=== PATIENT | male | born 1975 | race American Indian/Alaskan Native ===

== ENCOUNTER 2017-05-25 12:11 | Inpatient (IN) | payer OTHER ==
[2017-05-25] MEDS ORDERED: NACL 0.9% 1000 ML 1,000 ML IV ONE ×4 (12:52→18:39)
--- NOTE | 2017-05-25 12:57 | Emergency Department Report ---
ED Altered Mental Status HPI - General Stated Complaint: AMS Time Seen by Provider: 05/25/17 12:51 Source: EMS Limitations: Altered Mental Status - History of Present Illness Initial Comments: Patient is 42 years old male, transported from [facility] for evaluation of altered mental status and bradycardia. Only history available is schizophrenia. No other information can be obtained at this moment since patient is not communicating. MD Complaint: altered mental status, decreased responsiveness -: This morning Severity: moderate - Related Data Allergies Allergy/AdvReac Type Severity Reaction Status Date / Time risperidone [From Risperdal] Allergy Unknown Verified 05/25/17 13:34 ED Review of Systems ROS: Stated complaint: AMS Other details as noted in HPI Comment: Unobtainable due to pts medical conditions ED Physical Exam - General Limitations: Altered Mental Status General appearance: obtunded, other (patient open eyes but does not follow command) - Head Head exam: Present: atraumatic, normocephalic, normal inspection - Eye Eye exam: Present: normal appearance, PERRL - ENT ENT exam: Present: mucous membranes dry - Neck Neck exam: Present: normal inspection, full ROM. Absent: tenderness, meningismus, lymphadenopathy, thyromegaly - Respiratory Respiratory exam: Present: normal lung sounds bilaterally. Absent: respiratory distress, wheezes, rales, rhonchi, chest wall tenderness, accessory muscle use, decreased breath sounds, prolonged expiratory - Cardiovascular Cardiovascular Exam: Present: regular rate, normal rhythm, normal heart sounds - GI/Abdominal GI/Abdominal exam: Present: soft, normal bowel sounds. Absent: distended, tenderness, guarding, rebound, rigid, organomegaly, mass, bruit, pulsatile mass , hernia - Back Exam Back exam: Present: normal inspection, full ROM. Absent: tenderness, CVA tenderness (R), CVA tenderness (L) - Neurological Exam Neurological exam: Present: altered - Skin Skin exam: Present: dry, intact ED Course Vital Signs 05/25/17 05/25/17 13:21 15:12 Temperature 81.8 F L Pulse Rate 43 L Respiratory 18 Rate Blood Pressure 100/70 O2 Sat by Pulse 100 Oximetry - Lab Data Result diagrams: 05/25/17 13:32 05/25/17 13:32 Lab Results 05/25/17 05/25/17 05/25/17 Range/Units 12:57 13:32 13:32 WBC 6.4 (4.5-11.0) K/mm3 RBC 5.76 H (3.65-5.03) M/mm3 Hgb 14.4 (11.8-15.2) gm/dl Hct 44.4 (35.5-45.6) % MCV 77 L (84-94) fl MCH 25 L (28-32) pg MCHC 32 (32-34) % RDW 15.9 H (13.2-15.2) % Plt Count 48 L (140-440) K/mm3 [place] % (Auto) Manager English Eos % (Auto) Manager English [place] # Manager English Eos # Manager English Baso # Manager English Add Manual Diff Complete Total Counted 100 Seg Neutrophils % Manager English Seg Neuts % (Manual) 76.0 H (40.0-70.0) % Band Neutrophils % 22.0 % Lymphocytes % (Manual) 2.0 L (13.4-35.0) % Reactive Lymphs % (Man) 0 % Monocytes % (Manual) 0 (0.0-7.3) % Eosinophils % (Manual) 0 (0.0-4.3) % Basophils % (Manual) 0 (0.0-1.8) % Metamyelocytes % 0 % Myelocytes % 0 % Promyelocytes % 0 % Blast Cells % 0 % Nucleated RBC % Not Reportable Seg Neutrophils # Manager English Seg Neutrophils # Man 4.9 (1.8-7.7) K/mm3 Band Neutrophils # 1.4 K/mm3 Lymphocytes # (Manual) 0.1 L (1.2-5.4) K/mm3 Abs React Lymphs (Man) 0.0 K/mm3 Monocytes # (Manual) 0.0 (0.0-0.8) K/mm3 Eosinophils # (Manual) 0.0 (0.0-0.4) K/mm3 Basophils # (Manual) 0.0 (0.0-0.1) K/mm3 Metamyelocytes # 0.0 K/mm3 Myelocytes # 0.0 K/mm3 Promyelocytes # 0.0 K/mm3 Blast Cells # 0.0 K/mm3 WBC Morphology Not Reportable Hypersegmented Neuts Not Reportable Hyposegmented Neuts Not Reportable Hypogranular Neuts Not Reportable Smudge Cells Not Reportable Toxic Granulation Not Reportable Toxic Vacuolation Not Reportable Dohle Bodies Not Reportable Pelger-Huet Anomaly Not Reportable Evon Rods Not Reportable Platelet Estimate Not Reportable Clumped Platelets Not Reportable Plt Clumps, EDTA Not Reportable Large Platelets Not Reportable Giant Platelets Not Reportable Platelet Satelliting Not Reportable Plt Morphology Comment Not Reportable RBC Morphology Not Reportable Dimorphic RBCs Not Reportable Polychromasia Not Reportable Hypochromasia 1+ Poikilocytosis Not Reportable Anisocytosis 1+ Microcytosis Not Reportable Macrocytosis Not Reportable Spherocytes Not Reportable Pappenheimer Bodies Not Reportable Sickle Cells Not Reportable Target Cells Few Tear Drop Cells Not Reportable Ovalocytes Not Reportable Helmet Cells Not Reportable Castaneda-Emison Bodies Not Reportable [place] Rings Not Reportable [place] Cells Not Reportable Bite Cells Not Reportable Crenated Cell Not Reportable Elliptocytes Not Reportable Acanthocytes (Spur) Not Reportable Rouleaux Not Reportable Hemoglobin C Crystals Not Reportable Schistocytes Not Reportable Malaria parasites Not Reportable Michael Bodies Not Reportable Hem Pathologist Commnt No PT 14.5 (12.2-14.9) Sec. INR 1.07 (0.87-1.13) APTT 35.4 (24.2-36.6) Sec. Sodium (137-145) mmol/L Potassium (3.6-5.0) mmol/L Chloride (98-107) mmol/L Carbon Dioxide (22-30) mmol/L Anion Gap mmol/L BUN (9-20) mg/dL Creatinine (0.8-1.5) mg/dL Estimated GFR ml/min BUN/Creatinine Ratio % Glucose (75-100) mg/dL POC Glucose 101 (70-105) Lactic Acid (0.7-2.0) mmol/L Calcium (8.4-10.2) mg/dL Total Bilirubin (0.1-1.2) mg/dL AST (5-40) units/L ALT (7-56) units/L Alkaline Phosphatase (35-129) units/L Ammonia (25-60) umol/L Total Creatine Kinase (55-170) units/L Troponin T (0.00-0.029) ng/mL Total Protein (6.3-8.2) g/dL Albumin (3.9-5) g/dL Albumin/Globulin Ratio % Urine Color (Yellow) Urine Turbidity (Clear) Urine pH (5.0-7.0) Ur Specific [place] (1.003-1.030) Urine Protein (Negative) mg/dL Urine Glucose (UA) (Negative) mg/dL Urine Ketones (Negative) mg/dL Urine Blood (Negative) Urine Nitrite (Negative) Urine Bilirubin (Negative) Urine Urobilinogen (<2.0) mg/dL Ur Leukocyte Esterase (Negative) Urine WBC (Auto) (0.0-6.0) /HPF Urine RBC (Auto) (0.0-6.0) /HPF Hyaline Casts /LPF Urine Mucus /HPF Salicylates (2.8-20.0) mg/dL Urine Opiates Screen Urine Methadone Screen Acetaminophen (10.0-30.0) ug/mL Ur Barbiturates Screen Ur Phencyclidine Scrn Ur Amphetamines Screen U Benzodiazepines Scrn Urine Cocaine Screen U Marijuana (THC) Screen Drugs of Abuse Note Plasma/Serum Alcohol (0-0.07) % 05/25/17 05/25/17 05/25/17 Range/Units 13:32 13:32 13:32 WBC (4.5-11.0) K/mm3 RBC (3.65-5.03) M/mm3 Hgb (11.8-15.2) gm/dl Hct (35.5-45.6) % MCV (84-94) fl MCH (28-32) pg MCHC (32-34) % RDW (13.2-15.2) % Plt Count (140-440) K/mm3 [place] % (Auto) Eos % (Auto) [place] # Eos # Baso # Add Manual Diff Total Counted Seg Neutrophils % Seg Neuts % (Manual) (40.0-70.0) % Band Neutrophils % % Lymphocytes % (Manual) (13.4-35.0) % Reactive Lymphs % (Man) % Monocytes % (Manual) (0.0-7.3) % Eosinophils % (Manual) (0.0-4.3) % Basophils % (Manual) (0.0-1.8) % Metamyelocytes % % Myelocytes % % Promyelocytes % % Blast Cells % % Nucleated RBC % Seg Neutrophils # Seg Neutrophils # Man (1.8-7.7) K/mm3 Band Neutrophils # K/mm3 Lymphocytes # (Manual) (1.2-5.4) K/mm3 Abs React Lymphs (Man) K/mm3 Monocytes # (Manual) (0.0-0.8) K/mm3 Eosinophils # (Manual) (0.0-0.4) K/mm3 Basophils # (Manual) (0.0-0.1) K/mm3 Metamyelocytes # K/mm3 Myelocytes # K/mm3 Promyelocytes # K/mm3 Blast Cells # K/mm3 WBC Morphology Hypersegmented Neuts Hyposegmented Neuts Hypogranular Neuts Smudge Cells Toxic Granulation Toxic Vacuolation Dohle Bodies Pelger-Huet Anomaly Evon Rods Platelet Estimate Clumped Platelets Plt Clumps, EDTA Large Platelets Giant Platelets Platelet Satelliting Plt Morphology Comment RBC Morphology Dimorphic RBCs Polychromasia Hypochromasia Poikilocytosis Anisocytosis Microcytosis Macrocytosis Spherocytes Pappenheimer Bodies Sickle Cells Target Cells Tear Drop Cells Ovalocytes Helmet Cells Castaneda-Emison Bodies [place] Rings Gerda Cells Bite Cells Crenated Cell Elliptocytes Acanthocytes (Spur) Rouleaux Hemoglobin C Crystals Schistocytes Malaria parasites Michael Bodies Hem Pathologist Commnt PT (12.2-14.9) Sec. INR (0.87-1.13) APTT (24.2-36.6) Sec. Sodium 147 H (137-145) mmol/L Potassium 4.8 (3.6-5.0) mmol/L Chloride 109.4 H (98-107) mmol/L Carbon Dioxide 28 (22-30) mmol/L Anion Gap 14 mmol/L BUN 14 (9-20) mg/dL Creatinine 0.3 L (0.8-1.5) mg/dL Estimated GFR > 60 ml/min BUN/Creatinine Ratio 47 % Glucose 102 H (75-100) mg/dL POC Glucose (70-105) Lactic Acid 2.00 (0.7-2.0) mmol/L Calcium 9.8 (8.4-10.2) mg/dL Total Bilirubin 0.30 (0.1-1.2) mg/dL AST 111 H (5-40) units/L ALT 168 H (7-56) units/L Alkaline Phosphatase 83 (35-129) units/L Ammonia 33.0 (25-60) umol/L Total Creatine Kinase (55-170) units/L Troponin T < 0.010 (0.00-0.029) ng/mL Total Protein 5.8 L (6.3-8.2) g/dL Albumin 2.9 L (3.9-5) g/dL Albumin/Globulin Ratio 1.0 % Urine Color (Yellow) Urine Turbidity (Clear) Urine pH (5.0-7.0) Ur Specific [place] (1.003-1.030) Urine Protein (Negative) mg/dL Urine Glucose (UA) (Negative) mg/dL Urine Ketones (Negative) mg/dL Urine Blood (Negative) Urine Nitrite (Negative) Urine Bilirubin (Negative) Urine Urobilinogen (<2.0) mg/dL Ur Leukocyte Esterase (Negative) Urine WBC (Auto) (0.0-6.0) /HPF Urine RBC (Auto) (0.0-6.0) /HPF Hyaline Casts /LPF Urine Mucus /HPF Salicylates (2.8-20.0) mg/dL Urine Opiates Screen Urine Methadone Screen Acetaminophen (10.0-30.0) ug/mL Ur Barbiturates Screen Ur Phencyclidine Scrn Ur Amphetamines Screen U Benzodiazepines Scrn Urine Cocaine Screen U Marijuana (THC) Screen Drugs of Abuse Note Plasma/Serum Alcohol (0-0.07) % 05/25/17 05/25/17 05/25/17 Range/Units 13:32 13:32 13:32 WBC (4.5-11.0) K/mm3 RBC (3.65-5.03) M/mm3 Hgb (11.8-15.2) gm/dl Hct (35.5-45.6) % MCV (84-94) fl MCH (28-32) pg MCHC (32-34) % RDW (13.2-15.2) % Plt Count (140-440) K/mm3 [place] % (Auto) Eos % (Auto) [place] # Eos # Baso # Add Manual Diff Total Counted Seg Neutrophils % Seg Neuts % (Manual) (40.0-70.0) % Band Neutrophils % % Lymphocytes % (Manual) (13.4-35.0) % Reactive Lymphs % (Man) % Monocytes % (Manual) (0.0-7.3) % Eosinophils % (Manual) (0.0-4.3) % Basophils % (Manual) (0.0-1.8) % Metamyelocytes % % Myelocytes % % Promyelocytes % % Blast Cells % % Nucleated RBC % Seg Neutrophils # Seg Neutrophils # Man (1.8-7.7) K/mm3 Band Neutrophils # K/mm3 Lymphocytes # (Manual) (1.2-5.4) K/mm3 Abs React Lymphs (Man) K/mm3 Monocytes # (Manual) (0.0-0.8) K/mm3 Eosinophils # (Manual) (0.0-0.4) K/mm3 Basophils # (Manual) (0.0-0.1) K/mm3 Metamyelocytes # K/mm3 Myelocytes # K/mm3 Promyelocytes # K/mm3 Blast Cells # K/mm3 WBC Morphology Hypersegmented Neuts Hyposegmented Neuts Hypogranular Neuts Smudge Cells Toxic Granulation Toxic Vacuolation Dohle Bodies Pelger-Huet Anomaly Evon Rods Platelet Estimate Clumped Platelets Plt Clumps, EDTA Large Platelets Giant Platelets Platelet Satelliting Plt Morphology Comment RBC Morphology Dimorphic RBCs Polychromasia Hypochromasia Poikilocytosis Anisocytosis Microcytosis Macrocytosis Spherocytes Pappenheimer Bodies Sickle Cells Target Cells Tear Drop Cells Ovalocytes Helmet Cells Castaneda-Emison Bodies [place] Rings [place] Cells Bite Cells Crenated Cell Elliptocytes Acanthocytes (Spur) Rouleaux Hemoglobin C Crystals Schistocytes Malaria parasites Michael Bodies Hem Pathologist Commnt PT (12.2-14.9) Sec. INR (0.87-1.13) APTT (24.2-36.6) Sec. Sodium (137-145) mmol/L Potassium (3.6-5.0) mmol/L Chloride (98-107) mmol/L Carbon Dioxide (22-30) mmol/L Anion Gap mmol/L BUN (9-20) mg/dL Creatinine (0.8-1.5) mg/dL Estimated GFR ml/min BUN/Creatinine Ratio % Glucose (75-100) mg/dL POC Glucose (70-105) Lactic Acid (0.7-2.0) mmol/L Calcium (8.4-10.2) mg/dL Total Bilirubin (0.1-1.2) mg/dL AST (5-40) units/L ALT (7-56) units/L Alkaline Phosphatase (35-129) units/L Ammonia (25-60) umol/L Total Creatine Kinase (55-170) units/L Troponin T (0.00-0.029) ng/mL Total Protein (6.3-8.2) g/dL Albumin (3.9-5) g/dL Albumin/Globulin Ratio % Urine Color (Yellow) Urine Turbidity (Clear) Urine pH (5.0-7.0) Ur Specific [place] (1.003-1.030) Urine Protein (Negative) mg/dL Urine Glucose (UA) (Negative) mg/dL Urine Ketones (Negative) mg/dL Urine Blood (Negative) Urine Nitrite (Negative) Urine Bilirubin (Negative) Urine Urobilinogen (<2.0) mg/dL Ur Leukocyte Esterase (Negative) Urine WBC (Auto) (0.0-6.0) /HPF Urine RBC (Auto) (0.0-6.0) /HPF Hyaline Casts /LPF Urine Mucus /HPF Salicylates < 0.3 L (2.8-20.0) mg/dL Urine Opiates Screen Urine Methadone Screen Acetaminophen 15.0 (10.0-30.0) ug/mL Ur Barbiturates Screen Ur Phencyclidine Scrn Ur Amphetamines Screen U Benzodiazepines Scrn Urine Cocaine Screen U Marijuana (THC) Screen Drugs of Abuse Note Plasma/Serum Alcohol < 0.01 (0-0.07) % 05/25/17 05/25/17 05/25/17 Range/Units 13:32 14:11 14:11 WBC (4.5-11.0) K/mm3 RBC (3.65-5.03) M/mm3 Hgb (11.8-15.2) gm/dl Hct (35.5-45.6) % MCV (84-94) fl MCH (28-32) pg MCHC (32-34) % RDW (13.2-15.2) % Plt Count (140-440) K/mm3 [place] % (Auto) Eos % (Auto) [place] # Eos # Baso # Add Manual Diff Total Counted Seg Neutrophils % Seg Neuts % (Manual) (40.0-70.0) % Band Neutrophils % % Lymphocytes % (Manual) (13.4-35.0) % Reactive Lymphs % (Man) % Monocytes % (Manual) (0.0-7.3) % Eosinophils % (Manual) (0.0-4.3) % Basophils % (Manual) (0.0-1.8) % Metamyelocytes % % Myelocytes % % Promyelocytes % % Blast Cells % % Nucleated RBC % Seg Neutrophils # Seg Neutrophils # Man (1.8-7.7) K/mm3 Band Neutrophils # K/mm3 Lymphocytes # (Manual) (1.2-5.4) K/mm3 Abs React Lymphs (Man) K/mm3 Monocytes # (Manual) (0.0-0.8) K/mm3 Eosinophils # (Manual) (0.0-0.4) K/mm3 Basophils # (Manual) (0.0-0.1) K/mm3 Metamyelocytes # K/mm3 Myelocytes # K/mm3 Promyelocytes # K/mm3 Blast Cells # K/mm3 WBC Morphology Hypersegmented Neuts Hyposegmented Neuts Hypogranular Neuts Smudge Cells Toxic Granulation Toxic Vacuolation Dohle Bodies Pelger-Huet Anomaly Evon Rods Platelet Estimate Clumped Platelets Plt Clumps, EDTA Large Platelets Giant Platelets Platelet Satelliting Plt Morphology Comment RBC Morphology Dimorphic RBCs Polychromasia Hypochromasia Poikilocytosis Anisocytosis Microcytosis Macrocytosis Spherocytes Pappenheimer Bodies Sickle Cells Target Cells Tear Drop Cells Ovalocytes Helmet Cells Castaneda-Emison Bodies [place] Rings Gerda Cells Bite Cells Crenated Cell Elliptocytes Acanthocytes (Spur) Rouleaux Hemoglobin C Crystals Schistocytes Malaria parasites Michael Bodies Hem Pathologist Commnt PT (12.2-14.9) Sec. INR (0.87-1.13) APTT (24.2-36.6) Sec. Sodium (137-145) mmol/L Potassium (3.6-5.0) mmol/L Chloride (98-107) mmol/L Carbon Dioxide (22-30) mmol/L Anion Gap mmol/L BUN (9-20) mg/dL Creatinine (0.8-1.5) mg/dL Estimated GFR ml/min BUN/Creatinine Ratio % Glucose (75-100) mg/dL POC Glucose (70-105) Lactic Acid (0.7-2.0) mmol/L Calcium (8.4-10.2) mg/dL Total Bilirubin (0.1-1.2) mg/dL AST (5-40) units/L ALT (7-56) units/L Alkaline Phosphatase (35-129) units/L Ammonia (25-60) umol/L Total Creatine Kinase 360 H (55-170) units/L Troponin T (0.00-0.029) ng/mL Total Protein (6.3-8.2) g/dL Albumin (3.9-5) g/dL Albumin/Globulin Ratio % Urine Color Yellow (Yellow) Urine Turbidity Clear (Clear) Urine pH 5.0 (5.0-7.0) Ur Specific [place] 1.025 (1.003-1.030) Urine Protein <15 mg/dl (Negative) mg/dL Urine Glucose (UA) 50 (Negative) mg/dL Urine Ketones Neg (Negative) mg/dL Urine Blood Neg (Negative) Urine Nitrite Neg (Negative) Urine Bilirubin Neg (Negative) Urine Urobilinogen < 2.0 (<2.0) mg/dL Ur Leukocyte Esterase Neg (Negative) Urine WBC (Auto) 3.0 (0.0-6.0) /HPF Urine RBC (Auto) 2.0 (0.0-6.0) /HPF Hyaline Casts 1 /LPF Urine Mucus Few /HPF Salicylates (2.8-20.0) mg/dL Urine Opiates Screen Presumptive negative Urine Methadone Screen Presumptive negative Acetaminophen (10.0-30.0) ug/mL Ur Barbiturates Screen Presumptive negative Ur Phencyclidine Scrn Presumptive negative Ur Amphetamines Screen Presumptive negative U Benzodiazepines Scrn Presumptive negative Urine Cocaine Screen Presumptive negative U Marijuana (THC) Screen Presumptive negative Drugs of Abuse Note Disclamer Plasma/Serum Alcohol (0-0.07) % - EKG Data -: EKG Interpreted by Me Rate: bradycardia Interpretation: no acute changes - Radiology Data Radiology results: report reviewed Referring Physician: FAISAL JAY Patient Name: ANJEL LEON Date of : 1975 Sex: Male Report Date: 2017-05-25 Report Status: Finalized Findings [facility] [address] [place] [address] XRay Report Signed Patient: ANJEL LEON MR#: [id number] : 1975 Acct:[id number] Age/Sex: 42 / M ADM Date: 05/25/17 Loc: ED Attending Dr: Ordering Physician: FAISAL JAY Date of Service: 05/25/17 Procedure(s): XR chest 1V ap Accession Number(s): [id number] cc: FAISAL JAY Fluoro Time In Minutes: AP CHEST: HISTORY: Altered mental status No comparison. Patchy infiltrates are identified in both lower lung zones, right greater than left. Bilateral pneumonia or aspiration should be considered. No evidence for pleural effusion or pneumothorax. Heart size is within normal limits. Normal bony structures. IMPRESSION: Bilateral lower lobe infiltrates, right greater than left. Transcribed By: TTR Dictated By: ITZ LUJAN JR, MD Electronically Authenticated By: ITZ LUJAN JR, MD Signed Date/Time: 05/25/171355 DD/ 55 TD/TT: 05/25/171355 - Medical Decision Making Discussed with Dr. Loepz, I presented the patient in, he agreed to admit to his service.. Critical Care Time: Yes Critical care time in (mins) excluding proc time.: 30 Critical care attestation.: If time is entered above; I have spent that time in minutes in the direct care of this critically ill patient, excluding procedure time. ED Disposition Clinical Impression: Altered mental status, Pneumonia of both lower lobes Disposition: -09 OP ADMIT IP TO THIS HOSP Is pt being admited?: Yes Condition: Stable Instructions: Bacterial Pneumonia (ED) Referrals: PRIMARY CARE, [Primary Care Provider] - 3-5 Days
[2017-05-25 13:59] LABS: Alanine Aminotransferase 168 units/L (7-56); Albumin 2.9 g/dL (3.9-5); BUN/Creatinine Ratio 47; Blood Urea Nitrogen 14 mg/dL (9-20); Calcium 9.8 mg/dL (8.4-10.2); Hemolysis Index 87
--- NOTE | 2017-05-25 14:03 | XRay Report ---
AP CHEST: HISTORY: Altered mental status No comparison. Patchy infiltrates are identified in both lower lung zones, right greater than left. Bilateral pneumonia or aspiration should be considered. No evidence for pleural effusion or pneumothorax. Heart size is within normal limits. Normal bony structures. IMPRESSION: Bilateral lower lobe infiltrates, right greater than left.
[2017-05-25 14:05] LABS: Hematocrit 44.4 % (35.5-45.6); Hemoglobin 14.4 gm/dl (11.8-15.2); Mean Corpuscular HGB Conc 32 % (32-34); Mean Corpuscular Hemoglobin 25 pg (28-32); Mean Corpuscular Volume 77 fl (84-94); Red Blood Count 5.76 M/mm3 (3.65-5.03); Red Cell Distribution Width 15.9 % (13.2-15.2)
[2017-05-25 14:14] LABS: INR 1.07 (0.87-1.13)
[2017-05-25 14:15] LABS: Partial Thromboplastin Time 35.4 Sec. (24.2-36.6)
[2017-05-25 14:44] LABS: Anisocytosis 1+; Band Neutrophils # (Manual) 1.4 K/mm3; Basophils % (Manual) 0 % (0.0-1.8); Eosinophils % (Manual) 0 % (0.0-4.3); Hypochromasia 1+; Monocytes % (Manual) 0 % (0.0-7.3); Target Cells Few; Total Cells Counted 100
[2017-05-25 14:45] LABS: Platelet Count 48 K/mm3 (140-440)
[2017-05-25 14:46] LABS: Amphetamine Screen,Urine PRESUMPTIVE NEGATIVE; Benzodiazepines Screen,Urine PRESUMPTIVE NEGATIVE; Cannabinoid Screen,Urine PRESUMPTIVE NEGATIVE; Cocaine Screen,Urine PRESUMPTIVE NEGATIVE; Methadone Screen,Urine PRESUMPTIVE NEGATIVE; Opiate Screen,Urine PRESUMPTIVE NEGATIVE
[2017-05-25 14:48] LABS: Bilirubin,Urine NEG (Negative); Blood,Urine NEG (Negative); Color,Urine Yellow (Yellow); Hyaline Casts,Urine 1 /LPF; Mucus,Urine FEW /HPF; Protein,Urine <15 mg/dL mg/dL (Negative); Urobilinogen,Urine < 2.0 mg/dL (<2.0)
[2017-05-25] MEDS ORDERED: LEVAQUIN 750MG/150ML 750 MG/150 ML BAG IV ONE (15:07)
[2017-05-25] MEDS ORDERED: NACL 0.9% 1000 ML 1,000 ML ONE (15:53)
[2017-05-25] MEDS ORDERED: NACL 0.9% 1000 ML 2,000 ML ONE (16:47)
--- NOTE | 2017-05-25 17:51 | Cat Scan Report ---
FINAL REPORT PROCEDURE: CT HEAD/BRAIN WO CON TECHNIQUE: Computerized tomography of the head was performed without contrast material. DLP 1919.30 mGy-cm. HISTORY: Altered Mental Status COMPARISON: No prior studies are available for comparison. FINDINGS: Skull and scalp: Normal. Paranasal sinuses: Mild scattered ethmoid sinusitis. Ventricles and subarachnoid spaces: Normal. Cerebrum: No evidence of hemorrhage, acute infarction or mass . Cerebellum and brainstem: No evidence of hemorrhage, acute infarction or mass. Vasculature: Normal. Comments: None. IMPRESSION: No CT evidence of acute intracranial pathology. Consider MRI of the brain for further characterization if there is continued clinical concern and if patient has no contraindication MRI. Mild sinusitis.
[2017-05-25] MEDS ORDERED: NACL 0.9% 1000 ML 1,000 ML IV SCH (22:00)
--- NOTE | 2017-05-25 23:52 | History and Physical Report ---
History of Present Illness Date of examination: 05/25/17 Date of admission: 05/25/17 Chief complaint: CC AMS for 1 day History of present illness: History of Present Illness Patient is 42 years old AA male, from jail for evaluation of altered mental status and bradycardia. Also Hypothermic Only history available is schizophrenia. No other information can be obtained at this moment since patient is not communicating.No fever or chills per [facility] staff MD Complaint: altered mental status, decreased responsiveness -: This morning Severity: moderate Past History Past Medical History: No medical history, other (Schizophrenia) Past Surgical History: No surgical history Social history: no significant social history, smoking, full code, other (In Jail system at this point) Family history: no significant family history Medications and Allergies Allergies Allergy/AdvReac Type Severity Reaction Status Date / Time risperidone [From Risperdal] Allergy Unknown Verified 05/25/17 13:34 Home Medications Medication Instructions Recorded Confirmed Last Taken Type Benztropine [Cogentin] 1 mg PO DAILY 05/25/17 05/25/17 05/24/17 History Olanzapine [Zyprexa] 15 mg PO DAILY 05/25/17 05/25/17 05/24/17 History Active Meds: Active Medications Sodium Chloride (Nacl 0.9% 1000 Ml) 1,000 mls @ 100 mls/hr IV DIRECT RICCARDO Review of Systems All systems: negative Constitutional: fatigue, weakness, malaise, lethargy, poor appetite, no weight loss, no weight gain, no fever, no chills, no sweats, no night sweats Ears, nose, mouth and throat: no dysphagia, no hoarseness, no sore throat Cardiovascular: no chest pain, no orthopnea, no palpitations, no rapid/ irregular heart beat, no edema, no syncope, no lightheadedness, no shortness of breath Respiratory: cough with sputum Gastrointestinal: no abdominal pain, no nausea, no vomiting, no diarrhea Genitourinary Male: no dysuria, no hematuria, no flank pain, no discharge Musculoskeletal: no neck stiffness, no neck pain, no shooting arm pain, no arm numbness/tingling Integumentary: no rash, no pruritis, no redness, no sores, no wounds, no jaundice, no boils, no blisters Neurological: no seizures, no syncope Psychiatric: anxiety, disorientation, no suicidal ideation, no hallucinations Endocrine: no cold intolerance, no heat intolerance, no polyphagia, no excessive thirst, no polydipsia Hematologic/Lymphatic: no easy bruising, no easy bleeding Allergic/Immunologic: no urticaria, no allergic rhinitis, no wheezing Exam - Physical Exam Narrative exam: Lethargic decreased responsiveness - Constitutional Vitals: Temp Pulse Resp BP Pulse Ox 80 F L 100 H 38 H 76/42 91 05/25/17 17:04 05/25/17 21:00 05/25/17 21:00 05/25/17 21:00 05/25/17 21:00 General appearance: Present: no acute distress, well-nourished, disheveled - EENT Eyes: Present: PERRL ENT: hearing intact, clear oral mucosa - Neck Neck: Present: supple, normal ROM - Respiratory Respiratory effort: normal Respiratory: bilateral: CTA, rales - Cardiovascular Heart rate: 86 Rhythm: regular Heart Sounds: Present: S1 & S2. Absent: rub, click - Extremities Extremities: no ischemia, pulses intact, pulses symmetrical, No edema Peripheral Pulses: within normal limits - Abdominal General gastrointestinal: Present: soft, non-tender, non-distended, normal bowel sounds Male genitourinary: Present: normal - Rectal Rectal Exam: stool brown - Integumentary Integumentary: Present: clear, warm, dry - Musculoskeletal Musculoskeletal: generalized weakness - Psychiatric Psychiatric: appropriate mood/affect, intact judgment & insight - Neurologic Neurologic: CNII-XII intact, moves all extremities - Allied Health Allied health notes reviewed: nursing, case management Results - Labs CBC & Chem 7: 05/26/17 00:47 05/26/17 00:47 Labs: Laboratory Last Values WBC 6.4 K/mm3 (4.5-11.0) 05/25/17 13:32 RBC 5.76 M/mm3 (3.65-5.03) H 05/25/17 13:32 Hgb 14.4 gm/dl (11.8-15.2) 05/25/17 13:32 Hct 44.4 % (35.5-45.6) 05/25/17 13:32 MCV 77 fl (84-94) L 05/25/17 13:32 MCH 25 pg (28-32) L 05/25/17 13:32 MCHC 32 % (32-34) 05/25/17 13:32 RDW 15.9 % (13.2-15.2) H 05/25/17 13:32 Plt Count 48 K/mm3 (140-440) L 05/25/17 13:32 [place] % (Auto) Manager Budget 05/25/17 13:32 Eos % (Auto) Manager Budget 05/25/17 13:32 [place] # Manager Budget 05/25/17 13:32 Eos # Manager Budget 05/25/17 13:32 Baso # Manager Budget 05/25/17 13:32 Add Manual Diff Complete 05/25/17 13:32 Total Counted 100 05/25/17 13:32 Seg Neutrophils % Manager Budget 05/25/17 13:32 Seg Neuts % (Manual) 76.0 % (40.0-70.0) H 05/25/17 13:32 Band Neutrophils % 22.0 % 05/25/17 13:32 Lymphocytes % (Manual) 2.0 % (13.4-35.0) L 05/25/17 13:32 Reactive Lymphs % (Man) 0 % 05/25/17 13:32 Monocytes % (Manual) 0 % (0.0-7.3) 05/25/17 13:32 Eosinophils % (Manual) 0 % (0.0-4.3) 05/25/17 13:32 Basophils % (Manual) 0 % (0.0-1.8) 05/25/17 13:32 Metamyelocytes % 0 % 05/25/17 13:32 Myelocytes % 0 % 05/25/17 13:32 Promyelocytes % 0 % 05/25/17 13:32 Blast Cells % 0 % 05/25/17 13:32 Nucleated RBC % Not Reportable 05/25/17 13:32 Seg Neutrophils # Manager Budget 05/25/17 13:32 Seg Neutrophils # Man 4.9 K/mm3 (1.8-7.7) 05/25/17 13:32 Band Neutrophils # 1.4 K/mm3 05/25/17 13:32 Lymphocytes # (Manual) 0.1 K/mm3 (1.2-5.4) L 05/25/17 13:32 Abs React Lymphs (Man) 0.0 K/mm3 05/25/17 13:32 Monocytes # (Manual) 0.0 K/mm3 (0.0-0.8) 05/25/17 13:32 Eosinophils # (Manual) 0.0 K/mm3 (0.0-0.4) 05/25/17 13:32 Basophils # (Manual) 0.0 K/mm3 (0.0-0.1) 05/25/17 13:32 Metamyelocytes # 0.0 K/mm3 05/25/17 13:32 Myelocytes # 0.0 K/mm3 05/25/17 13:32 Promyelocytes # 0.0 K/mm3 05/25/17 13:32 Blast Cells # 0.0 K/mm3 05/25/17 13:32 WBC Morphology Not Reportable 05/25/17 13:32 Hypersegmented Neuts Not Reportable 05/25/17 13:32 Hyposegmented Neuts Not Reportable 05/25/17 13:32 Hypogranular Neuts Not Reportable 05/25/17 13:32 Smudge Cells Not Reportable 05/25/17 13:32 Toxic Granulation Not Reportable 05/25/17 13:32 Toxic Vacuolation Not Reportable 05/25/17 13:32 Dohle Bodies Not Reportable 05/25/17 13:32 Pelger-Huet Anomaly Not Reportable 05/25/17 13:32 Evon Rods Not Reportable 05/25/17 13:32 Platelet Estimate Not Reportable 05/25/17 13:32 Clumped Platelets Not Reportable 05/25/17 13:32 Plt Clumps, EDTA Not Reportable 05/25/17 13:32 Large Platelets Not Reportable 05/25/17 13:32 Giant Platelets Not Reportable 05/25/17 13:32 Platelet Satelliting Not Reportable 05/25/17 13:32 Plt Morphology Comment Not Reportable 05/25/17 13:32 RBC Morphology Not Reportable 05/25/17 13:32 Dimorphic RBCs Not Reportable 05/25/17 13:32 Polychromasia Not Reportable 05/25/17 13:32 Hypochromasia 1+ 05/25/17 13:32 Poikilocytosis Not Reportable 05/25/17 13:32 Anisocytosis 1+ 05/25/17 13:32 Microcytosis Not Reportable 05/25/17 13:32 Macrocytosis Not Reportable 05/25/17 13:32 Spherocytes Not Reportable 05/25/17 13:32 Pappenheimer Bodies Not Reportable 05/25/17 13:32 Sickle Cells Not Reportable 05/25/17 13:32 Target Cells Few 05/25/17 13:32 Tear Drop Cells Not Reportable 05/25/17 13:32 Ovalocytes Not Reportable 05/25/17 13:32 Helmet Cells Not Reportable 05/25/17 13:32 Castaneda-Gaastra Bodies Not Reportable 05/25/17 13:32 [place] Rings Not Reportable 05/25/17 13:32 Gerda Cells Not Reportable 05/25/17 13:32 Bite Cells Not Reportable 05/25/17 13:32 Crenated Cell Not Reportable 05/25/17 13:32 Elliptocytes Not Reportable 05/25/17 13:32 Acanthocytes (Spur) Not Reportable 05/25/17 13:32 Rouleaux Not Reportable 05/25/17 13:32 Hemoglobin C Crystals Not Reportable 05/25/17 13:32 Schistocytes Not Reportable 05/25/17 13:32 Malaria parasites Not Reportable 05/25/17 13:32 Michael Bodies Not Reportable 05/25/17 13:32 Hem Pathologist Commnt No 05/25/17 13:32 PT 14.5 Sec. (12.2-14.9) 05/25/17 13:32 INR 1.07 (0.87-1.13) 05/25/17 13:32 APTT 35.4 Sec. (24.2-36.6) 05/25/17 13:32 Sodium 147 mmol/L (137-145) H 05/25/17 13:32 Potassium 4.8 mmol/L (3.6-5.0) 05/25/17 13:32 Chloride 109.4 mmol/L (98-107) H 05/25/17 13:32 Carbon Dioxide 28 mmol/L (22-30) 05/25/17 13:32 Anion Gap 14 mmol/L 05/25/17 13:32 BUN 14 mg/dL (9-20) 05/25/17 13:32 Creatinine 0.3 mg/dL (0.8-1.5) L 05/25/17 13:32 Estimated GFR > 60 ml/min 05/25/17 13:32 BUN/Creatinine Ratio 47 % 05/25/17 13:32 Glucose 102 mg/dL (75-100) H 05/25/17 13:32 POC Glucose 101 (70-105) 05/25/17 12:57 Lactic Acid 1.90 mmol/L (0.7-2.0) 05/25/17 17:56 Calcium 9.8 mg/dL (8.4-10.2) 05/25/17 13:32 Total Bilirubin 0.30 mg/dL (0.1-1.2) 05/25/17 13:32 AST 111 units/L (5-40) H 05/25/17 13:32 ALT 168 units/L (7-56) H 05/25/17 13:32 Alkaline Phosphatase 83 units/L (35-129) 05/25/17 13:32 Ammonia 33.0 umol/L (25-60) 05/25/17 13:32 Total Creatine Kinase 360 units/L (55-170) H 05/25/17 13:32 Troponin T < 0.010 ng/mL (0.00-0.029) 05/25/17 13:32 Total Protein 5.8 g/dL (6.3-8.2) L 05/25/17 13:32 Albumin 2.9 g/dL (3.9-5) L 05/25/17 13:32 Albumin/Globulin Ratio 1.0 % 05/25/17 13:32 Urine Color Yellow (Yellow) 05/25/17 14:11 Urine Turbidity Clear (Clear) 05/25/17 14:11 Urine pH 5.0 (5.0-7.0) 05/25/17 14:11 Ur Specific [place] 1.025 (1.003-1.030) 05/25/17 14:11 Urine Protein <15 mg/dl mg/dL (Negative) 05/25/17 14:11 Urine Glucose (UA) 50 mg/dL (Negative) 05/25/17 14:11 Urine Ketones Neg mg/dL (Negative) 05/25/17 14:11 Urine Blood Neg (Negative) 05/25/17 14:11 Urine Nitrite Neg (Negative) 05/25/17 14:11 Urine Bilirubin Neg (Negative) 05/25/17 14:11 Urine Urobilinogen < 2.0 mg/dL (<2.0) 05/25/17 14:11 Ur Leukocyte Esterase Neg (Negative) 05/25/17 14:11 Urine WBC (Auto) 3.0 /HPF (0.0-6.0) 05/25/17 14:11 Urine RBC (Auto) 2.0 /HPF (0.0-6.0) 05/25/17 14:11 Hyaline Casts 1 /LPF 05/25/17 14:11 Urine Mucus Few /HPF 05/25/17 14:11 Salicylates < 0.3 mg/dL (2.8-20.0) L 05/25/17 13:32 Urine Opiates Screen Presumptive negative 05/25/17 14:11 Urine Methadone Screen Presumptive negative 05/25/17 14:11 Acetaminophen < 15.0 ug/mL (10.0-30.0) 05/25/17 13:32 Ur Barbiturates Screen Presumptive negative 05/25/17 14:11 Ur Phencyclidine Scrn Presumptive negative 05/25/17 14:11 Ur Amphetamines Screen Presumptive negative 05/25/17 14:11 U Benzodiazepines Scrn Presumptive negative 05/25/17 14:11 Urine Cocaine Screen Presumptive negative 05/25/17 14:11 U Marijuana (THC) Screen Presumptive negative 05/25/17 14:11 Drugs of Abuse Note Disclamer 05/25/17 14:11 Plasma/Serum Alcohol < 0.01 % (0-0.07) 05/25/17 13:32 Short CBC 05/25/17 05/26/17 Range/Units 13:32 00:47 WBC 6.4 2.1 L (4.5-11.0) K/mm3 Hgb 14.4 13.1 (11.8-15.2) gm/dl Hct 44.4 39.2 (35.5-45.6) % Plt Count 48 L 51 L (140-440) K/mm3 BMP 05/25/17 05/26/17 13:32 00:47 Sodium 147 H 148 H Potassium 4.8 4.5 Chloride 109.4 H 112.6 H Carbon Dioxide 28 25 BUN 14 19 Creatinine 0.3 L 0.8 D Glucose 102 H 33 L* Calcium 9.8 8.7 Cardiac Enzymes 05/25/17 05/25/17 Range/Units 13:32 13:32 Total Creatine Kinase 360 H (55-170) units/L Troponin T < 0.010 (0.00-0.029) ng/mL Liver Function 05/25/17 05/26/17 Range/Units 13:32 00:47 Total Bilirubin 0.30 0.30 (0.1-1.2) mg/dL AST 111 H 85 H (5-40) units/L ALT 168 H 127 H (7-56) units/L Alkaline Phosphatase 83 55 (35-129) units/L Albumin 2.9 L 2.4 L (3.9-5) g/dL Urine 05/25/17 Range/Units 14:11 Urine Color Yellow (Yellow) Urine pH 5.0 (5.0-7.0) Ur Specific [place] 1.025 (1.003-1.030) Urine Protein <15 mg/dl (Negative) mg/dL Urine Glucose (UA) 50 (Negative) mg/dL - Imaging and Cardiology EKG: report reviewed Chest x-ray: report reviewed (Bilateral lower lobe infiltrates) CT Scan - head: report reviewed (NAF) Assessment and Plan Assessment and plan: The high probability of a clinically significant, sudden or life threatening deterioration of the [Pulmonary, cadiac, renal] system(s) required my full and direct attention, intervention and personal management. The aggregate critical care time was [35] minutes. This time is in addition to time spent performing reported procedures but includes the following: [x] Data Review and interpretation [x] Patient assessment and monitoring of vital signs [x] Documentation [x] Medication orders and management Advance Directives: Yes (Full code) VTE prophylaxis?: Chemical Plan of care discussed with patient/family: Yes - Patient Problems (1) Acute encephalopathy Current Visit: Yes Status: Acute Plan to address problem: Sec to Sepsis sec to PNA treat infection agressively IV fluids for now (2) Pneumonia of both lower lobes Current Visit: Yes Status: Acute Qualifiers: Pneumonia type: aspiration pneumonia Aspiration pneumonia type: due to gastric secretions Qualified Code(s): J69.0 - Pneumonitis due to inhalation of food and vomit Plan to address problem: Aspiration possible IV Zosyn and Vancomysin ID consult requested (3) Hypotension Current Visit: Yes Status: Acute Qualifiers: Hypotension type: unspecified hypotension type Qualified Code(s): I95.9 - Hypotension, unspecified Plan to address problem: Sec to sepsis Initiated on Levophed after 4 fluid boluses of NS-BP still in 70 systolic (4) Hypothermia Current Visit: Yes Status: Acute Qualifiers: Encounter type: initial encounter Qualified Code(s): T68.XXXA - Hypothermia , initial encounter Plan to address problem: Sec to sepsis Warm blanket to increase temp and IV Abx (5) Schizophrenia Current Visit: Yes Status: Chronic Plan to address problem: MH consult (6) DVT prophylaxis Current Visit: Yes Status: Acute Plan to address problem: On Lovenox (7) Hypernatremia Current Visit: Yes Status: Acute Plan to address problem: Mild Change to Half normal saline
[2017-05-26] MEDS ORDERED: ZOFRAN IV PRN (00:15)
[2017-05-26] MEDS ORDERED: DULCOLAX PR PRN (00:15)
[2017-05-26] MEDS ORDERED: MILK OF MAGNESIA PO PRN (00:15)
[2017-05-26] MEDS ORDERED: TYLENOL PO PRN (00:15)
[2017-05-26] MEDS ORDERED: VANCOMYCIN/NS 1 GM/250 ML 1 GM/250 ML BAG IV ONE (00:20)
[2017-05-26] MEDS ORDERED: MORPHINE IV PRN (00:34)
[2017-05-26] MEDS: LEVOPHED DRIP 4 MG/NS 250 ML 4 MG/250 ML BAG IV SCH ×4 (00:45→21:35)
[2017-05-26] MEDS ORDERED: VANCOMYCIN PHARMACY TO DOSE IV SCH ×2 (01:00→16:00)
[2017-05-26] MEDS ORDERED: D5NS 1,000 ML IV SCH (01:00)
[2017-05-26] MEDS ORDERED: VANCOMYCIN 1,250 MG in NACL 0.9% 250ML 250 ML IV ONE (01:00)
[2017-05-26] MEDS: ZOSYN/NS 4.5GM/100ML 4.5 GM/100 ML VIAL IV SCH ×3 (01:25→18:51)
[2017-05-26 01:29] LABS: Alanine Aminotransferase 127 units/L (7-56); Albumin 2.4 g/dL (3.9-5); BUN/Creatinine Ratio 24; Blood Urea Nitrogen 19 mg/dL (9-20); Calcium 8.7 mg/dL (8.4-10.2); Hemolysis Index 10
[2017-05-26 01:41] LABS: Hematocrit 39.2 % (35.5-45.6); Hemoglobin 13.1 gm/dl (11.8-15.2); Mean Corpuscular HGB Conc 34 % (32-34); Mean Corpuscular Volume 75 fl (84-94); Red Blood Count 5.23 M/mm3 (3.65-5.03); Red Cell Distribution Width 15.6 % (13.2-15.2)
[2017-05-26 01:48] LABS: Mean Corpuscular Hemoglobin 25 pg (28-32)
[2017-05-26 01:49] LABS: Platelet Count 51 K/mm3 (140-440)
[2017-05-26 05:52] LABS: Anisocytosis 1+; Band Neutrophils # (Manual) 1.4 K/mm3; Basophils % (Manual) 0 % (0.0-1.8); Eosinophils % (Manual) 0 % (0.0-4.3); Hypochromasia 1+; Monocytes % (Manual) 0 % (0.0-7.3); Total Cells Counted 100
[2017-05-26 05:53] LABS: Large Platelets Rare; Platelet Estimate Consistent w Auto
[2017-05-26] MEDS ORDERED: D50W (25GM) Syringe IV ONE ×6 (06:05→20:23)
[2017-05-26] MEDS: D5/0.45NS 1,000 ML IV SCH ×2 (06:12→15:18)
--- NOTE | 2017-05-26 11:00 | Consultation ---
History of Present Illness - Reason for Consult Consult date: 05/26/17 Sepsis with shock Requesting physician: CHANEL PIEDRA - History of Present Illness 42 y/o male prisoner, found altered in his cell. Brought in to ED, hypotensive , hypothermic, hypoglycemic, thrombocytopenic and altered. Answers to name call but cannot speak coherently. Currently on levophed through a peripheral line. Started on Vanc and Zosyn. No other history is obtainable. Past History Past Medical History: No medical history, other (Schizophrenia) Past Surgical History: No surgical history Social history: no significant social history, smoking, full code, other (In [facility] system at this point) Family history: no significant family history Medications and Allergies Allergies Allergy/AdvReac Type Severity Reaction Status Date / Time risperidone [From Risperdal] Allergy Unknown Verified 05/25/17 13:34 Home Medications Medication Instructions Recorded Confirmed Last Taken Type Benztropine [Cogentin] 1 mg PO DAILY 05/25/17 05/25/17 05/24/17 History Olanzapine [Zyprexa] 15 mg PO DAILY 05/25/17 05/25/17 05/24/17 History Active Meds: Active Medications Acetaminophen (Tylenol) 650 mg PO Q4H PRN PRN Reason: Pain MILD(1-3)/Fever >100.5/FOFANA Bisacodyl (Dulcolax) 10 mg NE QDAY PRN PRN Reason: Constipation unrelieved by MOM Enoxaparin Sodium (Lovenox) 40 mg SUB-Q QDAY@2200 RICCARDO Sodium Chloride (Nacl 0.9% 1000 Ml) 1,000 mls @ 100 mls/hr IV DIRECT RICCARDO Last Admin: 05/25/17 21:30 Dose: 100 mls/hr Piperacillin Sod/Tazobactam Sod (Zosyn/Ns 4.5gm/100ml) 4.5 gm in 100 mls @ 200 mls/hr IV Q8H RICCARDO PRN Reason: Protocol Last Admin: 05/26/17 01:25 Dose: 200 mls/hr Norepinephrine (Levophed Drip 4 Mg/Ns 250 Ml) 4 mg in 250 mls @ 7.5 mls/hr IV TITR RICCARDO; 2 MCG/MIN PRN Reason: Protocol Last Titration: 05/26/17 08:37 Dose: 6 mcg/min, 22.5 mls/hr Vancomycin HCl (Vancomycin/0.45 Ns 1 Gm/250 Ml) 1 gm in 250 mls @ 166.667 mls/ hr IV Q8HR RICCARDO Dextrose/Sodium Chloride (D5/0.45ns) 1,000 mls @ 125 mls/hr IV DIRECT RICCARDO Last Admin: 05/26/17 06:12 Dose: 125 mls/hr Dextrose (D10w) 1,000 mls @ 50 mls/hr IV DIRECT RICCARDO Magnesium Hydroxide (Milk Of Magnesia) 30 ml PO Q4H PRN PRN Reason: Constipation Morphine Sulfate (Morphine) 2 mg IV Q4H PRN PRN Reason: Pain, Moderate (4-6) Ondansetron HCl (Zofran) 4 mg IV Q8H PRN PRN Reason: N/V unrelieved by Chidi Vancomycin HCl (Vancomycin Pharmacy To Dose) 1 each IV PKCONSULT RICCARDO PRN Reason: Protocol Review of Systems ROS unobtainable: due to mental status Exam - Constitutional Vitals: Temp Pulse Resp BP Pulse Ox 97.8 F 103 H 22 99/64 94 05/26/17 10:00 05/26/17 09:33 05/26/17 09:33 05/26/17 09:33 05/26/17 09:33 General appearance: Present: mild distress, disheveled, other (appears toxic) - EENT Eyes: Present: PERRL, EOM intact ENT: hearing intact, poor dentition, thrush - Neck Neck: Present: supple, normal ROM - Respiratory Respiratory effort: labored Respiratory: bilateral: diminished, rhonchi (bibasilar) - Cardiovascular Rhythm: regular (sinus tach) - Abdominal General gastrointestinal: Present: soft, non-tender Results - Labs CBC & Chem 7: 05/26/17 00:47 05/26/17 00:47 Labs: Abnormal lab results 05/25/17 05/25/17 05/25/17 Range/Units 13:32 13:32 13:32 WBC (4.5-11.0) K/mm3 RBC 5.76 H (3.65-5.03) M/mm3 MCV 77 L (84-94) fl MCH 25 L (28-32) pg RDW 15.9 H (13.2-15.2) % Plt Count 48 L (140-440) K/mm3 Seg Neuts % (Manual) 76.0 H (40.0-70.0) % Lymphocytes % (Manual) 2.0 L (13.4-35.0) % Seg Neutrophils # Man (1.8-7.7) K/mm3 Lymphocytes # (Manual) 0.1 L (1.2-5.4) K/mm3 Sodium 147 H (137-145) mmol/L Chloride 109.4 H (98-107) mmol/L Creatinine 0.3 L (0.8-1.5) mg/dL Glucose 102 H (75-100) mg/dL POC Glucose (70-105) Lactic Acid (0.7-2.0) mmol/L AST 111 H (5-40) units/L ALT 168 H (7-56) units/L Total Creatine Kinase (55-170) units/L Total Protein 5.8 L (6.3-8.2) g/dL Albumin 2.9 L (3.9-5) g/dL Salicylates < 0.3 L (2.8-20.0) mg/dL 05/25/17 05/25/17 05/25/17 Range/Units 13:32 15:16 16:34 WBC (4.5-11.0) K/mm3 RBC (3.65-5.03) M/mm3 MCV (84-94) fl MCH (28-32) pg RDW (13.2-15.2) % Plt Count (140-440) K/mm3 Seg Neuts % (Manual) (40.0-70.0) % Lymphocytes % (Manual) (13.4-35.0) % Seg Neutrophils # Man (1.8-7.7) K/mm3 Lymphocytes # (Manual) (1.2-5.4) K/mm3 Sodium (137-145) mmol/L Chloride (98-107) mmol/L Creatinine (0.8-1.5) mg/dL Glucose (75-100) mg/dL POC Glucose (70-105) Lactic Acid 2.20 H* 2.10 H* (0.7-2.0) mmol/L AST (5-40) units/L ALT (7-56) units/L Total Creatine Kinase 360 H (55-170) units/L Total Protein (6.3-8.2) g/dL Albumin (3.9-5) g/dL Salicylates (2.8-20.0) mg/dL 05/26/17 05/26/17 05/26/17 Range/Units 00:47 00:47 06:07 WBC 2.1 L (4.5-11.0) K/mm3 RBC 5.23 H (3.65-5.03) M/mm3 MCV 75 L (84-94) fl MCH 25 L (28-32) pg RDW 15.6 H (13.2-15.2) % Plt Count 51 L (140-440) K/mm3 Seg Neuts % (Manual) 24.0 L (40.0-70.0) % Lymphocytes % (Manual) 8.0 L (13.4-35.0) % Seg Neutrophils # Man 0.5 L (1.8-7.7) K/mm3 Lymphocytes # (Manual) 0.2 L (1.2-5.4) K/mm3 Sodium 148 H (137-145) mmol/L Chloride 112.6 H (98-107) mmol/L Creatinine (0.8-1.5) mg/dL Glucose 33 L* (75-100) mg/dL POC Glucose 44 L (70-105) Lactic Acid (0.7-2.0) mmol/L AST 85 H (5-40) units/L ALT 127 H (7-56) units/L Total Creatine Kinase (55-170) units/L Total Protein 4.6 L D (6.3-8.2) g/dL Albumin 2.4 L (3.9-5) g/dL Salicylates (2.8-20.0) mg/dL 05/26/17 05/26/17 05/26/17 Range/Units 06:33 09:45 10:01 WBC (4.5-11.0) K/mm3 RBC (3.65-5.03) M/mm3 MCV (84-94) fl MCH (28-32) pg RDW (13.2-15.2) % Plt Count (140-440) K/mm3 Seg Neuts % (Manual) (40.0-70.0) % Lymphocytes % (Manual) (13.4-35.0) % Seg Neutrophils # Man (1.8-7.7) K/mm3 Lymphocytes # (Manual) (1.2-5.4) K/mm3 Sodium (137-145) mmol/L Chloride (98-107) mmol/L Creatinine (0.8-1.5) mg/dL Glucose (75-100) mg/dL POC Glucose 130 H 52 L 182 H (70-105) Lactic Acid (0.7-2.0) mmol/L AST (5-40) units/L ALT (7-56) units/L Total Creatine Kinase (55-170) units/L Total Protein (6.3-8.2) g/dL Albumin (3.9-5) g/dL Salicylates (2.8-20.0) mg/dL - Imaging and Cardiology Chest x-ray: image reviewed (bilateral/basilar lower lobe infiltrates, right greater than left) Assessment and Plan 42 y/o male with sepsis with shock, hypoglycemia, hypothermia, thrombocytopenia 1. Agree with broad spec abx. Given current living conditions and other risk factors, would be worried about pneumococcal pneumonia. Zosyn has adequate coverage so will continue. 2. Hypoglycemia-etiology unknow. WIll continue D5W and check fingersticks s1ohraz. Will check LFT's 3. Continue NEPTALI hugger for hypothermia. 4. Thrombocytopenia, could be from sepsis. Need to send peripheral smear. Patient is pancytopenic Will check HIV status 5. Hold on DVT prophylaxis given low platelets 6. GI prophylaxis 7. Will check ABG after picc line placed Overall prognosis is guarded to poor CCT 31 minutes
--- NOTE | 2017-05-26 12:24 | XRay Report ---
AP CHEST: HISTORY: PICC placement A left arm PICC has been inserted which terminates at the cavoatrial junction. Infiltrates at the right lung base are stable. Significant increase in the infiltrates at the left lung base is demonstrated since yesterday's exam. No large pleural effusion or pneumothorax. Heart size is within normal limits. IMPRESSION: Adequate left arm PICC placement. Increased infiltrate at the left lung base.
[2017-05-26] MEDS ORDERED: SUBLIMAZE ONE (13:49)
[2017-05-26] MEDS ORDERED: VERSED IV ONE (13:49)
[2017-05-26] MEDS ORDERED: AMIDATE IV ONE ×2 (14:45→20:51)
[2017-05-26] MEDS ORDERED: SUBLIMAZE IV ONE ×3 (14:45)
[2017-05-26] MEDS ORDERED: VERSED IV NR (15:00)
[2017-05-26] MEDS: VANCOMYCIN/0.45 NS 1 GM/250 ML 1 GM/250 ML BAG IV SCH ×2 (15:09→21:40)
--- NOTE | 2017-05-26 15:21 | XRay Report ---
AP CHEST: HISTORY: Endotracheal tube placement An endotracheal tube has been inserted which terminates 5.3 cm superior to the indio. Bilateral pulmonary infiltrates appear relatively stable since earlier today at 1153 hrs. Left arm PICC remains in good position. Heart size is normal. IMPRESSION: Adequate placement of endotracheal tube.
--- NOTE | 2017-05-26 15:21 | XRay Report ---
SUPINE KUB: History: Feeding tube placement. The feeding tube is coiled in the fundus of the stomach. The gastric cavity appears mildly distended with gas. The small bowel loops and colon are normal caliber. There is moderate to large stool in the distal colon IMPRESSION: Feeding tube terminates in the fundus of the stomach. Constipation.
[2017-05-26] MEDS ORDERED: cefTRIAXone 2 GM in NACL 0.9% 20 ML IV SCH (15:30)
--- NOTE | 2017-05-26 15:39 | Consultation ---
History of Present Illness - Reason for Consult Consult date: 05/26/17 sepsis Requesting physician: PANFILO FINNEY - History of Present Illness 43 years old male currently a prisoner, admitted on 05/25/2017 due to altered mental status. Patient was found on his cell unresponsive. Patient is currently intubated and unable to give a history. In the emergency room, initial temperature was 81.8, heart rate 44, respirations 11, blood pressure 103/80. Initial white count 6.4. Hemoglobin 14. Platelets 48. Bands 22. Lactic acid 2.2. Urinalysis negative. UDS negative. Initial chest x-ray showed bilateral infiltrates. CT head unremarkable. Microbiology: Blood cultures: 05/25 ngtd Urine cultures: Respiratory cultures: Current Antimicrobials: Zosyn Previous Antimicrobials: Past History Past Medical History: No medical history (unable to be obtained), other ( Schizophrenia) Past Surgical History: No surgical history Social history: no significant social history, smoking, full code, other (In Skilled Nursing system at this point) Family history: no significant family history Medications and Allergies Allergies Allergy/AdvReac Type Severity Reaction Status Date / Time risperidone [From Risperdal] Allergy Unknown Verified 05/25/17 13:34 Home Medications Medication Instructions Recorded Confirmed Last Taken Type Benztropine [Cogentin] 1 mg PO DAILY 05/25/17 05/25/17 05/24/17 History Olanzapine [Zyprexa] 15 mg PO DAILY 05/25/17 05/25/17 05/24/17 History Active Meds: Active Medications Acetaminophen (Tylenol) 650 mg PO Q4H PRN PRN Reason: Pain MILD(1-3)/Fever >100.5/FOFANA Bisacodyl (Dulcolax) 10 mg MO QDAY PRN PRN Reason: Constipation unrelieved by MOM Enoxaparin Sodium (Lovenox) 40 mg SUB-Q QDAY@2200 RICCARDO Famotidine (Pepcid) 20 mg IV BID RICCARDO Sodium Chloride (Nacl 0.9% 1000 Ml) 1,000 mls @ 100 mls/hr IV DIRECT RICCARDO Last Admin: 05/25/17 21:30 Dose: 100 mls/hr Piperacillin Sod/Tazobactam Sod (Zosyn/Ns 4.5gm/100ml) 4.5 gm in 100 mls @ 200 mls/hr IV Q8H RICCARDO PRN Reason: Protocol Last Admin: 05/26/17 12:13 Dose: 200 mls/hr Norepinephrine (Levophed Drip 4 Mg/Ns 250 Ml) 4 mg in 250 mls @ 7.5 mls/hr IV TITR RICCARDO; 2 MCG/MIN PRN Reason: Protocol Last Admin: 05/26/17 14:05 Dose: 20 mcg/min, 75 mls/hr Vancomycin HCl (Vancomycin/0.45 Ns 1 Gm/250 Ml) 1 gm in 250 mls @ 166.667 mls/ hr IV Q8HR RICCARDO Last Admin: 05/26/17 15:09 Dose: 166.667 mls/hr Dextrose/Sodium Chloride (D5/0.45ns) 1,000 mls @ 125 mls/hr IV DIRECT RICCARDO Last Admin: 05/26/17 15:18 Dose: 125 mls/hr Dextrose (D10w) 1,000 mls @ 50 mls/hr IV DIRECT RICCARDO Ceftriaxone Sodium 2 gm/ (Sodium Chloride) 20 mls @ 20 mls/10 min IV Q12H RICCARDO Magnesium Hydroxide (Milk Of Magnesia) 30 ml PO Q4H PRN PRN Reason: Constipation Midazolam HCl (Versed) 5 mg IV ONCE NR Stop: 05/26/17 23:59 Morphine Sulfate (Morphine) 2 mg IV Q4H PRN PRN Reason: Pain, Moderate (4-6) Ondansetron HCl (Zofran) 4 mg IV Q8H PRN PRN Reason: N/V unrelieved by Reglan Oseltamivir Phosphate (Tamiflu) 75 mg PO BID [facility] Stop: 05/30/17 22:01 Vancomycin HCl (Vancomycin Pharmacy To Dose) 1 each IV PKCONSULT RICCARDO PRN Reason: Protocol Review of Systems ROS unobtainable: due to endotracheal tube Physical Examination - Physical Exam Narrative exam: General appearance: sedated intubated Eyes: anicteric sclerae, moist conjunctivae; no lid-lag; PERRLA HENT: Atraumatic; oropharynx clear +ETT +NGT Neck: Trachea midline; supple, no thyromegaly or lymphadenopathy Lungs: lesley rhonchi CV: renard Abdomen: Soft, non-tender Extremities: No peripheral edema or extremity lymphadenopathy Skin: Normal temperature, turgor and texture; no rash, ulcers or subcutaneous nodules Psych: sedated. Neuro: sedated Lines: - Constitutional Vitals: Vital Signs Temp Pulse Resp BP Pulse Ox 95.5 F L 78 21 91/58 90 05/26/17 12:14 05/26/17 15:11 05/26/17 15:11 05/26/17 15:11 05/26/17 15:11 Temperature -Last 24 Hours Temperature 95.5 F Temperature 97.8 F Temperature 97.7 F Temperature 97.9 F Temperature 98.4 F Temperature 98.7 F Temperature 95.2 F Temperature 90.8 F Temperature 80 F Temperature 84.6 F Results - Labs CBC & Chem 7: 05/26/17 00:47 05/26/17 00:47 Labs: Abnormal lab results 05/25/17 05/25/17 05/26/17 Range/Units 15:16 16:34 00:47 WBC 2.1 L (4.5-11.0) K/mm3 RBC 5.23 H (3.65-5.03) M/mm3 MCV 75 L (84-94) fl MCH 25 L (28-32) pg RDW 15.6 H (13.2-15.2) % Plt Count 51 L (140-440) K/mm3 Seg Neuts % (Manual) 24.0 L (40.0-70.0) % Lymphocytes % (Manual) 8.0 L (13.4-35.0) % Seg Neutrophils # Man 0.5 L (1.8-7.7) K/mm3 Lymphocytes # (Manual) 0.2 L (1.2-5.4) K/mm3 POC ABG pO2 (80-105) Sodium (137-145) mmol/L Chloride (98-107) mmol/L Glucose (75-100) mg/dL POC Glucose (70-105) Lactic Acid 2.20 H* 2.10 H* (0.7-2.0) mmol/L AST (5-40) units/L ALT (7-56) units/L Total Protein (6.3-8.2) g/dL Albumin (3.9-5) g/dL 05/26/17 05/26/17 05/26/17 Range/Units 00:47 06:07 06:33 WBC (4.5-11.0) K/mm3 RBC (3.65-5.03) M/mm3 MCV (84-94) fl MCH (28-32) pg RDW (13.2-15.2) % Plt Count (140-440) K/mm3 Seg Neuts % (Manual) (40.0-70.0) % Lymphocytes % (Manual) (13.4-35.0) % Seg Neutrophils # Man (1.8-7.7) K/mm3 Lymphocytes # (Manual) (1.2-5.4) K/mm3 POC ABG pO2 (80-105) Sodium 148 H (137-145) mmol/L Chloride 112.6 H (98-107) mmol/L Glucose 33 L* (75-100) mg/dL POC Glucose 44 L 130 H (70-105) Lactic Acid (0.7-2.0) mmol/L AST 85 H (5-40) units/L ALT 127 H (7-56) units/L Total Protein 4.6 L D (6.3-8.2) g/dL Albumin 2.4 L (3.9-5) g/dL 05/26/17 05/26/17 05/26/17 Range/Units 09:45 10:01 12:41 WBC (4.5-11.0) K/mm3 RBC (3.65-5.03) M/mm3 MCV (84-94) fl MCH (28-32) pg RDW (13.2-15.2) % Plt Count (140-440) K/mm3 Seg Neuts % (Manual) (40.0-70.0) % Lymphocytes % (Manual) (13.4-35.0) % Seg Neutrophils # Man (1.8-7.7) K/mm3 Lymphocytes # (Manual) (1.2-5.4) K/mm3 POC ABG pO2 61 L (80-105) Sodium (137-145) mmol/L Chloride (98-107) mmol/L Glucose (75-100) mg/dL POC Glucose 52 L 182 H (70-105) Lactic Acid (0.7-2.0) mmol/L AST (5-40) units/L ALT (7-56) units/L Total Protein (6.3-8.2) g/dL Albumin (3.9-5) g/dL Assessment and Plan Assessment: 1) Sepsis with septic shock: Present on admission, manifested by hypothermic, hypotension, bandemia, increased lactate. Etiology pneumonia. Other Possibilities: CARDIOVASCULAR SURGEON infection, influenza, drug overdose 2) Pneumonia: Secondary to ? aspiration ? post influenza pneumonia 3) Acute Encephalopathy ? unclear 4) Acute resp failure 5) Thrombocytopenia Plan: -follow-up blood cultures -obtain respiratory cultures, procalcitonin, C-reactive protein (CRP) -check influenza antigen PCR in nasopharinx -check Legionella urine antigen, Streptococcus pneumoniae urine antigen, Mycoplasma serology, Chlamydia pneumophila serology -MELBA with reflex, C3, C4, ANCA -obtain lumbar punture for opening pressure and send CSF specimen for Gram stain and culture, glucose, protein, VDRL, HSV-PCR, cryptococcal antigen and culture -neuro eval, EEG -start vancomycin IV, ceftriaxone 2 g IV q12h and acyclovir IV Thank you for your consultation, will follow up with you. Gena Domingo MD Infectious Diseases Specialist [facility] ([facility]) M [phone] O [phone]
[2017-05-26] MEDS ORDERED: ZOVIRAX IV SCH (16:00)
[2017-05-26] MEDS ORDERED: VANCOMYCIN VIAL 1,000 MG in NACL 0.9% 100 ML IV SCH (16:00)
[2017-05-26] MEDS: cefTRIAXone 2 GM in NACL 0.9% 20 ML IV SCH (16:10)
[2017-05-26] MEDS: PEPCID IV SCH ×2 (16:10→21:34)
[2017-05-26] MEDS ORDERED: MIDAZOLAM 100 MG in NACL 0.9% 80 ML IV SCH (17:00)
[2017-05-26] MEDS: ZOVIRAX IV SCH (17:02)
[2017-05-26] MEDS: NACL 0.9% IV SCH (17:02)
[2017-05-26] MEDS: D10W 1,000 ML IV SCH (18:00)
[2017-05-26] MEDS: TAMIFLU PO SCH ×2 (18:50→21:34)
--- NOTE | 2017-05-26 21:08 | Progress Note ---
Assessment and Plan Assessment and plan: Patient is 42 years old AA male, [facility] for evaluation of altered mental status and bradycardia. Also Hypothermic Only history available is schizophrenia. No other information can be obtained at this moment since patient is not communicating.No fever or chills per [facility] staff SEVERE SEPSIS WITH SEPTIC SHOCK- POA, Severe Hypothermia on admission Hypoglycemia Acute Toxic Metabolic Encephalopathy Thrombocytopenia Aspiration Penumonitis with possible Post influenza Pneumonia Schizophrenia Hypoglycemia Acute Respiratory Failure Severe Protien Calorie Malnutrition Hypernatremia Plan Agree with ICU managment. Countinue rewarming techniques ID consult, Abx as ordered PICC team consulted for Access placement Continue D5W may need increased to D10 Dw With intensivit, will likely need Respiratory support Monitor cultures MRI brain when more stable Replace Electrolytes CHECK INFLUNZA PCR REQUEST RECORDS FROM THE [facility] History Interval history: Patient seen and examined enroute to ICU, confuse, spaces out, not responsive but awake. Hospitalist Physical - Constitutional Vitals: Temp Pulse Resp BP Pulse Ox 96.0 F L 107 H 26 H 92/57 94 05/26/17 16:00 05/26/17 19:50 05/26/17 19:00 05/26/17 19:50 05/26/17 19:50 General appearance: Present: mild distress, disheveled, other (appears toxic) - Neck Neck: Present: supple - Respiratory Respiratory effort: accessory muscle use Respiratory: bilateral: rhonchi - Cardiovascular Rhythm: regular Heart Sounds: Present: S1 & S2 - Extremities Extremities: pulses intact, No edema, abnormal (hypothermia) Extremity abnormal: pulses diminished Peripheral Pulses: within normal limits - Abdominal General gastrointestinal: soft, non-tender, non-distended, normal bowel sounds - Integumentary Integumentary: Present: clammy, decreased turgor - Psychiatric Psychiatric: other (unable to acccess) - Neurologic Neurologic: other (unable to access) - Allied Health Allied health notes reviewed: nursing Results - Labs CBC & Chem 7: 05/27/17 04:00 05/27/17 04:00 Labs: Laboratory Last Values WBC 2.1 K/mm3 (4.5-11.0) L 05/26/17 00:47 RBC 5.23 M/mm3 (3.65-5.03) H 05/26/17 00:47 Hgb 13.1 gm/dl (11.8-15.2) 05/26/17 00:47 Hct 39.2 % (35.5-45.6) 05/26/17 00:47 MCV 75 fl (84-94) L 05/26/17 00:47 MCH 25 pg (28-32) L 05/26/17 00:47 MCHC 34 % (32-34) 05/26/17 00:47 RDW 15.6 % (13.2-15.2) H 05/26/17 00:47 Plt Count 51 K/mm3 (140-440) L 05/26/17 00:47 Fisher % (Auto) Fisheries Enforcement Officer 05/25/17 13:32 Eos % (Auto) Fisheries Enforcement Officer 05/25/17 13:32 Fisher # Fisheries Enforcement Officer 05/25/17 13:32 Eos # Fisheries Enforcement Officer 05/25/17 13:32 Baso # Fisheries Enforcement Officer 05/25/17 13:32 Add Manual Diff Complete 05/26/17 00:47 Total Counted 100 05/26/17 00:47 Seg Neutrophils % Fisheries Enforcement Officer 05/25/17 13:32 Seg Neuts % (Manual) 24.0 % (40.0-70.0) L 05/26/17 00:47 Band Neutrophils % 65.0 % 05/26/17 00:47 Lymphocytes % (Manual) 8.0 % (13.4-35.0) L 05/26/17 00:47 Reactive Lymphs % (Man) 0 % 05/26/17 00:47 Monocytes % (Manual) 0 % (0.0-7.3) 05/26/17 00:47 Eosinophils % (Manual) 0 % (0.0-4.3) 05/26/17 00:47 Basophils % (Manual) 0 % (0.0-1.8) 05/26/17 00:47 Metamyelocytes % 3.0 % 05/26/17 00:47 Myelocytes % 0 % 05/26/17 00:47 Promyelocytes % 0 % 05/26/17 00:47 Blast Cells % 0 % 05/26/17 00:47 Nucleated RBC % Not Reportable 05/26/17 00:47 Seg Neutrophils # Fisheries Enforcement Officer 05/25/17 13:32 Seg Neutrophils # Man 0.5 K/mm3 (1.8-7.7) L 05/26/17 00:47 Band Neutrophils # 1.4 K/mm3 05/26/17 00:47 Lymphocytes # (Manual) 0.2 K/mm3 (1.2-5.4) L 05/26/17 00:47 Abs React Lymphs (Man) 0.0 K/mm3 05/26/17 00:47 Monocytes # (Manual) 0.0 K/mm3 (0.0-0.8) 05/26/17 00:47 Eosinophils # (Manual) 0.0 K/mm3 (0.0-0.4) 05/26/17 00:47 Basophils # (Manual) 0.0 K/mm3 (0.0-0.1) 05/26/17 00:47 Metamyelocytes # 0.1 K/mm3 05/26/17 00:47 Myelocytes # 0.0 K/mm3 05/26/17 00:47 Promyelocytes # 0.0 K/mm3 05/26/17 00:47 Blast Cells # 0.0 K/mm3 05/26/17 00:47 WBC Morphology Not Reportable 05/26/17 00:47 Hypersegmented Neuts Not Reportable 05/26/17 00:47 Hyposegmented Neuts Not Reportable 05/26/17 00:47 Hypogranular Neuts Not Reportable 05/26/17 00:47 Smudge Cells Not Reportable 05/26/17 00:47 Toxic Granulation Not Reportable 05/26/17 00:47 Toxic Vacuolation Not Reportable 05/26/17 00:47 Dohle Bodies Not Reportable 05/26/17 00:47 Pelger-Huet Anomaly Not Reportable 05/26/17 00:47 Evon Rods Not Reportable 05/26/17 00:47 Platelet Estimate Consistent w auto 05/26/17 00:47 Clumped Platelets Not Reportable 05/26/17 00:47 Plt Clumps, EDTA Not Reportable 05/26/17 00:47 Large Platelets Rare 05/26/17 00:47 Giant Platelets Not Reportable 05/26/17 00:47 Platelet Satelliting Not Reportable 05/26/17 00:47 Plt Morphology Comment Not Reportable 05/26/17 00:47 RBC Morphology Not Reportable 05/26/17 00:47 Dimorphic RBCs Not Reportable 05/26/17 00:47 Polychromasia Not Reportable 05/26/17 00:47 Hypochromasia 1+ 05/26/17 00:47 Poikilocytosis Not Reportable 05/26/17 00:47 Anisocytosis 1+ 05/26/17 00:47 Microcytosis Not Reportable 05/26/17 00:47 Macrocytosis Not Reportable 05/26/17 00:47 Spherocytes Not Reportable 05/26/17 00:47 Pappenheimer Bodies Not Reportable 05/26/17 00:47 Sickle Cells Not Reportable 05/26/17 00:47 Target Cells Not Reportable 05/26/17 00:47 Tear Drop Cells Not Reportable 05/26/17 00:47 Ovalocytes Not Reportable 05/26/17 00:47 Helmet Cells Not Reportable 05/26/17 00:47 [place] Bodies Not Reportable 05/26/17 00:47 [place] Rings Not Reportable 05/26/17 00:47 Gerda Cells Not Reportable 05/26/17 00:47 Bite Cells Not Reportable 05/26/17 00:47 Crenated Cell Not Reportable 05/26/17 00:47 Elliptocytes Not Reportable 05/26/17 00:47 Acanthocytes (Spur) Not Reportable 05/26/17 00:47 Rouleaux Not Reportable 05/26/17 00:47 Hemoglobin C Crystals Not Reportable 05/26/17 00:47 Schistocytes Not Reportable 05/26/17 00:47 Malaria parasites Not Reportable 05/26/17 00:47 Michael Bodies Not Reportable 05/26/17 00:47 Hem Pathologist Commnt No 05/26/17 00:47 PT 14.5 Sec. (12.2-14.9) 05/25/17 13:32 INR 1.07 (0.87-1.13) 05/25/17 13:32 APTT 35.4 Sec. (24.2-36.6) 05/25/17 13:32 POC ABG pH 7.330 (7.35-7.45) L 05/26/17 15:53 POC ABG pCO2 43.8 (35-45) 05/26/17 15:53 POC ABG pO2 77 (80-105) L 05/26/17 15:53 POC ABG HCO3 23.1 05/26/17 15:53 POC ABG Total CO2 24 05/26/17 15:53 POC ABG O2 Sat 94 05/26/17 15:53 POC ABG Base Excess -3 05/26/17 15:53 FiO2 100 % 05/26/17 15:53 Sodium 148 mmol/L (137-145) H 05/26/17 00:47 Potassium 4.5 mmol/L (3.6-5.0) 05/26/17 00:47 Chloride 112.6 mmol/L (98-107) H 05/26/17 00:47 Carbon Dioxide 25 mmol/L (22-30) 05/26/17 00:47 Anion Gap 15 mmol/L 05/26/17 00:47 BUN 19 mg/dL (9-20) 05/26/17 00:47 Creatinine 0.8 mg/dL (0.8-1.5) D 05/26/17 00:47 Estimated GFR > 60 ml/min 05/26/17 00:47 BUN/Creatinine Ratio 24 % 05/26/17 00:47 Glucose 33 mg/dL (75-100) L* 05/26/17 00:47 POC Glucose 63 (70-105) L 05/26/17 20:18 Lactic Acid 1.90 mmol/L (0.7-2.0) 05/25/17 17:56 Calcium 8.7 mg/dL (8.4-10.2) 05/26/17 00:47 Total Bilirubin 0.30 mg/dL (0.1-1.2) 05/26/17 00:47 AST 85 units/L (5-40) H 05/26/17 00:47 ALT 127 units/L (7-56) H 05/26/17 00:47 Alkaline Phosphatase 55 units/L (35-129) 05/26/17 00:47 Ammonia 33.0 umol/L (25-60) 05/25/17 13:32 Total Creatine Kinase 360 units/L (55-170) H 05/25/17 13:32 Troponin T < 0.010 ng/mL (0.00-0.029) 05/25/17 13:32 C-Reactive Protein 15.20 mg/dL (0.00-1.30) H 05/26/17 15:41 Total Protein 4.6 g/dL (6.3-8.2) L D 05/26/17 00:47 Albumin 2.4 g/dL (3.9-5) L 05/26/17 00:47 Albumin/Globulin Ratio 1.1 % 05/26/17 00:47 Urine Color Yellow (Yellow) 05/25/17 14:11 Urine Turbidity Clear (Clear) 05/25/17 14:11 Urine pH 5.0 (5.0-7.0) 05/25/17 14:11 Ur Specific [place] 1.025 (1.003-1.030) 05/25/17 14:11 Urine Protein <15 mg/dl mg/dL (Negative) 05/25/17 14:11 Urine Glucose (UA) 50 mg/dL (Negative) 05/25/17 14:11 Urine Ketones Neg mg/dL (Negative) 05/25/17 14:11 Urine Blood Neg (Negative) 05/25/17 14:11 Urine Nitrite Neg (Negative) 05/25/17 14:11 Urine Bilirubin Neg (Negative) 05/25/17 14:11 Urine Urobilinogen < 2.0 mg/dL (<2.0) 05/25/17 14:11 Ur Leukocyte Esterase Neg (Negative) 05/25/17 14:11 Urine WBC (Auto) 3.0 /HPF (0.0-6.0) 05/25/17 14:11 Urine RBC (Auto) 2.0 /HPF (0.0-6.0) 05/25/17 14:11 Hyaline Casts 1 /LPF 05/25/17 14:11 Urine Mucus Few /HPF 05/25/17 14:11 Salicylates < 0.3 mg/dL (2.8-20.0) L 05/25/17 13:32 Urine Opiates Screen Presumptive negative 05/25/17 14:11 Urine Methadone Screen Presumptive negative 05/25/17 14:11 Acetaminophen < 15.0 ug/mL (10.0-30.0) 05/25/17 13:32 Ur Barbiturates Screen Presumptive negative 05/25/17 14:11 Ur Phencyclidine Scrn Presumptive negative 05/25/17 14:11 Ur Amphetamines Screen Presumptive negative 05/25/17 14:11 U Benzodiazepines Scrn Presumptive negative 05/25/17 14:11 Urine Cocaine Screen Presumptive negative 05/25/17 14:11 U Marijuana (THC) Screen Presumptive negative 05/25/17 14:11 Drugs of Abuse Note Disclamer 05/25/17 14:11 Plasma/Serum Alcohol < 0.01 % (0-0.07) 05/25/17 13:32 HIV 1&2 Antibody Rapid Non react (Non React) 05/26/17 12:38 HIV P24 Antigen Non react (Non React) 05/26/17 12:38 - Imaging and Cardiology Chest x-ray: image reviewed (bilateral infiltrates) CT Scan - head: image reviewed (no acute pathology)
[2017-05-26] MEDS ORDERED: LOVENOX SUB-Q SCH (22:00)
[2017-05-27] MEDS: ZOSYN/NS 4.5GM/100ML 4.5 GM/100 ML VIAL IV SCH (00:24)
[2017-05-27] MEDS ORDERED: D50W (25GM) Syringe IV ONE ×2 (00:40→02:31)
[2017-05-27] MEDS: NACL 0.9% IV SCH ×3 (01:02→18:20)
[2017-05-27] MEDS: ZOVIRAX IV SCH ×3 (01:02→18:20)
[2017-05-27] MEDS: LEVOPHED DRIP 4 MG/NS 250 ML 4 MG/250 ML BAG IV SCH ×3 (02:32→18:18)
--- NOTE | 2017-05-27 02:37 | XRay Report ---
FINAL REPORT PROCEDURE: XR CHEST 1V AP TECHNIQUE: Chest radiograph anteroposterior view. CPT 90385 HISTORY: follow up respiratory failure COMPARISON: No prior studies are available for comparison. FINDINGS: Heart: Normal. Mediastinum/Vessels: Normal. Lungs/Pleural space: There are multifocal bilateral pulmonary infiltrates. There are no effusions or pneumothoraces.. Bony thorax: No acute osseous abnormality. Life support devices: There is an endotracheal tube in the mid trachea. There is NG tube in the stomach. There is a left-sided PICC line. The tip is in the superior vena cava.. IMPRESSION: There are bilateral perihilar infiltrates worse on the left. Tubes and catheters are in proper position..
[2017-05-27] MEDS: cefTRIAXone 2 GM in NACL 0.9% 20 ML IV SCH ×2 (04:20→18:16)
[2017-05-27] MEDS: VANCOMYCIN/0.45 NS 1 GM/250 ML 1 GM/250 ML BAG IV SCH ×3 (05:13→21:16)
[2017-05-27] MEDS: D50W (25GM) Syringe IV PRN (05:30)
[2017-05-27 05:58] LABS: Hematocrit 34.6 % (35.5-45.6); Hemoglobin 11.7 gm/dl (11.8-15.2); Mean Corpuscular HGB Conc 34 % (32-34); Mean Corpuscular Volume 75 fl (84-94); Red Blood Count 4.65 M/mm3 (3.65-5.03); Red Cell Distribution Width 15.6 % (13.2-15.2)
[2017-05-27 06:07] LABS: Mean Corpuscular Hemoglobin 25 pg (28-32)
[2017-05-27 06:10] LABS: INR 1.57 (0.87-1.13)
[2017-05-27 06:18] LABS: Platelet Count 21 K/mm3 (140-440)
[2017-05-27 06:23] LABS: Alanine Aminotransferase 100 units/L (7-56); Albumin 2.1 g/dL (3.9-5); BUN/Creatinine Ratio 16; Blood Urea Nitrogen 24 mg/dL (9-20); Calcium 7.7 mg/dL (8.4-10.2); Hemolysis Index 2
[2017-05-27 07:01] LABS: Anisocytosis 1+; Band Neutrophils # (Manual) 7.3 K/mm3; Basophils % (Manual) 0 % (0.0-1.8); Eosinophils % (Manual) 0 % (0.0-4.3); Hypochromasia 1+; Total Cells Counted 100
[2017-05-27 07:02] LABS: Dohle Bodies 1+; Platelet Estimate Consistent w Auto
--- NOTE | 2017-05-27 09:26 | Progress Note ---
Assessment and Plan 42 y/o male with sepsis with shock, hypoglycemia, hypothermia, thrombocytopenia and now acute respiratory failure most likely secondary to pneumonia. 1. ID concerned about meningitis. Ordered LP but will not be done secondary to thrombocytopenia. They have changed the abx. Ok with current regimen but would really ask them to consider some coverage for anaerobes as well. Will defer to them. 2. Hypoglycemia-etiology unknown. Currently on D10. Will increase rate to 150 and add 1/2 normal saline secondary to acyclovir. Had an increase in Cr this am. 3. Continue NEPTALI hugger for hypothermia. 4. Thrombocytopenia, could be from sepsis. Need to send peripheral smear. Patient is pancytopenic. HIV negative. Most likely this is all from sepsis 5. Hold on DVT prophylaxis given low platelets 6. GI prophylaxis 7. May need to add steroids, will given hydrocortisone, 100 one time dose to see if their is any response. Overall prognosis is guarded to poor CCT 31 minutes Subjective Date of service: 05/27/17 Interval history: Intubated on yesterday secondary to desaturations and not a candidate for bipap. WC has increased to 10. ID concerned about Meningitis but plt count is very low. Most likely secondary to sepsis. Currently on Levophed 10. Sedation is off. Objective Vital Signs - 12hr 05/26/17 05/26/17 05/26/17 22:00 23:00 23:07 Temperature 99.8 F H Pulse Rate 116 H 116 H 115 H Respiratory 23 23 21 Rate Blood Pressure 95/66 92/68 92/68 O2 Sat by Pulse 97 Oximetry 05/26/17 05/27/17 05/27/17 23:22 00:00 00:20 Temperature 99.6 F Pulse Rate 118 H 118 H Respiratory 20 Rate Blood Pressure 95/63 103/69 O2 Sat by Pulse 97 Oximetry 05/27/17 05/27/17 05/27/17 01:00 02:00 03:00 Temperature Pulse Rate 124 H 135 H 121 H Respiratory 22 24 20 Rate Blood Pressure 94/61 86/47 110/61 O2 Sat by Pulse 96 96 93 Oximetry 05/27/17 05/27/17 05/27/17 03:15 03:30 03:45 Temperature Pulse Rate 118 H 117 H 113 H Respiratory 21 21 21 Rate Blood Pressure 100/61 111/63 102/60 O2 Sat by Pulse 95 Oximetry 05/27/17 05/27/17 05/27/17 04:00 04:15 04:30 Temperature Pulse Rate 109 H 108 H 106 H Respiratory 18 18 19 Rate Blood Pressure 105/69 110/70 104/67 O2 Sat by Pulse Oximetry 05/27/17 05/27/17 05/27/17 04:45 05:00 05:15 Temperature Pulse Rate 103 H 105 H 103 H Respiratory 17 20 18 Rate Blood Pressure 113/68 119/77 115/70 O2 Sat by Pulse 99 Oximetry 05/27/17 05/27/17 05/27/17 05:30 05:45 05:47 Temperature 98.8 F Pulse Rate 96 H 93 H Respiratory 18 19 Rate Blood Pressure 109/67 116/72 O2 Sat by Pulse Oximetry 05/27/17 05/27/17 05/27/17 06:00 06:15 06:30 Temperature Pulse Rate 93 H 93 H 92 H Respiratory 19 18 19 Rate Blood Pressure 115/71 112/75 110/72 O2 Sat by Pulse Oximetry 05/27/17 05/27/17 05/27/17 06:45 07:00 07:15 Temperature Pulse Rate 88 85 86 Respiratory 18 16 16 Rate Blood Pressure 114/75 114/77 125/78 O2 Sat by Pulse Oximetry 05/27/17 05/27/17 05/27/17 07:30 07:45 08:00 Temperature Pulse Rate 85 84 85 Respiratory 14 16 16 Rate Blood Pressure 120/79 115/76 116/79 O2 Sat by Pulse 98 98 Oximetry 05/27/17 05/27/17 05/27/17 08:15 08:30 08:45 Temperature Pulse Rate 84 86 85 Respiratory 16 17 16 Rate Blood Pressure 115/72 102/66 106/71 O2 Sat by Pulse Oximetry Constitutional: comatose, appears uncomfortable Eyes: non-icteric ENT: other (orally intubated and sedated) Neck: supple Effort: mildly labored Ascultation: Bilateral: rales (left greater than right) Percussion: Bilateral: not dull Cardiovascular: regular rate and rhythm Gastrointestinal: normoactive bowel sounds, soft Extremities: no cyanosis, no edema Neurologic: unable to assess CBC and BMP: 05/27/17 04:00 05/27/17 04:00 ABG, PT/INR, D-dimer: ABG POC ABG pH 7.330 (7.35-7.45) L 05/26/17 15:53 POC ABG pCO2 43.8 (35-45) 05/26/17 15:53 POC ABG pO2 77 (80-105) L 05/26/17 15:53 POC ABG HCO3 23.1 05/26/17 15:53 POC ABG Total CO2 24 05/26/17 15:53 POC ABG O2 Sat 94 05/26/17 15:53 PT/INR, D-dimer PT 19.7 Sec. (12.2-14.9) H 05/27/17 04:00 INR 1.57 (0.87-1.13) H 05/27/17 04:00 Abnormal lab findings: Abnormal Labs 05/25/17 05/25/17 05/25/17 13:32 13:32 13:32 WBC RBC 5.76 H Hgb Hct MCV 77 L MCH 25 L RDW 15.9 H Plt Count 48 L Seg Neuts % (Manual) 76.0 H Lymphocytes % (Manual) 2.0 L Seg Neutrophils # Man Lymphocytes # (Manual) 0.1 L PT INR APTT POC ABG pH POC ABG pO2 Sodium 147 H Chloride 109.4 H BUN Creatinine 0.3 L Glucose 102 H POC Glucose Lactic Acid Calcium AST 111 H ALT 168 H Total Creatine Kinase C-Reactive Protein Total Protein 5.8 L Albumin 2.9 L Salicylates < 0.3 L 05/25/17 05/25/17 05/25/17 13:32 15:16 16:34 WBC RBC Hgb Hct MCV MCH RDW Plt Count Seg Neuts % (Manual) Lymphocytes % (Manual) Seg Neutrophils # Man Lymphocytes # (Manual) PT INR APTT POC ABG pH POC ABG pO2 Sodium Chloride BUN Creatinine Glucose POC Glucose Lactic Acid 2.20 H* 2.10 H* Calcium AST ALT Total Creatine Kinase 360 H C-Reactive Protein Total Protein Albumin Salicylates 05/26/17 05/26/17 05/26/17 00:47 00:47 06:07 WBC 2.1 L RBC 5.23 H Hgb Hct MCV 75 L MCH 25 L RDW 15.6 H Plt Count 51 L Seg Neuts % (Manual) 24.0 L Lymphocytes % (Manual) 8.0 L Seg Neutrophils # Man 0.5 L Lymphocytes # (Manual) 0.2 L PT INR APTT POC ABG pH POC ABG pO2 Sodium 148 H Chloride 112.6 H BUN Creatinine Glucose 33 L* POC Glucose 44 L Lactic Acid Calcium AST 85 H ALT 127 H Total Creatine Kinase C-Reactive Protein Total Protein 4.6 L D Albumin 2.4 L Salicylates 05/26/17 05/26/17 05/26/17 06:33 09:45 10:01 WBC RBC Hgb Hct MCV MCH RDW Plt Count Seg Neuts % (Manual) Lymphocytes % (Manual) Seg Neutrophils # Man Lymphocytes # (Manual) PT INR APTT POC ABG pH POC ABG pO2 Sodium Chloride BUN Creatinine Glucose POC Glucose 130 H 52 L 182 H Lactic Acid Calcium AST ALT Total Creatine Kinase C-Reactive Protein Total Protein Albumin Salicylates 05/26/17 05/26/17 05/26/17 10:56 12:41 14:58 WBC RBC Hgb Hct MCV MCH RDW Plt Count Seg Neuts % (Manual) Lymphocytes % (Manual) Seg Neutrophils # Man Lymphocytes # (Manual) PT INR APTT POC ABG pH POC ABG pO2 61 L Sodium Chloride BUN Creatinine Glucose POC Glucose 69 L 150 H Lactic Acid Calcium AST ALT Total Creatine Kinase C-Reactive Protein Total Protein Albumin Salicylates 05/26/17 05/26/17 05/26/17 15:41 15:53 17:46 WBC RBC Hgb Hct MCV MCH RDW Plt Count Seg Neuts % (Manual) Lymphocytes % (Manual) Seg Neutrophils # Man Lymphocytes # (Manual) PT INR APTT POC ABG pH 7.330 L POC ABG pO2 77 L Sodium Chloride BUN Creatinine Glucose POC Glucose 63 L Lactic Acid Calcium AST ALT Total Creatine Kinase C-Reactive Protein 15.20 H Total Protein Albumin Salicylates 05/26/17 05/26/17 05/27/17 18:40 20:18 00:35 WBC RBC Hgb Hct MCV MCH RDW Plt Count Seg Neuts % (Manual) Lymphocytes % (Manual) Seg Neutrophils # Man Lymphocytes # (Manual) PT INR APTT POC ABG pH POC ABG pO2 Sodium Chloride BUN Creatinine Glucose POC Glucose 149 H 63 L 49 L Lactic Acid Calcium AST ALT Total Creatine Kinase C-Reactive Protein Total Protein Albumin Salicylates 05/27/17 05/27/17 05/27/17 02:33 04:00 04:00 WBC RBC Hgb 11.7 L Hct 34.6 L MCV 75 L MCH 25 L RDW 15.6 H Plt Count 21 L Seg Neuts % (Manual) 14.0 L Lymphocytes % (Manual) 5.0 L Seg Neutrophils # Man 1.5 L Lymphocytes # (Manual) 0.5 L PT INR APTT POC ABG pH POC ABG pO2 Sodium 148 H Chloride 112.7 H BUN 24 H Creatinine Glucose POC Glucose 61 L Lactic Acid Calcium 7.7 L AST 115 H ALT 100 H Total Creatine Kinase C-Reactive Protein Total Protein 3.8 L Albumin 2.1 L Salicylates 05/27/17 05/27/17 05/27/17 04:00 05:20 06:36 WBC RBC Hgb Hct MCV MCH RDW Plt Count Seg Neuts % (Manual) Lymphocytes % (Manual) Seg Neutrophils # Man Lymphocytes # (Manual) PT 19.7 H INR 1.57 H APTT 57.0 H POC ABG pH POC ABG pO2 Sodium Chloride BUN Creatinine Glucose POC Glucose 64 L 120 H Lactic Acid Calcium AST ALT Total Creatine Kinase C-Reactive Protein Total Protein Albumin Salicylates Chest x-ray: image reviewed (worsening left lower lobe infiltrate)
[2017-05-27] MEDS: PEPCID IV SCH ×2 (10:27→22:47)
[2017-05-27] MEDS: TAMIFLU PO SCH ×2 (10:28→21:16)
[2017-05-27] MEDS: NACL 0.45% 1000 ML 1,000 ML IV SCH (10:28)
--- NOTE | 2017-05-27 16:20 | Progress Note ---
Assessment and Plan Assessment: 1) Sepsis with septic shock: better still on levophed minimal dose. Etiology pneumonia. Other Possibilities: RIVET CATCHER infection, influenza -CRP=15 2) Pneumonia: Secondary to ? aspiration ? post influenza pneumonia 3) Acute Encephalopathy ? unclear etiology 4) Acute resp failure 5) Thrombocytopenia - worsening 6) Elevated LFTs: ?shock liver Plan: -follow-up blood cultures -repeat respiratory cultures -follow-up procalcitonin, influenza antigen PCR in nasopharynx, Legionella urine antigen, Streptococcus pneumoniae urine antigen -follow-up MELBA with reflex, C3, C4, ANCA -lumbar punture for opening pressure and send CSF specimen for Gram stain and culture, glucose, protein, VDRL, HSV-PCR, cryptococcal antigen and culture - pending -neuro eval, EEG - pending -continue vancomycin IV, ceftriaxone 2 g IV q12h, acyclovir IV and tamiflu - day 2 Dr Quintanilla will be rounding on Monday Thank you for your consultation, will follow up with you. Gena Domingo MD Infectious Diseases Specialist [facility] M [phone] O [phone] Subjective Date of service: 05/27/17 Interval history: Remains intubated on the vent, sedated, no hypothermia or fever, still on pressors levophed 1 mcg/min Microbiology: Blood cultures: 05/25 ngtd Urine cultures: Respiratory cultures: 05/26 poor sample Current Antimicrobials: vancomycin IV 05/26 ceftriaxone 2 g IV q12h 05/26 acyclovir IV 05/26 Previous Antimicrobials: Zosyn Objective - Exam Narrative Exam: General appearance: sedated intubated Eyes: anicteric sclerae, moist conjunctivae; no lid-lag; PERRLA HENT: Atraumatic; oropharynx clear +ETT +NGT Neck: Trachea midline; supple, no thyromegaly or lymphadenopathy Lungs: lesley rhonchi CV: rrr Abdomen: Soft, non-tender Extremities: No peripheral edema or extremity lymphadenopathy Skin: Normal temperature, turgor and texture; no rash, ulcers or subcutaneous nodules Psych: sedated. Neuro: sedated Lines: left PICC / reyes with clear urine - Constitutional Vitals: Vital Signs Temp Pulse Resp BP Pulse Ox 97.4 F L 99 H 23 129/90 97 05/27/17 12:00 05/27/17 13:45 05/27/17 13:45 05/27/17 13:45 05/27/17 13:45 Temperature -Last 24 Hours Temperature 97.4 F Temperature 97.4 F Temperature 98.8 F Temperature 99.6 F Temperature 99.8 F - Labs CBC & Chem 7: 05/27/17 04:00 05/27/17 04:00 Labs: Abnormal lab results 05/26/17 05/26/17 05/26/17 Range/Units 10:56 14:58 15:41 Hgb (11.8-15.2) gm/dl Hct (35.5-45.6) % MCV (84-94) fl MCH (28-32) pg RDW (13.2-15.2) % Plt Count (140-440) K/mm3 Seg Neuts % (Manual) (40.0-70.0) % Lymphocytes % (Manual) (13.4-35.0) % Seg Neutrophils # Man (1.8-7.7) K/mm3 Lymphocytes # (Manual) (1.2-5.4) K/mm3 PT (12.2-14.9) Sec. INR (0.87-1.13) APTT (24.2-36.6) Sec. POC ABG pO2 (80-105) Sodium (137-145) mmol/L Chloride (98-107) mmol/L BUN (9-20) mg/dL POC Glucose 69 L 150 H (70-105) Calcium (8.4-10.2) mg/dL AST (5-40) units/L ALT (7-56) units/L C-Reactive Protein 15.20 H (0.00-1.30) mg/dL Total Protein (6.3-8.2) g/dL Albumin (3.9-5) g/dL 05/26/17 05/26/17 05/26/17 Range/Units 17:46 18:40 20:18 Hgb (11.8-15.2) gm/dl Hct (35.5-45.6) % MCV (84-94) fl MCH (28-32) pg RDW (13.2-15.2) % Plt Count (140-440) K/mm3 Seg Neuts % (Manual) (40.0-70.0) % Lymphocytes % (Manual) (13.4-35.0) % Seg Neutrophils # Man (1.8-7.7) K/mm3 Lymphocytes # (Manual) (1.2-5.4) K/mm3 PT (12.2-14.9) Sec. INR (0.87-1.13) APTT (24.2-36.6) Sec. POC ABG pO2 (80-105) Sodium (137-145) mmol/L Chloride (98-107) mmol/L BUN (9-20) mg/dL POC Glucose 63 L 149 H 63 L (70-105) Calcium (8.4-10.2) mg/dL AST (5-40) units/L ALT (7-56) units/L C-Reactive Protein (0.00-1.30) mg/dL Total Protein (6.3-8.2) g/dL Albumin (3.9-5) g/dL 05/27/17 05/27/17 05/27/17 Range/Units 00:35 02:33 04:00 Hgb 11.7 L (11.8-15.2) gm/dl Hct 34.6 L (35.5-45.6) % MCV 75 L (84-94) fl MCH 25 L (28-32) pg RDW 15.6 H (13.2-15.2) % Plt Count 21 L (140-440) K/mm3 Seg Neuts % (Manual) 14.0 L (40.0-70.0) % Lymphocytes % (Manual) 5.0 L (13.4-35.0) % Seg Neutrophils # Man 1.5 L (1.8-7.7) K/mm3 Lymphocytes # (Manual) 0.5 L (1.2-5.4) K/mm3 PT (12.2-14.9) Sec. INR (0.87-1.13) APTT (24.2-36.6) Sec. POC ABG pO2 (80-105) Sodium (137-145) mmol/L Chloride (98-107) mmol/L BUN (9-20) mg/dL POC Glucose 49 L 61 L (70-105) Calcium (8.4-10.2) mg/dL AST (5-40) units/L ALT (7-56) units/L C-Reactive Protein (0.00-1.30) mg/dL Total Protein (6.3-8.2) g/dL Albumin (3.9-5) g/dL 05/27/17 05/27/17 05/27/17 Range/Units 04:00 04:00 05:20 Hgb (11.8-15.2) gm/dl Hct (35.5-45.6) % MCV (84-94) fl MCH (28-32) pg RDW (13.2-15.2) % Plt Count (140-440) K/mm3 Seg Neuts % (Manual) (40.0-70.0) % Lymphocytes % (Manual) (13.4-35.0) % Seg Neutrophils # Man (1.8-7.7) K/mm3 Lymphocytes # (Manual) (1.2-5.4) K/mm3 PT 19.7 H (12.2-14.9) Sec. INR 1.57 H (0.87-1.13) APTT 57.0 H (24.2-36.6) Sec. POC ABG pO2 (80-105) Sodium 148 H (137-145) mmol/L Chloride 112.7 H (98-107) mmol/L BUN 24 H (9-20) mg/dL POC Glucose 64 L (70-105) Calcium 7.7 L (8.4-10.2) mg/dL AST 115 H (5-40) units/L ALT 100 H (7-56) units/L C-Reactive Protein (0.00-1.30) mg/dL Total Protein 3.8 L (6.3-8.2) g/dL Albumin 2.1 L (3.9-5) g/dL 05/27/17 05/27/17 05/27/17 Range/Units 06:36 09:15 12:35 Hgb (11.8-15.2) gm/dl Hct (35.5-45.6) % MCV (84-94) fl MCH (28-32) pg RDW (13.2-15.2) % Plt Count (140-440) K/mm3 Seg Neuts % (Manual) (40.0-70.0) % Lymphocytes % (Manual) (13.4-35.0) % Seg Neutrophils # Man (1.8-7.7) K/mm3 Lymphocytes # (Manual) (1.2-5.4) K/mm3 PT (12.2-14.9) Sec. INR (0.87-1.13) APTT (24.2-36.6) Sec. POC ABG pO2 380 H (80-105) Sodium (137-145) mmol/L Chloride (98-107) mmol/L BUN (9-20) mg/dL POC Glucose 120 H 162 H (70-105) Calcium (8.4-10.2) mg/dL AST (5-40) units/L ALT (7-56) units/L C-Reactive Protein (0.00-1.30) mg/dL Total Protein (6.3-8.2) g/dL Albumin (3.9-5) g/dL
--- NOTE | 2017-05-27 16:37 | Progress Note ---
Assessment and Plan Assessment and plan: Patient is 42 years old AA male, from long-term for evaluation of altered mental status and bradycardia. Also Hypothermic Only history available is schizophrenia. No other information can be obtained at this moment since patient is not communicating.No fever or chills per [facility] staff SEVERE SEPSIS WITH SEPTIC SHOCK- POA, Severe Hypothermia on admission Hypoglycemia Acute Toxic Metabolic Encephalopathy Thrombocytopenia-severe- no bleeding noted Aspiration Penumonitis with possible Post influenza Pneumonia Schizophrenia Hypoglycemia Acute Respiratory Failure Severe Protein Calorie Malnutrition Hypernatremia Plan Agree with ICU management. Continue rewarming techniques ID consult, Abx as ordered Transfuse plt if bleeding Continue D5W may need increased to D10 Continue ventilatory support Monitor cultures Await Lumber pucture. doubt it can be done safely with the patients low plt. MRI brain when more stable Replace Electrolytes CHECK INFLUENZA PCR REQUEST RECORDS FROM THE [facility] GI prophy Hold all Anticoagulations Discussed with Dr Helm The high probability of a clinically significant, sudden or life threatening deterioration of the [PULMONARY, NEUROLOGY] system(s) required my full and direct attention, intervention and personal management. The aggregate critical care time was [35] minutes. This time is in addition to time spent performing reported procedures but includes the following: [X] Data Review and interpretation [X] Patient assessment and monitoring of vital signs [X] Documentation [X] Medication orders and management History Interval history: Patient seen and examined, Intubated last night. awakens to noxious stimuli but not following commands. Hospitalist Physical - Constitutional Vitals: Temp Pulse Resp BP Pulse Ox 97.4 F L 68 23 101/66 100 05/27/17 12:00 05/27/17 16:23 05/27/17 13:45 05/27/17 16:23 05/27/17 16:23 General appearance: Present: mild distress, disheveled, other (appears toxic) - EENT Eyes: Present: PERRL - Neck Neck: Present: supple - Respiratory Respiratory effort: other (ett) Respiratory: bilateral: diminished - Cardiovascular Rhythm: regular Heart Sounds: Present: S1 & S2. Absent: systolic murmur - Extremities Extremities: pulses intact, normal temperature Peripheral Pulses: within normal limits - Abdominal General gastrointestinal: soft, non-distended, hypoactive bowel sounds - Integumentary Integumentary: Present: warm - Psychiatric Psychiatric: other (unable to access) - Neurologic Neurologic: other (unable to access) - Allied Health Allied health notes reviewed: nursing Results - Labs CBC & Chem 7: 05/27/17 04:00 05/27/17 04:00 Labs: Laboratory Last Values WBC 10.4 K/mm3 (4.5-11.0) 05/27/17 04:00 RBC 4.65 M/mm3 (3.65-5.03) 05/27/17 04:00 Hgb 11.7 gm/dl (11.8-15.2) L 05/27/17 04:00 Hct 34.6 % (35.5-45.6) L 05/27/17 04:00 MCV 75 fl (84-94) L 05/27/17 04:00 MCH 25 pg (28-32) L 05/27/17 04:00 MCHC 34 % (32-34) 05/27/17 04:00 RDW 15.6 % (13.2-15.2) H 05/27/17 04:00 Plt Count 21 K/mm3 (140-440) L 05/27/17 04:00 Kay % (Auto) Machinist Set Up 05/25/17 13:32 Eos % (Auto) Machinist Set Up 05/25/17 13:32 Kay # Machinist Set Up 05/25/17 13:32 Eos # Machinist Set Up 05/25/17 13:32 Baso # Machinist Set Up 05/25/17 13:32 Add Manual Diff Complete 05/27/17 04:00 Total Counted 100 05/27/17 04:00 Seg Neutrophils % Machinist Set Up 05/27/17 04:00 Seg Neuts % (Manual) 14.0 % (40.0-70.0) L 05/27/17 04:00 Band Neutrophils % 70.0 % 05/27/17 04:00 Lymphocytes % (Manual) 5.0 % (13.4-35.0) L 05/27/17 04:00 Reactive Lymphs % (Man) 0 % 05/27/17 04:00 Monocytes % (Manual) 2.0 % (0.0-7.3) 05/27/17 04:00 Eosinophils % (Manual) 0 % (0.0-4.3) 05/27/17 04:00 Basophils % (Manual) 0 % (0.0-1.8) 05/27/17 04:00 Metamyelocytes % 9.0 % 05/27/17 04:00 Myelocytes % 0 % 05/27/17 04:00 Promyelocytes % 0 % 05/27/17 04:00 Blast Cells % 0 % 05/27/17 04:00 Nucleated RBC % Not Reportable 05/27/17 04:00 Seg Neutrophils # Machinist Set Up 05/25/17 13:32 Seg Neutrophils # Man 1.5 K/mm3 (1.8-7.7) L 05/27/17 04:00 Band Neutrophils # 7.3 K/mm3 05/27/17 04:00 Lymphocytes # (Manual) 0.5 K/mm3 (1.2-5.4) L 05/27/17 04:00 Abs React Lymphs (Man) 0.0 K/mm3 05/27/17 04:00 Monocytes # (Manual) 0.2 K/mm3 (0.0-0.8) 05/27/17 04:00 Eosinophils # (Manual) 0.0 K/mm3 (0.0-0.4) 05/27/17 04:00 Basophils # (Manual) 0.0 K/mm3 (0.0-0.1) 05/27/17 04:00 Metamyelocytes # 0.9 K/mm3 05/27/17 04:00 Myelocytes # 0.0 K/mm3 05/27/17 04:00 Promyelocytes # 0.0 K/mm3 05/27/17 04:00 Blast Cells # 0.0 K/mm3 05/27/17 04:00 WBC Morphology Not Reportable 05/27/17 04:00 Hypersegmented Neuts Not Reportable 05/27/17 04:00 Hyposegmented Neuts Not Reportable 05/27/17 04:00 Hypogranular Neuts Not Reportable 05/27/17 04:00 Smudge Cells Not Reportable 05/27/17 04:00 Toxic Granulation Not Reportable 05/27/17 04:00 Toxic Vacuolation Not Reportable 05/27/17 04:00 Dohle Bodies 1+ 05/27/17 04:00 Pelger-Huet Anomaly Not Reportable 05/27/17 04:00 Evon Rods Not Reportable 05/27/17 04:00 Platelet Estimate Consistent w auto 05/27/17 04:00 Clumped Platelets Not Reportable 05/27/17 04:00 Plt Clumps, EDTA Not Reportable 05/27/17 04:00 Large Platelets Not Reportable 05/27/17 04:00 Giant Platelets Not Reportable 05/27/17 04:00 Platelet Satelliting Not Reportable 05/27/17 04:00 Plt Morphology Comment Not Reportable 05/27/17 04:00 RBC Morphology Not Reportable 05/27/17 04:00 Dimorphic RBCs Not Reportable 05/27/17 04:00 Polychromasia Not Reportable 05/27/17 04:00 Hypochromasia 1+ 05/27/17 04:00 Poikilocytosis Not Reportable 05/27/17 04:00 Anisocytosis 1+ 05/27/17 04:00 Microcytosis Not Reportable 05/27/17 04:00 Macrocytosis Not Reportable 05/27/17 04:00 Spherocytes Not Reportable 05/27/17 04:00 Pappenheimer Bodies Not Reportable 05/27/17 04:00 Sickle Cells Not Reportable 05/27/17 04:00 Target Cells Not Reportable 05/27/17 04:00 Tear Drop Cells Not Reportable 05/27/17 04:00 Ovalocytes Not Reportable 05/27/17 04:00 Helmet Cells Not Reportable 05/27/17 04:00 [place] Bodies Not Reportable 05/27/17 04:00 [place] Rings Not Reportable 05/27/17 04:00 Gerda Cells Not Reportable 05/27/17 04:00 Bite Cells Not Reportable 05/27/17 04:00 Crenated Cell Not Reportable 05/27/17 04:00 Elliptocytes Not Reportable 05/27/17 04:00 Acanthocytes (Spur) Not Reportable 05/27/17 04:00 Rouleaux Not Reportable 05/27/17 04:00 Hemoglobin C Crystals Not Reportable 05/27/17 04:00 Schistocytes Not Reportable 05/27/17 04:00 Malaria parasites Not Reportable 05/27/17 04:00 Michael Bodies Not Reportable 05/27/17 04:00 Hem Pathologist Commnt No 05/27/17 04:00 PT 19.7 Sec. (12.2-14.9) H 05/27/17 04:00 INR 1.57 (0.87-1.13) H 05/27/17 04:00 APTT 57.0 Sec. (24.2-36.6) H 05/27/17 04:00 POC ABG pH 7.417 (7.35-7.45) 05/27/17 09:15 POC ABG pCO2 38.7 (35-45) 05/27/17 09:15 POC ABG pO2 380 (80-105) H 05/27/17 09:15 POC ABG HCO3 25.0 05/27/17 09:15 POC ABG Total CO2 26 05/27/17 09:15 POC ABG O2 Sat 100 05/27/17 09:15 POC ABG Base Excess 0 05/27/17 09:15 FiO2 100 % 05/27/17 09:15 Sodium 148 mmol/L (137-145) H 05/27/17 04:00 Potassium 4.6 mmol/L (3.6-5.0) 05/27/17 04:00 Chloride 112.7 mmol/L (98-107) H 05/27/17 04:00 Carbon Dioxide 22 mmol/L (22-30) 05/27/17 04:00 Anion Gap 18 mmol/L 05/27/17 04:00 BUN 24 mg/dL (9-20) H 05/27/17 04:00 Creatinine 1.5 mg/dL (0.8-1.5) D 05/27/17 04:00 Estimated GFR > 60 ml/min 05/27/17 04:00 BUN/Creatinine Ratio 16 % 05/27/17 04:00 Glucose 87 mg/dL (75-100) 05/27/17 04:00 POC Glucose 162 (70-105) H 05/27/17 12:35 Lactic Acid 1.90 mmol/L (0.7-2.0) 05/25/17 17:56 Calcium 7.7 mg/dL (8.4-10.2) L 05/27/17 04:00 Total Bilirubin 0.30 mg/dL (0.1-1.2) 05/27/17 04:00 AST 115 units/L (5-40) H 05/27/17 04:00 ALT 100 units/L (7-56) H 05/27/17 04:00 Alkaline Phosphatase 41 units/L (35-129) 05/27/17 04:00 Ammonia 33.0 umol/L (25-60) 05/25/17 13:32 Total Creatine Kinase 360 units/L (55-170) H 05/25/17 13:32 Troponin T < 0.010 ng/mL (0.00-0.029) 05/25/17 13:32 C-Reactive Protein 15.20 mg/dL (0.00-1.30) H 05/26/17 15:41 Total Protein 3.8 g/dL (6.3-8.2) L 05/27/17 04:00 Albumin 2.1 g/dL (3.9-5) L 05/27/17 04:00 Albumin/Globulin Ratio 1.2 % 05/27/17 04:00 Urine Color Yellow (Yellow) 05/25/17 14:11 Urine Turbidity Clear (Clear) 05/25/17 14:11 Urine pH 5.0 (5.0-7.0) 05/25/17 14:11 Ur Specific [place] 1.025 (1.003-1.030) 05/25/17 14:11 Urine Protein <15 mg/dl mg/dL (Negative) 05/25/17 14:11 Urine Glucose (UA) 50 mg/dL (Negative) 05/25/17 14:11 Urine Ketones Neg mg/dL (Negative) 05/25/17 14:11 Urine Blood Neg (Negative) 05/25/17 14:11 Urine Nitrite Neg (Negative) 05/25/17 14:11 Urine Bilirubin Neg (Negative) 05/25/17 14:11 Urine Urobilinogen < 2.0 mg/dL (<2.0) 05/25/17 14:11 Ur Leukocyte Esterase Neg (Negative) 05/25/17 14:11 Urine WBC (Auto) 3.0 /HPF (0.0-6.0) 05/25/17 14:11 Urine RBC (Auto) 2.0 /HPF (0.0-6.0) 05/25/17 14:11 Hyaline Casts 1 /LPF 05/25/17 14:11 Urine Mucus Few /HPF 05/25/17 14:11 Vancomycin Trough 15.2 ug/mL (5.0-20.0) 05/27/17 13:47 Salicylates < 0.3 mg/dL (2.8-20.0) L 05/25/17 13:32 Urine Opiates Screen Presumptive negative 05/25/17 14:11 Urine Methadone Screen Presumptive negative 05/25/17 14:11 Acetaminophen < 15.0 ug/mL (10.0-30.0) 05/25/17 13:32 Ur Barbiturates Screen Presumptive negative 05/25/17 14:11 Ur Phencyclidine Scrn Presumptive negative 05/25/17 14:11 Ur Amphetamines Screen Presumptive negative 05/25/17 14:11 U Benzodiazepines Scrn Presumptive negative 05/25/17 14:11 Urine Cocaine Screen Presumptive negative 05/25/17 14:11 U Marijuana (THC) Screen Presumptive negative 05/25/17 14:11 Drugs of Abuse Note Disclamer 05/25/17 14:11 Plasma/Serum Alcohol < 0.01 % (0-0.07) 05/25/17 13:32 HIV 1&2 Antibody Rapid Non react (Non React) 05/26/17 12:38 HIV P24 Antigen Non react (Non React) 05/26/17 12:38
--- NOTE | 2017-05-27 17:00 | Consultation ---
History of Present Illness - Reason for Consult Consult date: 05/27/17 Reason for consult: attempted psych evaluation - Chief Complaint Chief complaint: intubated - History of Present Psychiatric Illness 42 year old male inmate seen in the ICU for attempted psychiatric evaluation. He is intubated and will be seen when he is not intubated. The medical record indicates a history of schizophrenia and home medication of zyprexa 15mg hs and cogentin 1mg hs. Medical conditions per hospitalist: Sepsis Hypoglycemia Acute Toxic Metabolic Encephalopathy Thrombocytopenia-severe- no bleeding noted Aspiration Penumonitis with possible Post influenza Pneumonia Schizophrenia Hypoglycemia Acute Respiratory Failure Severe Protein Calorie Malnutrition Hypernatremia Medications and Allergies Allergies Allergy/AdvReac Type Severity Reaction Status Date / Time risperidone [From Risperdal] Allergy Unknown Verified 05/25/17 13:34 Home Medications Medication Instructions Recorded Confirmed Last Taken Type Benztropine [Cogentin] 1 mg PO DAILY 05/25/17 05/25/17 05/24/17 History Olanzapine [Zyprexa] 15 mg PO DAILY 05/25/17 05/25/17 05/24/17 History Active Meds: Active Medications Acetaminophen (Tylenol) 650 mg PO Q4H PRN PRN Reason: Pain MILD(1-3)/Fever >100.5/FOFANA Bisacodyl (Dulcolax) 10 mg [place] QDAY PRN PRN Reason: Constipation unrelieved by MOM Dextrose (D50w (25gm) Syringe) 50 ml IV PRN PRN PRN Reason: Hypoglycemia Last Admin: 05/27/17 05:30 Dose: 50 ml Enoxaparin Sodium (Lovenox) 40 mg SUB-Q QDAY@2200 [facility] Last Admin: 05/26/17 21:34 Dose: 40 mg Famotidine (Pepcid) 20 mg IV BID [facility] Last Admin: 05/27/17 10:27 Dose: 20 mg Hydrocortisone Sodium Succinate (Solu-Cortef) 100 mg IV Q8HR [facility] Sodium Chloride (Nacl 0.9% 1000 Ml) 1,000 mls @ 100 mls/hr IV DIRECT [facility] Last Admin: 05/25/17 21:30 Dose: 100 mls/hr Norepinephrine (Levophed Drip 4 Mg/Ns 250 Ml) 4 mg in 250 mls @ 7.5 mls/hr IV TITR [facility]ICCARD[facility]; 2 MCG/MIN PRN Reason: Protocol Last Titration: 05/27/17 11:45 Dose: 3 mcg/min, 11.25 mls/hr Vancomycin HCl (Vancomycin/0.45 Ns 1 Gm/250 Ml) 1 gm in 250 mls @ 166.667 mls/ hr IV Q8HR [facility] Last Admin: 05/27/17 14:54 Dose: 166.667 mls/hr Dextrose/Sodium Chloride (D5/0.45ns) 1,000 mls @ 125 mls/hr IV DIRECT [facility] Last Admin: 05/26/17 15:18 Dose: 125 mls/hr Dextrose (D10w) 1,000 mls @ 150 mls/hr IV DIRECT [facility] Last Admin: 05/26/17 18:00 Dose: 50 mls/hr Ceftriaxone Sodium 2 gm/ (Sodium Chloride) 20 mls @ 20 mls/10 min IV Q12H [facility] Last Admin: 05/27/17 04:20 Dose: 20 mls/10 min Acyclovir 680 mg/ Sodium (Chloride) 113.6 mls @ 100 mls/hr IV Q8H [facility] Last Admin: 05/27/17 10:56 Dose: 100 mls/hr Midazolam HCl 100 mg/ Sodium (Chloride) 100 mls @ 2 mls/hr IV TITR RICCARDO; 2 MG/HR PRN Reason: Protocol Last Titration: 05/27/17 08:20 Dose: 0 mg/hr, 0 mls/hr Sodium Chloride (Nacl 0.45% 1000 Ml) 1,000 mls @ 100 mls/hr IV DIRECT [facility] Last Admin: 05/27/17 10:28 Dose: 100 mls/hr Magnesium Hydroxide (Milk Of Magnesia) 30 ml PO Q4H PRN PRN Reason: Constipation Morphine Sulfate (Morphine) 2 mg IV Q4H PRN PRN Reason: Pain, Moderate (4-6) Ondansetron HCl (Zofran) 4 mg IV Q8H PRN PRN Reason: N/V unrelieved by Reglan Oseltamivir Phosphate (Tamiflu) 75 mg PO BID [facility] Stop: 05/30/17 22:01 Last Admin: 05/27/17 10:28 Dose: 75 mg Vancomycin HCl (Vancomycin Pharmacy To Dose) 1 each IV PKCONSULT RICCARDO PRN Reason: Protocol Past psychiatric history - Past Medical History Past Medical History: other (see hpi) - past Psychiatric treatment and history Psych: Schizophrenia - Social History Social history: other (incarcerated) Mental Status Exam - Vital signs Last Vital Signs Temp 97.4 F L 05/27/17 12:00 Pulse 68 05/27/17 16:23 Resp 23 05/27/17 13:45 BP 101/66 05/27/17 16:23 Pulse Ox 100 05/27/17 16:23 - Exam Narrative exam: intubated and unresponsive Results Result Diagrams: 05/27/17 20:15 05/27/17 04:00 Abnormal lab results 05/26/17 05/26/17 05/26/17 Range/Units 10:56 14:58 17:46 Hgb (11.8-15.2) gm/dl Hct (35.5-45.6) % MCV (84-94) fl MCH (28-32) pg RDW (13.2-15.2) % Plt Count (140-440) K/mm3 Seg Neuts % (Manual) (40.0-70.0) % Lymphocytes % (Manual) (13.4-35.0) % Seg Neutrophils # Man (1.8-7.7) K/mm3 Lymphocytes # (Manual) (1.2-5.4) K/mm3 PT (12.2-14.9) Sec. INR (0.87-1.13) APTT (24.2-36.6) Sec. POC ABG pO2 (80-105) Sodium (137-145) mmol/L Chloride (98-107) mmol/L BUN (9-20) mg/dL POC Glucose 69 L 150 H 63 L (70-105) Calcium (8.4-10.2) mg/dL AST (5-40) units/L ALT (7-56) units/L Total Protein (6.3-8.2) g/dL Albumin (3.9-5) g/dL 05/26/17 05/26/17 05/27/17 Range/Units 18:40 20:18 00:35 Hgb (11.8-15.2) gm/dl Hct (35.5-45.6) % MCV (84-94) fl MCH (28-32) pg RDW (13.2-15.2) % Plt Count (140-440) K/mm3 Seg Neuts % (Manual) (40.0-70.0) % Lymphocytes % (Manual) (13.4-35.0) % Seg Neutrophils # Man (1.8-7.7) K/mm3 Lymphocytes # (Manual) (1.2-5.4) K/mm3 PT (12.2-14.9) Sec. INR (0.87-1.13) APTT (24.2-36.6) Sec. POC ABG pO2 (80-105) Sodium (137-145) mmol/L Chloride (98-107) mmol/L BUN (9-20) mg/dL POC Glucose 149 H 63 L 49 L (70-105) Calcium (8.4-10.2) mg/dL AST (5-40) units/L ALT (7-56) units/L Total Protein (6.3-8.2) g/dL Albumin (3.9-5) g/dL 05/27/17 05/27/17 05/27/17 Range/Units 02:33 04:00 04:00 Hgb 11.7 L (11.8-15.2) gm/dl Hct 34.6 L (35.5-45.6) % MCV 75 L (84-94) fl MCH 25 L (28-32) pg RDW 15.6 H (13.2-15.2) % Plt Count 21 L (140-440) K/mm3 Seg Neuts % (Manual) 14.0 L (40.0-70.0) % Lymphocytes % (Manual) 5.0 L (13.4-35.0) % Seg Neutrophils # Man 1.5 L (1.8-7.7) K/mm3 Lymphocytes # (Manual) 0.5 L (1.2-5.4) K/mm3 PT (12.2-14.9) Sec. INR (0.87-1.13) APTT (24.2-36.6) Sec. POC ABG pO2 (80-105) Sodium 148 H (137-145) mmol/L Chloride 112.7 H (98-107) mmol/L BUN 24 H (9-20) mg/dL POC Glucose 61 L (70-105) Calcium 7.7 L (8.4-10.2) mg/dL AST 115 H (5-40) units/L ALT 100 H (7-56) units/L Total Protein 3.8 L (6.3-8.2) g/dL Albumin 2.1 L (3.9-5) g/dL 05/27/17 05/27/17 05/27/17 Range/Units 04:00 05:20 06:36 Hgb (11.8-15.2) gm/dl Hct (35.5-45.6) % MCV (84-94) fl MCH (28-32) pg RDW (13.2-15.2) % Plt Count (140-440) K/mm3 Seg Neuts % (Manual) (40.0-70.0) % Lymphocytes % (Manual) (13.4-35.0) % Seg Neutrophils # Man (1.8-7.7) K/mm3 Lymphocytes # (Manual) (1.2-5.4) K/mm3 PT 19.7 H (12.2-14.9) Sec. INR 1.57 H (0.87-1.13) APTT 57.0 H (24.2-36.6) Sec. POC ABG pO2 (80-105) Sodium (137-145) mmol/L Chloride (98-107) mmol/L BUN (9-20) mg/dL POC Glucose 64 L 120 H (70-105) Calcium (8.4-10.2) mg/dL AST (5-40) units/L ALT (7-56) units/L Total Protein (6.3-8.2) g/dL Albumin (3.9-5) g/dL 05/27/17 05/27/17 Range/Units 09:15 12:35 Hgb (11.8-15.2) gm/dl Hct (35.5-45.6) % MCV (84-94) fl MCH (28-32) pg RDW (13.2-15.2) % Plt Count (140-440) K/mm3 Seg Neuts % (Manual) (40.0-70.0) % Lymphocytes % (Manual) (13.4-35.0) % Seg Neutrophils # Man (1.8-7.7) K/mm3 Lymphocytes # (Manual) (1.2-5.4) K/mm3 PT (12.2-14.9) Sec. INR (0.87-1.13) APTT (24.2-36.6) Sec. POC ABG pO2 380 H (80-105) Sodium (137-145) mmol/L Chloride (98-107) mmol/L BUN (9-20) mg/dL POC Glucose 162 H (70-105) Calcium (8.4-10.2) mg/dL AST (5-40) units/L ALT (7-56) units/L Total Protein (6.3-8.2) g/dL Albumin (3.9-5) g/dL All other labs normal. Assessment and Plan Assessment and plan: Impression: reported history of schizophrenia medical conditions managed by the medical team Recommendation: Will attempt to reach [facility] nursing home nurse to determine any other pertinent psychiatric information. Contact psych when he is not intubated and further information can be obtained from the patient.
--- NOTE | 2017-05-27 17:54 | Progress Note ---
Hospitalist Physical - Constitutional Vitals: Temp Pulse Resp BP Pulse Ox 97.4 F L 63 16 88/54 99 05/27/17 12:00 05/27/17 17:30 05/27/17 17:30 05/27/17 17:30 05/27/17 17:30 General appearance: Present: mild distress, disheveled, other (appears toxic) Results - Labs CBC & Chem 7: 05/27/17 04:00 05/27/17 04:00 Labs: Laboratory Last Values WBC 10.4 K/mm3 (4.5-11.0) 05/27/17 04:00 RBC 4.65 M/mm3 (3.65-5.03) 05/27/17 04:00 Hgb 11.7 gm/dl (11.8-15.2) L 05/27/17 04:00 Hct 34.6 % (35.5-45.6) L 05/27/17 04:00 MCV 75 fl (84-94) L 05/27/17 04:00 MCH 25 pg (28-32) L 05/27/17 04:00 MCHC 34 % (32-34) 05/27/17 04:00 RDW 15.6 % (13.2-15.2) H 05/27/17 04:00 Plt Count 21 K/mm3 (140-440) L 05/27/17 04:00 [place] % (Auto) Furnace Keeper 05/25/17 13:32 Eos % (Auto) Furnace Keeper 05/25/17 13:32 [place] # Furnace Keeper 05/25/17 13:32 Eos # Furnace Keeper 05/25/17 13:32 Baso # Furnace Keeper 05/25/17 13:32 Add Manual Diff Complete 05/27/17 04:00 Total Counted 100 05/27/17 04:00 Seg Neutrophils % Furnace Keeper 05/27/17 04:00 Seg Neuts % (Manual) 14.0 % (40.0-70.0) L 05/27/17 04:00 Band Neutrophils % 70.0 % 05/27/17 04:00 Lymphocytes % (Manual) 5.0 % (13.4-35.0) L 05/27/17 04:00 Reactive Lymphs % (Man) 0 % 05/27/17 04:00 Monocytes % (Manual) 2.0 % (0.0-7.3) 05/27/17 04:00 Eosinophils % (Manual) 0 % (0.0-4.3) 05/27/17 04:00 Basophils % (Manual) 0 % (0.0-1.8) 05/27/17 04:00 Metamyelocytes % 9.0 % 05/27/17 04:00 Myelocytes % 0 % 05/27/17 04:00 Promyelocytes % 0 % 05/27/17 04:00 Blast Cells % 0 % 05/27/17 04:00 Nucleated RBC % Not Reportable 05/27/17 04:00 Seg Neutrophils # Furnace Keeper 05/25/17 13:32 Seg Neutrophils # Man 1.5 K/mm3 (1.8-7.7) L 05/27/17 04:00 Band Neutrophils # 7.3 K/mm3 05/27/17 04:00 Lymphocytes # (Manual) 0.5 K/mm3 (1.2-5.4) L 05/27/17 04:00 Abs React Lymphs (Man) 0.0 K/mm3 05/27/17 04:00 Monocytes # (Manual) 0.2 K/mm3 (0.0-0.8) 05/27/17 04:00 Eosinophils # (Manual) 0.0 K/mm3 (0.0-0.4) 05/27/17 04:00 Basophils # (Manual) 0.0 K/mm3 (0.0-0.1) 05/27/17 04:00 Metamyelocytes # 0.9 K/mm3 05/27/17 04:00 Myelocytes # 0.0 K/mm3 05/27/17 04:00 Promyelocytes # 0.0 K/mm3 05/27/17 04:00 Blast Cells # 0.0 K/mm3 05/27/17 04:00 WBC Morphology Not Reportable 05/27/17 04:00 Hypersegmented Neuts Not Reportable 05/27/17 04:00 Hyposegmented Neuts Not Reportable 05/27/17 04:00 Hypogranular Neuts Not Reportable 05/27/17 04:00 Smudge Cells Not Reportable 05/27/17 04:00 Toxic Granulation Not Reportable 05/27/17 04:00 Toxic Vacuolation Not Reportable 05/27/17 04:00 Dohle Bodies 1+ 05/27/17 04:00 Pelger-Huet Anomaly Not Reportable 05/27/17 04:00 Evon Rods Not Reportable 05/27/17 04:00 Platelet Estimate Consistent w auto 05/27/17 04:00 Clumped Platelets Not Reportable 05/27/17 04:00 Plt Clumps, EDTA Not Reportable 05/27/17 04:00 Large Platelets Not Reportable 05/27/17 04:00 Giant Platelets Not Reportable 05/27/17 04:00 Platelet Satelliting Not Reportable 05/27/17 04:00 Plt Morphology Comment Not Reportable 05/27/17 04:00 RBC Morphology Not Reportable 05/27/17 04:00 Dimorphic RBCs Not Reportable 05/27/17 04:00 Polychromasia Not Reportable 05/27/17 04:00 Hypochromasia 1+ 05/27/17 04:00 Poikilocytosis Not Reportable 05/27/17 04:00 Anisocytosis 1+ 05/27/17 04:00 Microcytosis Not Reportable 05/27/17 04:00 Macrocytosis Not Reportable 05/27/17 04:00 Spherocytes Not Reportable 05/27/17 04:00 Pappenheimer Bodies Not Reportable 05/27/17 04:00 Sickle Cells Not Reportable 05/27/17 04:00 Target Cells Not Reportable 05/27/17 04:00 Tear Drop Cells Not Reportable 05/27/17 04:00 Ovalocytes Not Reportable 05/27/17 04:00 Helmet Cells Not Reportable 05/27/17 04:00 [place] Bodies Not Reportable 05/27/17 04:00 [place] Rings Not Reportable 05/27/17 04:00 [place] Cells Not Reportable 05/27/17 04:00 Bite Cells Not Reportable 05/27/17 04:00 Crenated Cell Not Reportable 05/27/17 04:00 Elliptocytes Not Reportable 05/27/17 04:00 Acanthocytes (Spur) Not Reportable 05/27/17 04:00 Rouleaux Not Reportable 05/27/17 04:00 Hemoglobin C Crystals Not Reportable 05/27/17 04:00 Schistocytes Not Reportable 05/27/17 04:00 Malaria parasites Not Reportable 05/27/17 04:00 Michael Bodies Not Reportable 05/27/17 04:00 Hem Pathologist Commnt No 05/27/17 04:00 PT 19.7 Sec. (12.2-14.9) H 05/27/17 04:00 INR 1.57 (0.87-1.13) H 05/27/17 04:00 APTT 57.0 Sec. (24.2-36.6) H 05/27/17 04:00 POC ABG pH 7.417 (7.35-7.45) 05/27/17 09:15 POC ABG pCO2 38.7 (35-45) 05/27/17 09:15 POC ABG pO2 380 (80-105) H 05/27/17 09:15 POC ABG HCO3 25.0 05/27/17 09:15 POC ABG Total CO2 26 05/27/17 09:15 POC ABG O2 Sat 100 05/27/17 09:15 POC ABG Base Excess 0 05/27/17 09:15 FiO2 100 % 05/27/17 09:15 Sodium 148 mmol/L (137-145) H 05/27/17 04:00 Potassium 4.6 mmol/L (3.6-5.0) 05/27/17 04:00 Chloride 112.7 mmol/L (98-107) H 05/27/17 04:00 Carbon Dioxide 22 mmol/L (22-30) 05/27/17 04:00 Anion Gap 18 mmol/L 05/27/17 04:00 BUN 24 mg/dL (9-20) H 05/27/17 04:00 Creatinine 1.5 mg/dL (0.8-1.5) D 05/27/17 04:00 Estimated GFR > 60 ml/min 05/27/17 04:00 BUN/Creatinine Ratio 16 % 05/27/17 04:00 Glucose 87 mg/dL (75-100) 05/27/17 04:00 POC Glucose 162 (70-105) H 05/27/17 12:35 Lactic Acid 1.90 mmol/L (0.7-2.0) 05/25/17 17:56 Calcium 7.7 mg/dL (8.4-10.2) L 05/27/17 04:00 Total Bilirubin 0.30 mg/dL (0.1-1.2) 05/27/17 04:00 AST 115 units/L (5-40) H 05/27/17 04:00 ALT 100 units/L (7-56) H 05/27/17 04:00 Alkaline Phosphatase 41 units/L (35-129) 05/27/17 04:00 Ammonia 33.0 umol/L (25-60) 05/25/17 13:32 Total Creatine Kinase 360 units/L (55-170) H 05/25/17 13:32 Troponin T < 0.010 ng/mL (0.00-0.029) 05/25/17 13:32 C-Reactive Protein 15.20 mg/dL (0.00-1.30) H 05/26/17 15:41 Total Protein 3.8 g/dL (6.3-8.2) L 05/27/17 04:00 Albumin 2.1 g/dL (3.9-5) L 05/27/17 04:00 Albumin/Globulin Ratio 1.2 % 05/27/17 04:00 Urine Color Yellow (Yellow) 05/25/17 14:11 Urine Turbidity Clear (Clear) 05/25/17 14:11 Urine pH 5.0 (5.0-7.0) 05/25/17 14:11 Ur Specific [place] 1.025 (1.003-1.030) 05/25/17 14:11 Urine Protein <15 mg/dl mg/dL (Negative) 05/25/17 14:11 Urine Glucose (UA) 50 mg/dL (Negative) 05/25/17 14:11 Urine Ketones Neg mg/dL (Negative) 05/25/17 14:11 Urine Blood Neg (Negative) 05/25/17 14:11 Urine Nitrite Neg (Negative) 05/25/17 14:11 Urine Bilirubin Neg (Negative) 05/25/17 14:11 Urine Urobilinogen < 2.0 mg/dL (<2.0) 05/25/17 14:11 Ur Leukocyte Esterase Neg (Negative) 05/25/17 14:11 Urine WBC (Auto) 3.0 /HPF (0.0-6.0) 05/25/17 14:11 Urine RBC (Auto) 2.0 /HPF (0.0-6.0) 05/25/17 14:11 Hyaline Casts 1 /LPF 05/25/17 14:11 Urine Mucus Few /HPF 05/25/17 14:11 Vancomycin Trough 15.2 ug/mL (5.0-20.0) 05/27/17 13:47 Salicylates < 0.3 mg/dL (2.8-20.0) L 05/25/17 13:32 Urine Opiates Screen Presumptive negative 05/25/17 14:11 Urine Methadone Screen Presumptive negative 05/25/17 14:11 Acetaminophen < 15.0 ug/mL (10.0-30.0) 05/25/17 13:32 Ur Barbiturates Screen Presumptive negative 05/25/17 14:11 Ur Phencyclidine Scrn Presumptive negative 05/25/17 14:11 Ur Amphetamines Screen Presumptive negative 05/25/17 14:11 U Benzodiazepines Scrn Presumptive negative 05/25/17 14:11 Urine Cocaine Screen Presumptive negative 05/25/17 14:11 U Marijuana (THC) Screen Presumptive negative 05/25/17 14:11 Drugs of Abuse Note Disclamer 05/25/17 14:11 Plasma/Serum Alcohol < 0.01 % (0-0.07) 05/25/17 13:32 HIV 1&2 Antibody Rapid Non react (Non React) 05/26/17 12:38 HIV P24 Antigen Non react (Non React) 05/26/17 12:38
[2017-05-27 20:38] LABS: Hematocrit 30.7 % (35.5-45.6); Hemoglobin 10.3 gm/dl (11.8-15.2); Mean Corpuscular HGB Conc 34 % (32-34); Mean Corpuscular Volume 75 fl (84-94); Red Blood Count 4.08 M/mm3 (3.65-5.03); Red Cell Distribution Width 15.6 % (13.2-15.2)
[2017-05-27 20:39] LABS: Mean Corpuscular Hemoglobin 25 pg (28-32)
[2017-05-27 20:42] LABS: Platelet Count 15 K/mm3 (140-440)
[2017-05-27 21:18] LABS: Basophils % (Manual) 0 % (0.0-1.8); Eosinophils % (Manual) 0 % (0.0-4.3); Platelet Estimate Appears Decreased; Total Cells Counted 100
[2017-05-27 21:19] LABS: Anisocytosis 1+; Target Cells 1+
[2017-05-27 21:20] LABS: Dohle Bodies Few
[2017-05-27 23:31] LABS: BUN/Creatinine Ratio 19; Blood Urea Nitrogen 17 mg/dL (9-20); Calcium 8.3 mg/dL (8.4-10.2); Hemolysis Index 2
[2017-05-28] MEDS: ZOVIRAX IV SCH ×3 (02:55→17:41)
[2017-05-28] MEDS: NACL 0.9% IV SCH ×3 (02:55→17:41)
[2017-05-28] MEDS: NACL 0.45% 1000 ML 1,000 ML IV SCH ×2 (02:59→14:16)
[2017-05-28] MEDS: cefTRIAXone 2 GM in NACL 0.9% 20 ML IV SCH ×2 (04:27→16:05)
[2017-05-28] MEDS: D10W 1,000 ML IV SCH (04:43)
[2017-05-28] MEDS: VANCOMYCIN/0.45 NS 1 GM/250 ML 1 GM/250 ML BAG IV SCH (05:00)
[2017-05-28 06:21] LABS: Hemoglobin 10.5 gm/dl (11.8-15.2); Red Cell Distribution Width 15.5 % (13.2-15.2)
[2017-05-28 06:28] LABS: Hematocrit 30.9 % (35.5-45.6); Mean Corpuscular HGB Conc 34 % (32-34); Mean Corpuscular Volume 75 fl (84-94); Red Blood Count 4.13 M/mm3 (3.65-5.03)
[2017-05-28 06:30] LABS: Mean Corpuscular Hemoglobin 25 pg (28-32)
[2017-05-28 06:31] LABS: Platelet Count 16 K/mm3 (140-440)
[2017-05-28 06:37] LABS: BUN/Creatinine Ratio 20; Blood Urea Nitrogen 16 mg/dL (9-20); Calcium 8.3 mg/dL (8.4-10.2); Hemolysis Index 1
--- NOTE | 2017-05-28 09:20 | XRay Report ---
AP CHEST: HISTORY: Followup respiratory failure Lines and support devices are unchanged since yesterday's exam. Heart size is stable and within normal limits. Bilateral infiltrates have decreased by approximately 25% since yesterday's exam. Partial atelectasis has developed in the left lower lobe. No large pleural effusion or pneumothorax. IMPRESSION: Mild improvement in the bilateral infiltrates. Partial atelectasis has developed in the medial left lower lobe.
[2017-05-28] MEDS: TAMIFLU PO SCH ×2 (10:32→22:05)
[2017-05-28] MEDS: PEPCID IV SCH ×2 (10:32→22:05)
[2017-05-28] MEDS ORDERED: PANCREAZE DR 10,500 UNIT FEEDTUBE PRN (10:40)
[2017-05-28] MEDS ORDERED: SODIUM BICARBONATE FEEDTUBE PRN (10:40)
[2017-05-28] MEDS ORDERED: SIMPLE SYRUP FEEDTUBE PRN ×2 (10:40)
--- NOTE | 2017-05-28 13:30 | Progress Note ---
Assessment and Plan 42 y/o male with sepsis with shock, hypoglycemia, hypothermia, thrombocytopenia and now acute respiratory failure most likely secondary to pneumonia. 1. Continue off sedation for now 2. Stat EKG to evaluate rhythm. Currently hemodynamically stable. Asked nursing to check mag, ordered and I ordered an ionized calcium which lab states will not go out till tomorrow. 3. Continue NEPTALI hugger for hypothermia. 4. Thrombocytopenia, could be from sepsis. Need to send peripheral smear. Patient is pancytopenic. HIV negative. Most likely this is all from sepsis 5. Hold on DVT prophylaxis given low platelets 6. GI prophylaxis 7. Hypogylcemia is improved. Likely from steroids. Off pressors so will feed as well. Stop D10 drip for now Overall prognosis is guarded to poor CCT 31 minutes Subjective Date of service: 05/28/17 Interval history: off pressors. Started stress dose steroids which may have helped. PEEP has been weaned down and currently on PSV trial. All sedation is off. Patient has eyes open and appears to understand but does not follow commands. He is cuffed to the bed at this left ankle. Remainder is positive for sinus renard on the monitor but normal BP. Objective Vital Signs - 12hr 05/28/17 05/28/17 05/28/17 01:30 01:45 02:00 Temperature Pulse Rate 64 69 70 Pulse Rate [ From Monitor] Respiratory 18 16 20 Rate Blood Pressure 113/75 108/72 120/81 O2 Sat by Pulse Oximetry 05/28/17 05/28/17 05/28/17 02:15 02:30 02:45 Temperature Pulse Rate 76 68 106 H Pulse Rate [ From Monitor] Respiratory 17 18 25 H Rate Blood Pressure 106/73 111/75 156/109 O2 Sat by Pulse 94 Oximetry 05/28/17 05/28/17 05/28/17 03:00 03:16 03:30 Temperature Pulse Rate 78 81 75 Pulse Rate [ From Monitor] Respiratory 11 L 18 Rate Blood Pressure 108/73 108/73 156/109 O2 Sat by Pulse 92 94 Oximetry 05/28/17 05/28/17 05/28/17 03:45 04:00 04:15 Temperature 97.8 F Pulse Rate 72 73 69 Pulse Rate [ From Monitor] Respiratory 19 21 20 Rate Blood Pressure 109/74 109/72 105/72 O2 Sat by Pulse 93 94 Oximetry 05/28/17 05/28/17 05/28/17 04:30 04:45 05:00 Temperature Pulse Rate 75 63 66 Pulse Rate [ From Monitor] Respiratory 17 19 18 Rate Blood Pressure 98/64 114/74 112/84 O2 Sat by Pulse 96 98 Oximetry 05/28/17 05/28/17 05/28/17 05:15 05:30 05:45 Temperature Pulse Rate 56 L 65 55 L Pulse Rate [ From Monitor] Respiratory 17 18 21 Rate Blood Pressure 112/82 125/91 123/87 O2 Sat by Pulse 99 100 Oximetry 05/28/17 05/28/17 05/28/17 06:00 06:15 06:30 Temperature Pulse Rate 59 L 58 L 56 L Pulse Rate [ From Monitor] Respiratory 16 18 16 Rate Blood Pressure 120/88 126/88 117/82 O2 Sat by Pulse 100 99 100 Oximetry 05/28/17 05/28/17 05/28/17 06:45 07:00 07:15 Temperature Pulse Rate 53 L 53 L 59 L Pulse Rate [ 55 L From Monitor] Respiratory 17 18 17 Rate Blood Pressure 121/84 122/84 112/79 O2 Sat by Pulse 99 95 97 Oximetry 05/28/17 05/28/17 05/28/17 07:30 07:32 07:38 Temperature Pulse Rate 56 L 52 L 53 L Pulse Rate [ From Monitor] Respiratory 18 16 Rate Blood Pressure 113/77 113/77 113/77 O2 Sat by Pulse 99 100 Oximetry 05/28/17 05/28/17 05/28/17 07:45 08:00 08:15 Temperature 97 F L Pulse Rate 58 L 54 L 57 L Pulse Rate [ From Monitor] Respiratory 13 13 14 Rate Blood Pressure 102/69 103/68 102/72 O2 Sat by Pulse 100 100 Oximetry 05/28/17 05/28/17 05/28/17 08:22 08:30 08:45 Temperature Pulse Rate 58 L 60 Pulse Rate [ 56 L From Monitor] Respiratory 14 14 Rate Blood Pressure 100/74 102/71 O2 Sat by Pulse Oximetry 05/28/17 05/28/17 05/28/17 09:00 09:15 09:30 Temperature Pulse Rate 55 L 62 54 L Pulse Rate [ From Monitor] Respiratory 13 16 15 Rate Blood Pressure 97/68 106/74 98/68 O2 Sat by Pulse 100 100 Oximetry 0205/28/17 05/28/17 09:45 10:00 10:15 Temperature Pulse Rate 52 L 52 L 51 L Pulse Rate [ From Monitor] Respiratory 13 13 13 Rate Blood Pressure 97/69 99/70 96/66 O2 Sat by Pulse 100 Oximetry 05/28/17 11:01 Temperature Pulse Rate 51 L Pulse Rate [ From Monitor] Respiratory 11 L Rate Blood Pressure 100/71 O2 Sat by Pulse 100 Oximetry Constitutional: alert (somewhat) Eyes: non-icteric ENT: other (orally intubated) Neck: supple Effort: mildly labored Ascultation: Bilateral: rales (left greater than right) Percussion: Bilateral: not dull Cardiovascular: regular rate and rhythm Gastrointestinal: normoactive bowel sounds, soft Extremities: no cyanosis, no edema Neurologic: unable to assess CBC and BMP: 05/28/17 05:50 05/28/17 05:50 ABG, PT/INR, D-dimer: ABG POC ABG pH 7.419 (7.35-7.45) 05/28/17 11:04 POC ABG pCO2 38.4 (35-45) 05/28/17 11:04 POC ABG pO2 178 (80-105) H 05/28/17 11:04 POC ABG HCO3 24.9 05/28/17 11:04 POC ABG Total CO2 26 05/28/17 11:04 POC ABG O2 Sat 100 05/28/17 11:04 PT/INR, D-dimer PT 19.7 Sec. (12.2-14.9) H 05/27/17 04:00 INR 1.57 (0.87-1.13) H 05/27/17 04:00 Abnormal lab findings: Abnormal Labs 05/25/17 05/25/17 05/25/17 13:32 13:32 13:32 WBC RBC 5.76 H Hgb Hct MCV 77 L MCH 25 L RDW 15.9 H Plt Count 48 L Seg Neuts % (Manual) 76.0 H Lymphocytes % (Manual) 2.0 L Seg Neutrophils # Man Lymphocytes # (Manual) 0.1 L PT INR APTT POC ABG pH POC ABG pO2 Sodium 147 H Chloride 109.4 H BUN Creatinine 0.3 L Glucose 102 H POC Glucose Lactic Acid Calcium AST 111 H ALT 168 H Total Creatine Kinase C-Reactive Protein Total Protein 5.8 L Albumin 2.9 L Salicylates < 0.3 L 05/25/17 05/25/17 05/25/17 13:32 15:16 16:34 WBC RBC Hgb Hct MCV MCH RDW Plt Count Seg Neuts % (Manual) Lymphocytes % (Manual) Seg Neutrophils # Man Lymphocytes # (Manual) PT INR APTT POC ABG pH POC ABG pO2 Sodium Chloride BUN Creatinine Glucose POC Glucose Lactic Acid 2.20 H* 2.10 H* Calcium AST ALT Total Creatine Kinase 360 H C-Reactive Protein Total Protein Albumin Salicylates 05/26/17 05/26/17 05/26/17 00:47 00:47 06:07 WBC 2.1 L RBC 5.23 H Hgb Hct MCV 75 L MCH 25 L RDW 15.6 H Plt Count 51 L Seg Neuts % (Manual) 24.0 L Lymphocytes % (Manual) 8.0 L Seg Neutrophils # Man 0.5 L Lymphocytes # (Manual) 0.2 L PT INR APTT POC ABG pH POC ABG pO2 Sodium 148 H Chloride 112.6 H BUN Creatinine Glucose 33 L* POC Glucose 44 L Lactic Acid Calcium AST 85 H ALT 127 H Total Creatine Kinase C-Reactive Protein Total Protein 4.6 L D Albumin 2.4 L Salicylates 05/26/17 05/26/17 05/26/17 06:33 09:45 10:01 WBC RBC Hgb Hct MCV MCH RDW Plt Count Seg Neuts % (Manual) Lymphocytes % (Manual) Seg Neutrophils # Man Lymphocytes # (Manual) PT INR APTT POC ABG pH POC ABG pO2 Sodium Chloride BUN Creatinine Glucose POC Glucose 130 H 52 L 182 H Lactic Acid Calcium AST ALT Total Creatine Kinase C-Reactive Protein Total Protein Albumin Salicylates 05/26/17 05/26/17 05/26/17 10:56 12:41 14:58 WBC RBC Hgb Hct MCV MCH RDW Plt Count Seg Neuts % (Manual) Lymphocytes % (Manual) Seg Neutrophils # Man Lymphocytes # (Manual) PT INR APTT POC ABG pH POC ABG pO2 61 L Sodium Chloride BUN Creatinine Glucose POC Glucose 69 L 150 H Lactic Acid Calcium AST ALT Total Creatine Kinase C-Reactive Protein Total Protein Albumin Salicylates 05/26/17 05/26/17 05/26/17 15:41 15:53 17:46 WBC RBC Hgb Hct MCV MCH RDW Plt Count Seg Neuts % (Manual) Lymphocytes % (Manual) Seg Neutrophils # Man Lymphocytes # (Manual) PT INR APTT POC ABG pH 7.330 L POC ABG pO2 77 L Sodium Chloride BUN Creatinine Glucose POC Glucose 63 L Lactic Acid Calcium AST ALT Total Creatine Kinase C-Reactive Protein 15.20 H Total Protein Albumin Salicylates 05/26/17 05/26/17 05/27/17 18:40 20:18 00:35 WBC RBC Hgb Hct MCV MCH RDW Plt Count Seg Neuts % (Manual) Lymphocytes % (Manual) Seg Neutrophils # Man Lymphocytes # (Manual) PT INR APTT POC ABG pH POC ABG pO2 Sodium Chloride BUN Creatinine Glucose POC Glucose 149 H 63 L 49 L Lactic Acid Calcium AST ALT Total Creatine Kinase C-Reactive Protein Total Protein Albumin Salicylates 05/27/17 05/27/17 05/27/17 02:33 04:00 04:00 WBC RBC Hgb 11.7 L Hct 34.6 L MCV 75 L MCH 25 L RDW 15.6 H Plt Count 21 L Seg Neuts % (Manual) 14.0 L Lymphocytes % (Manual) 5.0 L Seg Neutrophils # Man 1.5 L Lymphocytes # (Manual) 0.5 L PT INR APTT POC ABG pH POC ABG pO2 Sodium 148 H Chloride 112.7 H BUN 24 H Creatinine Glucose POC Glucose 61 L Lactic Acid Calcium 7.7 L AST 115 H ALT 100 H Total Creatine Kinase C-Reactive Protein Total Protein 3.8 L Albumin 2.1 L Salicylates 05/27/17 05/27/17 05/27/17 04:00 05:20 06:36 WBC RBC Hgb Hct MCV MCH RDW Plt Count Seg Neuts % (Manual) Lymphocytes % (Manual) Seg Neutrophils # Man Lymphocytes # (Manual) PT 19.7 H INR 1.57 H APTT 57.0 H POC ABG pH POC ABG pO2 Sodium Chloride BUN Creatinine Glucose POC Glucose 64 L 120 H Lactic Acid Calcium AST ALT Total Creatine Kinase C-Reactive Protein Total Protein Albumin Salicylates 05/27/17 05/27/17 05/27/17 09:15 12:35 15:44 WBC RBC Hgb Hct MCV MCH RDW Plt Count Seg Neuts % (Manual) Lymphocytes % (Manual) Seg Neutrophils # Man Lymphocytes # (Manual) PT INR APTT POC ABG pH POC ABG pO2 380 H Sodium Chloride BUN Creatinine Glucose POC Glucose 162 H 193 H Lactic Acid Calcium AST ALT Total Creatine Kinase C-Reactive Protein Total Protein Albumin Salicylates 05/27/17 05/27/17 05/27/17 18:14 20:12 20:15 WBC RBC Hgb 10.3 L Hct 30.7 L MCV 75 L MCH 25 L RDW 15.6 H Plt Count 15 L* Seg Neuts % (Manual) 95.0 H Lymphocytes % (Manual) 4.0 L Seg Neutrophils # Man Lymphocytes # (Manual) 0.3 L PT INR APTT POC ABG pH POC ABG pO2 Sodium Chloride BUN Creatinine Glucose POC Glucose 199 H 165 H Lactic Acid Calcium AST ALT Total Creatine Kinase C-Reactive Protein Total Protein Albumin Salicylates 05/27/17 05/27/17 05/27/17 21:48 23:08 23:51 WBC RBC Hgb Hct MCV MCH RDW Plt Count Seg Neuts % (Manual) Lymphocytes % (Manual) Seg Neutrophils # Man Lymphocytes # (Manual) PT INR APTT POC ABG pH POC ABG pO2 Sodium Chloride BUN Creatinine Glucose 150 H POC Glucose 166 H 173 H Lactic Acid Calcium 8.3 L AST ALT Total Creatine Kinase C-Reactive Protein Total Protein Albumin Salicylates 05/28/17 05/28/17 05/28/17 02:23 04:19 05:40 WBC RBC Hgb Hct MCV MCH RDW Plt Count Seg Neuts % (Manual) Lymphocytes % (Manual) Seg Neutrophils # Man Lymphocytes # (Manual) PT INR APTT POC ABG pH POC ABG pO2 75 L Sodium Chloride BUN Creatinine Glucose POC Glucose 177 H 160 H Lactic Acid Calcium AST ALT Total Creatine Kinase C-Reactive Protein Total Protein Albumin Salicylates 05/28/17 05/28/17 05/28/17 05:50 05:50 11:04 WBC RBC Hgb 10.5 L Hct 30.9 L MCV 75 L MCH 25 L RDW 15.5 H Plt Count 16 L* Seg Neuts % (Manual) Lymphocytes % (Manual) Seg Neutrophils # Man Lymphocytes # (Manual) PT INR APTT POC ABG pH POC ABG pO2 178 H Sodium Chloride BUN Creatinine Glucose 129 H POC Glucose Lactic Acid Calcium 8.3 L AST ALT Total Creatine Kinase C-Reactive Protein Total Protein Albumin Salicylates
[2017-05-28] MEDS: VANCOMYCIN 1,250 MG in NACL 0.9% 250ML 250 ML IV SCH (14:16)
[2017-05-28] MEDS ORDERED: MAGNESIUM SULFATE IV ONE (15:05)
[2017-05-28] MEDS ORDERED: MAGNESIUM SULFATE 3 GM in NACL 0.9% 100 ML IV ONE (16:00)
--- NOTE | 2017-05-28 16:01 | Progress Note ---
Assessment and Plan Total Time Spent with Patient (Minutes): 33 - Patient Problems (1) Septic shock Current Visit: Yes Status: Acute Plan to address problem: Patient remains hypotensive still only fair. Etiology secondary to pneumonia versus influenza. Patient PCR for influenza pending. We'll continue cycling. Tamiflu and Rocephin for now. Follow-up chest x-ray showed improving infiltrate. Patient remains intubated on pressor support. (2) Septic shock due to coagulase-negative staphylococcal infection Current Visit: Yes Status: Acute (3) Acute encephalopathy Current Visit: Yes Status: Acute (4) Pneumonia of both lower lobes Current Visit: Yes Status: Acute Qualifiers: Pneumonia type: aspiration pneumonia Aspiration pneumonia type: due to gastric secretions Qualified Code(s): J69.0 - Pneumonitis due to inhalation of food and vomit (5) Schizophrenia Current Visit: Yes Status: Chronic Plan to address problem: Patient will need to continue medications after intubation was considered for discharge. Not requiring medications at this time. (6) Thrombocytopenia Current Visit: Yes Status: Acute Plan to address problem: Patient was severe thrombocytopenia unable to provide lumbar puncture secondary to thrombocytopenia minimal improvement from 15-16. We'll transfuse the patient develops active bleeding. (7) Acute respiratory failure Current Visit: Yes Status: Acute Plan to address problem: Secondary to pneumonia pulmonary cause. Remains intubated. Pulmonology following. The high probability of a clinically significant, sudden or life threatening deterioration of the [] system(s) required my full and direct attention, intervention and personal management. The aggregate critical care time was [] minutes. This time is in addition to time spent performing reported procedures but includes the following: [x] Data Review and interpretation [x Patient assessment and monitoring of vital signs [x] Documentation [x] Medication orders and management History Interval history: Patient remains intubated remains on pressor support. Will follow or tract. More alert. He remains encephalopathic. Patient does have Versed and pressor support. No new events over p.m. Hospitalist Physical - Constitutional Vitals: Temp Pulse Resp BP Pulse Ox 97 F L 52 L 15 98/63 100 05/28/17 08:00 05/28/17 14:42 05/28/17 14:42 05/28/17 14:42 05/28/17 14:42 General appearance: Present: mild distress, disheveled, other (appears toxic) - EENT Eyes: Present: PERRL, EOM intact - Respiratory Respiratory: bilateral: diminished - Cardiovascular Rhythm: regular (tachycardia) - Extremities Extremities: no ischemia, pulses intact, pulses symmetrical, No edema, normal temperature Peripheral Pulses: within normal limits - Abdominal General gastrointestinal: soft, non-tender, non-distended, hypoactive bowel sounds - Psychiatric Psychiatric: other (patient follows with eyes. Appears somewhat more attentive. ) - Neurologic Neurologic: focal deficits, other (restraints.) Results - Labs CBC & Chem 7: 05/28/17 05:50 05/28/17 05:50 Labs: Laboratory Last Values WBC 8.1 K/mm3 (4.5-11.0) 05/28/17 05:50 RBC 4.13 M/mm3 (3.65-5.03) 05/28/17 05:50 Hgb 10.5 gm/dl (11.8-15.2) L 05/28/17 05:50 Hct 30.9 % (35.5-45.6) L 05/28/17 05:50 MCV 75 fl (84-94) L 05/28/17 05:50 MCH 25 pg (28-32) L 05/28/17 05:50 MCHC 34 % (32-34) 05/28/17 05:50 RDW 15.5 % (13.2-15.2) H 05/28/17 05:50 Plt Count 16 K/mm3 (140-440) L* 05/28/17 05:50 Stanly % (Auto) Composing Machine Operator 05/25/17 13:32 Eos % (Auto) Composing Machine Operator 05/25/17 13:32 Stanly # Composing Machine Operator 05/25/17 13:32 Eos # Composing Machine Operator 05/25/17 13:32 Baso # Composing Machine Operator 05/25/17 13:32 Add Manual Diff Complete 05/27/17 20:15 Total Counted 100 05/27/17 20:15 Seg Neutrophils % Composing Machine Operator 05/27/17 20:15 Seg Neuts % (Manual) 95.0 % (40.0-70.0) H 05/27/17 20:15 Band Neutrophils % 0 % 05/27/17 20:15 Lymphocytes % (Manual) 4.0 % (13.4-35.0) L 05/27/17 20:15 Reactive Lymphs % (Man) 0 % 05/27/17 20:15 Monocytes % (Manual) 1.0 % (0.0-7.3) 05/27/17 20:15 Eosinophils % (Manual) 0 % (0.0-4.3) 05/27/17 20:15 Basophils % (Manual) 0 % (0.0-1.8) 05/27/17 20:15 Metamyelocytes % 0 % 05/27/17 20:15 Myelocytes % 0 % 05/27/17 20:15 Promyelocytes % 0 % 05/27/17 20:15 Blast Cells % 0 % 05/27/17 20:15 Nucleated RBC % Not Reportable 05/27/17 20:15 Seg Neutrophils # Composing Machine Operator 05/25/17 13:32 Seg Neutrophils # Man 7.2 K/mm3 (1.8-7.7) 05/27/17 20:15 Band Neutrophils # 0.0 K/mm3 05/27/17 20:15 Lymphocytes # (Manual) 0.3 K/mm3 (1.2-5.4) L 05/27/17 20:15 Abs React Lymphs (Man) 0.0 K/mm3 05/27/17 20:15 Monocytes # (Manual) 0.1 K/mm3 (0.0-0.8) 05/27/17 20:15 Eosinophils # (Manual) 0.0 K/mm3 (0.0-0.4) 05/27/17 20:15 Basophils # (Manual) 0.0 K/mm3 (0.0-0.1) 05/27/17 20:15 Metamyelocytes # 0.0 K/mm3 05/27/17 20:15 Myelocytes # 0.0 K/mm3 05/27/17 20:15 Promyelocytes # 0.0 K/mm3 05/27/17 20:15 Blast Cells # 0.0 K/mm3 05/27/17 20:15 WBC Morphology Not Reportable 05/27/17 20:15 Hypersegmented Neuts Not Reportable 05/27/17 20:15 Hyposegmented Neuts Not Reportable 05/27/17 20:15 Hypogranular Neuts Not Reportable 05/27/17 20:15 Smudge Cells Not Reportable 05/27/17 20:15 Toxic Granulation Not Reportable 05/27/17 20:15 Toxic Vacuolation Not Reportable 05/27/17 20:15 Dohle Bodies Few 05/27/17 20:15 Pelger-Huet Anomaly Not Reportable 05/27/17 20:15 Evon Rods Not Reportable 05/27/17 20:15 Platelet Estimate Appears decreased 05/27/17 20:15 Clumped Platelets Not Reportable 05/27/17 20:15 Plt Clumps, EDTA Not Reportable 05/27/17 20:15 Large Platelets Not Reportable 05/27/17 20:15 Giant Platelets Not Reportable 05/27/17 20:15 Platelet Satelliting Not Reportable 05/27/17 20:15 Plt Morphology Comment Not Reportable 05/27/17 20:15 RBC Morphology Not Reportable 05/27/17 20:15 Dimorphic RBCs Not Reportable 05/27/17 20:15 Polychromasia Not Reportable 05/27/17 20:15 Hypochromasia Not Reportable 05/27/17 20:15 Poikilocytosis Not Reportable 05/27/17 20:15 Anisocytosis 1+ 05/27/17 20:15 Microcytosis Not Reportable 05/27/17 20:15 Macrocytosis Not Reportable 05/27/17 20:15 Spherocytes Not Reportable 05/27/17 20:15 Pappenheimer Bodies Not Reportable 05/27/17 20:15 Sickle Cells Not Reportable 05/27/17 20:15 Target Cells 1+ 05/27/17 20:15 Tear Drop Cells Not Reportable 05/27/17 20:15 Ovalocytes Not Reportable 05/27/17 20:15 Helmet Cells Not Reportable 05/27/17 20:15 Castaneda-[place] Bodies Not Reportable 05/27/17 20:15 [place] Rings Not Reportable 05/27/17 20:15 Gerda Cells Not Reportable 05/27/17 20:15 Bite Cells Not Reportable 05/27/17 20:15 Crenated Cell Not Reportable 05/27/17 20:15 Elliptocytes Not Reportable 05/27/17 20:15 Acanthocytes (Spur) Not Reportable 05/27/17 20:15 Rouleaux Not Reportable 05/27/17 20:15 Hemoglobin C Crystals Not Reportable 05/27/17 20:15 Schistocytes Not Reportable 05/27/17 20:15 Malaria parasites Not Reportable 05/27/17 20:15 Michael Bodies Not Reportable 05/27/17 20:15 Hem Pathologist Commnt No 05/27/17 20:15 PT 19.7 Sec. (12.2-14.9) H 05/27/17 04:00 INR 1.57 (0.87-1.13) H 05/27/17 04:00 APTT 57.0 Sec. (24.2-36.6) H 05/27/17 04:00 POC ABG pH 7.419 (7.35-7.45) 05/28/17 11:04 POC ABG pCO2 38.4 (35-45) 05/28/17 11:04 POC ABG pO2 178 (80-105) H 05/28/17 11:04 POC ABG HCO3 24.9 05/28/17 11:04 POC ABG Total CO2 26 05/28/17 11:04 POC ABG O2 Sat 100 05/28/17 11:04 POC ABG Base Excess 0 05/28/17 11:04 FiO2 40 % 05/28/17 11:04 Sodium 140 mmol/L (137-145) 05/28/17 05:50 Potassium 3.9 mmol/L (3.6-5.0) 05/28/17 05:50 Chloride 103.6 mmol/L (98-107) 05/28/17 05:50 Carbon Dioxide 24 mmol/L (22-30) 05/28/17 05:50 Anion Gap 16 mmol/L 05/28/17 05:50 BUN 16 mg/dL (9-20) 05/28/17 05:50 Creatinine 0.8 mg/dL (0.8-1.5) 05/28/17 05:50 Estimated GFR > 60 ml/min 05/28/17 05:50 BUN/Creatinine Ratio 20 % 05/28/17 05:50 Glucose 129 mg/dL (75-100) H 05/28/17 05:50 POC Glucose 160 (70-105) H 05/28/17 05:40 Lactic Acid 1.90 mmol/L (0.7-2.0) 05/25/17 17:56 Calcium 8.3 mg/dL (8.4-10.2) L 05/28/17 05:50 Magnesium 1.60 mg/dL (1.7-2.3) L 05/28/17 13:47 Total Bilirubin 0.30 mg/dL (0.1-1.2) 05/27/17 04:00 AST 115 units/L (5-40) H 05/27/17 04:00 ALT 100 units/L (7-56) H 05/27/17 04:00 Alkaline Phosphatase 41 units/L (35-129) 05/27/17 04:00 Ammonia 33.0 umol/L (25-60) 05/25/17 13:32 Total Creatine Kinase 360 units/L (55-170) H 05/25/17 13:32 Troponin T < 0.010 ng/mL (0.00-0.029) 05/25/17 13:32 C-Reactive Protein 15.20 mg/dL (0.00-1.30) H 05/26/17 15:41 Total Protein 3.8 g/dL (6.3-8.2) L 05/27/17 04:00 Albumin 2.1 g/dL (3.9-5) L 05/27/17 04:00 Albumin/Globulin Ratio 1.2 % 05/27/17 04:00 Urine Color Yellow (Yellow) 05/25/17 14:11 Urine Turbidity Clear (Clear) 05/25/17 14:11 Urine pH 5.0 (5.0-7.0) 05/25/17 14:11 Ur Specific Wisner 1.025 (1.003-1.030) 05/25/17 14:11 Urine Protein <15 mg/dl mg/dL (Negative) 05/25/17 14:11 Urine Glucose (UA) 50 mg/dL (Negative) 05/25/17 14:11 Urine Ketones Neg mg/dL (Negative) 05/25/17 14:11 Urine Blood Neg (Negative) 05/25/17 14:11 Urine Nitrite Neg (Negative) 05/25/17 14:11 Urine Bilirubin Neg (Negative) 05/25/17 14:11 Urine Urobilinogen < 2.0 mg/dL (<2.0) 05/25/17 14:11 Ur Leukocyte Esterase Neg (Negative) 05/25/17 14:11 Urine WBC (Auto) 3.0 /HPF (0.0-6.0) 05/25/17 14:11 Urine RBC (Auto) 2.0 /HPF (0.0-6.0) 05/25/17 14:11 Hyaline Casts 1 /LPF 05/25/17 14:11 Urine Mucus Few /HPF 05/25/17 14:11 Vancomycin Trough 15.2 ug/mL (5.0-20.0) 05/27/17 13:47 Salicylates < 0.3 mg/dL (2.8-20.0) L 05/25/17 13:32 Urine Opiates Screen Presumptive negative 05/25/17 14:11 Urine Methadone Screen Presumptive negative 05/25/17 14:11 Acetaminophen < 15.0 ug/mL (10.0-30.0) 05/25/17 13:32 Ur Barbiturates Screen Presumptive negative 05/25/17 14:11 Ur Phencyclidine Scrn Presumptive negative 05/25/17 14:11 Ur Amphetamines Screen Presumptive negative 05/25/17 14:11 U Benzodiazepines Scrn Presumptive negative 05/25/17 14:11 Urine Cocaine Screen Presumptive negative 05/25/17 14:11 U Marijuana (THC) Screen Presumptive negative 05/25/17 14:11 Drugs of Abuse Note Disclamer 05/25/17 14:11 Plasma/Serum Alcohol < 0.01 % (0-0.07) 05/25/17 13:32 HIV 1&2 Antibody Rapid Non react (Non React) 05/26/17 12:38 HIV P24 Antigen Non react (Non React) 05/26/17 12:38
[2017-05-29] MEDS: NACL 0.9% IV SCH ×3 (01:59→17:54)
[2017-05-29] MEDS: ZOVIRAX IV SCH ×3 (01:59→17:54)
--- NOTE | 2017-05-29 03:50 | XRay Report ---
FINAL REPORT EXAM: XR CHEST 1V AP HISTORY: follow up respiratory failure TECHNIQUE: A portable supine view the chest was obtained and compared to the study 05/27/2017. FINDINGS: There are stable areas of airspace disease in the lower 2/3 of the left lung and in the right lung base. Underlying effusions cannot be excluded. Heart size is normal. The tip of the left-sided PICC line is in good position in the superior vena cava. The feeding tube is coiled in the body of the stomach. The ET tube is in good position above the indio. The skeletal structures otherwise are unchanged. IMPRESSION: Stable bilateral airspace disease noted. Satisfactory position of all tubes and lines.
[2017-05-29] MEDS: cefTRIAXone 2 GM in NACL 0.9% 20 ML IV SCH ×2 (03:54→17:51)
[2017-05-29] MEDS: NACL 0.45% 1000 ML 1,000 ML IV SCH ×3 (04:22→17:50)
[2017-05-29] MEDS: VANCOMYCIN 1,250 MG in NACL 0.9% 250ML 250 ML IV SCH ×4 (05:31→23:09)
--- NOTE | 2017-05-29 07:34 | Progress Note ---
Assessment and Plan 1) Sepsis with septic shock:off levophed. Etiology pneumonia. Other Possibilities: ED TRANSPORTER infection, influenza. -CRP=15 2) Pneumonia: Secondary to ? aspiration ? post influenza pneumonia. 3) Acute Encephalopathy ? unclear etiology 4) Acute respiratory failure. Intubated. 5) Thrombocytopenia - worsening 6) Elevated LFTs: ?shock liver. AST/ALT worse. Plan: -follow-up blood culture. -repeat sputum culture. -follow-up procalcitonin, influenza antigen PCR in nasopharynx. -Please send Legionella urine antigen, Streptococcus pneumoniae urine antigen. -follow-up MELBA with reflex, C3, C4, ANCA -lumbar punture for opening pressure and send CSF specimen for Gram stain and culture, glucose, protein, VDRL, HSV-PCR, cryptococcal antigen and culture - not done yet since PLTs too low. -neuro eval, EEG - not done yet. -continue vancomycin IV, ceftriaxone 2 g IV q12h, acyclovir IV and tamiflu - day 4. Nicole STEWART attending [facility] M [phone]. Subjective Date of service: 05/29/17 Interval history: Remains intubated on the vent, no hypothermia or fever. Off pressors. Microbiology: Blood cultures: 05/25 ngtd Urine cultures: Respiratory cultures: 05/26 poor sample Current Antimicrobials: vancomycin IV 05/26 ceftriaxone 2 g IV q12h 05/26 acyclovir IV 05/26 tamiflu 05/26- Hydrocortisone Objective - Exam Narrative Exam: General appearance: Pt in NAD. Intubated. Eyes: anicteric sclerae, moist conjunctivae; pupils reactive HENT: Atraumatic; oropharynx clear +ETT +NGT Neck: Trachea midline; supple, no thyromegaly or lymphadenopathy Lungs: lesley rhonchi CV: RRR Abdomen: Soft, non-tender Extremities: No peripheral edema or extremity lymphadenopathy Skin: Normal temperature, turgor and texture; no rash, ulcers or subcutaneous nodules Psych: sedated. Neuro: sedated Lines: left PICC / reyes with clear urine - Constitutional Vitals: Vital Signs Temp Pulse Resp BP Pulse Ox 97.4 F L 46 L 17 106/71 100 05/29/17 04:00 05/29/17 07:16 05/29/17 07:16 05/29/17 07:16 05/29/17 07:16 Temperature -Last 24 Hours Temperature 97.4 F Temperature 97.4 F Temperature 96 F Temperature 95 F Temperature 97 F - Labs CBC & Chem 7: 05/29/17 08:00 05/29/17 08:00 Labs: Abnormal lab results 05/28/17 05/28/17 05/28/17 Range/Units 08:21 11:04 12:19 POC ABG pO2 178 H (80-105) POC Glucose 201 H 140 H (70-105) Magnesium (1.7-2.3) mg/dL 05/28/17 05/28/17 Range/Units 13:47 16:21 POC ABG pO2 (80-105) POC Glucose 47 L (70-105) Magnesium 1.60 L (1.7-2.3) mg/dL
[2017-05-29 08:42] LABS: Red Blood Count TNR M/mm3 (3.65-5.03)
[2017-05-29 08:43] LABS: Basophils % (Auto) TNR % (0.0-1.8); Eosinophils % (Auto) TNR % (0.0-4.3); Hematocrit TNR % (35.5-45.6); Hemoglobin TNR gm/dl (11.8-15.2); Lymphocytes # (Auto) TNR K/mm3 (1.2-5.4); Lymphocytes % (Auto) TNR % (13.4-35.0); Mean Corpuscular HGB Conc TNR % (32-34); Mean Corpuscular Hemoglobin TNR pg (28-32); Mean Corpuscular Volume TNR fl (84-94); Mean Platelet Volume TNR fl (6-12); Monocytes # (Auto) TNR K/mm3 (0.0-0.8); Monocytes % (Auto) TNR % (0.0-7.3); Platelet Count TNR K/mm3 (140-440); Red Cell Distribution Width TNR % (13.2-15.2)
[2017-05-29 08:44] LABS: Basophils # (Auto) TNR K/mm3 (0.0-0.1); Eosinophils # (Auto) TNR K/mm3 (0.0-0.4)
[2017-05-29 08:49] LABS: Alanine Aminotransferase 380 units/L (7-56); Albumin 1.5 g/dL (3.9-5); BUN/Creatinine Ratio 36; Blood Urea Nitrogen 18 mg/dL (9-20); Calcium 6.6 mg/dL (8.4-10.2); Hemolysis Index 4
[2017-05-29 08:55] LABS: INR 0.98 (0.87-1.13)
--- NOTE | 2017-05-29 10:23 | Progress Note ---
Subjective - Reason for Consult Consult date: 05/29/17 Reason for consult: Psychiatry Follow-up - Chief Complaint Chief complaint: "The patient is intubated" 42 year old male inmate seen in the ICU for attempted psychiatric evaluation. Today the patient is intubated. Will attempt a psy assessment once the patient is extubated. Mental Status Exam - Vital signs Last Vital Signs Temp 97.8 F 05/29/17 08:00 Pulse 49 L 05/29/17 08:26 Resp 17 05/29/17 07:16 BP 125/86 05/29/17 08:26 Pulse Ox 100 05/29/17 08:26 - Exam Narrative exam: Unable to complete the MSE because of the patient's condition. Assessment and Plan Impression: Reported history of Schizophrenia. The patient is intubated. NA 126 and elevated AST/ALT's. Medical conditions managed by the medical team. Recommendation/Plan: Contact psy once extubated so a psy assessment can be completed.
[2017-05-29 10:34] LABS: Hematocrit 27.2 % (35.5-45.6); Hemoglobin 9.3 gm/dl (11.8-15.2); Mean Corpuscular HGB Conc 34 % (32-34); Mean Corpuscular Volume 73 fl (84-94); Red Blood Count 3.71 M/mm3 (3.65-5.03); Red Cell Distribution Width 14.9 % (13.2-15.2)
[2017-05-29] MEDS ORDERED: CALCIUM CHLORIDE 1,000 MG in NACL 0.9% 100 ML IV ONE (10:36)
[2017-05-29 10:37] LABS: Mean Corpuscular Hemoglobin 25 pg (28-32)
[2017-05-29 10:39] LABS: Platelet Count 9 K/mm3 (140-440)
[2017-05-29] MEDS: TAMIFLU PO SCH ×2 (10:40→23:10)
[2017-05-29] MEDS: PEPCID IV SCH ×2 (10:41→23:10)
[2017-05-29 10:59] LABS: BUN/Creatinine Ratio 34; Blood Urea Nitrogen 24 mg/dL (9-20); Calcium 8.6 mg/dL (8.4-10.2); Hemolysis Index 10
[2017-05-29] MEDS ORDERED: KCL 10MEQ/100ML 10 MEQ/100 ML BAG IV SCH (11:00)
[2017-05-29] MEDS ORDERED: ATROPINE IV PRN (15:06)
[2017-05-29] MEDS ORDERED: NACL 0.9% 500 ML 500 ML IV SCH ×2 (15:59→17:35)
--- NOTE | 2017-05-29 17:20 | Progress Note ---
Assessment and Plan Imp: 1. Pneumonia, bilateral 2. ? Meningoencephalitis 3. Sepsis 4. Acute respiratory failure, hypoxia 5. Severe thrombocytopenia 6. Acute encephalopathy 7. Sinus bradycardia Rec: 1. ABX per ID but given significant pneumonia on chest imaging recommend covering atypicals pending serologic work-up; DAH would be doubtful but will consider bronch if infiltrates do not improve 2. Agree w/ ANCAs, complements, lupus work-up 3. Transfuse 1 unit of platelets and repeat in AM; needs LP but platelets have been too low 4. Decrease steroids 5. Patient w/ HR in the high 30's at times; EKG shows sinus renard; BP stable and he is asymptomatic; will place Atropine at bedside, check Echo, and have cardiology evaluate him 6. SCDs 7. PSV trials No family present; CCT 31 minutes Subjective Date of service: 05/29/17 Principal diagnosis: pneumonia Interval history: Alert, will follow commands (will blink on command but not move extremities). HR 40's, BP stable. He cannot give any other history. Active Medications Acetaminophen (Tylenol) 650 mg PO Q4H PRN PRN Reason: Pain MILD(1-3)/Fever >100.5/FOFANA Lipase/Protease/Amylase (Pancreaze Dr 10,500 Unit) 1 each FEEDTUBE PRN PRN PRN Reason: For Clogged Feeding Tube Atropine Sulfate (Atropine) 1 mg IV ONCE PRN PRN Reason: Bradycardia Bisacodyl (Dulcolax) 10 mg NM QDAY PRN PRN Reason: Constipation unrelieved by MOM Dextrose (D50w (25gm) Syringe) 50 ml IV PRN PRN PRN Reason: Hypoglycemia Last Admin: 05/27/17 05:30 Dose: 50 ml Famotidine (Pepcid) 20 mg IV BID RICCARDO Last Admin: 05/29/17 10:41 Dose: 20 mg Hydrocortisone Sodium Succinate (Solu-Cortef) 100 mg IV Q8HR RICCARDO Stop: 05/29/17 23:59 Last Admin: 05/29/17 13:52 Dose: 100 mg Hydrocortisone Sodium Succinate (Solu-Cortef) 50 mg IV BID [facility] Stop: 05/30/17 22:01 Norepinephrine (Levophed Drip 4 Mg/Ns 250 Ml) 4 mg in 250 mls @ 7.5 mls/hr IV TITR RICCARDO; 2 MCG/MIN PRN Reason: Protocol Last Titration: 05/28/17 07:50 Dose: 1 mcg/min, 3.75 mls/hr Ceftriaxone Sodium 2 gm/ (Sodium Chloride) 20 mls @ 20 mls/10 min IV Q12H [facility] Last Admin: 05/29/17 03:54 Dose: 20 mls/10 min Acyclovir 680 mg/ Sodium (Chloride) 113.6 mls @ 100 mls/hr IV Q8H [facility] Last Admin: 05/29/17 10:40 Dose: 100 mls/hr Midazolam HCl 100 mg/ Sodium (Chloride) 100 mls @ 2 mls/hr IV TITR RICCARDO; 2 MG/HR PRN Reason: Protocol Last Titration: 05/27/17 13:30 Dose: 2 mg/hr, 2 mls/hr Sodium Chloride (Nacl 0.45% 1000 Ml) 1,000 mls @ 100 mls/hr IV DIRECT [facility] Last Admin: 05/29/17 05:34 Dose: 100 mls/hr Vancomycin HCl 1,250 mg/ (Sodium Chloride) 262.5 mls @ 166.667 mls/hr IV Q8HR [facility] Last Admin: 05/29/17 13:52 Dose: 166.667 mls/hr Sodium Chloride (Nacl 0.9% 500 Ml) 500 mls @ 0 mls/hr IV ONCE [facility] PRN Reason: As Directed Stop: 05/29/17 23:00 Azithromycin 500 mg/ Sodium (Chloride) 250 mls @ 250 mls/hr IV Q24HR [facility] Magnesium Hydroxide (Milk Of Magnesia) 30 ml PO Q4H PRN PRN Reason: Constipation Morphine Sulfate (Morphine) 2 mg IV Q4H PRN PRN Reason: Pain, Moderate (4-6) Ondansetron HCl (Zofran) 4 mg IV Q8H PRN PRN Reason: N/V unrelieved by Reglan Oseltamivir Phosphate (Tamiflu) 75 mg PO BID [facility] Stop: 05/30/17 22:01 Last Admin: 05/29/17 10:40 Dose: 75 mg Simple Syrup (Simple Syrup) 15 ml FEEDTUBE PRN PRN PRN Reason: Hypoglycemia Simple Syrup (Simple Syrup) 30 ml FEEDTUBE PRN PRN PRN Reason: Hypoglycemia Sodium Bicarbonate (Sodium Bicarbonate) 325 mg FEEDTUBE PRN PRN PRN Reason: For Clogged Feeding Tube Vancomycin HCl (Vancomycin Pharmacy To Dose) 1 each IV PKCONSULT RICCARDO PRN Reason: Protocol Objective Vital Signs - 12hr 05/29/17 05/29/17 05/29/17 05:30 05:46 06:00 Temperature Pulse Rate 55 L 47 L 53 L Respiratory 16 17 17 Rate Blood Pressure 106/70 106/70 112/79 O2 Sat by Pulse 100 100 100 Oximetry 05/29/17 05/29/17 05/29/17 06:16 06:30 06:46 Temperature Pulse Rate 47 L 50 L 53 L Respiratory 16 17 17 Rate Blood Pressure 106/70 117/77 117/77 O2 Sat by Pulse 100 100 100 Oximetry 05/29/17 05/29/17 05/29/17 07:00 07:16 07:30 Temperature Pulse Rate 45 L 46 L 45 L Respiratory 16 17 16 Rate Blood Pressure 106/71 106/71 111/76 O2 Sat by Pulse 99 100 100 Oximetry 05/29/17 05/29/17 05/29/17 07:46 08:00 08:16 Temperature 97.8 F Pulse Rate 46 L 61 47 L Respiratory 16 17 16 Rate Blood Pressure 111/76 125/86 125/86 O2 Sat by Pulse 100 98 100 Oximetry 05/29/17 05/29/17 05/29/17 08:26 08:30 08:46 Temperature Pulse Rate 49 L 54 L 45 L Respiratory 15 13 Rate Blood Pressure 125/86 122/84 122/84 O2 Sat by Pulse 100 98 100 Oximetry 05/29/17 05/29/17 05/29/17 09:00 09:16 09:30 Temperature Pulse Rate 49 L 44 L 42 L Respiratory 13 14 13 Rate Blood Pressure 125/80 125/80 115/78 O2 Sat by Pulse 99 100 100 Oximetry 05/29/17 05/29/17 05/29/17 09:46 10:00 10:16 Temperature Pulse Rate 42 L 41 L 40 L Respiratory 14 14 14 Rate Blood Pressure 115/78 107/73 107/73 O2 Sat by Pulse 100 97 99 Oximetry 05/29/17 05/29/17 05/29/17 10:30 10:46 11:00 Temperature Pulse Rate 45 L 42 L 41 L Respiratory 16 16 13 Rate Blood Pressure 107/73 107/73 114/77 O2 Sat by Pulse 99 100 Oximetry 05/29/17 05/29/17 05/29/17 11:16 11:30 11:46 Temperature Pulse Rate 42 L 44 L 44 L Respiratory 12 14 15 Rate Blood Pressure 114/77 109/74 109/74 O2 Sat by Pulse 100 100 100 Oximetry 05/29/17 05/29/17 05/29/17 12:00 12:16 12:17 Temperature 97.7 F Pulse Rate 52 L 54 L 57 L Respiratory 13 16 22 Rate Blood Pressure 107/74 107/74 107/64 O2 Sat by Pulse 100 100 100 Oximetry 05/29/17 05/29/17 05/29/17 12:30 12:46 13:00 Temperature Pulse Rate 41 L 45 L 42 L Respiratory 11 L 14 13 Rate Blood Pressure 116/77 116/77 112/77 O2 Sat by Pulse 99 99 99 Oximetry 05/29/17 05/29/17 05/29/17 13:16 13:30 13:46 Temperature Pulse Rate 41 L 39 L 40 L Respiratory 15 13 15 Rate Blood Pressure 112/77 115/77 115/77 O2 Sat by Pulse 99 100 99 Oximetry 05/29/17 05/29/17 05/29/17 14:00 14:16 14:30 Temperature Pulse Rate 42 L 40 L 39 L Respiratory 16 17 16 Rate Blood Pressure 117/81 117/81 116/80 O2 Sat by Pulse 98 99 99 Oximetry 05/29/17 05/29/17 05/29/17 14:46 15:00 15:16 Temperature Pulse Rate 39 L 40 L 38 L Respiratory 16 15 16 Rate Blood Pressure 116/80 119/82 119/82 O2 Sat by Pulse 99 99 Oximetry 05/29/17 05/29/17 05/29/17 15:30 15:46 15:49 Temperature 97.8 F Pulse Rate 38 L 41 L Respiratory 14 15 Rate Blood Pressure 117/81 117/81 O2 Sat by Pulse 99 99 Oximetry 05/29/17 16:54 Temperature Pulse Rate 58 L Respiratory 18 Rate Blood Pressure 128/81 O2 Sat by Pulse 99 Oximetry Constitutional: alert, other (critically ill on vent) Eyes: non-icteric ENT: other (orally intubated) Neck: supple Effort: normal Ascultation: Bilateral: rales (left greater than right) Cardiovascular: other (sinus renard, RR; no mrg) Gastrointestinal: normoactive bowel sounds, soft, non-tender, non-distended Integumentary: normal Extremities: no cyanosis, no edema, pink and warm Neurologic: other (not moving extremities, eyes open (see HPI)) Psychiatric: other (unable to assess) CBC and BMP: 05/29/17 10:15 05/29/17 10:15 ABG, PT/INR, D-dimer: ABG POC ABG pH 7.419 (7.35-7.45) 05/28/17 11:04 POC ABG pCO2 38.4 (35-45) 05/28/17 11:04 POC ABG pO2 178 (80-105) H 05/28/17 11:04 POC ABG HCO3 24.9 05/28/17 11:04 POC ABG Total CO2 26 05/28/17 11:04 POC ABG O2 Sat 100 05/28/17 11:04 PT/INR, D-dimer PT 13.5 Sec. (12.2-14.9) 05/29/17 08:00 INR 0.98 (0.87-1.13) 05/29/17 08:00 Abnormal lab findings: Abnormal Labs 05/25/17 05/25/17 05/25/17 13:32 13:32 13:32 WBC RBC 5.76 H Hgb Hct MCV 77 L MCH 25 L RDW 15.9 H Plt Count 48 L Seg Neuts % (Manual) 76.0 H Lymphocytes % (Manual) 2.0 L Seg Neutrophils # Man Lymphocytes # (Manual) 0.1 L PT INR APTT POC ABG pH POC ABG pO2 Sodium 147 H Potassium Chloride 109.4 H Carbon Dioxide BUN Creatinine 0.3 L Glucose 102 H POC Glucose Lactic Acid Calcium Magnesium AST 111 H ALT 168 H Total Creatine Kinase C-Reactive Protein Total Protein 5.8 L Albumin 2.9 L Salicylates < 0.3 L 05/25/17 05/25/17 05/25/17 13:32 15:16 16:34 WBC RBC Hgb Hct MCV MCH RDW Plt Count Seg Neuts % (Manual) Lymphocytes % (Manual) Seg Neutrophils # Man Lymphocytes # (Manual) PT INR APTT POC ABG pH POC ABG pO2 Sodium Potassium Chloride Carbon Dioxide BUN Creatinine Glucose POC Glucose Lactic Acid 2.20 H* 2.10 H* Calcium Magnesium AST ALT Total Creatine Kinase 360 H C-Reactive Protein Total Protein Albumin Salicylates 05/26/17 05/26/17 05/26/17 00:47 00:47 06:07 WBC 2.1 L RBC 5.23 H Hgb Hct MCV 75 L MCH 25 L RDW 15.6 H Plt Count 51 L Seg Neuts % (Manual) 24.0 L Lymphocytes % (Manual) 8.0 L Seg Neutrophils # Man 0.5 L Lymphocytes # (Manual) 0.2 L PT INR APTT POC ABG pH POC ABG pO2 Sodium 148 H Potassium Chloride 112.6 H Carbon Dioxide BUN Creatinine Glucose 33 L* POC Glucose 44 L Lactic Acid Calcium Magnesium AST 85 H ALT 127 H Total Creatine Kinase C-Reactive Protein Total Protein 4.6 L D Albumin 2.4 L Salicylates 05/26/17 05/26/17 05/26/17 06:33 09:45 10:01 WBC RBC Hgb Hct MCV MCH RDW Plt Count Seg Neuts % (Manual) Lymphocytes % (Manual) Seg Neutrophils # Man Lymphocytes # (Manual) PT INR APTT POC ABG pH POC ABG pO2 Sodium Potassium Chloride Carbon Dioxide BUN Creatinine Glucose POC Glucose 130 H 52 L 182 H Lactic Acid Calcium Magnesium AST ALT Total Creatine Kinase C-Reactive Protein Total Protein Albumin Salicylates 05/26/17 05/26/17 05/26/17 10:56 12:41 14:58 WBC RBC Hgb Hct MCV MCH RDW Plt Count Seg Neuts % (Manual) Lymphocytes % (Manual) Seg Neutrophils # Man Lymphocytes # (Manual) PT INR APTT POC ABG pH POC ABG pO2 61 L Sodium Potassium Chloride Carbon Dioxide BUN Creatinine Glucose POC Glucose 69 L 150 H Lactic Acid Calcium Magnesium AST ALT Total Creatine Kinase C-Reactive Protein Total Protein Albumin Salicylates 05/26/17 05/26/17 05/26/17 15:41 15:53 17:46 WBC RBC Hgb Hct MCV MCH RDW Plt Count Seg Neuts % (Manual) Lymphocytes % (Manual) Seg Neutrophils # Man Lymphocytes # (Manual) PT INR APTT POC ABG pH 7.330 L POC ABG pO2 77 L Sodium Potassium Chloride Carbon Dioxide BUN Creatinine Glucose POC Glucose 63 L Lactic Acid Calcium Magnesium AST ALT Total Creatine Kinase C-Reactive Protein 15.20 H Total Protein Albumin Salicylates 05/26/17 05/26/17 05/27/17 18:40 20:18 00:35 WBC RBC Hgb Hct MCV MCH RDW Plt Count Seg Neuts % (Manual) Lymphocytes % (Manual) Seg Neutrophils # Man Lymphocytes # (Manual) PT INR APTT POC ABG pH POC ABG pO2 Sodium Potassium Chloride Carbon Dioxide BUN Creatinine Glucose POC Glucose 149 H 63 L 49 L Lactic Acid Calcium Magnesium AST ALT Total Creatine Kinase C-Reactive Protein Total Protein Albumin Salicylates 05/27/17 05/27/17 05/27/17 02:33 04:00 04:00 WBC RBC Hgb 11.7 L Hct 34.6 L MCV 75 L MCH 25 L RDW 15.6 H Plt Count 21 L Seg Neuts % (Manual) 14.0 L Lymphocytes % (Manual) 5.0 L Seg Neutrophils # Man 1.5 L Lymphocytes # (Manual) 0.5 L PT INR APTT POC ABG pH POC ABG pO2 Sodium 148 H Potassium Chloride 112.7 H Carbon Dioxide BUN 24 H Creatinine Glucose POC Glucose 61 L Lactic Acid Calcium 7.7 L Magnesium AST 115 H ALT 100 H Total Creatine Kinase C-Reactive Protein Total Protein 3.8 L Albumin 2.1 L Salicylates 05/27/17 05/27/17 05/27/17 04:00 05:20 06:36 WBC RBC Hgb Hct MCV MCH RDW Plt Count Seg Neuts % (Manual) Lymphocytes % (Manual) Seg Neutrophils # Man Lymphocytes # (Manual) PT 19.7 H INR 1.57 H APTT 57.0 H POC ABG pH POC ABG pO2 Sodium Potassium Chloride Carbon Dioxide BUN Creatinine Glucose POC Glucose 64 L 120 H Lactic Acid Calcium Magnesium AST ALT Total Creatine Kinase C-Reactive Protein Total Protein Albumin Salicylates 05/27/17 05/27/17 05/27/17 09:15 12:35 15:44 WBC RBC Hgb Hct MCV MCH RDW Plt Count Seg Neuts % (Manual) Lymphocytes % (Manual) Seg Neutrophils # Man Lymphocytes # (Manual) PT INR APTT POC ABG pH POC ABG pO2 380 H Sodium Potassium Chloride Carbon Dioxide BUN Creatinine Glucose POC Glucose 162 H 193 H Lactic Acid Calcium Magnesium AST ALT Total Creatine Kinase C-Reactive Protein Total Protein Albumin Salicylates 05/27/17 05/27/17 05/27/17 18:14 20:12 20:15 WBC RBC Hgb 10.3 L Hct 30.7 L MCV 75 L MCH 25 L RDW 15.6 H Plt Count 15 L* Seg Neuts % (Manual) 95.0 H Lymphocytes % (Manual) 4.0 L Seg Neutrophils # Man Lymphocytes # (Manual) 0.3 L PT INR APTT POC ABG pH POC ABG pO2 Sodium Potassium Chloride Carbon Dioxide BUN Creatinine Glucose POC Glucose 199 H 165 H Lactic Acid Calcium Magnesium AST ALT Total Creatine Kinase C-Reactive Protein Total Protein Albumin Salicylates 05/27/17 05/27/17 05/27/17 21:48 23:08 23:51 WBC RBC Hgb Hct MCV MCH RDW Plt Count Seg Neuts % (Manual) Lymphocytes % (Manual) Seg Neutrophils # Man Lymphocytes # (Manual) PT INR APTT POC ABG pH POC ABG pO2 Sodium Potassium Chloride Carbon Dioxide BUN Creatinine Glucose 150 H POC Glucose 166 H 173 H Lactic Acid Calcium 8.3 L Magnesium AST ALT Total Creatine Kinase C-Reactive Protein Total Protein Albumin Salicylates 05/28/17 05/28/17 05/28/17 02:23 04:19 05:40 WBC RBC Hgb Hct MCV MCH RDW Plt Count Seg Neuts % (Manual) Lymphocytes % (Manual) Seg Neutrophils # Man Lymphocytes # (Manual) PT INR APTT POC ABG pH POC ABG pO2 75 L Sodium Potassium Chloride Carbon Dioxide BUN Creatinine Glucose POC Glucose 177 H 160 H Lactic Acid Calcium Magnesium AST ALT Total Creatine Kinase C-Reactive Protein Total Protein Albumin Salicylates 05/28/17 05/28/17 05/28/17 05:50 05:50 08:21 WBC RBC Hgb 10.5 L Hct 30.9 L MCV 75 L MCH 25 L RDW 15.5 H Plt Count 16 L* Seg Neuts % (Manual) Lymphocytes % (Manual) Seg Neutrophils # Man Lymphocytes # (Manual) PT INR APTT POC ABG pH POC ABG pO2 Sodium Potassium Chloride Carbon Dioxide BUN Creatinine Glucose 129 H POC Glucose 201 H Lactic Acid Calcium 8.3 L Magnesium AST ALT Total Creatine Kinase C-Reactive Protein Total Protein Albumin Salicylates 05/28/17 05/28/17 05/28/17 11:04 12:19 13:47 WBC RBC Hgb Hct MCV MCH RDW Plt Count Seg Neuts % (Manual) Lymphocytes % (Manual) Seg Neutrophils # Man Lymphocytes # (Manual) PT INR APTT POC ABG pH POC ABG pO2 178 H Sodium Potassium Chloride Carbon Dioxide BUN Creatinine Glucose POC Glucose 140 H Lactic Acid Calcium Magnesium 1.60 L AST ALT Total Creatine Kinase C-Reactive Protein Total Protein Albumin Salicylates 05/28/17 05/29/17 05/29/17 16:21 05:56 08:00 WBC RBC Hgb Hct MCV MCH RDW Plt Count Seg Neuts % (Manual) Lymphocytes % (Manual) Seg Neutrophils # Man Lymphocytes # (Manual) PT INR APTT POC ABG pH POC ABG pO2 Sodium 126 L D Potassium 3.3 L Chloride 96.4 L Carbon Dioxide 20 L BUN Creatinine 0.5 L Glucose POC Glucose 47 L 110 H Lactic Acid Calcium 6.6 L D Magnesium AST 485 H ALT 380 H Total Creatine Kinase C-Reactive Protein Total Protein 3.6 L Albumin 1.5 L Salicylates 05/29/17 05/29/17 05/29/17 08:57 10:01 10:15 WBC RBC Hgb 9.3 L Hct 27.2 L MCV 73 L MCH 25 L RDW Plt Count 9 L* Seg Neuts % (Manual) Lymphocytes % (Manual) Seg Neutrophils # Man Lymphocytes # (Manual) PT INR APTT POC ABG pH POC ABG pO2 Sodium Potassium Chloride Carbon Dioxide BUN Creatinine Glucose POC Glucose 120 H 115 H Lactic Acid Calcium Magnesium AST ALT Total Creatine Kinase C-Reactive Protein Total Protein Albumin Salicylates 05/29/17 05/29/17 05/29/17 10:15 11:55 15:44 WBC RBC Hgb Hct MCV MCH RDW Plt Count Seg Neuts % (Manual) Lymphocytes % (Manual) Seg Neutrophils # Man Lymphocytes # (Manual) PT INR APTT POC ABG pH POC ABG pO2 Sodium Potassium Chloride Carbon Dioxide BUN 24 H Creatinine 0.7 L Glucose 112 H POC Glucose 128 H 124 H Lactic Acid Calcium Magnesium AST ALT Total Creatine Kinase C-Reactive Protein Total Protein Albumin Salicylates Chest x-ray: report reviewed, image reviewed
--- NOTE | 2017-05-29 17:26 | Progress Note ---
Assessment and Plan - Patient Problems (1) Septic shock Current Visit: Yes Status: Acute Plan to address problem: Patient is now normotensive. Able to wean the warfare drip. Etiology likely secondary to pneumonia versus influenza. Patient PCR for influenza pending. Tamiflu and Rocephin for now. Follow-up chest x-ray showed improving infiltrate. Patient remains intubated . Patient on Tamiflu and acyclovir and broad-spectrum antibiotic coverage. Clinically seems to be improving. Except for the platelets. Azithromycin and Rocephin and vancomycin. (2) Septic shock due to coagulase-negative staphylococcal infection Current Visit: Yes Status: Acute Plan to address problem: See above patient on vancomycin. Pressor support. (3) Acute encephalopathy Current Visit: Yes Status: Acute Plan to address problem: Resolve was most likely secondary to sepsis. Patient able to track attempts to make needs known. Not sure if it is any underlying mental health disorder versus some anoxia. (4) Pneumonia of both lower lobes Current Visit: Yes Status: Acute Qualifiers: Qualified Code(s): J69.0 - Pneumonitis due to inhalation of food and vomit (5) Schizophrenia Current Visit: Yes Status: Chronic Plan to address problem: Patient will need to continue medications after intubation was considered for discharge. Not requiring medications at this time. (6) Thrombocytopenia Current Visit: Yes Status: Acute Plan to address problem: At present has gotten worse. Weight isn't down to 9. No clear drug reaction. Sepsis given better however platelets are down trending. We'll obtain hematology consult. Transfuse platelets. Also increased liver function tests. May be shocked liver. (7) Acute respiratory failure Current Visit: Yes Status: Acute Plan to address problem: Secondary to pneumonia pulmonary cause. Remains intubated. Pulmonology following. The high probability of a clinically significant, sudden or life threatening deterioration of the [] system(s) required my full and direct attention, intervention and personal management. The aggregate critical care time was [] minutes. This time is in addition to time spent performing reported procedures but includes the following: [x] Data Review and interpretation [x Patient assessment and monitoring of vital signs [x] Documentation [x] Medication orders and management History Interval history: Patient remains intubated much more alert today. Able to follow you focus. Off of the Levophed drip. Remains hemodynamically stable now. Unable to communicate. Not sure if this is part of her underlying medical condition versus having the tube in. Platelets are worse. Hospitalist Physical - Constitutional Vitals: Temp Pulse Resp BP Pulse Ox 97.8 F 58 L 18 128/81 99 05/29/17 15:49 05/29/17 16:54 05/29/17 16:54 05/29/17 16:54 05/29/17 16:54 General appearance: Present: mild distress, disheveled, other (appears toxic) - EENT Eyes: Present: PERRL, EOM intact. Absent: irregular pupil, scleral icterus, conjunctival injection, exopthalmos, miosis, mydriasis, discharge ENT: clear oral mucosa, dentition normal, no poor dentition, no thrush, no ulcerations - Neck Neck: Present: supple, normal ROM. Absent: enlarged thyroid, masses or JVD - Respiratory Respiratory: bilateral: rales, rhonchi - Cardiovascular Rhythm: regular Heart Sounds: Present: S1 & S2 - Extremities Extremities: no ischemia, pulses intact, pulses symmetrical, No edema, normal temperature, normal color, Full ROM Peripheral Pulses: within normal limits - Abdominal General gastrointestinal: soft, non-tender, non-distended, hypoactive bowel sounds - Integumentary Integumentary: Present: clear, warm, dry - Neurologic Neurologic: other (intubated or resuscitated) Results - Labs CBC & Chem 7: 05/29/17 10:15 05/29/17 10:15 Labs: Laboratory Last Values WBC 5.4 K/mm3 (4.5-11.0) 05/29/17 10:15 RBC 3.71 M/mm3 (3.65-5.03) 05/29/17 10:15 Hgb 9.3 gm/dl (11.8-15.2) L 05/29/17 10:15 Hct 27.2 % (35.5-45.6) L 05/29/17 10:15 MCV 73 fl (84-94) L 05/29/17 10:15 MCH 25 pg (28-32) L 05/29/17 10:15 MCHC 34 % (32-34) 05/29/17 10:15 RDW 14.9 % (13.2-15.2) 05/29/17 10:15 Plt Count 9 K/mm3 (140-440) L* 05/29/17 10:15 Lymph % (Auto) TNR 05/29/17 08:00 [place] % (Auto) TNR 05/29/17 08:00 Eos % (Auto) TNR 05/29/17 08:00 Baso % (Auto) TNR 05/29/17 08:00 Lymph # TNR 05/29/17 08:00 [place] # TNR 05/29/17 08:00 Eos # TNR 05/29/17 08:00 Baso # TNR 05/29/17 08:00 Add Manual Diff TNR 05/29/17 08:00 Total Counted 100 05/27/17 20:15 Seg Neutrophils % TNR 05/29/17 08:00 Seg Neuts % (Manual) 95.0 % (40.0-70.0) H 05/27/17 20:15 Band Neutrophils % 0 % 05/27/17 20:15 Lymphocytes % (Manual) 4.0 % (13.4-35.0) L 05/27/17 20:15 Reactive Lymphs % (Man) 0 % 05/27/17 20:15 Monocytes % (Manual) 1.0 % (0.0-7.3) 05/27/17 20:15 Eosinophils % (Manual) 0 % (0.0-4.3) 05/27/17 20:15 Basophils % (Manual) 0 % (0.0-1.8) 05/27/17 20:15 Metamyelocytes % 0 % 05/27/17 20:15 Myelocytes % 0 % 05/27/17 20:15 Promyelocytes % 0 % 05/27/17 20:15 Blast Cells % 0 % 05/27/17 20:15 Nucleated RBC % Not Reportable 05/27/17 20:15 Seg Neutrophils # TNR 05/29/17 08:00 Seg Neutrophils # Man 7.2 K/mm3 (1.8-7.7) 05/27/17 20:15 Band Neutrophils # 0.0 K/mm3 05/27/17 20:15 Lymphocytes # (Manual) 0.3 K/mm3 (1.2-5.4) L 05/27/17 20:15 Abs React Lymphs (Man) 0.0 K/mm3 05/27/17 20:15 Monocytes # (Manual) 0.1 K/mm3 (0.0-0.8) 05/27/17 20:15 Eosinophils # (Manual) 0.0 K/mm3 (0.0-0.4) 05/27/17 20:15 Basophils # (Manual) 0.0 K/mm3 (0.0-0.1) 05/27/17 20:15 Metamyelocytes # 0.0 K/mm3 05/27/17 20:15 Myelocytes # 0.0 K/mm3 05/27/17 20:15 Promyelocytes # 0.0 K/mm3 05/27/17 20:15 Blast Cells # 0.0 K/mm3 05/27/17 20:15 WBC Morphology Not Reportable 05/27/17 20:15 Hypersegmented Neuts Not Reportable 05/27/17 20:15 Hyposegmented Neuts Not Reportable 05/27/17 20:15 Hypogranular Neuts Not Reportable 05/27/17 20:15 Smudge Cells Not Reportable 05/27/17 20:15 Toxic Granulation Not Reportable 05/27/17 20:15 Toxic Vacuolation Not Reportable 05/27/17 20:15 Dohle Bodies Few 05/27/17 20:15 Pelger-Huet Anomaly Not Reportable 05/27/17 20:15 Evon Rods Not Reportable 05/27/17 20:15 Platelet Estimate Appears decreased 05/27/17 20:15 Clumped Platelets Not Reportable 05/27/17 20:15 Plt Clumps, EDTA Not Reportable 05/27/17 20:15 Large Platelets Not Reportable 05/27/17 20:15 Giant Platelets Not Reportable 05/27/17 20:15 Platelet Satelliting Not Reportable 05/27/17 20:15 Plt Morphology Comment Not Reportable 05/27/17 20:15 RBC Morphology Not Reportable 05/27/17 20:15 Dimorphic RBCs Not Reportable 05/27/17 20:15 Polychromasia Not Reportable 05/27/17 20:15 Hypochromasia Not Reportable 05/27/17 20:15 Poikilocytosis Not Reportable 05/27/17 20:15 Anisocytosis 1+ 05/27/17 20:15 Microcytosis Not Reportable 05/27/17 20:15 Macrocytosis Not Reportable 05/27/17 20:15 Spherocytes Not Reportable 05/27/17 20:15 Pappenheimer Bodies Not Reportable 05/27/17 20:15 Sickle Cells Not Reportable 05/27/17 20:15 Target Cells 1+ 05/27/17 20:15 Tear Drop Cells Not Reportable 05/27/17 20:15 Ovalocytes Not Reportable 05/27/17 20:15 Helmet Cells Not Reportable 05/27/17 20:15 Castaneda-Winnfield Bodies Not Reportable 05/27/17 20:15 Ora Rings Not Reportable 05/27/17 20:15 Gerda Cells Not Reportable 05/27/17 20:15 Bite Cells Not Reportable 05/27/17 20:15 Crenated Cell Not Reportable 05/27/17 20:15 Elliptocytes Not Reportable 05/27/17 20:15 Acanthocytes (Spur) Not Reportable 05/27/17 20:15 Rouleaux Not Reportable 05/27/17 20:15 Hemoglobin C Crystals Not Reportable 05/27/17 20:15 Schistocytes Not Reportable 05/27/17 20:15 Malaria parasites Not Reportable 05/27/17 20:15 Michael Bodies Not Reportable 05/27/17 20:15 Hem Pathologist Commnt No 05/27/17 20:15 PT 13.5 Sec. (12.2-14.9) 05/29/17 08:00 INR 0.98 (0.87-1.13) 05/29/17 08:00 APTT 57.0 Sec. (24.2-36.6) H 05/27/17 04:00 POC ABG pH 7.419 (7.35-7.45) 05/28/17 11:04 POC ABG pCO2 38.4 (35-45) 05/28/17 11:04 POC ABG pO2 178 (80-105) H 05/28/17 11:04 POC ABG HCO3 24.9 05/28/17 11:04 POC ABG Total CO2 26 05/28/17 11:04 POC ABG O2 Sat 100 05/28/17 11:04 POC ABG Base Excess 0 05/28/17 11:04 FiO2 40 % 05/28/17 11:04 Sodium 139 mmol/L (137-145) D 05/29/17 10:15 Potassium 4.4 mmol/L (3.6-5.0) D 05/29/17 10:15 Chloride 105.8 mmol/L (98-107) 05/29/17 10:15 Carbon Dioxide 24 mmol/L (22-30) 05/29/17 10:15 Anion Gap 14 mmol/L 05/29/17 10:15 BUN 24 mg/dL (9-20) H 05/29/17 10:15 Creatinine 0.7 mg/dL (0.8-1.5) L 05/29/17 10:15 Estimated GFR > 60 ml/min 05/29/17 10:15 BUN/Creatinine Ratio 34 % 05/29/17 10:15 Glucose 112 mg/dL (75-100) H 05/29/17 10:15 POC Glucose 124 (70-105) H 05/29/17 15:44 Lactic Acid 1.90 mmol/L (0.7-2.0) 05/25/17 17:56 Calcium 8.6 mg/dL (8.4-10.2) D 05/29/17 10:15 Magnesium 1.60 mg/dL (1.7-2.3) L 05/28/17 13:47 Total Bilirubin 0.20 mg/dL (0.1-1.2) 05/29/17 08:00 AST 485 units/L (5-40) H 05/29/17 08:00 ALT 380 units/L (7-56) H 05/29/17 08:00 Alkaline Phosphatase 71 units/L (35-129) 05/29/17 08:00 Ammonia 33.0 umol/L (25-60) 05/25/17 13:32 Total Creatine Kinase 360 units/L (55-170) H 05/25/17 13:32 Troponin T < 0.010 ng/mL (0.00-0.029) 05/25/17 13:32 C-Reactive Protein 15.20 mg/dL (0.00-1.30) H 05/26/17 15:41 Total Protein 3.6 g/dL (6.3-8.2) L 05/29/17 08:00 Albumin 1.5 g/dL (3.9-5) L 05/29/17 08:00 Albumin/Globulin Ratio 0.7 % 05/29/17 08:00 Urine Color Yellow (Yellow) 05/25/17 14:11 Urine Turbidity Clear (Clear) 05/25/17 14:11 Urine pH 5.0 (5.0-7.0) 05/25/17 14:11 Ur Specific Deal 1.025 (1.003-1.030) 05/25/17 14:11 Urine Protein <15 mg/dl mg/dL (Negative) 05/25/17 14:11 Urine Glucose (UA) 50 mg/dL (Negative) 05/25/17 14:11 Urine Ketones Neg mg/dL (Negative) 05/25/17 14:11 Urine Blood Neg (Negative) 05/25/17 14:11 Urine Nitrite Neg (Negative) 05/25/17 14:11 Urine Bilirubin Neg (Negative) 05/25/17 14:11 Urine Urobilinogen < 2.0 mg/dL (<2.0) 05/25/17 14:11 Ur Leukocyte Esterase Neg (Negative) 05/25/17 14:11 Urine WBC (Auto) 3.0 /HPF (0.0-6.0) 05/25/17 14:11 Urine RBC (Auto) 2.0 /HPF (0.0-6.0) 05/25/17 14:11 Hyaline Casts 1 /LPF 05/25/17 14:11 Urine Mucus Few /HPF 05/25/17 14:11 Vancomycin Trough 15.2 ug/mL (5.0-20.0) 05/27/17 13:47 Salicylates < 0.3 mg/dL (2.8-20.0) L 05/25/17 13:32 Urine Opiates Screen Presumptive negative 05/25/17 14:11 Urine Methadone Screen Presumptive negative 05/25/17 14:11 Acetaminophen < 15.0 ug/mL (10.0-30.0) 05/25/17 13:32 Ur Barbiturates Screen Presumptive negative 05/25/17 14:11 Ur Phencyclidine Scrn Presumptive negative 05/25/17 14:11 Ur Amphetamines Screen Presumptive negative 05/25/17 14:11 U Benzodiazepines Scrn Presumptive negative 05/25/17 14:11 Urine Cocaine Screen Presumptive negative 05/25/17 14:11 U Marijuana (THC) Screen Presumptive negative 05/25/17 14:11 Drugs of Abuse Note Disclamer 05/25/17 14:11 Plasma/Serum Alcohol < 0.01 % (0-0.07) 05/25/17 13:32 HIV 1&2 Antibody Rapid Non react (Non React) 05/26/17 12:38 HIV P24 Antigen Non react (Non React) 05/26/17 12:38 - Imaging and Cardiology Chest x-ray: image reviewed CT Scan - head: report reviewed
[2017-05-29] MEDS: ZITHROMAX 500 MG in NACL 0.9% 250ML 250 ML IV SCH (18:42)
[2017-05-30] MEDS: ZOVIRAX IV SCH ×3 (02:47→18:54)
[2017-05-30] MEDS: NACL 0.9% IV SCH ×3 (02:47→18:54)
--- NOTE | 2017-05-30 03:23 | XRay Report ---
FINAL REPORT EXAM: XR CHEST 1V AP HISTORY: follow up respiratory failure TECHNIQUE: A portable upright view the chest was obtained and compared to the study of 05/29/2017 FINDINGS: The endotracheal tube and NG tube appear in good position. The tip of the left-sided PICC line is in good position in the superior vena cava. Heart size is normal. There is stable airspace disease involving the lower 2/3 of both lungs. A left-sided effusion cannot be excluded. The lungs appear mildly congested. The skeletal structures are well-maintained. IMPRESSION: Stable bilateral airspace disease with pulmonary congestion. A left-sided effusion cannot be excluded.
[2017-05-30] MEDS: cefTRIAXone 2 GM in NACL 0.9% 20 ML IV SCH ×2 (04:35→17:00)
[2017-05-30] MEDS: NACL 0.45% 1000 ML 1,000 ML IV SCH ×2 (04:36→15:01)
[2017-05-30 06:53] LABS: Hematocrit 27.6 % (35.5-45.6); Hemoglobin 9.3 gm/dl (11.8-15.2); Mean Corpuscular HGB Conc 34 % (32-34); Mean Corpuscular Volume 74 fl (84-94); Red Blood Count 3.71 M/mm3 (3.65-5.03)
[2017-05-30] MEDS: VANCOMYCIN 1,250 MG in NACL 0.9% 250ML 250 ML IV SCH ×3 (07:11→22:00)
[2017-05-30 07:14] LABS: Alanine Aminotransferase 529 units/L (7-56); Albumin 2.2 g/dL (3.9-5); BUN/Creatinine Ratio 37; Blood Urea Nitrogen 26 mg/dL (9-20); Calcium 8.6 mg/dL (8.4-10.2); Hemolysis Index 2; Mean Corpuscular Hemoglobin 25 pg (28-32)
[2017-05-30 07:15] LABS: Platelet Count 40 K/mm3 (140-440)
[2017-05-30 08:50] LABS: Band Neutrophils # (Manual) 0.1 K/mm3; Basophils % (Manual) 0 % (0.0-1.8); Eosinophils % (Manual) 0 % (0.0-4.3); Total Cells Counted 100
[2017-05-30 08:51] LABS: Anisocytosis 1+; Hypochromasia 1+; Platelet Estimate Cons
[2017-05-30] MEDS: PEPCID PO SCH ×2 (10:56→21:32)
[2017-05-30] MEDS: TAMIFLU PO SCH ×2 (10:56→21:32)
--- NOTE | 2017-05-30 11:16 | Progress Note ---
Assessment and Plan 1) Sepsis with septic shock: off levophed. Etiology pneumonia. Other Possibilities: [employer] infection, influenza. -CRP=15 2) Pneumonia: Secondary to ? aspiration ? post influenza pneumonia. 3) Acute Encephalopathy ? unclear etiology. More awake. 4) Acute respiratory failure. Intubated. 5) Thrombocytopenia - improved after PLTs transfusion. 6) Elevated LFTs: ?shock liver. AST/ALT worse. Plan: -follow-up blood culture, sputum culture. -check procalcitonin, rapid flu. -Will f/u Legionella urine antigen, Streptococcus pneumoniae urine antigen. -follow-up MELBA with reflex, C3, C4, ANCA -lumbar punture for opening pressure and send CSF specimen for Gram stain and culture, glucose, protein, VDRL, HSV-PCR, cryptococcal antigen and culture - not done yet since PLTs too low. -continue vancomycin IV, ceftriaxone 2 g IV q12h, acyclovir IV and tamiflu - day 5. Nicole STEWART attending [facility] M [phone]. Subjective Date of service: 05/30/17 Principal diagnosis: pneumonia Interval history: Remains intubated on the vent, no hypothermia or fever. Off pressors. Had PLTs transfused yesterday. Microbiology: Blood cultures: 05/25 ngtd Respiratory cultures: 05/26 poor sample 05/29 in progress Current Antimicrobials: vancomycin IV 05/26 ceftriaxone 2 g IV q12h 05/26 acyclovir IV 05/26 tamiflu 05/26- Hydrocortisone Objective - Exam Narrative Exam: General appearance: Pt in NAD. Intubated. Awake. Doesn't follow commands. Eyes: anicteric sclerae, moist conjunctivae; pupils reactive HENT: Atraumatic; oropharynx clear +ETT +NGT Neck: Trachea midline; supple, no thyromegaly or lymphadenopathy Lungs: Coarse BS CV: S1,S2 Abdomen: Soft, non-tender, non-distended. Extremities: No peripheral edema or extremity lymphadenopathy Skin: Normal temperature, turgor and texture; no rash, ulcers or subcutaneous nodules Psych: Intubated, Unable to evaluate. Neuro: Awake. Not following commands. Lines: left PICC / reyes with clear urine - Constitutional Vitals: Vital Signs Temp Pulse Resp BP Pulse Ox 97.5 F L 40 L 16 122/74 99 05/30/17 08:00 05/30/17 11:00 05/30/17 11:00 05/30/17 11:00 05/30/17 11:00 Temperature -Last 24 Hours Temperature 97.5 F Temperature 98.1 F Temperature 97.6 F Temperature 98.7 F Temperature 97.8 F Temperature 97.7 F - Labs CBC & Chem 7: 05/30/17 05:30 05/30/17 05:30 Labs: Abnormal lab results 05/29/17 05/29/17 05/29/17 Range/Units 08:57 10:01 11:55 Hgb (11.8-15.2) gm/dl Hct (35.5-45.6) % MCV (84-94) fl MCH (28-32) pg Plt Count (140-440) K/mm3 Seg Neuts % (Manual) (40.0-70.0) % Lymphocytes % (Manual) (13.4-35.0) % Nucleated RBC % (0.0-0.9) % Lymphocytes # (Manual) (1.2-5.4) K/mm3 POC ABG pH (7.35-7.45) POC ABG pCO2 (35-45) POC ABG pO2 (80-105) Chloride (98-107) mmol/L BUN (9-20) mg/dL Creatinine (0.8-1.5) mg/dL Glucose (75-100) mg/dL POC Glucose 120 H 115 H 128 H (70-105) AST (5-40) units/L ALT (7-56) units/L Total Protein (6.3-8.2) g/dL Albumin (3.9-5) g/dL 05/29/17 05/30/17 05/30/17 Range/Units 15:44 01:00 04:21 Hgb (11.8-15.2) gm/dl Hct (35.5-45.6) % MCV (84-94) fl MCH (28-32) pg Plt Count (140-440) K/mm3 Seg Neuts % (Manual) (40.0-70.0) % Lymphocytes % (Manual) (13.4-35.0) % Nucleated RBC % (0.0-0.9) % Lymphocytes # (Manual) (1.2-5.4) K/mm3 POC ABG pH 7.528 H (7.35-7.45) POC ABG pCO2 34.8 L (35-45) POC ABG pO2 108 H (80-105) Chloride (98-107) mmol/L BUN (9-20) mg/dL Creatinine (0.8-1.5) mg/dL Glucose (75-100) mg/dL POC Glucose 124 H 106 H (70-105) AST (5-40) units/L ALT (7-56) units/L Total Protein (6.3-8.2) g/dL Albumin (3.9-5) g/dL 05/30/17 05/30/17 05/30/17 Range/Units 05:30 05:30 06:02 Hgb 9.3 L (11.8-15.2) gm/dl Hct 27.6 L (35.5-45.6) % MCV 74 L (84-94) fl MCH 25 L (28-32) pg Plt Count 40 L D (140-440) K/mm3 Seg Neuts % (Manual) 90.0 H (40.0-70.0) % Lymphocytes % (Manual) 4.0 L (13.4-35.0) % Nucleated RBC % 1.0 H (0.0-0.9) % Lymphocytes # (Manual) 0.2 L (1.2-5.4) K/mm3 POC ABG pH (7.35-7.45) POC ABG pCO2 (35-45) POC ABG pO2 (80-105) Chloride 109.9 H (98-107) mmol/L BUN 26 H (9-20) mg/dL Creatinine 0.7 L (0.8-1.5) mg/dL Glucose 118 H (75-100) mg/dL POC Glucose 149 H (70-105) AST 445 H (5-40) units/L ALT 529 H (7-56) units/L Total Protein 4.7 L D (6.3-8.2) g/dL Albumin 2.2 L (3.9-5) g/dL
--- NOTE | 2017-05-30 11:25 | Progress Note ---
Assessment and Plan SEVERE SEPSIS WITH SEPTIC SHOCK- POA, Severe Hypothermia on admission, resolved Acute Toxic Metabolic Encephalopathy Acute Respiratory Failure Thrombocytopenia-severe- no bleeding noted Aspiration Pneumonia with possible Post influenza Pneumonia h/o Schizophrenia Hypoglycemia, resolved Severe Protein Calorie Malnutrition Hypernatremia, improved Elevated LFT, likely from sepsis Plan ID consulted, Abx as ordered Transfuse plt if bleeding Continue IV fluid Continue ventilatory support Monitor cultures Await Lumber pucture. doubt it can be done safely with the patients low plt. MRI brain when more stable, will get CT head now Replace Electrolytes GI prophylaxis Hold all Anticoagulations Discussed with CC Brief History: Patient is 42 years old AA male, from halfway for evaluation of altered mental status and bradycardia. Also Hypothermic Only history available is schizophrenia. No other information can be obtained at this moment since patient is not communicating. No fever or chills per Longterm staff. Physical exam: General appearance: Present: mild distress, disheveled, other (appears toxic) - EENT Eyes: Present: PERRL - Neck Neck: Present: supple - Respiratory Respiratory effort: other (ett) Respiratory: bilateral: diminished - Cardiovascular Rhythm: regular Heart Sounds: Present: S1 & S2. Absent: systolic murmur - Extremities Extremities: pulses intact, normal temperature Peripheral Pulses: within normal limits - Abdominal General gastrointestinal: soft, non-distended, hypoactive bowel sounds - Integumentary Integumentary: Present: warm - Psychiatric Psychiatric: other (unable to access) - Neurologic Neurologic: other (unable to access) - Allied Health Allied health notes reviewed: nursing The high probability of a clinically significant, sudden or life threatening deterioration of the [PULMONARY, NEUROLOGY] system(s) required my full and direct attention, intervention and personal management. The aggregate critical care time was [35] minutes. This time is in addition to time spent performing reported procedures but includes the following: [X] Data Review and interpretation [X] Patient assessment and monitoring of vital signs [X] Documentation [X] Medication orders and management Subjective Date of service: 05/30/17 Principal diagnosis: pneumonia Interval history: Pt seen and examined remained intubated, tolerating Tube feeding Objective - Constitutional Vitals: Vital Signs - 12hr 05/29/17 05/29/17 05/29/17 23:30 23:36 23:40 Temperature Pulse Rate 44 L 55 L 46 L Pulse Rate [ Apical] Respiratory 16 16 18 Rate Blood Pressure 116/68 116/68 116/68 O2 Sat by Pulse 100 100 100 Oximetry 05/29/17 05/29/17 05/29/17 23:46 23:48 23:50 Temperature Pulse Rate 42 L 45 L 52 L Pulse Rate [ Apical] Respiratory 16 16 Rate Blood Pressure 116/68 116/68 116/68 O2 Sat by Pulse 100 100 100 Oximetry 05/30/17 05/30/17 05/30/17 00:00 00:15 00:30 Temperature 97.6 F Pulse Rate 52 L 54 L 54 L Pulse Rate [ 46 L Apical] Respiratory 16 16 16 Rate Blood Pressure 124/78 116/68 132/84 O2 Sat by Pulse 100 100 99 Oximetry 05/30/17 05/30/17 05/30/17 00:46 01:00 01:16 Temperature Pulse Rate 43 L 43 L 41 L Pulse Rate [ Apical] Respiratory 17 16 16 Rate Blood Pressure 124/78 124/78 132/84 O2 Sat by Pulse 100 100 100 Oximetry 05/30/17 05/30/17 05/30/17 01:30 01:46 02:00 Temperature Pulse Rate 41 L 41 L 40 L Pulse Rate [ Apical] Respiratory 16 16 16 Rate Blood Pressure 123/74 123/74 129/78 O2 Sat by Pulse 100 100 100 Oximetry 05/30/17 05/30/17 05/30/17 02:16 02:30 02:46 Temperature Pulse Rate 40 L 40 L 42 L Pulse Rate [ Apical] Respiratory 16 16 16 Rate Blood Pressure 129/78 126/78 126/78 O2 Sat by Pulse 100 100 100 Oximetry 05/30/17 05/30/17 05/30/17 03:00 03:16 03:30 Temperature Pulse Rate 42 L 43 L 41 L Pulse Rate [ Apical] Respiratory 16 16 16 Rate Blood Pressure 113/71 113/71 118/73 O2 Sat by Pulse 100 100 99 Oximetry 05/30/17 05/30/17 05/30/17 03:46 03:52 04:00 Temperature 98.1 F Pulse Rate 40 L 40 L 40 L Pulse Rate [ 40 L Apical] Respiratory 16 16 Rate Blood Pressure 118/73 118/73 118/73 O2 Sat by Pulse 100 100 99 Oximetry 05/30/17 05/30/17 05/30/17 04:16 04:30 04:46 Temperature Pulse Rate 38 L 37 L 39 L Pulse Rate [ Apical] Respiratory 16 16 16 Rate Blood Pressure 123/79 123/79 125/77 O2 Sat by Pulse 100 100 100 Oximetry 05/30/17 05/30/17 05/30/17 05:00 05:16 05:30 Temperature Pulse Rate 42 L 41 L 50 L Pulse Rate [ Apical] Respiratory 16 12 19 Rate Blood Pressure 124/77 124/77 124/77 O2 Sat by Pulse 100 87 98 Oximetry 05/30/17 05/30/17 05/30/17 05:46 06:00 06:16 Temperature Pulse Rate 38 L 41 L 37 L Pulse Rate [ Apical] Respiratory 17 19 22 Rate Blood Pressure 124/75 123/75 123/75 O2 Sat by Pulse 98 100 100 Oximetry 05/30/17 05/30/17 05/30/17 06:30 06:46 07:00 Temperature Pulse Rate 38 L 38 L 37 L Pulse Rate [ Apical] Respiratory 12 13 16 Rate Blood Pressure 133/79 133/79 123/75 O2 Sat by Pulse 100 100 100 Oximetry 05/30/17 05/30/17 05/30/17 07:15 07:30 07:45 Temperature Pulse Rate 39 L 39 L 38 L Pulse Rate [ Apical] Respiratory 16 16 16 Rate Blood Pressure 125/76 126/77 126/77 O2 Sat by Pulse 100 100 100 Oximetry 05/30/17 05/30/17 05/30/17 08:00 08:15 08:30 Temperature 97.5 F L Pulse Rate 41 L 41 L 39 L Pulse Rate [ Apical] Respiratory 16 16 16 Rate Blood Pressure 125/82 125/82 120/71 O2 Sat by Pulse 100 100 99 Oximetry 05/30/17 05/30/17 05/30/17 08:45 09:01 09:15 Temperature Pulse Rate 38 L 40 L 40 L Pulse Rate [ Apical] Respiratory 16 17 16 Rate Blood Pressure 120/71 134/74 134/74 O2 Sat by Pulse 100 98 100 Oximetry 05/30/17 05/30/17 05/30/17 09:30 09:45 09:52 Temperature Pulse Rate 41 L 44 L 41 L Pulse Rate [ Apical] Respiratory 16 16 Rate Blood Pressure 120/72 120/72 120/72 O2 Sat by Pulse 99 100 99 Oximetry 05/30/17 05/30/17 05/30/17 10:00 10:15 10:30 Temperature Pulse Rate 53 L 40 L 41 L Pulse Rate [ Apical] Respiratory 17 16 16 Rate Blood Pressure 139/88 139/88 125/75 O2 Sat by Pulse 100 100 100 Oximetry 05/30/17 05/30/17 10:45 11:00 Temperature Pulse Rate 38 L 40 L Pulse Rate [ Apical] Respiratory 16 16 Rate Blood Pressure 125/75 122/74 O2 Sat by Pulse 100 99 Oximetry - Labs CBC & Chem 7: 05/30/17 05:30 05/30/17 05:30 Labs: Abnormal lab results 05/29/17 05/29/17 05/29/17 Range/Units 08:57 10:01 11:55 Hgb (11.8-15.2) gm/dl Hct (35.5-45.6) % MCV (84-94) fl MCH (28-32) pg Plt Count (140-440) K/mm3 Seg Neuts % (Manual) (40.0-70.0) % Lymphocytes % (Manual) (13.4-35.0) % Nucleated RBC % (0.0-0.9) % Lymphocytes # (Manual) (1.2-5.4) K/mm3 POC ABG pH (7.35-7.45) POC ABG pCO2 (35-45) POC ABG pO2 (80-105) Chloride (98-107) mmol/L BUN (9-20) mg/dL Creatinine (0.8-1.5) mg/dL Glucose (75-100) mg/dL POC Glucose 120 H 115 H 128 H (70-105) AST (5-40) units/L ALT (7-56) units/L Total Protein (6.3-8.2) g/dL Albumin (3.9-5) g/dL 05/29/17 05/30/17 05/30/17 Range/Units 15:44 01:00 04:21 Hgb (11.8-15.2) gm/dl Hct (35.5-45.6) % MCV (84-94) fl MCH (28-32) pg Plt Count (140-440) K/mm3 Seg Neuts % (Manual) (40.0-70.0) % Lymphocytes % (Manual) (13.4-35.0) % Nucleated RBC % (0.0-0.9) % Lymphocytes # (Manual) (1.2-5.4) K/mm3 POC ABG pH 7.528 H (7.35-7.45) POC ABG pCO2 34.8 L (35-45) POC ABG pO2 108 H (80-105) Chloride (98-107) mmol/L BUN (9-20) mg/dL Creatinine (0.8-1.5) mg/dL Glucose (75-100) mg/dL POC Glucose 124 H 106 H (70-105) AST (5-40) units/L ALT (7-56) units/L Total Protein (6.3-8.2) g/dL Albumin (3.9-5) g/dL 05/30/17 05/30/17 05/30/17 Range/Units 05:30 05:30 06:02 Hgb 9.3 L (11.8-15.2) gm/dl Hct 27.6 L (35.5-45.6) % MCV 74 L (84-94) fl MCH 25 L (28-32) pg Plt Count 40 L D (140-440) K/mm3 Seg Neuts % (Manual) 90.0 H (40.0-70.0) % Lymphocytes % (Manual) 4.0 L (13.4-35.0) % Nucleated RBC % 1.0 H (0.0-0.9) % Lymphocytes # (Manual) 0.2 L (1.2-5.4) K/mm3 POC ABG pH (7.35-7.45) POC ABG pCO2 (35-45) POC ABG pO2 (80-105) Chloride 109.9 H (98-107) mmol/L BUN 26 H (9-20) mg/dL Creatinine 0.7 L (0.8-1.5) mg/dL Glucose 118 H (75-100) mg/dL POC Glucose 149 H (70-105) AST 445 H (5-40) units/L ALT 529 H (7-56) units/L Total Protein 4.7 L D (6.3-8.2) g/dL Albumin 2.2 L (3.9-5) g/dL
--- NOTE | 2017-05-30 12:00 | Consultation ---
History of Present Illness Consult date: 05/30/17 Requesting physician: PAUL FERNANDEZ Consult reason: bradycardia History of present illness: The pt is a 42 YO male from half-way with a past medical history significant for schizophrenia. He is previously unknown to our practice. He is intubated on evaluation and thus HPI is obtained per the chart. Pt presented from half-way for evaluation of altered mental status and bradycardia and hypothermia. Since admission, he has been subsequently diagnosed with severe sepsis with septic shock requiring vasopressor support, acute respiratory failure, PNA, thrombocytopenia, encephalopathy, ? meningoencephalitis, hypoglycemia, severe malnutrition, hypernatremia. He also was found to have sinus bradycardia and thus cardiology has been consulted. Review of telemetry and ECG shows sinus bradycardia with HR 35-50s. Past History Past Medical History: other (schizophrenia) Past Surgical History: No surgical history Social history: other (incarcerated) Family history: no significant family history Medications and Allergies Allergies Allergy/AdvReac Type Severity Reaction Status Date / Time risperidone [From Risperdal] Allergy Unknown Verified 05/25/17 13:34 Home Medications Medication Instructions Recorded Confirmed Last Taken Type Benztropine [Cogentin] 1 mg PO DAILY 05/25/17 05/25/17 05/24/17 History Olanzapine [Zyprexa] 15 mg PO DAILY 05/25/17 05/25/17 05/24/17 History Active Meds: Active Medications Acetaminophen (Tylenol) 650 mg PO Q4H PRN PRN Reason: Pain MILD(1-3)/Fever >100.5/FOFANA Lipase/Protease/Amylase (Pancreaze Dr 10,500 Unit) 1 each FEEDTUBE PRN PRN PRN Reason: For Clogged Feeding Tube Atropine Sulfate (Atropine) 1 mg IV ONCE PRN PRN Reason: Bradycardia Bisacodyl (Dulcolax) 10 mg NE QDAY PRN PRN Reason: Constipation unrelieved by MOM Dextrose (D50w (25gm) Syringe) 50 ml IV PRN PRN PRN Reason: Hypoglycemia Last Admin: 05/27/17 05:30 Dose: 50 ml Famotidine (Pepcid) 20 mg PO BID RICCARDO Last Admin: 05/30/17 10:56 Dose: 20 mg Hydrocortisone Sodium Succinate (Solu-Cortef) 50 mg IV BID RICCARDO Stop: 05/30/17 22:01 Last Admin: 05/30/17 10:56 Dose: 50 mg Norepinephrine (Levophed Drip 4 Mg/Ns 250 Ml) 4 mg in 250 mls @ 7.5 mls/hr IV TITR RICCARDO; 2 MCG/MIN PRN Reason: Protocol Last Titration: 05/28/17 07:50 Dose: 1 mcg/min, 3.75 mls/hr Ceftriaxone Sodium 2 gm/ (Sodium Chloride) 20 mls @ 20 mls/10 min IV Q12H [facility] Last Admin: 05/30/17 04:35 Dose: 20 mls/10 min Acyclovir 680 mg/ Sodium (Chloride) 113.6 mls @ 100 mls/hr IV Q8H [facility] Last Admin: 05/30/17 02:47 Dose: 100 mls/hr Midazolam HCl 100 mg/ Sodium (Chloride) 100 mls @ 2 mls/hr IV TITR RICCARDO; 2 MG/HR PRN Reason: Protocol Last Titration: 05/27/17 13:30 Dose: 2 mg/hr, 2 mls/hr Sodium Chloride (Nacl 0.45% 1000 Ml) 1,000 mls @ 100 mls/hr IV DIRECT [facility] Last Admin: 05/30/17 04:36 Dose: 100 mls/hr Vancomycin HCl 1,250 mg/ (Sodium Chloride) 262.5 mls @ 166.667 mls/hr IV Q8HR [facility] Last Admin: 05/30/17 07:11 Dose: 166.667 mls/hr Azithromycin 500 mg/ Sodium (Chloride) 250 mls @ 250 mls/hr IV Q24H [facility] Last Admin: 05/29/17 18:42 Dose: 250 mls/hr Magnesium Hydroxide (Milk Of Magnesia) 30 ml PO Q4H PRN PRN Reason: Constipation Morphine Sulfate (Morphine) 2 mg IV Q4H PRN PRN Reason: Pain, Moderate (4-6) Ondansetron HCl (Zofran) 4 mg IV Q8H PRN PRN Reason: N/V unrelieved by Reglan Oseltamivir Phosphate (Tamiflu) 75 mg PO BID [facility] Stop: 05/30/17 22:01 Last Admin: 05/30/17 10:56 Dose: 75 mg Simple Syrup (Simple Syrup) 15 ml FEEDTUBE PRN PRN PRN Reason: Hypoglycemia Simple Syrup (Simple Syrup) 30 ml FEEDTUBE PRN PRN PRN Reason: Hypoglycemia Sodium Bicarbonate (Sodium Bicarbonate) 325 mg FEEDTUBE PRN PRN PRN Reason: For Clogged Feeding Tube Vancomycin HCl (Vancomycin Pharmacy To Dose) 1 each IV PKCONSULT RICCARDO PRN Reason: Protocol Review of Systems ROS unobtainable: due to endotracheal tube Physical Examination Vital Signs Resp 11 L 05/25/17 12:39 General appearance: other (intubated, alert) HEENT: Positive: PERRL, Normocephaly, Mucus Membranes Moist Neck: Positive: neck supple, trachea midline Cardiac: Positive: S1/S2, Bradycardia Lungs: Positive: Decreased Breath Sounds Neuro: Positive: Other (intubated) Abdomen: Positive: Soft. Negative: Tender Skin: Positive: Clear. Negative: Rash, Wound Musculoskeletal: No Fluid Collection, No Pain, Normal Range of Motion Extremities: Absent: edema Results 05/30/17 05:30 05/30/17 05:30 Cardiac Enzymes 05/30/17 Range/Units 05:30 AST 445 H (5-40) units/L CBC 05/30/17 Range/Units 05:30 WBC 6.2 (4.5-11.0) K/mm3 RBC 3.71 (3.65-5.03) M/mm3 Hgb 9.3 L (11.8-15.2) gm/dl Hct 27.6 L (35.5-45.6) % Plt Count 40 L D (140-440) K/mm3 Comprehensive Metabolic Panel 05/30/17 Range/Units 05:30 Sodium 142 (137-145) mmol/L Potassium 3.7 (3.6-5.0) mmol/L Chloride 109.9 H (98-107) mmol/L Carbon Dioxide 27 (22-30) mmol/L BUN 26 H (9-20) mg/dL Creatinine 0.7 L (0.8-1.5) mg/dL Glucose 118 H (75-100) mg/dL Calcium 8.6 (8.4-10.2) mg/dL AST 445 H (5-40) units/L ALT 529 H (7-56) units/L Alkaline Phosphatase 115 (35-129) units/L Total Protein 4.7 L D (6.3-8.2) g/dL Albumin 2.2 L (3.9-5) g/dL - Imaging and Cardiology Echo: pending EKG: report reviewed, image reviewed EKG interpretations - Telemetry EKG Rhythm: Sinus Bradycardia - EKG Sinus rhythms and dysrhythmias: sinus bradycardia Assessment and Plan Assessment: Sinus bradycardia Severe sepsis with septic shock requiring vasopressor support Acute respiratory failure - intubated PNA Anemia Thrombocytopenia Encephalopathy / ? meningoencephalitis Hypoglycemia Severe malnutrition Hypernatremia Plan: Obtain echo. Obtain thyroid profile. Avoid AV azul blocking agents. Keep atropine at bedside. Cont supportive management. The patient has been seen in conjunction with Dr. Conrad who agrees with the assessment and plan of care.
[2017-05-30] MEDS ORDERED: NACL 0.9% 500 ML 500 ML IV ONE (13:46)
--- NOTE | 2017-05-30 15:21 | Consultation ---
History of Present Illness Consult date: 05/30/17 Requesting physician: URI MAHER Reason for Consult: altered mental status, sepsis. History of present illness: This is a 42 year old male brought in from skilled nursing where he was found with altered mental status on 05/26/17, hypothermic to 89 degrees with bradycardia. He was discovered to have bilateral pneumonia and has been on antibiotics since admission, including Rocephin for [employer] coverage. Other complicating problems have been thrombocytopenia and malnutrition. He has been ventilator dependent for treatment of his pneumonia. Body temperature has normalized. He is off pressors, awake. Only known past history is schizophrenia. Past History Past Medical History: other (schizophrenia) Past Surgical History: No surgical history Social history: other (incarcerated) Family history: no significant family history Medications and Allergies Allergies Allergy/AdvReac Type Severity Reaction Status Date / Time risperidone [From Risperdal] Allergy Unknown Verified 05/25/17 13:34 Home Medications Medication Instructions Recorded Confirmed Last Taken Type Benztropine [Cogentin] 1 mg PO DAILY 05/25/17 05/25/17 05/24/17 History Olanzapine [Zyprexa] 15 mg PO DAILY 05/25/17 05/25/17 05/24/17 History Active Meds: Active Medications Acetaminophen (Tylenol) 650 mg PO Q4H PRN PRN Reason: Pain MILD(1-3)/Fever >100.5/FOFANA Lipase/Protease/Amylase (Pancreaze Dr 10,500 Unit) 1 each FEEDTUBE PRN PRN PRN Reason: For Clogged Feeding Tube Atropine Sulfate (Atropine) 1 mg IV ONCE PRN PRN Reason: Bradycardia Bisacodyl (Dulcolax) 10 mg ND QDAY PRN PRN Reason: Constipation unrelieved by MOM Dextrose (D50w (25gm) Syringe) 50 ml IV PRN PRN PRN Reason: Hypoglycemia Last Admin: 05/27/17 05:30 Dose: 50 ml Famotidine (Pepcid) 20 mg PO BID RICCARDO Last Admin: 05/30/17 10:56 Dose: 20 mg Hydrocortisone Sodium Succinate (Solu-Cortef) 50 mg IV BID RICCARDO Stop: 05/30/17 22:01 Last Admin: 05/30/17 10:56 Dose: 50 mg Norepinephrine (Levophed Drip 4 Mg/Ns 250 Ml) 4 mg in 250 mls @ 7.5 mls/hr IV TITR RICCARDO; 2 MCG/MIN PRN Reason: Protocol Last Titration: 05/28/17 07:50 Dose: 1 mcg/min, 3.75 mls/hr Ceftriaxone Sodium 2 gm/ (Sodium Chloride) 20 mls @ 20 mls/10 min IV Q12H [facility] Last Admin: 05/30/17 04:35 Dose: 20 mls/10 min Acyclovir 680 mg/ Sodium (Chloride) 113.6 mls @ 100 mls/hr IV Q8H [facility] Last Admin: 05/30/17 10:50 Dose: 100 mls/hr Midazolam HCl 100 mg/ Sodium (Chloride) 100 mls @ 2 mls/hr IV TITR RICCARDO; 2 MG/HR PRN Reason: Protocol Last Titration: 05/27/17 13:30 Dose: 2 mg/hr, 2 mls/hr Sodium Chloride (Nacl 0.45% 1000 Ml) 1,000 mls @ 100 mls/hr IV DIRECT [facility] Last Admin: 05/30/17 15:01 Dose: 100 mls/hr Vancomycin HCl 1,250 mg/ (Sodium Chloride) 262.5 mls @ 166.667 mls/hr IV Q8HR [facility] Last Admin: 05/30/17 15:03 Dose: 166.667 mls/hr Azithromycin 500 mg/ Sodium (Chloride) 250 mls @ 250 mls/hr IV Q24H [facility] Last Admin: 05/29/17 18:42 Dose: 250 mls/hr Magnesium Hydroxide (Milk Of Magnesia) 30 ml PO Q4H PRN PRN Reason: Constipation Morphine Sulfate (Morphine) 2 mg IV Q4H PRN PRN Reason: Pain, Moderate (4-6) Ondansetron HCl (Zofran) 4 mg IV Q8H PRN PRN Reason: N/V unrelieved by Reglan Oseltamivir Phosphate (Tamiflu) 75 mg PO BID [facility] Stop: 05/30/17 22:01 Last Admin: 05/30/17 10:56 Dose: 75 mg Simple Syrup (Simple Syrup) 15 ml FEEDTUBE PRN PRN PRN Reason: Hypoglycemia Simple Syrup (Simple Syrup) 30 ml FEEDTUBE PRN PRN PRN Reason: Hypoglycemia Sodium Bicarbonate (Sodium Bicarbonate) 325 mg FEEDTUBE PRN PRN PRN Reason: For Clogged Feeding Tube Vancomycin HCl (Vancomycin Pharmacy To Dose) 1 each IV PKCONSULT RICCARDO PRN Reason: Protocol Physical Examination - Vital Signs Vital Signs: Vital Signs Resp 11 L 05/25/17 12:39 - Physical Exam Narrative exam: Patient is alert and awake, resting comfortably in bed. HEENT - normocephalic no inflamation or lesions PERRLA neck supple Chest - clear Heart - reg. rate. 44 nl. S-1 and S-2. Abdomen - soft, nontender. Extremities - no CCE Neurological - alerts quickly to voice. Shook his head when asked if he had pain. Does not follow simple commands. CN's - EOMs seem full as he looks in all directions. face symmetric, Motor - will not move to command Reflexes - trace throughout. Sensory - intact to pain. Cerebellar - unable to assess. Results - Laboratory Findings CBC and BMP: 05/30/17 05:30 05/30/17 05:30 Abnormal Lab Findings: Abnormal Labs 05/25/17 05/25/17 05/25/17 13:32 13:32 13:32 WBC RBC 5.76 H Hgb Hct MCV 77 L MCH 25 L RDW 15.9 H Plt Count 48 L Seg Neuts % (Manual) 76.0 H Lymphocytes % (Manual) 2.0 L Nucleated RBC % Seg Neutrophils # Man Lymphocytes # (Manual) 0.1 L PT INR APTT POC ABG pH POC ABG pCO2 POC ABG pO2 Sodium 147 H Potassium Chloride 109.4 H Carbon Dioxide BUN Creatinine 0.3 L Glucose 102 H POC Glucose Lactic Acid Calcium Magnesium AST 111 H ALT 168 H Total Creatine Kinase C-Reactive Protein Total Protein 5.8 L Albumin 2.9 L Salicylates < 0.3 L 05/25/17 05/25/17 05/25/17 13:32 15:16 16:34 WBC RBC Hgb Hct MCV MCH RDW Plt Count Seg Neuts % (Manual) Lymphocytes % (Manual) Nucleated RBC % Seg Neutrophils # Man Lymphocytes # (Manual) PT INR APTT POC ABG pH POC ABG pCO2 POC ABG pO2 Sodium Potassium Chloride Carbon Dioxide BUN Creatinine Glucose POC Glucose Lactic Acid 2.20 H* 2.10 H* Calcium Magnesium AST ALT Total Creatine Kinase 360 H C-Reactive Protein Total Protein Albumin Salicylates 05/26/17 05/26/1705/26/18 00:47 00:47 06:07 WBC 2.1 L RBC 5.23 H Hgb Hct MCV 75 L MCH 25 L RDW 15.6 H Plt Count 51 L Seg Neuts % (Manual) 24.0 L Lymphocytes % (Manual) 8.0 L Nucleated RBC % Seg Neutrophils # Man 0.5 L Lymphocytes # (Manual) 0.2 L PT INR APTT POC ABG pH POC ABG pCO2 POC ABG pO2 Sodium 148 H Potassium Chloride 112.6 H Carbon Dioxide BUN Creatinine Glucose 33 L* POC Glucose 44 L Lactic Acid Calcium Magnesium AST 85 H ALT 127 H Total Creatine Kinase C-Reactive Protein Total Protein 4.6 L D Albumin 2.4 L Salicylates 05/26/17 05/26/17 05/26/17 06:33 09:45 10:01 WBC RBC Hgb Hct MCV MCH RDW Plt Count Seg Neuts % (Manual) Lymphocytes % (Manual) Nucleated RBC % Seg Neutrophils # Man Lymphocytes # (Manual) PT INR APTT POC ABG pH POC ABG pCO2 POC ABG pO2 Sodium Potassium Chloride Carbon Dioxide BUN Creatinine Glucose POC Glucose 130 H 52 L 182 H Lactic Acid Calcium Magnesium AST ALT Total Creatine Kinase C-Reactive Protein Total Protein Albumin Salicylates 05/26/17 05/26/17 05/26/17 10:56 12:41 14:58 WBC RBC Hgb Hct MCV MCH RDW Plt Count Seg Neuts % (Manual) Lymphocytes % (Manual) Nucleated RBC % Seg Neutrophils # Man Lymphocytes # (Manual) PT INR APTT POC ABG pH POC ABG pCO2 POC ABG pO2 61 L Sodium Potassium Chloride Carbon Dioxide BUN Creatinine Glucose POC Glucose 69 L 150 H Lactic Acid Calcium Magnesium AST ALT Total Creatine Kinase C-Reactive Protein Total Protein Albumin Salicylates 05/26/17 05/26/17 05/26/17 15:41 15:53 17:46 WBC RBC Hgb Hct MCV MCH RDW Plt Count Seg Neuts % (Manual) Lymphocytes % (Manual) Nucleated RBC % Seg Neutrophils # Man Lymphocytes # (Manual) PT INR APTT POC ABG pH 7.330 L POC ABG pCO2 POC ABG pO2 77 L Sodium Potassium Chloride Carbon Dioxide BUN Creatinine Glucose POC Glucose 63 L Lactic Acid Calcium Magnesium AST ALT Total Creatine Kinase C-Reactive Protein 15.20 H Total Protein Albumin Salicylates 05/26/17 05/26/17 05/27/17 18:40 20:18 00:35 WBC RBC Hgb Hct MCV MCH RDW Plt Count Seg Neuts % (Manual) Lymphocytes % (Manual) Nucleated RBC % Seg Neutrophils # Man Lymphocytes # (Manual) PT INR APTT POC ABG pH POC ABG pCO2 POC ABG pO2 Sodium Potassium Chloride Carbon Dioxide BUN Creatinine Glucose POC Glucose 149 H 63 L 49 L Lactic Acid Calcium Magnesium AST ALT Total Creatine Kinase C-Reactive Protein Total Protein Albumin Salicylates 05/27/17 05/27/17 05/27/17 02:33 04:00 04:00 WBC RBC Hgb 11.7 L Hct 34.6 L MCV 75 L MCH 25 L RDW 15.6 H Plt Count 21 L Seg Neuts % (Manual) 14.0 L Lymphocytes % (Manual) 5.0 L Nucleated RBC % Seg Neutrophils # Man 1.5 L Lymphocytes # (Manual) 0.5 L PT INR APTT POC ABG pH POC ABG pCO2 POC ABG pO2 Sodium 148 H Potassium Chloride 112.7 H Carbon Dioxide BUN 24 H Creatinine Glucose POC Glucose 61 L Lactic Acid Calcium 7.7 L Magnesium AST 115 H ALT 100 H Total Creatine Kinase C-Reactive Protein Total Protein 3.8 L Albumin 2.1 L Salicylates 05/27/17 05/27/17 05/27/17 04:00 05:20 06:36 WBC RBC Hgb Hct MCV MCH RDW Plt Count Seg Neuts % (Manual) Lymphocytes % (Manual) Nucleated RBC % Seg Neutrophils # Man Lymphocytes # (Manual) PT 19.7 H INR 1.57 H APTT 57.0 H POC ABG pH POC ABG pCO2 POC ABG pO2 Sodium Potassium Chloride Carbon Dioxide BUN Creatinine Glucose POC Glucose 64 L 120 H Lactic Acid Calcium Magnesium AST ALT Total Creatine Kinase C-Reactive Protein Total Protein Albumin Salicylates 05/27/17 05/27/17 05/27/17 09:15 12:35 15:44 WBC RBC Hgb Hct MCV MCH RDW Plt Count Seg Neuts % (Manual) Lymphocytes % (Manual) Nucleated RBC % Seg Neutrophils # Man Lymphocytes # (Manual) PT INR APTT POC ABG pH POC ABG pCO2 POC ABG pO2 380 H Sodium Potassium Chloride Carbon Dioxide BUN Creatinine Glucose POC Glucose 162 H 193 H Lactic Acid Calcium Magnesium AST ALT Total Creatine Kinase C-Reactive Protein Total Protein Albumin Salicylates 0205/27/17 05/27/17 18:14 20:12 20:15 WBC RBC Hgb 10.3 L Hct 30.7 L MCV 75 L MCH 25 L RDW 15.6 H Plt Count 15 L* Seg Neuts % (Manual) 95.0 H Lymphocytes % (Manual) 4.0 L Nucleated RBC % Seg Neutrophils # Man Lymphocytes # (Manual) 0.3 L PT INR APTT POC ABG pH POC ABG pCO2 POC ABG pO2 Sodium Potassium Chloride Carbon Dioxide BUN Creatinine Glucose POC Glucose 199 H 165 H Lactic Acid Calcium Magnesium AST ALT Total Creatine Kinase C-Reactive Protein Total Protein Albumin Salicylates 05/27/17 05/27/17 05/27/17 21:48 23:08 23:51 WBC RBC Hgb Hct MCV MCH RDW Plt Count Seg Neuts % (Manual) Lymphocytes % (Manual) Nucleated RBC % Seg Neutrophils # Man Lymphocytes # (Manual) PT INR APTT POC ABG pH POC ABG pCO2 POC ABG pO2 Sodium Potassium Chloride Carbon Dioxide BUN Creatinine Glucose 150 H POC Glucose 166 H 173 H Lactic Acid Calcium 8.3 L Magnesium AST ALT Total Creatine Kinase C-Reactive Protein Total Protein Albumin Salicylates 05/28/17 05/28/17 05/28/17 02:23 04:19 05:40 WBC RBC Hgb Hct MCV MCH RDW Plt Count Seg Neuts % (Manual) Lymphocytes % (Manual) Nucleated RBC % Seg Neutrophils # Man Lymphocytes # (Manual) PT INR APTT POC ABG pH POC ABG pCO2 POC ABG pO2 75 L Sodium Potassium Chloride Carbon Dioxide BUN Creatinine Glucose POC Glucose 177 H 160 H Lactic Acid Calcium Magnesium AST ALT Total Creatine Kinase C-Reactive Protein Total Protein Albumin Salicylates 05/28/17 05/28/17 05/28/17 05:50 05:50 08:21 WBC RBC Hgb 10.5 L Hct 30.9 L MCV 75 L MCH 25 L RDW 15.5 H Plt Count 16 L* Seg Neuts % (Manual) Lymphocytes % (Manual) Nucleated RBC % Seg Neutrophils # Man Lymphocytes # (Manual) PT INR APTT POC ABG pH POC ABG pCO2 POC ABG pO2 Sodium Potassium Chloride Carbon Dioxide BUN Creatinine Glucose 129 H POC Glucose 201 H Lactic Acid Calcium 8.3 L Magnesium AST ALT Total Creatine Kinase C-Reactive Protein Total Protein Albumin Salicylates 05/28/17 05/28/17 05/28/17 11:04 12:19 13:47 WBC RBC Hgb Hct MCV MCH RDW Plt Count Seg Neuts % (Manual) Lymphocytes % (Manual) Nucleated RBC % Seg Neutrophils # Man Lymphocytes # (Manual) PT INR APTT POC ABG pH POC ABG pCO2 POC ABG pO2 178 H Sodium Potassium Chloride Carbon Dioxide BUN Creatinine Glucose POC Glucose 140 H Lactic Acid Calcium Magnesium 1.60 L AST ALT Total Creatine Kinase C-Reactive Protein Total Protein Albumin Salicylates 05/28/17 05/29/17 05/29/17 16:21 05:56 08:00 WBC RBC Hgb Hct MCV MCH RDW Plt Count Seg Neuts % (Manual) Lymphocytes % (Manual) Nucleated RBC % Seg Neutrophils # Man Lymphocytes # (Manual) PT INR APTT POC ABG pH POC ABG pCO2 POC ABG pO2 Sodium 126 L D Potassium 3.3 L Chloride 96.4 L Carbon Dioxide 20 L BUN Creatinine 0.5 L Glucose POC Glucose 47 L 110 H Lactic Acid Calcium 6.6 L D Magnesium AST 485 H ALT 380 H Total Creatine Kinase C-Reactive Protein Total Protein 3.6 L Albumin 1.5 L Salicylates 05/29/17 05/29/17 05/29/17 08:57 10:01 10:15 WBC RBC Hgb 9.3 L Hct 27.2 L MCV 73 L MCH 25 L RDW Plt Count 9 L* Seg Neuts % (Manual) Lymphocytes % (Manual) Nucleated RBC % Seg Neutrophils # Man Lymphocytes # (Manual) PT INR APTT POC ABG pH POC ABG pCO2 POC ABG pO2 Sodium Potassium Chloride Carbon Dioxide BUN Creatinine Glucose POC Glucose 120 H 115 H Lactic Acid Calcium Magnesium AST ALT Total Creatine Kinase C-Reactive Protein Total Protein Albumin Salicylates 05/29/17 05/29/17 05/29/17 10:15 11:55 15:44 WBC RBC Hgb Hct MCV MCH RDW Plt Count Seg Neuts % (Manual) Lymphocytes % (Manual) Nucleated RBC % Seg Neutrophils # Man Lymphocytes # (Manual) PT INR APTT POC ABG pH POC ABG pCO2 POC ABG pO2 Sodium Potassium Chloride Carbon Dioxide BUN 24 H Creatinine 0.7 L Glucose 112 H POC Glucose 128 H 124 H Lactic Acid Calcium Magnesium AST ALT Total Creatine Kinase C-Reactive Protein Total Protein Albumin Salicylates 02/20/18 02/20/18 02/20/18 01:00 04:21 05:30 WBC RBC Hgb 9.3 L Hct 27.6 L MCV 74 L MCH 25 L RDW Plt Count 40 L D Seg Neuts % (Manual) 90.0 H Lymphocytes % (Manual) 4.0 L Nucleated RBC % 1.0 H Seg Neutrophils # Man Lymphocytes # (Manual) 0.2 L PT INR APTT POC ABG pH 7.528 H POC ABG pCO2 34.8 L POC ABG pO2 108 H Sodium Potassium Chloride Carbon Dioxide BUN Creatinine Glucose POC Glucose 106 H Lactic Acid Calcium Magnesium AST ALT Total Creatine Kinase C-Reactive Protein Total Protein Albumin Salicylates 05/30/17 05/30/17 05:30 06:02 WBC RBC Hgb Hct MCV MCH RDW Plt Count Seg Neuts % (Manual) Lymphocytes % (Manual) Nucleated RBC % Seg Neutrophils # Man Lymphocytes # (Manual) PT INR APTT POC ABG pH POC ABG pCO2 POC ABG pO2 Sodium Potassium Chloride 109.9 H Carbon Dioxide BUN 26 H Creatinine 0.7 L Glucose 118 H POC Glucose 149 H Lactic Acid Calcium Magnesium AST 445 H ALT 529 H Total Creatine Kinase C-Reactive Protein Total Protein 4.7 L D Albumin 2.2 L Salicylates Assessment and Plan Encephalopathy 42 year old male with sepsis, hypothermia, bilateral pneumonia, recovering gradually. Still not following commands. Nutritional deficits. Plan - If he is still not stable enough to send for an MRI, would get CT brain. Check CPK levels and B-12.
--- NOTE | 2017-05-30 15:50 | Progress Note ---
Assessment and Plan Imp: 1. Pneumonia, bilateral 2. ? Meningoencephalitis 3. Sepsis 4. Acute respiratory failure, hypoxia 5. Severe thrombocytopenia 6. Acute encephalopathy 7. Sinus bradycardia Rec: 1. ABX per ID but given significant pneumonia on chest imaging recommend covering atypicals pending serologic work-up; DAH would be doubtful but will consider bronch if infiltrates do not improve (would not do unless severe bradycardia improves) 2. Agree w/ ANCAs, complements, lupus work-up -> pending 3. Transfuse 1 unit of platelets again today in order to allow for LP 4. Decrease steroids 5. Patient w/ HR in the high 30's at times; EKG shows sinus renard; BP stable and he is asymptomatic; will place Atropine at bedside; appreciate cardiology evaluation 6. SCDs 7. PSV trials 8. In light of worsening ALT and AST and apparent muscle weakness on exam, re- send CK 9. Neurology consulted No family present; CCT 31 minutes Subjective Date of service: 05/30/17 Principal diagnosis: pneumonia Interval history: Alert, will follow commands (will blink on command but not move extremities). HR 30's-40's, BP stable. He cannot give any other history. Active Medications Acetaminophen (Tylenol) 650 mg PO Q4H PRN PRN Reason: Pain MILD(1-3)/Fever >100.5/FOFANA Lipase/Protease/Amylase (Pancreaze Dr 10,500 Unit) 1 each FEEDTUBE PRN PRN PRN Reason: For Clogged Feeding Tube Atropine Sulfate (Atropine) 1 mg IV ONCE PRN PRN Reason: Bradycardia Bisacodyl (Dulcolax) 10 mg [place] QDAY PRN PRN Reason: Constipation unrelieved by MOM Dextrose (D50w (25gm) Syringe) 50 ml IV PRN PRN PRN Reason: Hypoglycemia Last Admin: 05/27/17 05:30 Dose: 50 ml Famotidine (Pepcid) 20 mg PO BID RICCARDO Last Admin: 05/30/17 10:56 Dose: 20 mg Hydrocortisone Sodium Succinate (Solu-Cortef) 50 mg IV BID RICCARDO Stop: 05/30/17 22:01 Last Admin: 05/30/17 10:56 Dose: 50 mg Norepinephrine (Levophed Drip 4 Mg/Ns 250 Ml) 4 mg in 250 mls @ 7.5 mls/hr IV TITR RICCARDO; 2 MCG/MIN PRN Reason: Protocol Last Titration: 05/28/17 07:50 Dose: 1 mcg/min, 3.75 mls/hr Ceftriaxone Sodium 2 gm/ (Sodium Chloride) 20 mls @ 20 mls/10 min IV Q12H [facility] [place] Last Admin: 05/30/17 04:35 Dose: 20 mls/10 min Acyclovir 680 mg/ Sodium (Chloride) 113.6 mls @ 100 mls/hr IV Q8H [facility] [place] Last Admin: 05/30/17 10:50 Dose: 100 mls/hr Midazolam HCl 100 mg/ Sodium (Chloride) 100 mls @ 2 mls/hr IV TITR RICCARDO; 2 MG/HR PRN Reason: Protocol Last Titration: 05/27/17 13:30 Dose: 2 mg/hr, 2 mls/hr Sodium Chloride (Nacl 0.45% 1000 Ml) 1,000 mls @ 100 mls/hr IV DIRECT [facility] [place] Last Admin: 05/30/17 15:01 Dose: 100 mls/hr Vancomycin HCl 1,250 mg/ (Sodium Chloride) 262.5 mls @ 166.667 mls/hr IV Q8HR [facility] [place] Last Admin: 05/30/17 15:03 Dose: 166.667 mls/hr Azithromycin 500 mg/ Sodium (Chloride) 250 mls @ 250 mls/hr IV Q24H [facility] [place] Last Admin: 05/29/17 18:42 Dose: 250 mls/hr Magnesium Hydroxide (Milk Of Magnesia) 30 ml PO Q4H PRN PRN Reason: Constipation Morphine Sulfate (Morphine) 2 mg IV Q4H PRN PRN Reason: Pain, Moderate (4-6) Ondansetron HCl (Zofran) 4 mg IV Q8H PRN PRN Reason: N/V unrelieved by Reglan Oseltamivir Phosphate (Tamiflu) 75 mg PO BID [facility] [place] Stop: 05/30/17 22:01 Last Admin: 05/30/17 10:56 Dose: 75 mg Simple Syrup (Simple Syrup) 15 ml FEEDTUBE PRN PRN PRN Reason: Hypoglycemia Simple Syrup (Simple Syrup) 30 ml FEEDTUBE PRN PRN PRN Reason: Hypoglycemia Sodium Bicarbonate (Sodium Bicarbonate) 325 mg FEEDTUBE PRN PRN PRN Reason: For Clogged Feeding Tube Vancomycin HCl (Vancomycin Pharmacy To Dose) 1 each IV PKCONSULT RICCARDO PRN Reason: Protocol Objective Vital Signs - 12hr 05/30/17 05/30/17 05/30/17 03:52 04:00 04:16 Temperature 98.1 F Pulse Rate 40 L 40 L 38 L Pulse Rate [ 40 L Apical] Respiratory 16 16 Rate Blood Pressure 118/73 118/73 123/79 O2 Sat by Pulse 100 99 100 Oximetry 05/30/17 05/30/17 05/30/17 04:30 04:46 05:00 Temperature Pulse Rate 37 L 39 L 42 L Pulse Rate [ Apical] Respiratory 16 16 16 Rate Blood Pressure 123/79 125/77 124/77 O2 Sat by Pulse 100 100 100 Oximetry 05/30/17 05/30/17 05/30/17 05:16 05:30 05:46 Temperature Pulse Rate 41 L 50 L 38 L Pulse Rate [ Apical] Respiratory 12 19 17 Rate Blood Pressure 124/77 124/77 124/75 O2 Sat by Pulse 87 98 98 Oximetry 05/30/17 05/30/17 05/30/17 06:00 06:16 06:30 Temperature Pulse Rate 41 L 37 L 38 L Pulse Rate [ Apical] Respiratory 19 22 12 Rate Blood Pressure 123/75 123/75 133/79 O2 Sat by Pulse 100 100 100 Oximetry 05/30/17 05/30/17 05/30/17 06:46 07:00 07:15 Temperature Pulse Rate 38 L 37 L 39 L Pulse Rate [ Apical] Respiratory 13 16 16 Rate Blood Pressure 133/79 123/75 125/76 O2 Sat by Pulse 100 100 100 Oximetry 05/30/17 05/30/17 05/30/17 07:30 07:45 08:00 Temperature 97.5 F L Pulse Rate 39 L 38 L 41 L Pulse Rate [ Apical] Respiratory 16 16 16 Rate Blood Pressure 126/77 126/77 125/82 O2 Sat by Pulse 100 100 100 Oximetry 05/30/17 05/30/17 05/30/17 08:15 08:30 08:45 Temperature Pulse Rate 41 L 39 L 38 L Pulse Rate [ Apical] Respiratory 16 16 16 Rate Blood Pressure 125/82 120/71 120/71 O2 Sat by Pulse 100 99 100 Oximetry 05/30/17 05/30/17 05/30/17 09:01 09:15 09:30 Temperature Pulse Rate 40 L 40 L 41 L Pulse Rate [ Apical] Respiratory 17 16 16 Rate Blood Pressure 134/74 134/74 120/72 O2 Sat by Pulse 98 100 99 Oximetry 05/30/17 05/30/17 05/30/17 09:45 09:52 10:00 Temperature Pulse Rate 44 L 41 L 53 L Pulse Rate [ Apical] Respiratory 16 17 Rate Blood Pressure 120/72 120/72 139/88 O2 Sat by Pulse 100 99 100 Oximetry 05/30/17 05/30/17 05/30/17 10:15 10:30 10:45 Temperature Pulse Rate 40 L 41 L 38 L Pulse Rate [ Apical] Respiratory 16 16 16 Rate Blood Pressure 139/88 125/75 125/75 O2 Sat by Pulse 100 100 100 Oximetry 05/30/17 05/30/17 05/30/17 11:00 11:15 11:30 Temperature Pulse Rate 40 L 41 L 50 L Pulse Rate [ Apical] Respiratory 16 16 16 Rate Blood Pressure 122/74 122/74 124/81 O2 Sat by Pulse 99 100 100 Oximetry 05/30/17 05/30/17 05/30/17 11:45 12:00 12:15 Temperature 97.8 F Pulse Rate 42 L 44 L 41 L Pulse Rate [ Apical] Respiratory 16 16 16 Rate Blood Pressure 124/81 114/71 114/71 O2 Sat by Pulse 99 100 99 Oximetry 05/30/17 05/30/17 05/30/17 12:30 12:45 13:00 Temperature Pulse Rate 59 L 43 L 49 L Pulse Rate [ Apical] Respiratory 16 17 17 Rate Blood Pressure 112/79 112/79 116/76 O2 Sat by Pulse 100 100 100 Oximetry 05/30/17 05/30/17 05/30/17 13:15 13:27 13:30 Temperature Pulse Rate 49 L 42 L 41 L Pulse Rate [ Apical] Respiratory 16 17 Rate Blood Pressure 116/76 116/76 124/73 O2 Sat by Pulse 100 100 97 Oximetry 05/30/17 05/30/17 05/30/17 13:45 14:00 14:15 Temperature Pulse Rate 41 L 41 L 42 L Pulse Rate [ Apical] Respiratory 17 16 15 Rate Blood Pressure 124/73 112/68 112/68 O2 Sat by Pulse 99 98 99 Oximetry 05/30/17 05/30/17 05/30/17 14:30 14:45 15:01 Temperature Pulse Rate 42 L 56 L 49 L Pulse Rate [ Apical] Respiratory 17 17 18 Rate Blood Pressure 112/72 112/72 118/69 O2 Sat by Pulse 96 98 95 Oximetry Constitutional: alert, other (critically ill on vent) Eyes: non-icteric ENT: other (orally intubated) Neck: supple Effort: normal Ascultation: Bilateral: other (coarse BS bilaterally) Percussion: Bilateral: not dull Cardiovascular: other (sinus renard, RR; no mrg) Gastrointestinal: normoactive bowel sounds, soft, non-tender, non-distended Integumentary: normal Extremities: no cyanosis, no edema, pink and warm Neurologic: other (not moving extremities, eyes open (see HPI)) Psychiatric: other (unable to assess) CBC and BMP: 05/30/17 05:30 05/30/17 05:30 ABG, PT/INR, D-dimer: ABG POC ABG pH 7.528 (7.35-7.45) H 05/30/17 04:21 POC ABG pCO2 34.8 (35-45) L 05/30/17 04:21 POC ABG pO2 108 (80-105) H 05/30/17 04:21 POC ABG HCO3 29.0 05/30/17 04:21 POC ABG Total CO2 30 05/30/17 04:21 POC ABG O2 Sat 99 05/30/17 04:21 PT/INR, D-dimer PT 13.5 Sec. (12.2-14.9) 05/29/17 08:00 INR 0.98 (0.87-1.13) 05/29/17 08:00 Abnormal lab findings: Abnormal Labs 05/25/17 05/25/17 05/25/17 13:32 13:32 13:32 WBC RBC 5.76 H Hgb Hct MCV 77 L MCH 25 L RDW 15.9 H Plt Count 48 L Seg Neuts % (Manual) 76.0 H Lymphocytes % (Manual) 2.0 L Nucleated RBC % Seg Neutrophils # Man Lymphocytes # (Manual) 0.1 L PT INR APTT POC ABG pH POC ABG pCO2 POC ABG pO2 Sodium 147 H Potassium Chloride 109.4 H Carbon Dioxide BUN Creatinine 0.3 L Glucose 102 H POC Glucose Lactic Acid Calcium Magnesium AST 111 H ALT 168 H Total Creatine Kinase C-Reactive Protein Total Protein 5.8 L Albumin 2.9 L Salicylates < 0.3 L 05/25/17 05/25/17 05/25/17 13:32 15:16 16:34 WBC RBC Hgb Hct MCV MCH RDW Plt Count Seg Neuts % (Manual) Lymphocytes % (Manual) Nucleated RBC % Seg Neutrophils # Man Lymphocytes # (Manual) PT INR APTT POC ABG pH POC ABG pCO2 POC ABG pO2 Sodium Potassium Chloride Carbon Dioxide BUN Creatinine Glucose POC Glucose Lactic Acid 2.20 H* 2.10 H* Calcium Magnesium AST ALT Total Creatine Kinase 360 H C-Reactive Protein Total Protein Albumin Salicylates 05/26/17 05/26/17 05/26/17 00:47 00:47 06:07 WBC 2.1 L RBC 5.23 H Hgb Hct MCV 75 L MCH 25 L RDW 15.6 H Plt Count 51 L Seg Neuts % (Manual) 24.0 L Lymphocytes % (Manual) 8.0 L Nucleated RBC % Seg Neutrophils # Man 0.5 L Lymphocytes # (Manual) 0.2 L PT INR APTT POC ABG pH POC ABG pCO2 POC ABG pO2 Sodium 148 H Potassium Chloride 112.6 H Carbon Dioxide BUN Creatinine Glucose 33 L* POC Glucose 44 L Lactic Acid Calcium Magnesium AST 85 H ALT 127 H Total Creatine Kinase C-Reactive Protein Total Protein 4.6 L D Albumin 2.4 L Salicylates 05/26/17 05/26/17 05/26/17 06:33 09:45 10:01 WBC RBC Hgb Hct MCV MCH RDW Plt Count Seg Neuts % (Manual) Lymphocytes % (Manual) Nucleated RBC % Seg Neutrophils # Man Lymphocytes # (Manual) PT INR APTT POC ABG pH POC ABG pCO2 POC ABG pO2 Sodium Potassium Chloride Carbon Dioxide BUN Creatinine Glucose POC Glucose 130 H 52 L 182 H Lactic Acid Calcium Magnesium AST ALT Total Creatine Kinase C-Reactive Protein Total Protein Albumin Salicylates 05/26/17 05/26/17 05/26/17 10:56 12:41 14:58 WBC RBC Hgb Hct MCV MCH RDW Plt Count Seg Neuts % (Manual) Lymphocytes % (Manual) Nucleated RBC % Seg Neutrophils # Man Lymphocytes # (Manual) PT INR APTT POC ABG pH POC ABG pCO2 POC ABG pO2 61 L Sodium Potassium Chloride Carbon Dioxide BUN Creatinine Glucose POC Glucose 69 L 150 H Lactic Acid Calcium Magnesium AST ALT Total Creatine Kinase C-Reactive Protein Total Protein Albumin Salicylates 05/26/17 05/26/17 05/26/17 15:41 15:53 17:46 WBC RBC Hgb Hct MCV MCH RDW Plt Count Seg Neuts % (Manual) Lymphocytes % (Manual) Nucleated RBC % Seg Neutrophils # Man Lymphocytes # (Manual) PT INR APTT POC ABG pH 7.330 L POC ABG pCO2 POC ABG pO2 77 L Sodium Potassium Chloride Carbon Dioxide BUN Creatinine Glucose POC Glucose 63 L Lactic Acid Calcium Magnesium AST ALT Total Creatine Kinase C-Reactive Protein 15.20 H Total Protein Albumin Salicylates 05/26/17 05/26/17 05/27/17 18:40 20:18 00:35 WBC RBC Hgb Hct MCV MCH RDW Plt Count Seg Neuts % (Manual) Lymphocytes % (Manual) Nucleated RBC % Seg Neutrophils # Man Lymphocytes # (Manual) PT INR APTT POC ABG pH POC ABG pCO2 POC ABG pO2 Sodium Potassium Chloride Carbon Dioxide BUN Creatinine Glucose POC Glucose 149 H 63 L 49 L Lactic Acid Calcium Magnesium AST ALT Total Creatine Kinase C-Reactive Protein Total Protein Albumin Salicylates 05/27/17 05/27/17 05/27/17 02:33 04:00 04:00 WBC RBC Hgb 11.7 L Hct 34.6 L MCV 75 L MCH 25 L RDW 15.6 H Plt Count 21 L Seg Neuts % (Manual) 14.0 L Lymphocytes % (Manual) 5.0 L Nucleated RBC % Seg Neutrophils # Man 1.5 L Lymphocytes # (Manual) 0.5 L PT INR APTT POC ABG pH POC ABG pCO2 POC ABG pO2 Sodium 148 H Potassium Chloride 112.7 H Carbon Dioxide BUN 24 H Creatinine Glucose POC Glucose 61 L Lactic Acid Calcium 7.7 L Magnesium AST 115 H ALT 100 H Total Creatine Kinase C-Reactive Protein Total Protein 3.8 L Albumin 2.1 L Salicylates 05/27/17 05/27/17 05/27/17 04:00 05:20 06:36 WBC RBC Hgb Hct MCV MCH RDW Plt Count Seg Neuts % (Manual) Lymphocytes % (Manual) Nucleated RBC % Seg Neutrophils # Man Lymphocytes # (Manual) PT 19.7 H INR 1.57 H APTT 57.0 H POC ABG pH POC ABG pCO2 POC ABG pO2 Sodium Potassium Chloride Carbon Dioxide BUN Creatinine Glucose POC Glucose 64 L 120 H Lactic Acid Calcium Magnesium AST ALT Total Creatine Kinase C-Reactive Protein Total Protein Albumin Salicylates 05/27/17 05/27/17 05/27/17 09:15 12:35 15:44 WBC RBC Hgb Hct MCV MCH RDW Plt Count Seg Neuts % (Manual) Lymphocytes % (Manual) Nucleated RBC % Seg Neutrophils # Man Lymphocytes # (Manual) PT INR APTT POC ABG pH POC ABG pCO2 POC ABG pO2 380 H Sodium Potassium Chloride Carbon Dioxide BUN Creatinine Glucose POC Glucose 162 H 193 H Lactic Acid Calcium Magnesium AST ALT Total Creatine Kinase C-Reactive Protein Total Protein Albumin Salicylates 05/27/17 05/27/17 05/27/17 18:14 20:12 20:15 WBC RBC Hgb 10.3 L Hct 30.7 L MCV 75 L MCH 25 L RDW 15.6 H Plt Count 15 L* Seg Neuts % (Manual) 95.0 H Lymphocytes % (Manual) 4.0 L Nucleated RBC % Seg Neutrophils # Man Lymphocytes # (Manual) 0.3 L PT INR APTT POC ABG pH POC ABG pCO2 POC ABG pO2 Sodium Potassium Chloride Carbon Dioxide BUN Creatinine Glucose POC Glucose 199 H 165 H Lactic Acid Calcium Magnesium AST ALT Total Creatine Kinase C-Reactive Protein Total Protein Albumin Salicylates 05/27/17 05/27/17 05/27/17 21:48 23:08 23:51 WBC RBC Hgb Hct MCV MCH RDW Plt Count Seg Neuts % (Manual) Lymphocytes % (Manual) Nucleated RBC % Seg Neutrophils # Man Lymphocytes # (Manual) PT INR APTT POC ABG pH POC ABG pCO2 POC ABG pO2 Sodium Potassium Chloride Carbon Dioxide BUN Creatinine Glucose 150 H POC Glucose 166 H 173 H Lactic Acid Calcium 8.3 L Magnesium AST ALT Total Creatine Kinase C-Reactive Protein Total Protein Albumin Salicylates 05/28/17 05/28/17 05/28/17 02:23 04:19 05:40 WBC RBC Hgb Hct MCV MCH RDW Plt Count Seg Neuts % (Manual) Lymphocytes % (Manual) Nucleated RBC % Seg Neutrophils # Man Lymphocytes # (Manual) PT INR APTT POC ABG pH POC ABG pCO2 POC ABG pO2 75 L Sodium Potassium Chloride Carbon Dioxide BUN Creatinine Glucose POC Glucose 177 H 160 H Lactic Acid Calcium Magnesium AST ALT Total Creatine Kinase C-Reactive Protein Total Protein Albumin Salicylates 05/28/17 05/28/17 05/28/17 05:50 05:50 08:21 WBC RBC Hgb 10.5 L Hct 30.9 L MCV 75 L MCH 25 L RDW 15.5 H Plt Count 16 L* Seg Neuts % (Manual) Lymphocytes % (Manual) Nucleated RBC % Seg Neutrophils # Man Lymphocytes # (Manual) PT INR APTT POC ABG pH POC ABG pCO2 POC ABG pO2 Sodium Potassium Chloride Carbon Dioxide BUN Creatinine Glucose 129 H POC Glucose 201 H Lactic Acid Calcium 8.3 L Magnesium AST ALT Total Creatine Kinase C-Reactive Protein Total Protein Albumin Salicylates 05/28/17 05/28/17 05/28/17 11:04 12:19 13:47 WBC RBC Hgb Hct MCV MCH RDW Plt Count Seg Neuts % (Manual) Lymphocytes % (Manual) Nucleated RBC % Seg Neutrophils # Man Lymphocytes # (Manual) PT INR APTT POC ABG pH POC ABG pCO2 POC ABG pO2 178 H Sodium Potassium Chloride Carbon Dioxide BUN Creatinine Glucose POC Glucose 140 H Lactic Acid Calcium Magnesium 1.60 L AST ALT Total Creatine Kinase C-Reactive Protein Total Protein Albumin Salicylates 05/28/17 05/29/17 05/29/17 16:21 05:56 08:00 WBC RBC Hgb Hct MCV MCH RDW Plt Count Seg Neuts % (Manual) Lymphocytes % (Manual) Nucleated RBC % Seg Neutrophils # Man Lymphocytes # (Manual) PT INR APTT POC ABG pH POC ABG pCO2 POC ABG pO2 Sodium 126 L D Potassium 3.3 L Chloride 96.4 L Carbon Dioxide 20 L BUN Creatinine 0.5 L Glucose POC Glucose 47 L 110 H Lactic Acid Calcium 6.6 L D Magnesium AST 485 H ALT 380 H Total Creatine Kinase C-Reactive Protein Total Protein 3.6 L Albumin 1.5 L Salicylates 05/29/17 05/29/17 05/29/17 08:57 10:01 10:15 WBC RBC Hgb 9.3 L Hct 27.2 L MCV 73 L MCH 25 L RDW Plt Count 9 L* Seg Neuts % (Manual) Lymphocytes % (Manual) Nucleated RBC % Seg Neutrophils # Man Lymphocytes # (Manual) PT INR APTT POC ABG pH POC ABG pCO2 POC ABG pO2 Sodium Potassium Chloride Carbon Dioxide BUN Creatinine Glucose POC Glucose 120 H 115 H Lactic Acid Calcium Magnesium AST ALT Total Creatine Kinase C-Reactive Protein Total Protein Albumin Salicylates 05/29/17 05/29/17 05/29/17 10:15 11:55 15:44 WBC RBC Hgb Hct MCV MCH RDW Plt Count Seg Neuts % (Manual) Lymphocytes % (Manual) Nucleated RBC % Seg Neutrophils # Man Lymphocytes # (Manual) PT INR APTT POC ABG pH POC ABG pCO2 POC ABG pO2 Sodium Potassium Chloride Carbon Dioxide BUN 24 H Creatinine 0.7 L Glucose 112 H POC Glucose 128 H 124 H Lactic Acid Calcium Magnesium AST ALT Total Creatine Kinase C-Reactive Protein Total Protein Albumin Salicylates 05/30/17 05/30/17 05/30/17 01:00 04:21 05:30 WBC RBC Hgb 9.3 L Hct 27.6 L MCV 74 L MCH 25 L RDW Plt Count 40 L D Seg Neuts % (Manual) 90.0 H Lymphocytes % (Manual) 4.0 L Nucleated RBC % 1.0 H Seg Neutrophils # Man Lymphocytes # (Manual) 0.2 L PT INR APTT POC ABG pH 7.528 H POC ABG pCO2 34.8 L POC ABG pO2 108 H Sodium Potassium Chloride Carbon Dioxide BUN Creatinine Glucose POC Glucose 106 H Lactic Acid Calcium Magnesium AST ALT Total Creatine Kinase C-Reactive Protein Total Protein Albumin Salicylates 05/30/17 05/30/17 05:30 06:02 WBC RBC Hgb Hct MCV MCH RDW Plt Count Seg Neuts % (Manual) Lymphocytes % (Manual) Nucleated RBC % Seg Neutrophils # Man Lymphocytes # (Manual) PT INR APTT POC ABG pH POC ABG pCO2 POC ABG pO2 Sodium Potassium Chloride 109.9 H Carbon Dioxide BUN 26 H Creatinine 0.7 L Glucose 118 H POC Glucose 149 H Lactic Acid Calcium Magnesium AST 445 H ALT 529 H Total Creatine Kinase C-Reactive Protein Total Protein 4.7 L D Albumin 2.2 L Salicylates Chest x-ray: report reviewed, image reviewed (no change)
[2017-05-30 17:56] LABS: Free T4 (Free Thyroxine) 0.81 ng/dL (0.76-1.46)
[2017-05-30] MEDS: ZITHROMAX 500 MG in NACL 0.9% 250ML 250 ML IV SCH (18:41)
[2017-05-30] MEDS ORDERED: ATROPINE 0.1% (CARDIAC) ONE (21:18)
[2017-05-31] MEDS: NACL 0.45% 1000 ML 1,000 ML IV SCH ×2 (01:16→13:16)
[2017-05-31] MEDS: ZOVIRAX IV SCH ×3 (01:16→17:59)
[2017-05-31] MEDS: NACL 0.9% IV SCH ×3 (01:16→17:59)
--- NOTE | 2017-05-31 03:36 | XRay Report ---
FINAL REPORT PROCEDURE: XR CHEST 1V AP TECHNIQUE: Chest radiograph anteroposterior view. CPT 23968 HISTORY: follow up respiratory failure COMPARISON: [id number] FINDINGS: Heart: Normal. Mediastinum/Vessels: Normal. Lungs/Pleural space: There are bilateral perihilar pulmonary infiltrates. There are bilateral pleural effusions. There is no pneumothorax per. Bony thorax: No acute osseous abnormality. Life support devices: Endotracheal tube in the mid trachea. NG tube is in the stomach. There is a left-sided PICC line. The tip is the superior vena cava.. IMPRESSION: The heart size is normal. There are bilateral perihilar pulmonary infiltrates. There are bilateral pleural effusions. There is no pneumothorax per. Endotracheal tube in the mid trachea. NG tube is in the stomach. There is a left-sided PICC line. The tip is the superior vena cava..
[2017-05-31] MEDS: cefTRIAXone 2 GM in NACL 0.9% 20 ML IV SCH ×2 (03:39→16:45)
[2017-05-31] MEDS: VANCOMYCIN 1,250 MG in NACL 0.9% 250ML 250 ML IV SCH ×3 (05:37→23:34)
[2017-05-31 06:07] LABS: Basophils % (Auto) 0.1 % (0.0-1.8); Hematocrit 24.6 % (35.5-45.6); Hemoglobin 8.5 gm/dl (11.8-15.2); Lymphocytes # (Auto) 0.5 K/mm3 (1.2-5.4); Lymphocytes % (Auto) 8.7 % (13.4-35.0); Mean Corpuscular HGB Conc 35 % (32-34); Mean Corpuscular Hemoglobin 25 pg (28-32); Mean Corpuscular Volume 73 fl (84-94); Monocytes # (Auto) 0.3 K/mm3 (0.0-0.8); Monocytes % (Auto) 5.1 % (0.0-7.3); Platelet Count 55 K/mm3 (140-440); Red Blood Count 3.37 M/mm3 (3.65-5.03); Red Cell Distribution Width 14.8 % (13.2-15.2)
[2017-05-31 06:14] LABS: INR 0.87 (0.87-1.13)
[2017-05-31 06:30] LABS: Alanine Aminotransferase 359 units/L (7-56); BUN/Creatinine Ratio 44; Blood Urea Nitrogen 22 mg/dL (9-20); Calcium 8.2 mg/dL (8.4-10.2); Hemolysis Index 2
[2017-05-31] MEDS ORDERED: SIMPLE SYRUP FEEDTUBE PRN ×2 (07:34)
[2017-05-31] MEDS ORDERED: SODIUM BICARBONATE FEEDTUBE PRN (07:34)
[2017-05-31] MEDS ORDERED: PANCREAZE DR 10,500 UNIT FEEDTUBE PRN (07:34)
--- NOTE | 2017-05-31 09:04 | Progress Note ---
Assessment and Plan Assessment: Sinus bradycardia Severe sepsis with septic shock requiring vasopressor support-->pressors weaned off as of 05/31 Acute respiratory failure - intubated PNA Anemia Thrombocytopenia Encephalopathy / ? meningoencephalitis Hypoglycemia Severe malnutrition Hypernatremia Plan: Patient remains in sinus rhythm with HR 60s this morning. Thyroid function WNL. EF 50-55%. Continue to avoid AV azul blocking agents. Cont supportive management. The patient has been seen in conjunction with Dr. Conrad who agrees with the assessment and plan of care. Subjective Date of service: 05/31/17 Principal diagnosis: pneumonia Interval history: The patient remains intubated but awake. Nodding appropriately. Off pressors. Sinus rhythm on the monitor with HR 60s. Objective Last Vital Signs Temp 98 F 05/31/17 12:00 Pulse 47 L 05/31/17 13:31 Resp 16 05/31/17 13:31 BP 114/68 05/31/17 13:31 Pulse Ox 97 05/31/17 13:31 - Physical Examination General: No Apparent Distress (intubated, awake) HEENT: Positive: PERRL, Normocephaly, Mucus Membranes Moist Neck: Positive: neck supple, trachea midline Cardiac: Positive: Reg Rate and Rhythm, S1/S2 Lungs: Positive: Rhonchi Neuro: Positive: Other (intubated) Abdomen: Positive: Soft. Negative: Tender Skin: Positive: Clear. Negative: Rash, Wound Musculoskeletal: No Fluid Collection, No Pain, Normal Range of Motion Extremities: Present: +1 Edema - Labs and Meds Cardiac Enzymes 05/31/17 Range/Units 05:40 AST 223 H (5-40) units/L Coagulation 05/31/17 Range/Units 05:40 PT 12.3 (12.2-14.9) Sec. INR 0.87 (0.87-1.13) CBC 05/31/17 Range/Units 05:40 WBC 6.2 (4.5-11.0) K/mm3 RBC 3.37 L (3.65-5.03) M/mm3 Hgb 8.5 L (11.8-15.2) gm/dl Hct 24.6 L (35.5-45.6) % Plt Count 55 L (140-440) K/mm3 Lymph # 0.5 L (1.2-5.4) K/mm3 [place] # 0.3 (0.0-0.8) K/mm3 Eos # 0.0 (0.0-0.4) K/mm3 Baso # 0.0 (0.0-0.1) K/mm3 Comprehensive Metabolic Panel 05/31/17 Range/Units 05:40 Sodium 148 H (137-145) mmol/L Potassium 3.2 L (3.6-5.0) mmol/L Chloride 108.6 H (98-107) mmol/L Carbon Dioxide 29 (22-30) mmol/L BUN 22 H (9-20) mg/dL Creatinine 0.5 L (0.8-1.5) mg/dL Glucose 101 H (75-100) mg/dL Calcium 8.2 L (8.4-10.2) mg/dL AST 223 H (5-40) units/L ALT 359 H (7-56) units/L Alkaline Phosphatase 113 (35-129) units/L Total Protein 4.6 L (6.3-8.2) g/dL Albumin 2.0 L (3.9-5) g/dL - Imaging and Cardiology EKG: report reviewed, image reviewed Echo: report reviewed (05/30/17: EF 50-55%, mild-moderate [place]) - Telemetry EKG Rhythm: Sinus Rhythm - EKG Sinus rhythms and dysrhythmias: sinus bradycardia
[2017-05-31] MEDS: VITAMIN B-1 PO SCH (09:42)
[2017-05-31] MEDS: PEPCID PO SCH ×2 (09:43→23:31)
--- NOTE | 2017-05-31 10:08 | Progress Note ---
Assessment and Plan 1) Sepsis with septic shock: afebrile. off levophed. Normal WBC. Etiology pneumonia. Other Possibilities: ? IRONWORK[employer] infection. -CRP=15 2) Pneumonia: Secondary to ? aspiration. - Influenza A/B PCR negative. s/p course of tamiflu. - Tracheal aspirate culture 05/29 NGTD. 3) Acute Encephalopathy - ? unclear etiology. Awake, tracking, but not moving. 4) Acute respiratory failure. Intubated. 5) Thrombocytopenia - improved after PLTs transfusion. 6) Elevated LFTs: ?shock liver. AST/ALT improved. 7) Bradycardia. Plan: -follow-up blood culture, sputum culture. -Will f/u procalcitonin, Legionella antigen in urine, Streptococcus pneumoniae urinary antigen. -follow-up MELBA with reflex, C3, C4, ANCA -lumbar punture for opening pressure and send CSF specimen for Gram stain and culture, glucose, protein, VDRL, HSV-PCR, cryptococcal antigen and culture - not done yet since PLTs too low. -continue vancomycin IV, ceftriaxone 2 g IV q12h, acyclovir IV - day 6 and azithromycin - day 3. Nicole STEWART attending [facility] M [phone]. Subjective Date of service: 05/31/17 Principal diagnosis: pneumonia Interval history: Remains intubated on the vent. Afebrile. Not on pressors. Awake. Microbiology: Blood cultures: 05/25 ngtd Respiratory cultures: 05/26 poor sample 05/29 TA NGTD Current Antimicrobials: Vancomycin IV 05/26- Ceftriaxone 2 g IV q12h 05/26- Acyclovir IV 05/26- Azithromycin 05/29- Prior antimicrobials Tamiflu 05/26-05/30 Hydrocortisone Objective - Exam Narrative Exam: General appearance: Pt in NAD. Intubated. Awake. Tracks, responds to his name, but doesn't squeezes hands. Eyes: anicteric sclerae, moist conjunctivae; pupils reactive HENT: Atraumatic; oropharynx clear +ETT +NGT Neck: Trachea midline; supple, no thyromegaly or lymphadenopathy Lungs: Coarse BS. CV: S1,S2 Abdomen: Soft, non-tender, non-distended. Extremities: No peripheral edema or extremity lymphadenopathy Skin: Normal temperature, turgor and texture; no rash, ulcers or subcutaneous nodules Psych: Intubated, Unable to evaluate. Neuro: Awake. Trachs. Not moving extremities. Lines: left PICC / reyes with clear urine - Constitutional Vitals: Vital Signs Temp Pulse Resp BP Pulse Ox 98 F 65 21 108/69 90 05/31/17 08:00 05/31/17 09:00 05/31/17 09:00 05/31/17 09:00 05/31/17 09:00 Temperature -Last 24 Hours Temperature 98 F Temperature 98.7 F Temperature 98.8 F Temperature 98.8 F Temperature 98.1 F Temperature 98.5 F Temperature 97.3 F Temperature 98.5 F Temperature 97.8 F - Labs CBC & Chem 7: 05/31/17 05:40 05/31/17 05:40 Labs: Abnormal lab results 05/30/17 05/30/17 05/30/17 Range/Units 10:14 15:02 16:28 RBC (3.65-5.03) M/mm3 Hgb (11.8-15.2) gm/dl Hct (35.5-45.6) % MCV (84-94) fl MCH (28-32) pg MCHC (32-34) % Plt Count (140-440) K/mm3 Lymph % (Auto) (13.4-35.0) % Lymph # (1.2-5.4) K/mm3 Seg Neutrophils % (40.0-70.0) % POC ABG pH (7.35-7.45) POC ABG pCO2 (35-45) POC ABG pO2 (80-105) Sodium (137-145) mmol/L Potassium (3.6-5.0) mmol/L Chloride (98-107) mmol/L BUN (9-20) mg/dL Creatinine (0.8-1.5) mg/dL Glucose (75-100) mg/dL POC Glucose 155 H 169 H (70-105) Calcium (8.4-10.2) mg/dL AST (5-40) units/L ALT (7-56) units/L Total Creatine Kinase 3464 H (55-170) units/L Total Protein (6.3-8.2) g/dL Albumin (3.9-5) g/dL Vitamin B12 (211-911) pg/mL 0205/30/17 05/30/17 Range/Units 16:28 17:40 21:35 RBC (3.65-5.03) M/mm3 Hgb (11.8-15.2) gm/dl Hct (35.5-45.6) % MCV (84-94) fl MCH (28-32) pg MCHC (32-34) % Plt Count (140-440) K/mm3 Lymph % (Auto) (13.4-35.0) % Lymph # (1.2-5.4) K/mm3 Seg Neutrophils % (40.0-70.0) % POC ABG pH (7.35-7.45) POC ABG pCO2 (35-45) POC ABG pO2 (80-105) Sodium (137-145) mmol/L Potassium (3.6-5.0) mmol/L Chloride (98-107) mmol/L BUN (9-20) mg/dL Creatinine (0.8-1.5) mg/dL Glucose (75-100) mg/dL POC Glucose 155 H 129 H (70-105) Calcium (8.4-10.2) mg/dL AST (5-40) units/L ALT (7-56) units/L Total Creatine Kinase (55-170) units/L Total Protein (6.3-8.2) g/dL Albumin (3.9-5) g/dL Vitamin B12 1108 H (211-911) pg/mL 05/31/17 05/31/17 05/31/17 Range/Units 01:54 04:31 05:40 RBC 3.37 L (3.65-5.03) M/mm3 Hgb 8.5 L (11.8-15.2) gm/dl Hct 24.6 L (35.5-45.6) % MCV 73 L (84-94) fl MCH 25 L (28-32) pg MCHC 35 H (32-34) % Plt Count 55 L (140-440) K/mm3 Lymph % (Auto) 8.7 L (13.4-35.0) % Lymph # 0.5 L (1.2-5.4) K/mm3 Seg Neutrophils % 86.1 H (40.0-70.0) % POC ABG pH 7.547 H (7.35-7.45) POC ABG pCO2 34.6 L (35-45) POC ABG pO2 79 L (80-105) Sodium (137-145) mmol/L Potassium (3.6-5.0) mmol/L Chloride (98-107) mmol/L BUN (9-20) mg/dL Creatinine (0.8-1.5) mg/dL Glucose (75-100) mg/dL POC Glucose 110 H (70-105) Calcium (8.4-10.2) mg/dL AST (5-40) units/L ALT (7-56) units/L Total Creatine Kinase (55-170) units/L Total Protein (6.3-8.2) g/dL Albumin (3.9-5) g/dL Vitamin B12 (211-911) pg/mL 05/31/17 Range/Units 05:40 RBC (3.65-5.03) M/mm3 Hgb (11.8-15.2) gm/dl Hct (35.5-45.6) % MCV (84-94) fl MCH (28-32) pg MCHC (32-34) % Plt Count (140-440) K/mm3 Lymph % (Auto) (13.4-35.0) % Lymph # (1.2-5.4) K/mm3 Seg Neutrophils % (40.0-70.0) % POC ABG pH (7.35-7.45) POC ABG pCO2 (35-45) POC ABG pO2 (80-105) Sodium 148 H (137-145) mmol/L Potassium 3.2 L (3.6-5.0) mmol/L Chloride 108.6 H (98-107) mmol/L BUN 22 H (9-20) mg/dL Creatinine 0.5 L (0.8-1.5) mg/dL Glucose 101 H (75-100) mg/dL POC Glucose (70-105) Calcium 8.2 L (8.4-10.2) mg/dL AST 223 H (5-40) units/L ALT 359 H (7-56) units/L Total Creatine Kinase (55-170) units/L Total Protein 4.6 L (6.3-8.2) g/dL Albumin 2.0 L (3.9-5) g/dL Vitamin B12 (211-911) pg/mL
[2017-05-31] MEDS: POTASSIUM CHLORIDE FEEDTUBE SCH ×2 (10:18→13:12)
--- NOTE | 2017-05-31 15:12 | Progress Note ---
Assessment and Plan SEVERE SEPSIS WITH SEPTIC SHOCK- POA, Severe Hypothermia on admission, resolved, likely from sepsis Acute Toxic Metabolic Encephalopathy Acute Respiratory Failure Thrombocytopenia-severe- no bleeding noted Aspiration Pneumonia with possible Post influenza Pneumonia h/o Schizophrenia Hypoglycemia, resolved Severe Protein Calorie Malnutrition Hypernatremia, improved Elevated LFT, likely from sepsis - ID consulted, Abx as ordered - Transfuse plt if bleeding or level <10 - Continue hypotonic IV fluid - Continue ventilatory support - Monitor cultures - Await Lumber pucture. doubt it can be done safely with the patients low plt. - MRI brain when more stable, will get CT head now - Replace Electrolytes - GI prophylaxis - Hold all Anticoagulations - Discussed with HILTON, RN at bedside Brief History: Patient is 42 years old AA male, from detention for evaluation of altered mental status and bradycardia. Also Hypothermic Only history available is schizophrenia. No other information can be obtained at this moment since patient is not communicating. No fever or chills per Correction staff. Physical exam: General appearance: Present: mild distress, disheveled, other (appears toxic) - EENT Eyes: Present: PERRL - Neck Neck: Present: supple - Respiratory Respiratory effort: other (ett) Respiratory: bilateral: diminished - Cardiovascular Rhythm: regular Heart Sounds: Present: S1 & S2. Absent: systolic murmur - Extremities Extremities: pulses intact, normal temperature Peripheral Pulses: within normal limits - Abdominal General gastrointestinal: soft, non-distended, hypoactive bowel sounds - Integumentary Integumentary: Present: warm - Psychiatric Psychiatric: other (unable to access) - Neurologic Neurologic: other (unable to access) - Allied Health Allied health notes reviewed: nursing The high probability of a clinically significant, sudden or life threatening deterioration of the [PULMONARY, NEUROLOGY] system(s) required my full and direct attention, intervention and personal management. The aggregate critical care time was [35] minutes. This time is in addition to time spent performing reported procedures but includes the following: [X] Data Review and interpretation [X] Patient assessment and monitoring of vital signs [X] Documentation [X] Medication orders and management Subjective Date of service: 05/31/17 Principal diagnosis: pneumonia Interval history: Pt seen and examined remained intubated, tolerating Tube feeding Objective - Constitutional Vitals: Vital Signs - 12hr 05/31/17 05/31/17 05/31/17 03:15 03:31 03:45 Temperature Pulse Rate 36 L 36 L 34 L Pulse Rate [ Apical] Pulse Rate [ From Monitor] Respiratory 16 16 16 Rate Blood Pressure 113/65 116/69 116/69 O2 Sat by Pulse 97 99 99 Oximetry 05/31/17 05/31/17 05/31/17 04:00 04:01 04:15 Temperature 98.7 F Pulse Rate 38 L 42 L Pulse Rate [ 36 L Apical] Pulse Rate [ 36 L From Monitor] Respiratory 16 12 16 Rate Blood Pressure 123/65 123/65 O2 Sat by Pulse 98 98 100 Oximetry 05/31/17 05/31/17 05/31/17 04:25 04:30 04:45 Temperature Pulse Rate 36 L 39 L 67 Pulse Rate [ Apical] Pulse Rate [ From Monitor] Respiratory 18 12 Rate Blood Pressure 123/65 121/68 121/68 O2 Sat by Pulse 98 96 97 Oximetry 05/31/17 05/31/17 05/31/17 05:00 05:15 05:31 Temperature Pulse Rate 35 L 36 L 44 L Pulse Rate [ Apical] Pulse Rate [ From Monitor] Respiratory 16 16 16 Rate Blood Pressure 123/71 123/71 126/71 O2 Sat by Pulse 98 99 93 Oximetry 05/31/17 05/31/17 05/31/17 05:45 06:00 06:15 Temperature Pulse Rate 41 L 42 L 39 L Pulse Rate [ Apical] Pulse Rate [ From Monitor] Respiratory 16 16 16 Rate Blood Pressure 126/71 115/74 115/74 O2 Sat by Pulse 91 92 92 Oximetry 05/31/17 05/31/17 05/31/17 06:31 06:45 07:00 Temperature Pulse Rate 44 L 64 42 L Pulse Rate [ Apical] Pulse Rate [ From Monitor] Respiratory 16 10 L 16 Rate Blood Pressure 116/71 116/71 121/71 O2 Sat by Pulse 94 92 92 Oximetry 05/31/17 05/31/17 05/31/17 07:15 07:24 07:30 Temperature Pulse Rate 42 L 40 L 43 L Pulse Rate [ Apical] Pulse Rate [ From Monitor] Respiratory 16 16 Rate Blood Pressure 121/71 121/71 109/64 O2 Sat by Pulse 93 93 94 Oximetry 05/31/17 05/31/17 05/31/17 07:45 08:00 08:15 Temperature 98 F Pulse Rate 49 L 40 L 62 Pulse Rate [ Apical] Pulse Rate [ 54 L From Monitor] Respiratory 15 17 15 Rate Blood Pressure 109/64 133/81 110/64 O2 Sat by Pulse 95 95 92 Oximetry 05/31/17 05/31/17 05/31/17 08:30 08:45 09:00 Temperature Pulse Rate 64 71 65 Pulse Rate [ Apical] Pulse Rate [ From Monitor] Respiratory 9 L 17 21 Rate Blood Pressure 133/81 133/81 108/69 O2 Sat by Pulse 95 89 90 Oximetry 05/31/17 05/31/17 05/31/17 09:15 09:30 09:45 Temperature Pulse Rate 66 60 48 L Pulse Rate [ Apical] Pulse Rate [ From Monitor] Respiratory 16 16 17 Rate Blood Pressure 108/69 108/70 108/70 O2 Sat by Pulse 92 93 94 Oximetry 05/31/17 05/31/17 05/31/17 10:01 10:15 10:30 Temperature Pulse Rate 52 L 47 L 50 L Pulse Rate [ Apical] Pulse Rate [ From Monitor] Respiratory 16 18 17 Rate Blood Pressure 107/74 107/74 116/68 O2 Sat by Pulse 92 93 95 Oximetry 05/31/17 05/31/17 05/31/17 10:45 11:01 11:15 Temperature Pulse Rate 55 L 46 L 43 L Pulse Rate [ Apical] Pulse Rate [ From Monitor] Respiratory 14 13 13 Rate Blood Pressure 116/68 121/63 121/63 O2 Sat by Pulse 93 93 97 Oximetry 05/31/17 05/31/17 05/31/17 11:30 11:45 12:00 Temperature 98 F Pulse Rate 46 L 52 L 42 L Pulse Rate [ 57 L Apical] Pulse Rate [ From Monitor] Respiratory 16 16 16 Rate Blood Pressure 112/68 112/68 122/66 O2 Sat by Pulse 96 96 95 Oximetry 05/31/17 05/31/17 05/31/17 12:10 12:15 12:30 Temperature Pulse Rate 55 L 55 L 42 L Pulse Rate [ Apical] Pulse Rate [ From Monitor] Respiratory 16 15 Rate Blood Pressure 122/66 122/66 112/65 O2 Sat by Pulse 96 95 97 Oximetry 05/31/17 05/31/17 05/31/17 12:45 13:00 13:15 Temperature Pulse Rate 42 L 41 L 40 L Pulse Rate [ Apical] Pulse Rate [ From Monitor] Respiratory 16 16 16 Rate Blood Pressure 112/65 113/64 113/64 O2 Sat by Pulse 94 94 97 Oximetry 05/31/17 05/31/17 05/31/17 13:31 13:45 14:01 Temperature Pulse Rate 47 L 49 L 44 L Pulse Rate [ Apical] Pulse Rate [ From Monitor] Respiratory 16 16 16 Rate Blood Pressure 114/68 114/68 114/75 O2 Sat by Pulse 97 97 97 Oximetry - Labs CBC & Chem 7: 06/01/17 Unknown 06/01/17 Unknown Labs: Abnormal lab results 05/30/17 05/30/17 05/30/17 Range/Units 10:14 15:02 16:28 RBC (3.65-5.03) M/mm3 Hgb (11.8-15.2) gm/dl Hct (35.5-45.6) % MCV (84-94) fl MCH (28-32) pg MCHC (32-34) % Plt Count (140-440) K/mm3 Lymph % (Auto) (13.4-35.0) % Lymph # (1.2-5.4) K/mm3 Seg Neutrophils % (40.0-70.0) % POC ABG pH (7.35-7.45) POC ABG pCO2 (35-45) POC ABG pO2 (80-105) Sodium (137-145) mmol/L Potassium (3.6-5.0) mmol/L Chloride (98-107) mmol/L BUN (9-20) mg/dL Creatinine (0.8-1.5) mg/dL Glucose (75-100) mg/dL POC Glucose 155 H 169 H (70-105) Calcium (8.4-10.2) mg/dL AST (5-40) units/L ALT (7-56) units/L Total Creatine Kinase 3464 H (55-170) units/L Total Protein (6.3-8.2) g/dL Albumin (3.9-5) g/dL Vitamin B12 (211-911) pg/mL 05/30/17 05/30/17 05/30/17 Range/Units 16:28 17:40 21:35 RBC (3.65-5.03) M/mm3 Hgb (11.8-15.2) gm/dl Hct (35.5-45.6) % MCV (84-94) fl MCH (28-32) pg MCHC (32-34) % Plt Count (140-440) K/mm3 Lymph % (Auto) (13.4-35.0) % Lymph # (1.2-5.4) K/mm3 Seg Neutrophils % (40.0-70.0) % POC ABG pH (7.35-7.45) POC ABG pCO2 (35-45) POC ABG pO2 (80-105) Sodium (137-145) mmol/L Potassium (3.6-5.0) mmol/L Chloride (98-107) mmol/L BUN (9-20) mg/dL Creatinine (0.8-1.5) mg/dL Glucose (75-100) mg/dL POC Glucose 155 H 129 H (70-105) Calcium (8.4-10.2) mg/dL AST (5-40) units/L ALT (7-56) units/L Total Creatine Kinase (55-170) units/L Total Protein (6.3-8.2) g/dL Albumin (3.9-5) g/dL Vitamin B12 1108 H (211-911) pg/mL 05/31/17 05/31/17 05/31/17 Range/Units 01:54 04:31 05:40 RBC 3.37 L (3.65-5.03) M/mm3 Hgb 8.5 L (11.8-15.2) gm/dl Hct 24.6 L (35.5-45.6) % MCV 73 L (84-94) fl MCH 25 L (28-32) pg MCHC 35 H (32-34) % Plt Count 55 L (140-440) K/mm3 Lymph % (Auto) 8.7 L (13.4-35.0) % Lymph # 0.5 L (1.2-5.4) K/mm3 Seg Neutrophils % 86.1 H (40.0-70.0) % POC ABG pH 7.547 H (7.35-7.45) POC ABG pCO2 34.6 L (35-45) POC ABG pO2 79 L (80-105) Sodium (137-145) mmol/L Potassium (3.6-5.0) mmol/L Chloride (98-107) mmol/L BUN (9-20) mg/dL Creatinine (0.8-1.5) mg/dL Glucose (75-100) mg/dL POC Glucose 110 H (70-105) Calcium (8.4-10.2) mg/dL AST (5-40) units/L ALT (7-56) units/L Total Creatine Kinase (55-170) units/L Total Protein (6.3-8.2) g/dL Albumin (3.9-5) g/dL Vitamin B12 (211-911) pg/mL 05/31/17 05/31/17 Range/Units 05:40 13:52 RBC (3.65-5.03) M/mm3 Hgb (11.8-15.2) gm/dl Hct (35.5-45.6) % MCV (84-94) fl MCH (28-32) pg MCHC (32-34) % Plt Count (140-440) K/mm3 Lymph % (Auto) (13.4-35.0) % Lymph # (1.2-5.4) K/mm3 Seg Neutrophils % (40.0-70.0) % POC ABG pH (7.35-7.45) POC ABG pCO2 (35-45) POC ABG pO2 (80-105) Sodium 148 H (137-145) mmol/L Potassium 3.2 L (3.6-5.0) mmol/L Chloride 108.6 H (98-107) mmol/L BUN 22 H (9-20) mg/dL Creatinine 0.5 L (0.8-1.5) mg/dL Glucose 101 H (75-100) mg/dL POC Glucose 114 H (70-105) Calcium 8.2 L (8.4-10.2) mg/dL AST 223 H (5-40) units/L ALT 359 H (7-56) units/L Total Creatine Kinase (55-170) units/L Total Protein 4.6 L (6.3-8.2) g/dL Albumin 2.0 L (3.9-5) g/dL Vitamin B12 (211-911) pg/mL
[2017-05-31] MEDS ORDERED: NACL 0.9% 500 ML 500 ML IV NR (16:49)
--- NOTE | 2017-05-31 16:55 | Progress Note ---
Assessment and Plan Imp: 1. Pneumonia, bilateral 2. ? Meningoencephalitis 3. Sepsis 4. Acute respiratory failure, hypoxia 5. Severe thrombocytopenia 6. Acute encephalopathy 7. Sinus bradycardia Rec: 1. ABX per ID but given significant pneumonia on chest imaging recommend covering atypicals pending serologic work-up; DAH would be doubtful but will consider bronch if infiltrates do not improve (would not do unless severe bradycardia improves) 2. Agree w/ ANCAs, complements, lupus work-up -> pending 3. Transfuse 2 units of platelets again today in order to allow for LP 4. Off steroids 5. Patient w/ HR in the high 30's at times; EKG shows sinus renard; BP stable and he is asymptomatic; will place Atropine at bedside; appreciate cardiology evaluation 6. SCDs 7. PSV trials 8. CK, AST, and ALT elevated c/w mild rhabdo ? viral versus inflammatory/auto- immune; check aldolase and Katherin-1 9. Neurology consulted No family present; CCT 31 minutes Subjective Date of service: 05/31/17 Principal diagnosis: pneumonia Interval history: Alert, will follow commands (will blink on command but not move extremities). HR 30's-40's, BP stable. He cannot give any other history. Active Medications Acetaminophen (Tylenol) 650 mg PO Q4H PRN PRN Reason: Pain MILD(1-3)/Fever >100.5/FOFANA Lipase/Protease/Amylase (Pancreaze Dr 10,500 Unit) 1 each FEEDTUBE PRN PRN PRN Reason: For Clogged Feeding Tube Atropine Sulfate (Atropine) 1 mg IV ONCE PRN PRN Reason: Bradycardia Bisacodyl (Dulcolax) 10 mg DE QDAY PRN PRN Reason: Constipation unrelieved by MOM Dextrose (D50w (25gm) Syringe) 50 ml IV PRN PRN PRN Reason: Hypoglycemia Last Admin: 05/27/17 05:30 Dose: 50 ml Famotidine (Pepcid) 20 mg PO BID RICCARDO Last Admin: 05/31/17 09:43 Dose: 20 mg Norepinephrine (Levophed Drip 4 Mg/Ns 250 Ml) 4 mg in 250 mls @ 7.5 mls/hr IV TITR RICCARDO; 2 MCG/MIN PRN Reason: Protocol Last Titration: 05/28/17 07:50 Dose: 1 mcg/min, 3.75 mls/hr Ceftriaxone Sodium 2 gm/ (Sodium Chloride) 20 mls @ 20 mls/10 min IV Q12H [facility] Last Admin: 05/31/17 16:45 Dose: 20 mls/10 min Acyclovir 680 mg/ Sodium (Chloride) 113.6 mls @ 100 mls/hr IV Q8H [facility] Last Admin: 05/31/17 09:45 Dose: 100 mls/hr Midazolam HCl 100 mg/ Sodium (Chloride) 100 mls @ 2 mls/hr IV TITR RICCARDO; 2 MG/HR PRN Reason: Protocol Last Titration: 05/27/17 13:30 Dose: 2 mg/hr, 2 mls/hr Sodium Chloride (Nacl 0.45% 1000 Ml) 1,000 mls @ 100 mls/hr IV DIRECT [facility] Last Admin: 05/31/17 13:16 Dose: 100 mls/hr Vancomycin HCl 1,250 mg/ (Sodium Chloride) 262.5 mls @ 166.667 mls/hr IV Q8HR [facility] Last Admin: 05/31/17 13:16 Dose: 166.667 mls/hr Azithromycin 500 mg/ Sodium (Chloride) 250 mls @ 250 mls/hr IV Q24H [facility] Last Admin: 05/30/17 18:41 Dose: 250 mls/hr Sodium Chloride (Nacl 0.9% 500 Ml) 500 mls @ 0 mls/hr IV ONCE ONE PRN Reason: As Directed Stop: 05/31/17 16:50 Magnesium Hydroxide (Milk Of Magnesia) 30 ml PO Q4H PRN PRN Reason: Constipation Ondansetron HCl (Zofran) 4 mg IV Q8H PRN PRN Reason: N/V unrelieved by Reglan Simple Syrup (Simple Syrup) 15 ml FEEDTUBE PRN PRN PRN Reason: Hypoglycemia Simple Syrup (Simple Syrup) 30 ml FEEDTUBE PRN PRN PRN Reason: Hypoglycemia Sodium Bicarbonate (Sodium Bicarbonate) 325 mg FEEDTUBE PRN PRN PRN Reason: For Clogged Feeding Tube Thiamine HCl (Vitamin B-1) 100 mg PO QDAY [facility] Last Admin: 05/31/17 09:42 Dose: 100 mg Vancomycin HCl (Vancomycin Pharmacy To Dose) 1 each IV PKCONSULT [facility] PRN Reason: Protocol Objective Vital Signs - 12hr 05/31/17 05/31/17 05/31/17 05:00 05:15 05:31 Temperature Pulse Rate 35 L 36 L 44 L Pulse Rate [ Apical] Pulse Rate [ From Monitor] Respiratory 16 16 16 Rate Blood Pressure 123/71 123/71 126/71 O2 Sat by Pulse 98 99 93 Oximetry 05/31/17 05/31/17 05/31/17 05:45 06:00 06:15 Temperature Pulse Rate 41 L 42 L 39 L Pulse Rate [ Apical] Pulse Rate [ From Monitor] Respiratory 16 16 16 Rate Blood Pressure 126/71 115/74 115/74 O2 Sat by Pulse 91 92 92 Oximetry 05/31/17 05/31/17 05/31/17 06:31 06:45 07:00 Temperature Pulse Rate 44 L 64 42 L Pulse Rate [ Apical] Pulse Rate [ From Monitor] Respiratory 16 10 L 16 Rate Blood Pressure 116/71 116/71 121/71 O2 Sat by Pulse 94 92 92 Oximetry 05/31/17 05/31/17 05/31/17 07:15 07:24 07:30 Temperature Pulse Rate 42 L 40 L 43 L Pulse Rate [ Apical] Pulse Rate [ From Monitor] Respiratory 16 16 Rate Blood Pressure 121/71 121/71 109/64 O2 Sat by Pulse 93 93 94 Oximetry 05/31/17 05/31/17 05/31/17 07:45 08:00 08:15 Temperature 98 F Pulse Rate 49 L 40 L 62 Pulse Rate [ Apical] Pulse Rate [ 54 L From Monitor] Respiratory 15 17 15 Rate Blood Pressure 109/64 133/81 110/64 O2 Sat by Pulse 95 95 92 Oximetry 05/31/17 05/31/17 05/31/17 08:30 08:45 09:00 Temperature Pulse Rate 64 71 65 Pulse Rate [ Apical] Pulse Rate [ From Monitor] Respiratory 9 L 17 21 Rate Blood Pressure 133/81 133/81 108/69 O2 Sat by Pulse 95 89 90 Oximetry 05/31/17 05/31/17 05/31/17 09:15 09:30 09:45 Temperature Pulse Rate 66 60 48 L Pulse Rate [ Apical] Pulse Rate [ From Monitor] Respiratory 16 16 17 Rate Blood Pressure 108/69 108/70 108/70 O2 Sat by Pulse 92 93 94 Oximetry 05/31/17 05/31/17 05/31/17 10:01 10:15 10:30 Temperature Pulse Rate 52 L 47 L 50 L Pulse Rate [ Apical] Pulse Rate [ From Monitor] Respiratory 16 18 17 Rate Blood Pressure 107/74 107/74 116/68 O2 Sat by Pulse 92 93 95 Oximetry 05/31/17 05/31/17 05/31/17 10:45 11:01 11:15 Temperature Pulse Rate 55 L 46 L 43 L Pulse Rate [ Apical] Pulse Rate [ From Monitor] Respiratory 14 13 13 Rate Blood Pressure 116/68 121/63 121/63 O2 Sat by Pulse 93 93 97 Oximetry 05/31/17 05/31/17 05/31/17 11:30 11:45 12:00 Temperature 98 F Pulse Rate 46 L 52 L 42 L Pulse Rate [ 57 L Apical] Pulse Rate [ From Monitor] Respiratory 16 16 16 Rate Blood Pressure 112/68 112/68 122/66 O2 Sat by Pulse 96 96 95 Oximetry 05/31/17 05/31/17 05/31/17 12:10 12:15 12:30 Temperature Pulse Rate 55 L 55 L 42 L Pulse Rate [ Apical] Pulse Rate [ From Monitor] Respiratory 16 15 Rate Blood Pressure 122/66 122/66 112/65 O2 Sat by Pulse 96 95 97 Oximetry 05/31/17 05/31/17 05/31/17 12:45 13:00 13:15 Temperature Pulse Rate 42 L 41 L 40 L Pulse Rate [ Apical] Pulse Rate [ From Monitor] Respiratory 16 16 16 Rate Blood Pressure 112/65 113/64 113/64 O2 Sat by Pulse 94 94 97 Oximetry 05/31/17 05/31/17 05/31/17 13:31 13:45 14:01 Temperature Pulse Rate 47 L 49 L 44 L Pulse Rate [ Apical] Pulse Rate [ From Monitor] Respiratory 16 16 16 Rate Blood Pressure 114/68 114/68 114/75 O2 Sat by Pulse 97 97 97 Oximetry 05/31/17 05/31/17 05/31/17 14:15 14:31 14:45 Temperature Pulse Rate 44 L 46 L 57 L Pulse Rate [ Apical] Pulse Rate [ From Monitor] Respiratory 16 16 16 Rate Blood Pressure 114/75 111/65 111/65 O2 Sat by Pulse 97 97 96 Oximetry 05/31/17 05/31/17 05/31/17 15:01 15:15 15:30 Temperature Pulse Rate 46 L 80 65 Pulse Rate [ Apical] Pulse Rate [ From Monitor] Respiratory 16 16 17 Rate Blood Pressure 127/67 127/67 134/77 O2 Sat by Pulse 97 96 94 Oximetry 05/31/17 05/31/17 05/31/17 15:45 16:00 16:01 Temperature 98.6 F Pulse Rate 73 79 Pulse Rate [ Apical] Pulse Rate [ From Monitor] Respiratory 21 16 Rate Blood Pressure 134/77 134/77 O2 Sat by Pulse 87 83 L Oximetry 05/31/17 05/31/17 16:15 16:19 Temperature Pulse Rate 76 60 Pulse Rate [ Apical] Pulse Rate [ From Monitor] Respiratory 19 Rate Blood Pressure 122/63 122/63 O2 Sat by Pulse 80 L 98 Oximetry Constitutional: alert, other (critically ill on vent) Eyes: non-icteric ENT: other (orally intubated) Neck: supple Effort: normal Ascultation: Bilateral: other (coarse BS bilaterally) Percussion: Bilateral: not dull Cardiovascular: other (sinus renard, RR; no mrg) Gastrointestinal: normoactive bowel sounds, soft, non-tender, non-distended Integumentary: normal Extremities: no cyanosis, no edema, pink and warm Neurologic: other (not moving extremities, eyes open (see HPI)) Psychiatric: other (unable to assess) CBC and BMP: 05/31/17 05:40 05/31/17 05:40 ABG, PT/INR, D-dimer: ABG POC ABG pH 7.547 (7.35-7.45) H 05/31/17 04:31 POC ABG pCO2 34.6 (35-45) L 05/31/17 04:31 POC ABG pO2 79 (80-105) L 05/31/17 04:31 POC ABG HCO3 30.1 05/31/17 04:31 POC ABG Total CO2 31 05/31/17 04:31 POC ABG O2 Sat 97 05/31/17 04:31 PT/INR, D-dimer PT 12.3 Sec. (12.2-14.9) 05/31/17 05:40 INR 0.87 (0.87-1.13) 05/31/17 05:40 Abnormal lab findings: Abnormal Labs 05/25/17 05/25/17 05/25/17 13:32 13:32 13:32 WBC RBC 5.76 H Hgb Hct MCV 77 L MCH 25 L MCHC RDW 15.9 H Plt Count 48 L Lymph % (Auto) Lymph # Seg Neutrophils % Seg Neuts % (Manual) 76.0 H Lymphocytes % (Manual) 2.0 L Nucleated RBC % Seg Neutrophils # Man Lymphocytes # (Manual) 0.1 L PT INR APTT POC ABG pH POC ABG pCO2 POC ABG pO2 Sodium 147 H Potassium Chloride 109.4 H Carbon Dioxide BUN Creatinine 0.3 L Glucose 102 H POC Glucose Lactic Acid Calcium Magnesium AST 111 H ALT 168 H Total Creatine Kinase C-Reactive Protein Total Protein 5.8 L Albumin 2.9 L Vitamin B12 Salicylates < 0.3 L 05/25/17 05/25/17 05/25/17 13:32 15:16 16:34 WBC RBC Hgb Hct MCV MCH MCHC RDW Plt Count Lymph % (Auto) Lymph # Seg Neutrophils % Seg Neuts % (Manual) Lymphocytes % (Manual) Nucleated RBC % Seg Neutrophils # Man Lymphocytes # (Manual) PT INR APTT POC ABG pH POC ABG pCO2 POC ABG pO2 Sodium Potassium Chloride Carbon Dioxide BUN Creatinine Glucose POC Glucose Lactic Acid 2.20 H* 2.10 H* Calcium Magnesium AST ALT Total Creatine Kinase 360 H C-Reactive Protein Total Protein Albumin Vitamin B12 Salicylates 05/26/17 05/26/17 05/26/17 00:47 00:47 06:07 WBC 2.1 L RBC 5.23 H Hgb Hct MCV 75 L MCH 25 L MCHC RDW 15.6 H Plt Count 51 L Lymph % (Auto) Lymph # Seg Neutrophils % Seg Neuts % (Manual) 24.0 L Lymphocytes % (Manual) 8.0 L Nucleated RBC % Seg Neutrophils # Man 0.5 L Lymphocytes # (Manual) 0.2 L PT INR APTT POC ABG pH POC ABG pCO2 POC ABG pO2 Sodium 148 H Potassium Chloride 112.6 H Carbon Dioxide BUN Creatinine Glucose 33 L* POC Glucose 44 L Lactic Acid Calcium Magnesium AST 85 H ALT 127 H Total Creatine Kinase C-Reactive Protein Total Protein 4.6 L D Albumin 2.4 L Vitamin B12 Salicylates 05/26/17 05/26/17 05/26/17 06:33 09:45 10:01 WBC RBC Hgb Hct MCV MCH MCHC RDW Plt Count Lymph % (Auto) Lymph # Seg Neutrophils % Seg Neuts % (Manual) Lymphocytes % (Manual) Nucleated RBC % Seg Neutrophils # Man Lymphocytes # (Manual) PT INR APTT POC ABG pH POC ABG pCO2 POC ABG pO2 Sodium Potassium Chloride Carbon Dioxide BUN Creatinine Glucose POC Glucose 130 H 52 L 182 H Lactic Acid Calcium Magnesium AST ALT Total Creatine Kinase C-Reactive Protein Total Protein Albumin Vitamin B12 Salicylates 05/26/17 05/26/17 05/26/17 10:56 12:41 14:58 WBC RBC Hgb Hct MCV MCH MCHC RDW Plt Count Lymph % (Auto) Lymph # Seg Neutrophils % Seg Neuts % (Manual) Lymphocytes % (Manual) Nucleated RBC % Seg Neutrophils # Man Lymphocytes # (Manual) PT INR APTT POC ABG pH POC ABG pCO2 POC ABG pO2 61 L Sodium Potassium Chloride Carbon Dioxide BUN Creatinine Glucose POC Glucose 69 L 150 H Lactic Acid Calcium Magnesium AST ALT Total Creatine Kinase C-Reactive Protein Total Protein Albumin Vitamin B12 Salicylates 05/26/17 05/26/17 05/26/17 15:41 15:53 17:46 WBC RBC Hgb Hct MCV MCH MCHC RDW Plt Count Lymph % (Auto) Lymph # Seg Neutrophils % Seg Neuts % (Manual) Lymphocytes % (Manual) Nucleated RBC % Seg Neutrophils # Man Lymphocytes # (Manual) PT INR APTT POC ABG pH 7.330 L POC ABG pCO2 POC ABG pO2 77 L Sodium Potassium Chloride Carbon Dioxide BUN Creatinine Glucose POC Glucose 63 L Lactic Acid Calcium Magnesium AST ALT Total Creatine Kinase C-Reactive Protein 15.20 H Total Protein Albumin Vitamin B12 Salicylates 05/26/17 05/26/17 05/27/17 18:40 20:18 00:35 WBC RBC Hgb Hct MCV MCH MCHC RDW Plt Count Lymph % (Auto) Lymph # Seg Neutrophils % Seg Neuts % (Manual) Lymphocytes % (Manual) Nucleated RBC % Seg Neutrophils # Man Lymphocytes # (Manual) PT INR APTT POC ABG pH POC ABG pCO2 POC ABG pO2 Sodium Potassium Chloride Carbon Dioxide BUN Creatinine Glucose POC Glucose 149 H 63 L 49 L Lactic Acid Calcium Magnesium AST ALT Total Creatine Kinase C-Reactive Protein Total Protein Albumin Vitamin B12 Salicylates 05/27/17 05/27/17 05/27/17 02:33 04:00 04:00 WBC RBC Hgb 11.7 L Hct 34.6 L MCV 75 L MCH 25 L MCHC RDW 15.6 H Plt Count 21 L Lymph % (Auto) Lymph # Seg Neutrophils % Seg Neuts % (Manual) 14.0 L Lymphocytes % (Manual) 5.0 L Nucleated RBC % Seg Neutrophils # Man 1.5 L Lymphocytes # (Manual) 0.5 L PT INR APTT POC ABG pH POC ABG pCO2 POC ABG pO2 Sodium 148 H Potassium Chloride 112.7 H Carbon Dioxide BUN 24 H Creatinine Glucose POC Glucose 61 L Lactic Acid Calcium 7.7 L Magnesium AST 115 H ALT 100 H Total Creatine Kinase C-Reactive Protein Total Protein 3.8 L Albumin 2.1 L Vitamin B12 Salicylates 05/27/17 05/27/17 05/27/17 04:00 05:20 06:36 WBC RBC Hgb Hct MCV MCH MCHC RDW Plt Count Lymph % (Auto) Lymph # Seg Neutrophils % Seg Neuts % (Manual) Lymphocytes % (Manual) Nucleated RBC % Seg Neutrophils # Man Lymphocytes # (Manual) PT 19.7 H INR 1.57 H APTT 57.0 H POC ABG pH POC ABG pCO2 POC ABG pO2 Sodium Potassium Chloride Carbon Dioxide BUN Creatinine Glucose POC Glucose 64 L 120 H Lactic Acid Calcium Magnesium AST ALT Total Creatine Kinase C-Reactive Protein Total Protein Albumin Vitamin B12 Salicylates 05/27/17 05/27/17 05/27/17 09:15 12:35 15:44 WBC RBC Hgb Hct MCV MCH MCHC RDW Plt Count Lymph % (Auto) Lymph # Seg Neutrophils % Seg Neuts % (Manual) Lymphocytes % (Manual) Nucleated RBC % Seg Neutrophils # Man Lymphocytes # (Manual) PT INR APTT POC ABG pH POC ABG pCO2 POC ABG pO2 380 H Sodium Potassium Chloride Carbon Dioxide BUN Creatinine Glucose POC Glucose 162 H 193 H Lactic Acid Calcium Magnesium AST ALT Total Creatine Kinase C-Reactive Protein Total Protein Albumin Vitamin B12 Salicylates 05/27/17 05/27/17 05/27/17 18:14 20:12 20:15 WBC RBC Hgb 10.3 L Hct 30.7 L MCV 75 L MCH 25 L MCHC RDW 15.6 H Plt Count 15 L* Lymph % (Auto) Lymph # Seg Neutrophils % Seg Neuts % (Manual) 95.0 H Lymphocytes % (Manual) 4.0 L Nucleated RBC % Seg Neutrophils # Man Lymphocytes # (Manual) 0.3 L PT INR APTT POC ABG pH POC ABG pCO2 POC ABG pO2 Sodium Potassium Chloride Carbon Dioxide BUN Creatinine Glucose POC Glucose 199 H 165 H Lactic Acid Calcium Magnesium AST ALT Total Creatine Kinase C-Reactive Protein Total Protein Albumin Vitamin B12 Salicylates 05/27/17 05/27/17 05/27/17 21:48 23:08 23:51 WBC RBC Hgb Hct MCV MCH MCHC RDW Plt Count Lymph % (Auto) Lymph # Seg Neutrophils % Seg Neuts % (Manual) Lymphocytes % (Manual) Nucleated RBC % Seg Neutrophils # Man Lymphocytes # (Manual) PT INR APTT POC ABG pH POC ABG pCO2 POC ABG pO2 Sodium Potassium Chloride Carbon Dioxide BUN Creatinine Glucose 150 H POC Glucose 166 H 173 H Lactic Acid Calcium 8.3 L Magnesium AST ALT Total Creatine Kinase C-Reactive Protein Total Protein Albumin Vitamin B12 Salicylates 05/28/17 05/28/17 05/28/17 02:23 04:19 05:40 WBC RBC Hgb Hct MCV MCH MCHC RDW Plt Count Lymph % (Auto) Lymph # Seg Neutrophils % Seg Neuts % (Manual) Lymphocytes % (Manual) Nucleated RBC % Seg Neutrophils # Man Lymphocytes # (Manual) PT INR APTT POC ABG pH POC ABG pCO2 POC ABG pO2 75 L Sodium Potassium Chloride Carbon Dioxide BUN Creatinine Glucose POC Glucose 177 H 160 H Lactic Acid Calcium Magnesium AST ALT Total Creatine Kinase C-Reactive Protein Total Protein Albumin Vitamin B12 Salicylates 05/28/17 05/28/17 05/28/17 05:50 05:50 08:21 WBC RBC Hgb 10.5 L Hct 30.9 L MCV 75 L MCH 25 L MCHC RDW 15.5 H Plt Count 16 L* Lymph % (Auto) Lymph # Seg Neutrophils % Seg Neuts % (Manual) Lymphocytes % (Manual) Nucleated RBC % Seg Neutrophils # Man Lymphocytes # (Manual) PT INR APTT POC ABG pH POC ABG pCO2 POC ABG pO2 Sodium Potassium Chloride Carbon Dioxide BUN Creatinine Glucose 129 H POC Glucose 201 H Lactic Acid Calcium 8.3 L Magnesium AST ALT Total Creatine Kinase C-Reactive Protein Total Protein Albumin Vitamin B12 Salicylates 05/28/17 05/28/17 05/28/17 11:04 12:19 13:47 WBC RBC Hgb Hct MCV MCH MCHC RDW Plt Count Lymph % (Auto) Lymph # Seg Neutrophils % Seg Neuts % (Manual) Lymphocytes % (Manual) Nucleated RBC % Seg Neutrophils # Man Lymphocytes # (Manual) PT INR APTT POC ABG pH POC ABG pCO2 POC ABG pO2 178 H Sodium Potassium Chloride Carbon Dioxide BUN Creatinine Glucose POC Glucose 140 H Lactic Acid Calcium Magnesium 1.60 L AST ALT Total Creatine Kinase C-Reactive Protein Total Protein Albumin Vitamin B12 Salicylates 05/28/17 05/29/17 05/29/17 16:21 05:56 08:00 WBC RBC Hgb Hct MCV MCH MCHC RDW Plt Count Lymph % (Auto) Lymph # Seg Neutrophils % Seg Neuts % (Manual) Lymphocytes % (Manual) Nucleated RBC % Seg Neutrophils # Man Lymphocytes # (Manual) PT INR APTT POC ABG pH POC ABG pCO2 POC ABG pO2 Sodium 126 L D Potassium 3.3 L Chloride 96.4 L Carbon Dioxide 20 L BUN Creatinine 0.5 L Glucose POC Glucose 47 L 110 H Lactic Acid Calcium 6.6 L D Magnesium AST 485 H ALT 380 H Total Creatine Kinase C-Reactive Protein Total Protein 3.6 L Albumin 1.5 L Vitamin B12 Salicylates 05/29/17 05/29/17 05/29/17 08:57 10:01 10:15 WBC RBC Hgb 9.3 L Hct 27.2 L MCV 73 L MCH 25 L MCHC RDW Plt Count 9 L* Lymph % (Auto) Lymph # Seg Neutrophils % Seg Neuts % (Manual) Lymphocytes % (Manual) Nucleated RBC % Seg Neutrophils # Man Lymphocytes # (Manual) PT INR APTT POC ABG pH POC ABG pCO2 POC ABG pO2 Sodium Potassium Chloride Carbon Dioxide BUN Creatinine Glucose POC Glucose 120 H 115 H Lactic Acid Calcium Magnesium AST ALT Total Creatine Kinase C-Reactive Protein Total Protein Albumin Vitamin B12 Salicylates 05/29/17 05/29/17 05/29/17 10:15 11:55 15:44 WBC RBC Hgb Hct MCV MCH MCHC RDW Plt Count Lymph % (Auto) Lymph # Seg Neutrophils % Seg Neuts % (Manual) Lymphocytes % (Manual) Nucleated RBC % Seg Neutrophils # Man Lymphocytes # (Manual) PT INR APTT POC ABG pH POC ABG pCO2 POC ABG pO2 Sodium Potassium Chloride Carbon Dioxide BUN 24 H Creatinine 0.7 L Glucose 112 H POC Glucose 128 H 124 H Lactic Acid Calcium Magnesium AST ALT Total Creatine Kinase C-Reactive Protein Total Protein Albumin Vitamin B12 Salicylates 05/30/17 05/30/17 05/30/17 01:00 04:21 05:30 WBC RBC Hgb 9.3 L Hct 27.6 L MCV 74 L MCH 25 L MCHC RDW Plt Count 40 L D Lymph % (Auto) Lymph # Seg Neutrophils % Seg Neuts % (Manual) 90.0 H Lymphocytes % (Manual) 4.0 L Nucleated RBC % 1.0 H Seg Neutrophils # Man Lymphocytes # (Manual) 0.2 L PT INR APTT POC ABG pH 7.528 H POC ABG pCO2 34.8 L POC ABG pO2 108 H Sodium Potassium Chloride Carbon Dioxide BUN Creatinine Glucose POC Glucose 106 H Lactic Acid Calcium Magnesium AST ALT Total Creatine Kinase C-Reactive Protein Total Protein Albumin Vitamin B12 Salicylates 05/30/17 05/30/17 05/30/17 05:30 06:02 10:14 WBC RBC Hgb Hct MCV MCH MCHC RDW Plt Count Lymph % (Auto) Lymph # Seg Neutrophils % Seg Neuts % (Manual) Lymphocytes % (Manual) Nucleated RBC % Seg Neutrophils # Man Lymphocytes # (Manual) PT INR APTT POC ABG pH POC ABG pCO2 POC ABG pO2 Sodium Potassium Chloride 109.9 H Carbon Dioxide BUN 26 H Creatinine 0.7 L Glucose 118 H POC Glucose 149 H 155 H Lactic Acid Calcium Magnesium AST 445 H ALT 529 H Total Creatine Kinase C-Reactive Protein Total Protein 4.7 L D Albumin 2.2 L Vitamin B12 Salicylates 05/30/17 05/30/17 05/30/17 15:02 16:28 16:28 WBC RBC Hgb Hct MCV MCH MCHC RDW Plt Count Lymph % (Auto) Lymph # Seg Neutrophils % Seg Neuts % (Manual) Lymphocytes % (Manual) Nucleated RBC % Seg Neutrophils # Man Lymphocytes # (Manual) PT INR APTT POC ABG pH POC ABG pCO2 POC ABG pO2 Sodium Potassium Chloride Carbon Dioxide BUN Creatinine Glucose POC Glucose 169 H Lactic Acid Calcium Magnesium AST ALT Total Creatine Kinase 3464 H C-Reactive Protein Total Protein Albumin Vitamin B12 1108 H Salicylates 05/30/17 05/30/17 05/31/17 17:40 21:35 01:54 WBC RBC Hgb Hct MCV MCH MCHC RDW Plt Count Lymph % (Auto) Lymph # Seg Neutrophils % Seg Neuts % (Manual) Lymphocytes % (Manual) Nucleated RBC % Seg Neutrophils # Man Lymphocytes # (Manual) PT INR APTT POC ABG pH POC ABG pCO2 POC ABG pO2 Sodium Potassium Chloride Carbon Dioxide BUN Creatinine Glucose POC Glucose 155 H 129 H 110 H Lactic Acid Calcium Magnesium AST ALT Total Creatine Kinase C-Reactive Protein Total Protein Albumin Vitamin B12 Salicylates 05/31/17 05/31/17 05/31/17 04:31 05:40 05:40 WBC RBC 3.37 L Hgb 8.5 L Hct 24.6 L MCV 73 L MCH 25 L MCHC 35 H RDW Plt Count 55 L Lymph % (Auto) 8.7 L Lymph # 0.5 L Seg Neutrophils % 86.1 H Seg Neuts % (Manual) Lymphocytes % (Manual) Nucleated RBC % Seg Neutrophils # Man Lymphocytes # (Manual) PT INR APTT POC ABG pH 7.547 H POC ABG pCO2 34.6 L POC ABG pO2 79 L Sodium 148 H Potassium 3.2 L Chloride 108.6 H Carbon Dioxide BUN 22 H Creatinine 0.5 L Glucose 101 H POC Glucose Lactic Acid Calcium 8.2 L Magnesium AST 223 H ALT 359 H Total Creatine Kinase C-Reactive Protein Total Protein 4.6 L Albumin 2.0 L Vitamin B12 Salicylates 05/31/17 13:52 WBC RBC Hgb Hct MCV MCH MCHC RDW Plt Count Lymph % (Auto) Lymph # Seg Neutrophils % Seg Neuts % (Manual) Lymphocytes % (Manual) Nucleated RBC % Seg Neutrophils # Man Lymphocytes # (Manual) PT INR APTT POC ABG pH POC ABG pCO2 POC ABG pO2 Sodium Potassium Chloride Carbon Dioxide BUN Creatinine Glucose POC Glucose 114 H Lactic Acid Calcium Magnesium AST ALT Total Creatine Kinase C-Reactive Protein Total Protein Albumin Vitamin B12 Salicylates Chest x-ray: report reviewed, image reviewed (probably minimal clearing of bilateral infiltrates)
[2017-05-31] MEDS: ZITHROMAX 500 MG in NACL 0.9% 250ML 250 ML IV SCH (18:01)
--- NOTE | 2017-05-31 19:26 | Progress Note ---
Assessment and Plan Encephalopathy 42 year old male with sepsis, hypothermia, bilateral pneumonia, recovering gradually. Still not following commands. Nutritional deficits. Plan - If he is still not stable enough to send for an MRI, would get CT brain. Check CPK levels and B-12. Subjective Date of service: 05/31/17 Principal diagnosis: pneumonia Interval history: This is a 42 year old male brought in from nursing home where he was found with altered mental status on 05/26/17, hypothermic to 89 degrees with bradycardia. He was discovered to have bilateral pneumonia and has been on antibiotics since admission, including Rocephin for [employer] coverage. Other complicating problems have been thrombocytopenia and malnutrition. He has been ventilator dependent for treatment of his pneumonia. Body temperature has normalized. He is off pressors, awake. Only known past history is schizophrenia. The patient continues to appear awake and alert but will not follow commands or move extremities. Pulmonary infiltrates continue. Objective - Exam Narrative Exam: Patient is alert and awake, resting comfortably in bed. HEENT - normocephalic no inflamation or lesions PERRLA neck supple Chest - clear Heart - reg. rate. 44 nl. S-1 and S-2. Abdomen - soft, nontender. Extremities - no CCE Neurological - alerts quickly to voice. Shook his head when asked if he had pain. Does not follow simple commands. CN's - EOMs seem full as he looks in all directions. face symmetric, Motor - will not move to command Reflexes - trace throughout. Sensory - intact to pain. Cerebellar - unable to assess. - Vital Sign Vital Signs - 12hr 05/31/17 05/31/17 05/31/17 07:24 07:30 07:45 Temperature Pulse Rate 40 L 43 L 49 L Pulse Rate [ Apical] Pulse Rate [ From Monitor] Respiratory 16 15 Rate Blood Pressure 121/71 109/64 109/64 O2 Sat by Pulse 93 94 95 Oximetry 05/31/17 05/31/17 05/31/17 08:00 08:15 08:30 Temperature 98 F Pulse Rate 40 L 62 64 Pulse Rate [ Apical] Pulse Rate [ 54 L From Monitor] Respiratory 17 15 9 L Rate Blood Pressure 133/81 110/64 133/81 O2 Sat by Pulse 95 92 95 Oximetry 05/31/17 05/31/17 05/31/17 08:45 09:00 09:15 Temperature Pulse Rate 71 65 66 Pulse Rate [ Apical] Pulse Rate [ From Monitor] Respiratory 17 21 16 Rate Blood Pressure 133/81 108/69 108/69 O2 Sat by Pulse 89 90 92 Oximetry 05/31/17 05/31/17 05/31/17 09:30 09:45 10:00 Temperature Pulse Rate 60 48 L 58 L Pulse Rate [ Apical] Pulse Rate [ From Monitor] Respiratory 16 17 Rate Blood Pressure 108/70 108/70 O2 Sat by Pulse 93 94 Oximetry 05/31/17 05/31/17 05/31/17 10:01 10:15 10:30 Temperature Pulse Rate 52 L 47 L 50 L Pulse Rate [ Apical] Pulse Rate [ From Monitor] Respiratory 16 18 17 Rate Blood Pressure 107/74 107/74 116/68 O2 Sat by Pulse 92 93 95 Oximetry 05/31/17 05/31/17 05/31/17 10:45 11:01 11:15 Temperature Pulse Rate 55 L 46 L 43 L Pulse Rate [ Apical] Pulse Rate [ From Monitor] Respiratory 14 13 13 Rate Blood Pressure 116/68 121/63 121/63 O2 Sat by Pulse 93 93 97 Oximetry 05/31/17 05/31/17 05/31/17 11:30 11:45 12:00 Temperature 98 F Pulse Rate 46 L 52 L 42 L Pulse Rate [ 57 L Apical] Pulse Rate [ From Monitor] Respiratory 16 16 16 Rate Blood Pressure 112/68 112/68 122/66 O2 Sat by Pulse 96 96 95 Oximetry 05/31/17 05/31/17 05/31/17 12:10 12:15 12:30 Temperature Pulse Rate 55 L 55 L 42 L Pulse Rate [ Apical] Pulse Rate [ From Monitor] Respiratory 16 15 Rate Blood Pressure 122/66 122/66 112/65 O2 Sat by Pulse 96 95 97 Oximetry 05/31/17 05/31/17 05/31/17 12:45 13:00 13:15 Temperature Pulse Rate 42 L 41 L 40 L Pulse Rate [ Apical] Pulse Rate [ From Monitor] Respiratory 16 16 16 Rate Blood Pressure 112/65 113/64 113/64 O2 Sat by Pulse 94 94 97 Oximetry 05/31/17 05/31/17 05/31/17 13:31 13:45 14:01 Temperature Pulse Rate 47 L 49 L 44 L Pulse Rate [ Apical] Pulse Rate [ From Monitor] Respiratory 16 16 16 Rate Blood Pressure 114/68 114/68 114/75 O2 Sat by Pulse 97 97 97 Oximetry 05/31/17 05/31/17 05/31/17 14:15 14:31 14:45 Temperature Pulse Rate 44 L 46 L 57 L Pulse Rate [ Apical] Pulse Rate [ From Monitor] Respiratory 16 16 16 Rate Blood Pressure 114/75 111/65 111/65 O2 Sat by Pulse 97 97 96 Oximetry 05/31/17 05/31/17 05/31/17 15:01 15:15 15:30 Temperature Pulse Rate 46 L 80 65 Pulse Rate [ Apical] Pulse Rate [ From Monitor] Respiratory 16 16 17 Rate Blood Pressure 127/67 127/67 134/77 O2 Sat by Pulse 97 96 94 Oximetry 05/31/17 05/31/17 05/31/17 15:45 16:00 16:01 Temperature 98.6 F Pulse Rate 73 79 Pulse Rate [ Apical] Pulse Rate [ From Monitor] Respiratory 21 16 Rate Blood Pressure 134/77 134/77 O2 Sat by Pulse 87 83 L Oximetry 05/31/17 05/31/17 05/31/17 16:15 16:19 16:30 Temperature Pulse Rate 76 60 55 L Pulse Rate [ Apical] Pulse Rate [ From Monitor] Respiratory 19 24 Rate Blood Pressure 122/63 122/63 118/71 O2 Sat by Pulse 80 L 98 100 Oximetry 05/31/17 05/31/17 05/31/17 16:45 17:00 17:15 Temperature Pulse Rate 46 L 40 L 63 Pulse Rate [ Apical] Pulse Rate [ From Monitor] Respiratory 19 16 16 Rate Blood Pressure 118/71 121/71 121/71 O2 Sat by Pulse 94 100 97 Oximetry 05/31/17 05/31/17 05/31/17 17:30 17:45 18:00 Temperature Pulse Rate 49 L 48 L 59 L Pulse Rate [ Apical] Pulse Rate [ From Monitor] Respiratory 16 16 16 Rate Blood Pressure 127/72 127/72 113/71 O2 Sat by Pulse 100 95 Oximetry - Laboratory Findings CBC and BMP: 05/31/17 05:40 05/31/17 05:40 Abnormal Lab Findings: Abnormal Labs 05/25/17 05/25/17 05/25/17 13:32 13:32 13:32 WBC RBC 5.76 H Hgb Hct MCV 77 L MCH 25 L MCHC RDW 15.9 H Plt Count 48 L Lymph % (Auto) Lymph # Seg Neutrophils % Seg Neuts % (Manual) 76.0 H Lymphocytes % (Manual) 2.0 L Nucleated RBC % Seg Neutrophils # Man Lymphocytes # (Manual) 0.1 L PT INR APTT POC ABG pH POC ABG pCO2 POC ABG pO2 Sodium 147 H Potassium Chloride 109.4 H Carbon Dioxide BUN Creatinine 0.3 L Glucose 102 H POC Glucose Lactic Acid Calcium Magnesium AST 111 H ALT 168 H Total Creatine Kinase C-Reactive Protein Total Protein 5.8 L Albumin 2.9 L Vitamin B12 Salicylates < 0.3 L 05/25/17 05/25/17 05/25/17 13:32 15:16 16:34 WBC RBC Hgb Hct MCV MCH MCHC RDW Plt Count Lymph % (Auto) Lymph # Seg Neutrophils % Seg Neuts % (Manual) Lymphocytes % (Manual) Nucleated RBC % Seg Neutrophils # Man Lymphocytes # (Manual) PT INR APTT POC ABG pH POC ABG pCO2 POC ABG pO2 Sodium Potassium Chloride Carbon Dioxide BUN Creatinine Glucose POC Glucose Lactic Acid 2.20 H* 2.10 H* Calcium Magnesium AST ALT Total Creatine Kinase 360 H C-Reactive Protein Total Protein Albumin Vitamin B12 Salicylates 05/26/17 05/26/17 05/26/17 00:47 00:47 06:07 WBC 2.1 L RBC 5.23 H Hgb Hct MCV 75 L MCH 25 L MCHC RDW 15.6 H Plt Count 51 L Lymph % (Auto) Lymph # Seg Neutrophils % Seg Neuts % (Manual) 24.0 L Lymphocytes % (Manual) 8.0 L Nucleated RBC % Seg Neutrophils # Man 0.5 L Lymphocytes # (Manual) 0.2 L PT INR APTT POC ABG pH POC ABG pCO2 POC ABG pO2 Sodium 148 H Potassium Chloride 112.6 H Carbon Dioxide BUN Creatinine Glucose 33 L* POC Glucose 44 L Lactic Acid Calcium Magnesium AST 85 H ALT 127 H Total Creatine Kinase C-Reactive Protein Total Protein 4.6 L D Albumin 2.4 L Vitamin B12 Salicylates 05/26/17 05/26/17 05/26/17 06:33 09:45 10:01 WBC RBC Hgb Hct MCV MCH MCHC RDW Plt Count Lymph % (Auto) Lymph # Seg Neutrophils % Seg Neuts % (Manual) Lymphocytes % (Manual) Nucleated RBC % Seg Neutrophils # Man Lymphocytes # (Manual) PT INR APTT POC ABG pH POC ABG pCO2 POC ABG pO2 Sodium Potassium Chloride Carbon Dioxide BUN Creatinine Glucose POC Glucose 130 H 52 L 182 H Lactic Acid Calcium Magnesium AST ALT Total Creatine Kinase C-Reactive Protein Total Protein Albumin Vitamin B12 Salicylates 05/26/17 05/26/17 05/26/17 10:56 12:41 14:58 WBC RBC Hgb Hct MCV MCH MCHC RDW Plt Count Lymph % (Auto) Lymph # Seg Neutrophils % Seg Neuts % (Manual) Lymphocytes % (Manual) Nucleated RBC % Seg Neutrophils # Man Lymphocytes # (Manual) PT INR APTT POC ABG pH POC ABG pCO2 POC ABG pO2 61 L Sodium Potassium Chloride Carbon Dioxide BUN Creatinine Glucose POC Glucose 69 L 150 H Lactic Acid Calcium Magnesium AST ALT Total Creatine Kinase C-Reactive Protein Total Protein Albumin Vitamin B12 Salicylates 05/26/17 05/26/17 05/26/17 15:41 15:53 17:46 WBC RBC Hgb Hct MCV MCH MCHC RDW Plt Count Lymph % (Auto) Lymph # Seg Neutrophils % Seg Neuts % (Manual) Lymphocytes % (Manual) Nucleated RBC % Seg Neutrophils # Man Lymphocytes # (Manual) PT INR APTT POC ABG pH 7.330 L POC ABG pCO2 POC ABG pO2 77 L Sodium Potassium Chloride Carbon Dioxide BUN Creatinine Glucose POC Glucose 63 L Lactic Acid Calcium Magnesium AST ALT Total Creatine Kinase C-Reactive Protein 15.20 H Total Protein Albumin Vitamin B12 Salicylates 05/26/17 05/26/17 05/27/17 18:40 20:18 00:35 WBC RBC Hgb Hct MCV MCH MCHC RDW Plt Count Lymph % (Auto) Lymph # Seg Neutrophils % Seg Neuts % (Manual) Lymphocytes % (Manual) Nucleated RBC % Seg Neutrophils # Man Lymphocytes # (Manual) PT INR APTT POC ABG pH POC ABG pCO2 POC ABG pO2 Sodium Potassium Chloride Carbon Dioxide BUN Creatinine Glucose POC Glucose 149 H 63 L 49 L Lactic Acid Calcium Magnesium AST ALT Total Creatine Kinase C-Reactive Protein Total Protein Albumin Vitamin B12 Salicylates 05/27/17 05/27/17 05/27/17 02:33 04:00 04:00 WBC RBC Hgb 11.7 L Hct 34.6 L MCV 75 L MCH 25 L MCHC RDW 15.6 H Plt Count 21 L Lymph % (Auto) Lymph # Seg Neutrophils % Seg Neuts % (Manual) 14.0 L Lymphocytes % (Manual) 5.0 L Nucleated RBC % Seg Neutrophils # Man 1.5 L Lymphocytes # (Manual) 0.5 L PT INR APTT POC ABG pH POC ABG pCO2 POC ABG pO2 Sodium 148 H Potassium Chloride 112.7 H Carbon Dioxide BUN 24 H Creatinine Glucose POC Glucose 61 L Lactic Acid Calcium 7.7 L Magnesium AST 115 H ALT 100 H Total Creatine Kinase C-Reactive Protein Total Protein 3.8 L Albumin 2.1 L Vitamin B12 Salicylates 05/27/17 05/27/17 05/27/17 04:00 05:20 06:36 WBC RBC Hgb Hct MCV MCH MCHC RDW Plt Count Lymph % (Auto) Lymph # Seg Neutrophils % Seg Neuts % (Manual) Lymphocytes % (Manual) Nucleated RBC % Seg Neutrophils # Man Lymphocytes # (Manual) PT 19.7 H INR 1.57 H APTT 57.0 H POC ABG pH POC ABG pCO2 POC ABG pO2 Sodium Potassium Chloride Carbon Dioxide BUN Creatinine Glucose POC Glucose 64 L 120 H Lactic Acid Calcium Magnesium AST ALT Total Creatine Kinase C-Reactive Protein Total Protein Albumin Vitamin B12 Salicylates 05/27/17 05/27/17 05/27/17 09:15 12:35 15:44 WBC RBC Hgb Hct MCV MCH MCHC RDW Plt Count Lymph % (Auto) Lymph # Seg Neutrophils % Seg Neuts % (Manual) Lymphocytes % (Manual) Nucleated RBC % Seg Neutrophils # Man Lymphocytes # (Manual) PT INR APTT POC ABG pH POC ABG pCO2 POC ABG pO2 380 H Sodium Potassium Chloride Carbon Dioxide BUN Creatinine Glucose POC Glucose 162 H 193 H Lactic Acid Calcium Magnesium AST ALT Total Creatine Kinase C-Reactive Protein Total Protein Albumin Vitamin B12 Salicylates 05/27/17 05/27/17 05/27/17 18:14 20:12 20:15 WBC RBC Hgb 10.3 L Hct 30.7 L MCV 75 L MCH 25 L MCHC RDW 15.6 H Plt Count 15 L* Lymph % (Auto) Lymph # Seg Neutrophils % Seg Neuts % (Manual) 95.0 H Lymphocytes % (Manual) 4.0 L Nucleated RBC % Seg Neutrophils # Man Lymphocytes # (Manual) 0.3 L PT INR APTT POC ABG pH POC ABG pCO2 POC ABG pO2 Sodium Potassium Chloride Carbon Dioxide BUN Creatinine Glucose POC Glucose 199 H 165 H Lactic Acid Calcium Magnesium AST ALT Total Creatine Kinase C-Reactive Protein Total Protein Albumin Vitamin B12 Salicylates 05/27/17 05/27/17 05/27/17 21:48 23:08 23:51 WBC RBC Hgb Hct MCV MCH MCHC RDW Plt Count Lymph % (Auto) Lymph # Seg Neutrophils % Seg Neuts % (Manual) Lymphocytes % (Manual) Nucleated RBC % Seg Neutrophils # Man Lymphocytes # (Manual) PT INR APTT POC ABG pH POC ABG pCO2 POC ABG pO2 Sodium Potassium Chloride Carbon Dioxide BUN Creatinine Glucose 150 H POC Glucose 166 H 173 H Lactic Acid Calcium 8.3 L Magnesium AST ALT Total Creatine Kinase C-Reactive Protein Total Protein Albumin Vitamin B12 Salicylates 05/28/17 05/28/17 05/28/17 02:23 04:19 05:40 WBC RBC Hgb Hct MCV MCH MCHC RDW Plt Count Lymph % (Auto) Lymph # Seg Neutrophils % Seg Neuts % (Manual) Lymphocytes % (Manual) Nucleated RBC % Seg Neutrophils # Man Lymphocytes # (Manual) PT INR APTT POC ABG pH POC ABG pCO2 POC ABG pO2 75 L Sodium Potassium Chloride Carbon Dioxide BUN Creatinine Glucose POC Glucose 177 H 160 H Lactic Acid Calcium Magnesium AST ALT Total Creatine Kinase C-Reactive Protein Total Protein Albumin Vitamin B12 Salicylates 05/28/17 05/28/17 05/28/17 05:50 05:50 08:21 WBC RBC Hgb 10.5 L Hct 30.9 L MCV 75 L MCH 25 L MCHC RDW 15.5 H Plt Count 16 L* Lymph % (Auto) Lymph # Seg Neutrophils % Seg Neuts % (Manual) Lymphocytes % (Manual) Nucleated RBC % Seg Neutrophils # Man Lymphocytes # (Manual) PT INR APTT POC ABG pH POC ABG pCO2 POC ABG pO2 Sodium Potassium Chloride Carbon Dioxide BUN Creatinine Glucose 129 H POC Glucose 201 H Lactic Acid Calcium 8.3 L Magnesium AST ALT Total Creatine Kinase C-Reactive Protein Total Protein Albumin Vitamin B12 Salicylates 05/28/17 05/28/17 05/28/17 11:04 12:19 13:47 WBC RBC Hgb Hct MCV MCH MCHC RDW Plt Count Lymph % (Auto) Lymph # Seg Neutrophils % Seg Neuts % (Manual) Lymphocytes % (Manual) Nucleated RBC % Seg Neutrophils # Man Lymphocytes # (Manual) PT INR APTT POC ABG pH POC ABG pCO2 POC ABG pO2 178 H Sodium Potassium Chloride Carbon Dioxide BUN Creatinine Glucose POC Glucose 140 H Lactic Acid Calcium Magnesium 1.60 L AST ALT Total Creatine Kinase C-Reactive Protein Total Protein Albumin Vitamin B12 Salicylates 05/28/17 05/29/17 05/29/17 16:21 05:56 08:00 WBC RBC Hgb Hct MCV MCH MCHC RDW Plt Count Lymph % (Auto) Lymph # Seg Neutrophils % Seg Neuts % (Manual) Lymphocytes % (Manual) Nucleated RBC % Seg Neutrophils # Man Lymphocytes # (Manual) PT INR APTT POC ABG pH POC ABG pCO2 POC ABG pO2 Sodium 126 L D Potassium 3.3 L Chloride 96.4 L Carbon Dioxide 20 L BUN Creatinine 0.5 L Glucose POC Glucose 47 L 110 H Lactic Acid Calcium 6.6 L D Magnesium AST 485 H ALT 380 H Total Creatine Kinase C-Reactive Protein Total Protein 3.6 L Albumin 1.5 L Vitamin B12 Salicylates 05/29/17 05/29/17 05/29/17 08:57 10:01 10:15 WBC RBC Hgb 9.3 L Hct 27.2 L MCV 73 L MCH 25 L MCHC RDW Plt Count 9 L* Lymph % (Auto) Lymph # Seg Neutrophils % Seg Neuts % (Manual) Lymphocytes % (Manual) Nucleated RBC % Seg Neutrophils # Man Lymphocytes # (Manual) PT INR APTT POC ABG pH POC ABG pCO2 POC ABG pO2 Sodium Potassium Chloride Carbon Dioxide BUN Creatinine Glucose POC Glucose 120 H 115 H Lactic Acid Calcium Magnesium AST ALT Total Creatine Kinase C-Reactive Protein Total Protein Albumin Vitamin B12 Salicylates 05/29/17 05/29/17 05/29/17 10:15 11:55 15:44 WBC RBC Hgb Hct MCV MCH MCHC RDW Plt Count Lymph % (Auto) Lymph # Seg Neutrophils % Seg Neuts % (Manual) Lymphocytes % (Manual) Nucleated RBC % Seg Neutrophils # Man Lymphocytes # (Manual) PT INR APTT POC ABG pH POC ABG pCO2 POC ABG pO2 Sodium Potassium Chloride Carbon Dioxide BUN 24 H Creatinine 0.7 L Glucose 112 H POC Glucose 128 H 124 H Lactic Acid Calcium Magnesium AST ALT Total Creatine Kinase C-Reactive Protein Total Protein Albumin Vitamin B12 Salicylates 05/30/17 05/30/17 05/30/17 01:00 04:21 05:30 WBC RBC Hgb 9.3 L Hct 27.6 L MCV 74 L MCH 25 L MCHC RDW Plt Count 40 L D Lymph % (Auto) Lymph # Seg Neutrophils % Seg Neuts % (Manual) 90.0 H Lymphocytes % (Manual) 4.0 L Nucleated RBC % 1.0 H Seg Neutrophils # Man Lymphocytes # (Manual) 0.2 L PT INR APTT POC ABG pH 7.528 H POC ABG pCO2 34.8 L POC ABG pO2 108 H Sodium Potassium Chloride Carbon Dioxide BUN Creatinine Glucose POC Glucose 106 H Lactic Acid Calcium Magnesium AST ALT Total Creatine Kinase C-Reactive Protein Total Protein Albumin Vitamin B12 Salicylates 05/30/17 05/30/17 05/30/17 05:30 06:02 10:14 WBC RBC Hgb Hct MCV MCH MCHC RDW Plt Count Lymph % (Auto) Lymph # Seg Neutrophils % Seg Neuts % (Manual) Lymphocytes % (Manual) Nucleated RBC % Seg Neutrophils # Man Lymphocytes # (Manual) PT INR APTT POC ABG pH POC ABG pCO2 POC ABG pO2 Sodium Potassium Chloride 109.9 H Carbon Dioxide BUN 26 H Creatinine 0.7 L Glucose 118 H POC Glucose 149 H 155 H Lactic Acid Calcium Magnesium AST 445 H ALT 529 H Total Creatine Kinase C-Reactive Protein Total Protein 4.7 L D Albumin 2.2 L Vitamin B12 Salicylates 05/30/17 05/30/17 05/30/17 15:02 16:28 16:28 WBC RBC Hgb Hct MCV MCH MCHC RDW Plt Count Lymph % (Auto) Lymph # Seg Neutrophils % Seg Neuts % (Manual) Lymphocytes % (Manual) Nucleated RBC % Seg Neutrophils # Man Lymphocytes # (Manual) PT INR APTT POC ABG pH POC ABG pCO2 POC ABG pO2 Sodium Potassium Chloride Carbon Dioxide BUN Creatinine Glucose POC Glucose 169 H Lactic Acid Calcium Magnesium AST ALT Total Creatine Kinase 3464 H C-Reactive Protein Total Protein Albumin Vitamin B12 1108 H Salicylates 05/30/17 05/30/17 05/31/17 17:40 21:35 01:54 WBC RBC Hgb Hct MCV MCH MCHC RDW Plt Count Lymph % (Auto) Lymph # Seg Neutrophils % Seg Neuts % (Manual) Lymphocytes % (Manual) Nucleated RBC % Seg Neutrophils # Man Lymphocytes # (Manual) PT INR APTT POC ABG pH POC ABG pCO2 POC ABG pO2 Sodium Potassium Chloride Carbon Dioxide BUN Creatinine Glucose POC Glucose 155 H 129 H 110 H Lactic Acid Calcium Magnesium AST ALT Total Creatine Kinase C-Reactive Protein Total Protein Albumin Vitamin B12 Salicylates 05/31/17 05/31/17 05/31/17 04:31 05:40 05:40 WBC RBC 3.37 L Hgb 8.5 L Hct 24.6 L MCV 73 L MCH 25 L MCHC 35 H RDW Plt Count 55 L Lymph % (Auto) 8.7 L Lymph # 0.5 L Seg Neutrophils % 86.1 H Seg Neuts % (Manual) Lymphocytes % (Manual) Nucleated RBC % Seg Neutrophils # Man Lymphocytes # (Manual) PT INR APTT POC ABG pH 7.547 H POC ABG pCO2 34.6 L POC ABG pO2 79 L Sodium 148 H Potassium 3.2 L Chloride 108.6 H Carbon Dioxide BUN 22 H Creatinine 0.5 L Glucose 101 H POC Glucose Lactic Acid Calcium 8.2 L Magnesium AST 223 H ALT 359 H Total Creatine Kinase C-Reactive Protein Total Protein 4.6 L Albumin 2.0 L Vitamin B12 Salicylates 05/31/17 13:52 WBC RBC Hgb Hct MCV MCH MCHC RDW Plt Count Lymph % (Auto) Lymph # Seg Neutrophils % Seg Neuts % (Manual) Lymphocytes % (Manual) Nucleated RBC % Seg Neutrophils # Man Lymphocytes # (Manual) PT INR APTT POC ABG pH POC ABG pCO2 POC ABG pO2 Sodium Potassium Chloride Carbon Dioxide BUN Creatinine Glucose POC Glucose 114 H Lactic Acid Calcium Magnesium AST ALT Total Creatine Kinase C-Reactive Protein Total Protein Albumin Vitamin B12 Salicylates
[2017-05-31 20:55] LABS: ANA Screen, IFA Negative (Negative)
[2017-06-01] MEDS: ZOVIRAX IV SCH ×3 (02:20→18:06)
[2017-06-01] MEDS: NACL 0.9% IV SCH ×3 (02:20→18:06)
[2017-06-01] MEDS: cefTRIAXone 2 GM in NACL 0.9% 20 ML IV SCH ×2 (04:11→18:06)
[2017-06-01] MEDS: VANCOMYCIN 1,250 MG in NACL 0.9% 250ML 250 ML IV SCH ×3 (05:24→22:35)
--- NOTE | 2017-06-01 05:47 | XRay Report ---
FINAL REPORT EXAM: XR CHEST 1V AP HISTORY: follow up respiratory failure TECHNIQUE: AP portable view(s) of the chest obtained. PRIORS: 05/31/2017 FINDINGS: Endotracheal tube terminates approximately 5 cm from the [place]. Enteric tube courses below the diaphragm with tip oriented superiorly projecting over the left upper quadrant, similar to prior. Left upper extremity PICC terminates near the superior cavoatrial junction. Multiple additional tubes and wires project over the chest and upper abdomen and are external to the patient. No pneumothorax or new airspace opacity compared to prior. IMPRESSION: Satisfactory appearance of patient's support apparatus without pneumothorax or other significant change compared to 05/31/2017.
[2017-06-01 05:50] LABS: Basophils % (Auto) 0.1 % (0.0-1.8); Eosinophils # (Auto) 0.1 K/mm3 (0.0-0.4); Eosinophils % (Auto) 1.1 % (0.0-4.3); Hematocrit 23.8 % (35.5-45.6); Hemoglobin 8.1 gm/dl (11.8-15.2); Lymphocytes % (Auto) 14.4 % (13.4-35.0); Mean Corpuscular HGB Conc 34 % (32-34); Mean Corpuscular Volume 74 fl (84-94); Monocytes # (Auto) 0.3 K/mm3 (0.0-0.8); Monocytes % (Auto) 4.3 % (0.0-7.3); Red Blood Count 3.24 M/mm3 (3.65-5.03); Red Cell Distribution Width 14.4 % (13.2-15.2)
[2017-06-01 06:11] LABS: Mean Corpuscular Hemoglobin 25 pg (28-32)
[2017-06-01 06:12] LABS: Platelet Count 136 K/mm3 (140-440)
[2017-06-01 06:13] LABS: BUN/Creatinine Ratio 45; Blood Urea Nitrogen 18 mg/dL (9-20); Calcium 8.2 mg/dL (8.4-10.2); Hemolysis Index 3
[2017-06-01] MEDS: PEPCID PO SCH ×2 (09:20→23:03)
[2017-06-01] MEDS: VITAMIN B-1 PO SCH (09:20)
[2017-06-01] MEDS: NACL 0.45% 1000 ML 1,000 ML IV SCH (09:20)
--- NOTE | 2017-06-01 09:31 | Progress Note ---
Assessment and Plan Assessment: Sinus bradycardia Severe sepsis with septic shock requiring vasopressor support - pressors weaned off currently Acute respiratory failure - intubated PNA Anemia Thrombocytopenia Encephalopathy / ? meningoencephalitis Hypoglycemia Severe malnutrition Hypernatremia Plan: Patient remains in sinus bradycardia. Thyroid function WNL. EF 50-55%. Continue to avoid AV azul blocking agents. Cont supportive management. The patient has been seen in conjunction with Dr. Conrad who agrees with the assessment and plan of care. Subjective Date of service: 06/01/17 Principal diagnosis: pneumonia Interval history: pt resting comfortably in bed, appears more alert today. Remains in SB. Objective Last Vital Signs Temp 98.7 F 06/01/17 04:00 Pulse 50 L 06/01/17 08:40 Resp 16 06/01/17 08:30 BP 125/67 06/01/17 08:40 Pulse Ox 99 06/01/17 08:40 - Physical Examination General: No Apparent Distress (intubated, awake) HEENT: Positive: PERRL, Normocephaly, Mucus Membranes Moist Neck: Positive: neck supple, trachea midline Cardiac: Positive: Regular Rhythm, S1/S2, Bradycardia Lungs: Positive: Decreased Breath Sounds Neuro: Positive: Other (intubated) Abdomen: Positive: Soft. Negative: Tender Skin: Positive: Clear. Negative: Rash, Wound Musculoskeletal: No Fluid Collection, No Pain, Normal Range of Motion Extremities: Present: +1 Edema - Labs and Meds CBC 06/01/17 Range/Units Unknown WBC 6.9 (4.5-11.0) K/mm3 RBC 3.24 L (3.65-5.03) M/mm3 Hgb 8.1 L (11.8-15.2) gm/dl Hct 23.8 L (35.5-45.6) % Plt Count 136 L D (140-440) K/mm3 Lymph # 1.0 L (1.2-5.4) K/mm3 Richardson # 0.3 (0.0-0.8) K/mm3 Eos # 0.1 (0.0-0.4) K/mm3 Baso # 0.0 (0.0-0.1) K/mm3 Comprehensive Metabolic Panel 06/01/17 Range/Units Unknown Sodium 148 H (137-145) mmol/L Potassium 3.3 L (3.6-5.0) mmol/L Chloride 107.5 H (98-107) mmol/L Carbon Dioxide 31 H (22-30) mmol/L BUN 18 (9-20) mg/dL Creatinine 0.4 L (0.8-1.5) mg/dL Glucose 100 (75-100) mg/dL Calcium 8.2 L (8.4-10.2) mg/dL - Imaging and Cardiology EKG: report reviewed, image reviewed Echo: report reviewed (05/30/17: EF 50-55%, mild-moderate [place]) - EKG Sinus rhythms and dysrhythmias: sinus bradycardia
--- NOTE | 2017-06-01 09:36 | Progress Note ---
Subjective - Reason for Consult Consult date: 06/01/17 Reason for consult: Psychiatry Follow-up - Chief Complaint Chief complaint: "The patient is intubated" 42 year old male inmate seen in the ICU for attempted psychiatric evaluation. No changes from previous assessment. Mental Status Exam - Vital signs Last Vital Signs Temp 98.7 F 06/01/17 04:00 Pulse 50 L 06/01/17 08:40 Resp 16 06/01/17 08:30 BP 125/67 06/01/17 08:40 Pulse Ox 99 06/01/17 08:40 - Exam Narrative exam: Unable to complete the MSE because of the patient's condition. Assessment and Plan Impression: Reported history of Schizophrenia. The patient is still intubated. Medical conditions managed by the medical team. Recommendation/Plan: Psychiatry sign off. Reconsult once patient is extubated.
--- NOTE | 2017-06-01 09:47 | Progress Note ---
Assessment and Plan 1) Sepsis with septic shock: afebrile. off levophed. Normal WBC. Etiology pneumonia. Other Possibilities: ? [employer]ASING [employer] infection. -CRP=15 -Procalcitonin 12.6 2) Pneumonia: Secondary to ? aspiration. - Influenza A/B PCR negative. s/p course of tamiflu. - Legionella and Strep pneumo urinary ag - negative. - Tracheal aspirate culture 05/29 GNR. 3) Acute Encephalopathy - ? unclear etiology. Awake, following some commands. 4) Acute respiratory failure. Intubated. 5) Thrombocytopenia - resolving. 6) Elevated LFTs: ?shock liver. AST/ALT improved. 7) Bradycardia. 8) h/o Schizophrenia. Currently in senior care. Plan: -follow-up ID of GNR in sputum culture. -follow-up MELBA with reflex, C3, C4, ANCA -Since PLTs are better should get lumbar punture for opening pressure and send CSF specimen for Gram stain and culture, glucose, protein, VDRL, HSV-PCR, cryptococcal antigen. -continue vancomycin IV, ceftriaxone 2 g IV q12h, acyclovir IV - day 7 and azithromycin - day 4. -LFTs in AM. 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 Nicole Quintanilla ID attending [facility] m [phone]. Subjective Date of service: 06/01/17 Principal diagnosis: pneumonia Interval history: Remains intubated on the vent. Afebrile. Not on pressors. He is following more commands today. No diarrhea. Microbiology: Blood cultures: 05/25 Neg Respiratory cultures: 05/26 poor sample 05/29 TA GNR. Current Antimicrobials: Vancomycin IV 05/26- Ceftriaxone 2 g IV q12h 05/26- Acyclovir IV 05/26- Azithromycin 05/29- Prior antimicrobials Tamiflu 05/26-05/30 Hydrocortisone Objective - Exam Narrative Exam: General appearance: Pt in NAD. Intubated. Awake. Not on sedation. Tracks and following some commands today (open/closes eyes, moves R thumbs). Eyes: anicteric sclerae, moist conjunctivae; pupils reactive HENT: Atraumatic; oropharynx clear +ETT +NGT Neck: Trachea midline; supple, no thyromegaly or lymphadenopathy Lungs: Clear B. CV: S1,S2 Abdomen: Soft, non-tender, non-distended. Extremities: No peripheral edema or extremity lymphadenopathy Skin: Normal temperature, turgor and texture; no rash, ulcers or subcutaneous nodules Psych: Intubated. Unable to evaluate. Neuro: Awake. Trachs, closes/opens eyes when asked. Lines: left PICC / reyes with clear urine - Constitutional Vitals: Vital Signs Temp Pulse Resp BP Pulse Ox 98.7 F 50 L 16 125/67 99 06/01/17 04:00 06/01/17 08:40 06/01/17 08:30 06/01/17 08:40 06/01/17 08:40 Temperature -Last 24 Hours Temperature 98.7 F Temperature 98.3 F Temperature 98.3 F Temperature 98.7 F Temperature 98.4 F Temperature 98.9 F Temperature 98.6 F Temperature 98 F - Labs CBC & Chem 7: 06/01/17 Unknown 06/01/17 Unknown Labs: Abnormal lab results 05/27/17 05/31/17 06/01/17 Range/Units 20:43 13:52 05:16 RBC (3.65-5.03) M/mm3 Hgb (11.8-15.2) gm/dl Hct (35.5-45.6) % MCV (84-94) fl MCH (28-32) pg Plt Count (140-440) K/mm3 Lymph # (1.2-5.4) K/mm3 Seg Neutrophils % (40.0-70.0) % POC ABG pH 7.499 H (7.35-7.45) POC ABG pO2 71 L (80-105) Sodium (137-145) mmol/L Potassium (3.6-5.0) mmol/L Chloride (98-107) mmol/L Carbon Dioxide (22-30) mmol/L Creatinine (0.8-1.5) mg/dL POC Glucose 114 H (70-105) Calcium (8.4-10.2) mg/dL Miscellaneous Test Flexitest 1 H 06/01/17 06/01/17 Range/Units Unknown Unknown RBC 3.24 L (3.65-5.03) M/mm3 Hgb 8.1 L (11.8-15.2) gm/dl Hct 23.8 L (35.5-45.6) % MCV 74 L (84-94) fl MCH 25 L (28-32) pg Plt Count 136 L D (140-440) K/mm3 Lymph # 1.0 L (1.2-5.4) K/mm3 Seg Neutrophils % 80.1 H (40.0-70.0) % POC ABG pH (7.35-7.45) POC ABG pO2 (80-105) Sodium 148 H (137-145) mmol/L Potassium 3.3 L (3.6-5.0) mmol/L Chloride 107.5 H (98-107) mmol/L Carbon Dioxide 31 H (22-30) mmol/L Creatinine 0.4 L (0.8-1.5) mg/dL POC Glucose (70-105) Calcium 8.2 L (8.4-10.2) mg/dL Miscellaneous Test
[2017-06-01] MEDS ORDERED: KCL 10MEQ/100ML 10 MEQ/100 ML BAG IV SCH (12:00)
[2017-06-01] MEDS: KCL 10 MEQ in NACL 0.9% 100 ML IV SCH ×2 (12:32→14:37)
[2017-06-01] MEDS: D50W (25GM) Syringe IV PRN ×3 (14:54→23:03)
--- NOTE | 2017-06-01 14:59 | Progress Note ---
Assessment and Plan SEVERE SEPSIS WITH SEPTIC SHOCK- POA, Severe Hypothermia on admission, resolved, likely from sepsis Acute Toxic Metabolic Encephalopathy Acute Respiratory Failure Thrombocytopenia-severe- no bleeding noted Aspiration Pneumonia with possible Post influenza Pneumonia h/o Schizophrenia Hypoglycemia, resolved Severe Protein Calorie Malnutrition Hypernatremia, improved Elevated LFT, likely from sepsis hypokalemia - ID consulted, Abx as ordered - s/p total 6 units of platelets Transfused - Continue IV fluid and free water with TF - Continue ventilatory support - Monitor cultures - Await Lumber pucture. - MRI brain when more stable, s/p repeat CT head showed no new findings - Replace Electrolytes accordingly - GI prophylaxis - Hold all Anticoagulations - Discussed with HILTON, RN at bedside Brief History: Patient is 42 years old AA male, from half-way for evaluation of altered mental status and bradycardia. Also Hypothermic Only history available is schizophrenia. No other information can be obtained at this moment since patient is not communicating. No fever or chills per [facility] staff. Physical exam: General appearance: Present: other (intubated) - EENT Eyes: no congestion - Neck Neck: Present: supple - Respiratory Respiratory effort: other (ett) Respiratory: bilateral: diminished - Cardiovascular Rhythm: regular Heart Sounds: Present: S1 & S2. Absent: systolic murmur - Extremities Extremities: pulses intact, normal temperature Peripheral Pulses: within normal limits - Abdominal General gastrointestinal: soft, non-distended, hypoactive bowel sounds - Integumentary Integumentary: Present: warm - Psychiatric Psychiatric: other (unable to access) - Neurologic Neurologic: other (unable to access) - skin no rash - Allied Health Allied health notes reviewed: nursing The high probability of a clinically significant, sudden or life threatening deterioration of the [PULMONARY, NEUROLOGY] system(s) required my full and direct attention, intervention and personal management. The aggregate critical care time was [35] minutes. This time is in addition to time spent performing reported procedures but includes the following: [X] Data Review and interpretation [X] Patient assessment and monitoring of vital signs [X] Documentation [X] Medication orders and management Subjective Date of service: 06/01/17 Principal diagnosis: pneumonia Interval history: Pt seen and examined remained intubated, tolerating Tube feeding Objective - Constitutional Vitals: Vital Signs - 12hr 06/01/17 06/01/17 06/01/17 03:00 03:16 03:30 Temperature Pulse Rate 50 L 60 40 L Pulse Rate [ Apical] Pulse Rate [ From Monitor] Respiratory 15 16 16 Rate Blood Pressure 118/73 118/73 140/102 O2 Sat by Pulse Oximetry 06/01/17 06/01/17 06/01/17 03:46 04:00 04:15 Temperature 98.7 F Pulse Rate 47 L 79 Pulse Rate [ 58 L Apical] Pulse Rate [ From Monitor] Respiratory 16 25 H 16 Rate Blood Pressure 140/102 133/82 O2 Sat by Pulse 98 Oximetry 06/01/17 06/01/17 06/01/17 04:16 04:30 04:46 Temperature Pulse Rate 49 L 62 61 Pulse Rate [ Apical] Pulse Rate [ From Monitor] Respiratory 16 16 15 Rate Blood Pressure 133/82 133/82 133/82 O2 Sat by Pulse 100 94 97 Oximetry 06/01/17 06/01/17 06/01/17 05:00 05:04 05:16 Temperature Pulse Rate 62 57 L 47 L Pulse Rate [ Apical] Pulse Rate [ From Monitor] Respiratory 16 16 Rate Blood Pressure 126/76 126/76 126/76 O2 Sat by Pulse 96 98 98 Oximetry 06/01/17 06/01/17 06/01/17 05:30 05:46 06:00 Temperature Pulse Rate 60 54 L 59 L Pulse Rate [ Apical] Pulse Rate [ From Monitor] Respiratory 16 16 18 Rate Blood Pressure 126/76 126/76 141/83 O2 Sat by Pulse 98 99 99 Oximetry 06/01/17 06/01/17 06/01/17 06:16 06:30 06:46 Temperature Pulse Rate 47 L 41 L 56 L Pulse Rate [ Apical] Pulse Rate [ From Monitor] Respiratory 16 16 16 Rate Blood Pressure 141/83 141/83 141/83 O2 Sat by Pulse 99 99 99 Oximetry 06/01/17 06/01/17 06/01/17 07:00 07:16 07:30 Temperature Pulse Rate 62 51 L 52 L Pulse Rate [ Apical] Pulse Rate [ From Monitor] Respiratory 16 14 16 Rate Blood Pressure 147/85 147/85 147/85 O2 Sat by Pulse 99 100 100 Oximetry 06/01/17 06/01/17 06/01/17 07:46 08:00 08:16 Temperature 96.8 F L Pulse Rate 54 L 46 L 61 Pulse Rate [ Apical] Pulse Rate [ 46 L From Monitor] Respiratory 16 16 16 Rate Blood Pressure 147/85 147/85 125/67 O2 Sat by Pulse 99 99 100 Oximetry 06/01/17 06/01/17 06/01/17 08:30 08:40 08:46 Temperature Pulse Rate 56 L 50 L 41 L Pulse Rate [ Apical] Pulse Rate [ From Monitor] Respiratory 16 16 Rate Blood Pressure 125/67 125/67 125/67 O2 Sat by Pulse 100 99 100 Oximetry 06/01/17 06/01/17 06/01/17 09:00 09:16 09:30 Temperature Pulse Rate 57 L 73 52 L Pulse Rate [ Apical] Pulse Rate [ From Monitor] Respiratory 16 18 16 Rate Blood Pressure 134/75 134/75 134/75 O2 Sat by Pulse 100 100 100 Oximetry 06/01/17 06/01/17 06/01/17 09:46 10:00 10:16 Temperature Pulse Rate 51 L 56 L 42 L Pulse Rate [ Apical] Pulse Rate [ From Monitor] Respiratory 16 16 16 Rate Blood Pressure 134/75 134/75 135/83 O2 Sat by Pulse 100 98 100 Oximetry 06/01/17 06/01/17 06/01/17 10:30 10:46 11:00 Temperature Pulse Rate 45 L 64 43 L Pulse Rate [ Apical] Pulse Rate [ From Monitor] Respiratory 16 17 16 Rate Blood Pressure 135/83 135/83 131/72 O2 Sat by Pulse 100 99 99 Oximetry 06/01/17 06/01/17 06/01/17 11:08 11:27 12:00 Temperature 95.8 F L Pulse Rate 47 L Pulse Rate [ Apical] Pulse Rate [ 56 L From Monitor] Respiratory 16 Rate Blood Pressure 132/72 O2 Sat by Pulse 98 99 Oximetry - Labs CBC & Chem 7: 06/01/17 Unknown 06/02/17 06:00 Labs: Abnormal lab results 05/27/17 06/01/17 06/01/17 Range/Units 20:43 05:16 Unknown RBC 3.24 L (3.65-5.03) M/mm3 Hgb 8.1 L (11.8-15.2) gm/dl Hct 23.8 L (35.5-45.6) % MCV 74 L (84-94) fl MCH 25 L (28-32) pg Plt Count 136 L D (140-440) K/mm3 Lymph # 1.0 L (1.2-5.4) K/mm3 Seg Neutrophils % 80.1 H (40.0-70.0) % POC ABG pH 7.499 H (7.35-7.45) POC ABG pO2 71 L (80-105) Sodium (137-145) mmol/L Potassium (3.6-5.0) mmol/L Chloride (98-107) mmol/L Carbon Dioxide (22-30) mmol/L Creatinine (0.8-1.5) mg/dL Calcium (8.4-10.2) mg/dL Miscellaneous Test Flexitest 1 H 06/01/17 Range/Units Unknown RBC (3.65-5.03) M/mm3 Hgb (11.8-15.2) gm/dl Hct (35.5-45.6) % MCV (84-94) fl MCH (28-32) pg Plt Count (140-440) K/mm3 Lymph # (1.2-5.4) K/mm3 Seg Neutrophils % (40.0-70.0) % POC ABG pH (7.35-7.45) POC ABG pO2 (80-105) Sodium 148 H (137-145) mmol/L Potassium 3.3 L (3.6-5.0) mmol/L Chloride 107.5 H (98-107) mmol/L Carbon Dioxide 31 H (22-30) mmol/L Creatinine 0.4 L (0.8-1.5) mg/dL Calcium 8.2 L (8.4-10.2) mg/dL Miscellaneous Test
[2017-06-01] MEDS ORDERED: NACL 0.45% 1000 ML 1,000 ML IV SCH (15:00)
--- NOTE | 2017-06-01 15:06 | Progress Note ---
Assessment and Plan Imp: 1. Pneumonia, bilateral 2. ? Meningoencephalitis 3. Sepsis 4. Acute respiratory failure, hypoxia 5. Severe thrombocytopenia 6. Acute encephalopathy 7. Sinus bradycardia Rec: 1. ABX per ID but given significant pneumonia on chest imaging recommend covering atypicals pending serologic work-up 2. Agree w/ ANCAs, complements, lupus work-up -> pending; MELBA is neg 3. Awaiting LP and ? repeat CT head 4. Off steroids 5. EKG shows sinus renard; BP stable and he is asymptomatic; will place Atropine at bedside; appreciate cardiology evaluation 6. SCDs 7. PSV trials -> possible extubation next day or so 8. CK, AST, and ALT elevated c/w mild rhabdo ? viral versus inflammatory/auto- immune; check aldolase and Katherin-1 9. Neurology consulted No family present; complex decision-making Subjective Date of service: 06/01/17 Principal diagnosis: pneumonia Interval history: Alert, will follow commands. Moves all extremities. HR 40's to 50's now. Cannot provide history. Active Medications Acetaminophen (Tylenol) 650 mg PO Q4H PRN PRN Reason: Pain MILD(1-3)/Fever >100.5/FOFANA Lipase/Protease/Amylase (Pancreaze Dr 10,500 Unit) 1 each FEEDTUBE PRN PRN PRN Reason: For Clogged Feeding Tube Atropine Sulfate (Atropine) 1 mg IV ONCE PRN PRN Reason: Bradycardia Bisacodyl (Dulcolax) 10 mg ME QDAY PRN PRN Reason: Constipation unrelieved by MOM Dextrose (D50w (25gm) Syringe) 50 ml IV PRN PRN PRN Reason: Hypoglycemia Last Admin: 06/01/17 14:54 Dose: 50 ml Famotidine (Pepcid) 20 mg PO BID RICCARDO Last Admin: 06/01/17 09:20 Dose: 20 mg Norepinephrine (Levophed Drip 4 Mg/Ns 250 Ml) 4 mg in 250 mls @ 7.5 mls/hr IV TITR RICCARDO; 2 MCG/MIN PRN Reason: Protocol Last Titration: 05/28/17 07:50 Dose: 1 mcg/min, 3.75 mls/hr Ceftriaxone Sodium 2 gm/ (Sodium Chloride) 20 mls @ 20 mls/10 min IV Q12H RICCARDO Last Admin: 06/01/17 04:11 Dose: 20 mls/10 min Acyclovir 680 mg/ Sodium (Chloride) 113.6 mls @ 100 mls/hr IV Q8H [facility] Last Admin: 06/01/17 09:42 Dose: 100 mls/hr Midazolam HCl 100 mg/ Sodium (Chloride) 100 mls @ 2 mls/hr IV TITR RICCARDO; 2 MG/HR PRN Reason: Protocol Last Titration: 05/27/17 13:30 Dose: 2 mg/hr, 2 mls/hr Vancomycin HCl 1,250 mg/ (Sodium Chloride) 262.5 mls @ 166.667 mls/hr IV Q8HR [facility] Last Admin: 06/01/17 13:17 Dose: 166.667 mls/hr Azithromycin 500 mg/ Sodium (Chloride) 250 mls @ 250 mls/hr IV Q24H [facility] Last Admin: 05/31/17 18:01 Dose: 250 mls/hr Sodium Chloride (Nacl 0.45% 1000 Ml) 1,000 mls @ 75 mls/hr IV DIRECT RICCARDO Magnesium Hydroxide (Milk Of Magnesia) 30 ml PO Q4H PRN PRN Reason: Constipation Ondansetron HCl (Zofran) 4 mg IV Q8H PRN PRN Reason: N/V unrelieved by Reglan Simple Syrup (Simple Syrup) 15 ml FEEDTUBE PRN PRN PRN Reason: Hypoglycemia Simple Syrup (Simple Syrup) 30 ml FEEDTUBE PRN PRN PRN Reason: Hypoglycemia Sodium Bicarbonate (Sodium Bicarbonate) 325 mg FEEDTUBE PRN PRN PRN Reason: For Clogged Feeding Tube Thiamine HCl (Vitamin B-1) 100 mg PO QDAY [facility] Last Admin: 06/01/17 09:20 Dose: 100 mg Vancomycin HCl (Vancomycin Pharmacy To Dose) 1 each IV PKCONSULT RICCARDO PRN Reason: Protocol Objective Vital Signs - 12hr 06/01/17 06/01/17 06/01/17 03:16 03:30 03:46 Temperature Pulse Rate 60 40 L 47 L Pulse Rate [ Apical] Pulse Rate [ From Monitor] Respiratory 16 16 16 Rate Blood Pressure 118/73 140/102 140/102 O2 Sat by Pulse Oximetry 06/01/17 06/01/17 06/01/17 04:00 04:15 04:16 Temperature 98.7 F Pulse Rate 79 49 L Pulse Rate [ 58 L Apical] Pulse Rate [ From Monitor] Respiratory 25 H 16 16 Rate Blood Pressure 133/82 133/82 O2 Sat by Pulse 98 100 Oximetry 06/01/17 06/01/17 06/01/17 04:30 04:46 05:00 Temperature Pulse Rate 62 61 62 Pulse Rate [ Apical] Pulse Rate [ From Monitor] Respiratory 16 15 16 Rate Blood Pressure 133/82 133/82 126/76 O2 Sat by Pulse 94 97 96 Oximetry 06/01/17 06/01/17 06/01/17 05:04 05:16 05:30 Temperature Pulse Rate 57 L 47 L 60 Pulse Rate [ Apical] Pulse Rate [ From Monitor] Respiratory 16 16 Rate Blood Pressure 126/76 126/76 126/76 O2 Sat by Pulse 98 98 98 Oximetry 06/01/17 06/01/17 06/01/17 05:46 06:00 06:16 Temperature Pulse Rate 54 L 59 L 47 L Pulse Rate [ Apical] Pulse Rate [ From Monitor] Respiratory 16 18 16 Rate Blood Pressure 126/76 141/83 141/83 O2 Sat by Pulse 99 99 99 Oximetry 06/01/17 06/01/17 06/01/17 06:30 06:46 07:00 Temperature Pulse Rate 41 L 56 L 62 Pulse Rate [ Apical] Pulse Rate [ From Monitor] Respiratory 16 16 16 Rate Blood Pressure 141/83 141/83 147/85 O2 Sat by Pulse 99 99 99 Oximetry 06/01/17 06/01/17 06/01/17 07:16 07:30 07:46 Temperature Pulse Rate 51 L 52 L 54 L Pulse Rate [ Apical] Pulse Rate [ From Monitor] Respiratory 14 16 16 Rate Blood Pressure 147/85 147/85 147/85 O2 Sat by Pulse 100 100 99 Oximetry 06/01/17 06/01/17 06/01/17 08:00 08:16 08:30 Temperature 96.8 F L Pulse Rate 46 L 61 56 L Pulse Rate [ Apical] Pulse Rate [ 46 L From Monitor] Respiratory 16 16 16 Rate Blood Pressure 147/85 125/67 125/67 O2 Sat by Pulse 99 100 100 Oximetry 06/01/17 06/01/17 06/01/17 08:40 08:46 09:00 Temperature Pulse Rate 50 L 41 L 57 L Pulse Rate [ Apical] Pulse Rate [ From Monitor] Respiratory 16 16 Rate Blood Pressure 125/67 125/67 134/75 O2 Sat by Pulse 99 100 100 Oximetry 06/01/17 06/01/17 06/01/17 09:16 09:30 09:46 Temperature Pulse Rate 73 52 L 51 L Pulse Rate [ Apical] Pulse Rate [ From Monitor] Respiratory 18 16 16 Rate Blood Pressure 134/75 134/75 134/75 O2 Sat by Pulse 100 100 100 Oximetry 06/01/17 06/01/17 06/01/17 10:00 10:16 10:30 Temperature Pulse Rate 56 L 42 L 45 L Pulse Rate [ Apical] Pulse Rate [ From Monitor] Respiratory 16 16 16 Rate Blood Pressure 134/75 135/83 135/83 O2 Sat by Pulse 98 100 100 Oximetry 06/01/17 06/01/17 06/01/17 10:46 11:00 11:08 Temperature Pulse Rate 64 43 L Pulse Rate [ Apical] Pulse Rate [ 56 L From Monitor] Respiratory 17 16 16 Rate Blood Pressure 135/83 131/72 O2 Sat by Pulse 99 99 98 Oximetry 06/01/17 06/01/17 11:27 12:00 Temperature 95.8 F L Pulse Rate 47 L Pulse Rate [ Apical] Pulse Rate [ From Monitor] Respiratory Rate Blood Pressure 132/72 O2 Sat by Pulse 99 Oximetry Constitutional: alert, other (critically ill on vent) Eyes: non-icteric ENT: other (orally intubated) Neck: supple Effort: normal Ascultation: Bilateral: other (coarse BS bilaterally) Cardiovascular: other (sinus renard, RR; no mrg) Gastrointestinal: normoactive bowel sounds, soft, non-tender, non-distended Integumentary: normal Extremities: no cyanosis, no edema, pink and warm Neurologic: other (GARVIN) Psychiatric: mood appropriate, affect normal CBC and BMP: 06/01/17 Unknown 06/01/17 Unknown ABG, PT/INR, D-dimer: ABG POC ABG pH 7.499 (7.35-7.45) H 06/01/17 05:16 POC ABG pCO2 42.2 (35-45) 06/01/17 05:16 POC ABG pO2 71 (80-105) L 06/01/17 05:16 POC ABG HCO3 32.8 06/01/17 05:16 POC ABG Total CO2 34 06/01/17 05:16 POC ABG O2 Sat 95 06/01/17 05:16 PT/INR, D-dimer PT 12.3 Sec. (12.2-14.9) 05/31/17 05:40 INR 0.87 (0.87-1.13) 05/31/17 05:40 Abnormal lab findings: Abnormal Labs 05/25/17 05/25/17 05/25/17 13:32 13:32 13:32 WBC RBC 5.76 H Hgb Hct MCV 77 L MCH 25 L MCHC RDW 15.9 H Plt Count 48 L Lymph % (Auto) Lymph # Seg Neutrophils % Seg Neuts % (Manual) 76.0 H Lymphocytes % (Manual) 2.0 L Nucleated RBC % Seg Neutrophils # Man Lymphocytes # (Manual) 0.1 L PT INR APTT POC ABG pH POC ABG pCO2 POC ABG pO2 Sodium 147 H Potassium Chloride 109.4 H Carbon Dioxide BUN Creatinine 0.3 L Glucose 102 H POC Glucose Lactic Acid Calcium Magnesium AST 111 H ALT 168 H Total Creatine Kinase C-Reactive Protein Total Protein 5.8 L Albumin 2.9 L Vitamin B12 Salicylates < 0.3 L Miscellaneous Test 05/25/17 05/25/17 05/25/17 13:32 15:16 16:34 WBC RBC Hgb Hct MCV MCH MCHC RDW Plt Count Lymph % (Auto) Lymph # Seg Neutrophils % Seg Neuts % (Manual) Lymphocytes % (Manual) Nucleated RBC % Seg Neutrophils # Man Lymphocytes # (Manual) PT INR APTT POC ABG pH POC ABG pCO2 POC ABG pO2 Sodium Potassium Chloride Carbon Dioxide BUN Creatinine Glucose POC Glucose Lactic Acid 2.20 H* 2.10 H* Calcium Magnesium AST ALT Total Creatine Kinase 360 H C-Reactive Protein Total Protein Albumin Vitamin B12 Salicylates Miscellaneous Test 05/26/17 05/26/17 05/26/17 00:47 00:47 06:07 WBC 2.1 L RBC 5.23 H Hgb Hct MCV 75 L MCH 25 L MCHC RDW 15.6 H Plt Count 51 L Lymph % (Auto) Lymph # Seg Neutrophils % Seg Neuts % (Manual) 24.0 L Lymphocytes % (Manual) 8.0 L Nucleated RBC % Seg Neutrophils # Man 0.5 L Lymphocytes # (Manual) 0.2 L PT INR APTT POC ABG pH POC ABG pCO2 POC ABG pO2 Sodium 148 H Potassium Chloride 112.6 H Carbon Dioxide BUN Creatinine Glucose 33 L* POC Glucose 44 L Lactic Acid Calcium Magnesium AST 85 H ALT 127 H Total Creatine Kinase C-Reactive Protein Total Protein 4.6 L D Albumin 2.4 L Vitamin B12 Salicylates Miscellaneous Test 05/26/17 05/26/17 05/26/17 06:33 09:45 10:01 WBC RBC Hgb Hct MCV MCH MCHC RDW Plt Count Lymph % (Auto) Lymph # Seg Neutrophils % Seg Neuts % (Manual) Lymphocytes % (Manual) Nucleated RBC % Seg Neutrophils # Man Lymphocytes # (Manual) PT INR APTT POC ABG pH POC ABG pCO2 POC ABG pO2 Sodium Potassium Chloride Carbon Dioxide BUN Creatinine Glucose POC Glucose 130 H 52 L 182 H Lactic Acid Calcium Magnesium AST ALT Total Creatine Kinase C-Reactive Protein Total Protein Albumin Vitamin B12 Salicylates Miscellaneous Test 05/26/17 05/26/17 05/26/17 10:56 12:41 14:58 WBC RBC Hgb Hct MCV MCH MCHC RDW Plt Count Lymph % (Auto) Lymph # Seg Neutrophils % Seg Neuts % (Manual) Lymphocytes % (Manual) Nucleated RBC % Seg Neutrophils # Man Lymphocytes # (Manual) PT INR APTT POC ABG pH POC ABG pCO2 POC ABG pO2 61 L Sodium Potassium Chloride Carbon Dioxide BUN Creatinine Glucose POC Glucose 69 L 150 H Lactic Acid Calcium Magnesium AST ALT Total Creatine Kinase C-Reactive Protein Total Protein Albumin Vitamin B12 Salicylates Miscellaneous Test 05/26/17 05/26/17 05/26/17 15:41 15:53 17:46 WBC RBC Hgb Hct MCV MCH MCHC RDW Plt Count Lymph % (Auto) Lymph # Seg Neutrophils % Seg Neuts % (Manual) Lymphocytes % (Manual) Nucleated RBC % Seg Neutrophils # Man Lymphocytes # (Manual) PT INR APTT POC ABG pH 7.330 L POC ABG pCO2 POC ABG pO2 77 L Sodium Potassium Chloride Carbon Dioxide BUN Creatinine Glucose POC Glucose 63 L Lactic Acid Calcium Magnesium AST ALT Total Creatine Kinase C-Reactive Protein 15.20 H Total Protein Albumin Vitamin B12 Salicylates Miscellaneous Test 05/26/17 05/26/17 05/27/17 18:40 20:18 00:35 WBC RBC Hgb Hct MCV MCH MCHC RDW Plt Count Lymph % (Auto) Lymph # Seg Neutrophils % Seg Neuts % (Manual) Lymphocytes % (Manual) Nucleated RBC % Seg Neutrophils # Man Lymphocytes # (Manual) PT INR APTT POC ABG pH POC ABG pCO2 POC ABG pO2 Sodium Potassium Chloride Carbon Dioxide BUN Creatinine Glucose POC Glucose 149 H 63 L 49 L Lactic Acid Calcium Magnesium AST ALT Total Creatine Kinase C-Reactive Protein Total Protein Albumin Vitamin B12 Salicylates Miscellaneous Test 05/27/17 05/27/17 05/27/17 02:33 04:00 04:00 WBC RBC Hgb 11.7 L Hct 34.6 L MCV 75 L MCH 25 L MCHC RDW 15.6 H Plt Count 21 L Lymph % (Auto) Lymph # Seg Neutrophils % Seg Neuts % (Manual) 14.0 L Lymphocytes % (Manual) 5.0 L Nucleated RBC % Seg Neutrophils # Man 1.5 L Lymphocytes # (Manual) 0.5 L PT INR APTT POC ABG pH POC ABG pCO2 POC ABG pO2 Sodium 148 H Potassium Chloride 112.7 H Carbon Dioxide BUN 24 H Creatinine Glucose POC Glucose 61 L Lactic Acid Calcium 7.7 L Magnesium AST 115 H ALT 100 H Total Creatine Kinase C-Reactive Protein Total Protein 3.8 L Albumin 2.1 L Vitamin B12 Salicylates Miscellaneous Test 05/27/17 05/27/17 05/27/17 04:00 05:20 06:36 WBC RBC Hgb Hct MCV MCH MCHC RDW Plt Count Lymph % (Auto) Lymph # Seg Neutrophils % Seg Neuts % (Manual) Lymphocytes % (Manual) Nucleated RBC % Seg Neutrophils # Man Lymphocytes # (Manual) PT 19.7 H INR 1.57 H APTT 57.0 H POC ABG pH POC ABG pCO2 POC ABG pO2 Sodium Potassium Chloride Carbon Dioxide BUN Creatinine Glucose POC Glucose 64 L 120 H Lactic Acid Calcium Magnesium AST ALT Total Creatine Kinase C-Reactive Protein Total Protein Albumin Vitamin B12 Salicylates Miscellaneous Test 05/27/17 05/27/17 05/27/17 09:15 12:35 15:44 WBC RBC Hgb Hct MCV MCH MCHC RDW Plt Count Lymph % (Auto) Lymph # Seg Neutrophils % Seg Neuts % (Manual) Lymphocytes % (Manual) Nucleated RBC % Seg Neutrophils # Man Lymphocytes # (Manual) PT INR APTT POC ABG pH POC ABG pCO2 POC ABG pO2 380 H Sodium Potassium Chloride Carbon Dioxide BUN Creatinine Glucose POC Glucose 162 H 193 H Lactic Acid Calcium Magnesium AST ALT Total Creatine Kinase C-Reactive Protein Total Protein Albumin Vitamin B12 Salicylates Miscellaneous Test 05/27/17 05/27/17 05/27/17 18:14 20:12 20:15 WBC RBC Hgb 10.3 L Hct 30.7 L MCV 75 L MCH 25 L MCHC RDW 15.6 H Plt Count 15 L* Lymph % (Auto) Lymph # Seg Neutrophils % Seg Neuts % (Manual) 95.0 H Lymphocytes % (Manual) 4.0 L Nucleated RBC % Seg Neutrophils # Man Lymphocytes # (Manual) 0.3 L PT INR APTT POC ABG pH POC ABG pCO2 POC ABG pO2 Sodium Potassium Chloride Carbon Dioxide BUN Creatinine Glucose POC Glucose 199 H 165 H Lactic Acid Calcium Magnesium AST ALT Total Creatine Kinase C-Reactive Protein Total Protein Albumin Vitamin B12 Salicylates Miscellaneous Test 05/27/17 05/27/17 05/27/17 20:43 21:48 23:08 WBC RBC Hgb Hct MCV MCH MCHC RDW Plt Count Lymph % (Auto) Lymph # Seg Neutrophils % Seg Neuts % (Manual) Lymphocytes % (Manual) Nucleated RBC % Seg Neutrophils # Man Lymphocytes # (Manual) PT INR APTT POC ABG pH POC ABG pCO2 POC ABG pO2 Sodium Potassium Chloride Carbon Dioxide BUN Creatinine Glucose 150 H POC Glucose 166 H Lactic Acid Calcium 8.3 L Magnesium AST ALT Total Creatine Kinase C-Reactive Protein Total Protein Albumin Vitamin B12 Salicylates Miscellaneous Test Flexitest 1 H 05/27/17 05/28/17 05/28/17 23:51 02:23 04:19 WBC RBC Hgb Hct MCV MCH MCHC RDW Plt Count Lymph % (Auto) Lymph # Seg Neutrophils % Seg Neuts % (Manual) Lymphocytes % (Manual) Nucleated RBC % Seg Neutrophils # Man Lymphocytes # (Manual) PT INR APTT POC ABG pH POC ABG pCO2 POC ABG pO2 75 L Sodium Potassium Chloride Carbon Dioxide BUN Creatinine Glucose POC Glucose 173 H 177 H Lactic Acid Calcium Magnesium AST ALT Total Creatine Kinase C-Reactive Protein Total Protein Albumin Vitamin B12 Salicylates Miscellaneous Test 05/28/17 05/28/17 05/28/17 05:40 05:50 05:50 WBC RBC Hgb 10.5 L Hct 30.9 L MCV 75 L MCH 25 L MCHC RDW 15.5 H Plt Count 16 L* Lymph % (Auto) Lymph # Seg Neutrophils % Seg Neuts % (Manual) Lymphocytes % (Manual) Nucleated RBC % Seg Neutrophils # Man Lymphocytes # (Manual) PT INR APTT POC ABG pH POC ABG pCO2 POC ABG pO2 Sodium Potassium Chloride Carbon Dioxide BUN Creatinine Glucose 129 H POC Glucose 160 H Lactic Acid Calcium 8.3 L Magnesium AST ALT Total Creatine Kinase C-Reactive Protein Total Protein Albumin Vitamin B12 Salicylates Miscellaneous Test 05/28/17 05/28/17 05/28/17 08:21 11:04 12:19 WBC RBC Hgb Hct MCV MCH MCHC RDW Plt Count Lymph % (Auto) Lymph # Seg Neutrophils % Seg Neuts % (Manual) Lymphocytes % (Manual) Nucleated RBC % Seg Neutrophils # Man Lymphocytes # (Manual) PT INR APTT POC ABG pH POC ABG pCO2 POC ABG pO2 178 H Sodium Potassium Chloride Carbon Dioxide BUN Creatinine Glucose POC Glucose 201 H 140 H Lactic Acid Calcium Magnesium AST ALT Total Creatine Kinase C-Reactive Protein Total Protein Albumin Vitamin B12 Salicylates Miscellaneous Test 05/28/17 05/28/17 05/29/17 13:47 16:21 05:56 WBC RBC Hgb Hct MCV MCH MCHC RDW Plt Count Lymph % (Auto) Lymph # Seg Neutrophils % Seg Neuts % (Manual) Lymphocytes % (Manual) Nucleated RBC % Seg Neutrophils # Man Lymphocytes # (Manual) PT INR APTT POC ABG pH POC ABG pCO2 POC ABG pO2 Sodium Potassium Chloride Carbon Dioxide BUN Creatinine Glucose POC Glucose 47 L 110 H Lactic Acid Calcium Magnesium 1.60 L AST ALT Total Creatine Kinase C-Reactive Protein Total Protein Albumin Vitamin B12 Salicylates Miscellaneous Test 05/29/17 05/29/17 05/29/17 08:00 08:57 10:01 WBC RBC Hgb Hct MCV MCH MCHC RDW Plt Count Lymph % (Auto) Lymph # Seg Neutrophils % Seg Neuts % (Manual) Lymphocytes % (Manual) Nucleated RBC % Seg Neutrophils # Man Lymphocytes # (Manual) PT INR APTT POC ABG pH POC ABG pCO2 POC ABG pO2 Sodium 126 L D Potassium 3.3 L Chloride 96.4 L Carbon Dioxide 20 L BUN Creatinine 0.5 L Glucose POC Glucose 120 H 115 H Lactic Acid Calcium 6.6 L D Magnesium AST 485 H ALT 380 H Total Creatine Kinase C-Reactive Protein Total Protein 3.6 L Albumin 1.5 L Vitamin B12 Salicylates Miscellaneous Test 05/29/17 05/29/17 05/29/17 10:15 10:15 11:55 WBC RBC Hgb 9.3 L Hct 27.2 L MCV 73 L MCH 25 L MCHC RDW Plt Count 9 L* Lymph % (Auto) Lymph # Seg Neutrophils % Seg Neuts % (Manual) Lymphocytes % (Manual) Nucleated RBC % Seg Neutrophils # Man Lymphocytes # (Manual) PT INR APTT POC ABG pH POC ABG pCO2 POC ABG pO2 Sodium Potassium Chloride Carbon Dioxide BUN 24 H Creatinine 0.7 L Glucose 112 H POC Glucose 128 H Lactic Acid Calcium Magnesium AST ALT Total Creatine Kinase C-Reactive Protein Total Protein Albumin Vitamin B12 Salicylates Miscellaneous Test 05/29/17 05/30/17 05/30/17 15:44 01:00 04:21 WBC RBC Hgb Hct MCV MCH MCHC RDW Plt Count Lymph % (Auto) Lymph # Seg Neutrophils % Seg Neuts % (Manual) Lymphocytes % (Manual) Nucleated RBC % Seg Neutrophils # Man Lymphocytes # (Manual) PT INR APTT POC ABG pH 7.528 H POC ABG pCO2 34.8 L POC ABG pO2 108 H Sodium Potassium Chloride Carbon Dioxide BUN Creatinine Glucose POC Glucose 124 H 106 H Lactic Acid Calcium Magnesium AST ALT Total Creatine Kinase C-Reactive Protein Total Protein Albumin Vitamin B12 Salicylates Miscellaneous Test 05/30/17 05/30/17 05/30/17 05:30 05:30 06:02 WBC RBC Hgb 9.3 L Hct 27.6 L MCV 74 L MCH 25 L MCHC RDW Plt Count 40 L D Lymph % (Auto) Lymph # Seg Neutrophils % Seg Neuts % (Manual) 90.0 H Lymphocytes % (Manual) 4.0 L Nucleated RBC % 1.0 H Seg Neutrophils # Man Lymphocytes # (Manual) 0.2 L PT INR APTT POC ABG pH POC ABG pCO2 POC ABG pO2 Sodium Potassium Chloride 109.9 H Carbon Dioxide BUN 26 H Creatinine 0.7 L Glucose 118 H POC Glucose 149 H Lactic Acid Calcium Magnesium AST 445 H ALT 529 H Total Creatine Kinase C-Reactive Protein Total Protein 4.7 L D Albumin 2.2 L Vitamin B12 Salicylates Miscellaneous Test 05/30/17 05/30/17 05/30/17 10:14 15:02 16:28 WBC RBC Hgb Hct MCV MCH MCHC RDW Plt Count Lymph % (Auto) Lymph # Seg Neutrophils % Seg Neuts % (Manual) Lymphocytes % (Manual) Nucleated RBC % Seg Neutrophils # Man Lymphocytes # (Manual) PT INR APTT POC ABG pH POC ABG pCO2 POC ABG pO2 Sodium Potassium Chloride Carbon Dioxide BUN Creatinine Glucose POC Glucose 155 H 169 H Lactic Acid Calcium Magnesium AST ALT Total Creatine Kinase 3464 H C-Reactive Protein Total Protein Albumin Vitamin B12 Salicylates Miscellaneous Test 05/30/17 05/30/17 05/30/17 16:28 17:40 21:35 WBC RBC Hgb Hct MCV MCH MCHC RDW Plt Count Lymph % (Auto) Lymph # Seg Neutrophils % Seg Neuts % (Manual) Lymphocytes % (Manual) Nucleated RBC % Seg Neutrophils # Man Lymphocytes # (Manual) PT INR APTT POC ABG pH POC ABG pCO2 POC ABG pO2 Sodium Potassium Chloride Carbon Dioxide BUN Creatinine Glucose POC Glucose 155 H 129 H Lactic Acid Calcium Magnesium AST ALT Total Creatine Kinase C-Reactive Protein Total Protein Albumin Vitamin B12 1108 H Salicylates Miscellaneous Test 05/31/17 05/31/17 05/31/17 01:54 04:31 05:40 WBC RBC 3.37 L Hgb 8.5 L Hct 24.6 L MCV 73 L MCH 25 L MCHC 35 H RDW Plt Count 55 L Lymph % (Auto) 8.7 L Lymph # 0.5 L Seg Neutrophils % 86.1 H Seg Neuts % (Manual) Lymphocytes % (Manual) Nucleated RBC % Seg Neutrophils # Man Lymphocytes # (Manual) PT INR APTT POC ABG pH 7.547 H POC ABG pCO2 34.6 L POC ABG pO2 79 L Sodium Potassium Chloride Carbon Dioxide BUN Creatinine Glucose POC Glucose 110 H Lactic Acid Calcium Magnesium AST ALT Total Creatine Kinase C-Reactive Protein Total Protein Albumin Vitamin B12 Salicylates Miscellaneous Test 05/31/17 05/31/17 06/01/17 05:40 13:52 05:16 WBC RBC Hgb Hct MCV MCH MCHC RDW Plt Count Lymph % (Auto) Lymph # Seg Neutrophils % Seg Neuts % (Manual) Lymphocytes % (Manual) Nucleated RBC % Seg Neutrophils # Man Lymphocytes # (Manual) PT INR APTT POC ABG pH 7.499 H POC ABG pCO2 POC ABG pO2 71 L Sodium 148 H Potassium 3.2 L Chloride 108.6 H Carbon Dioxide BUN 22 H Creatinine 0.5 L Glucose 101 H POC Glucose 114 H Lactic Acid Calcium 8.2 L Magnesium AST 223 H ALT 359 H Total Creatine Kinase C-Reactive Protein Total Protein 4.6 L Albumin 2.0 L Vitamin B12 Salicylates Miscellaneous Test 06/01/17 06/01/17 Unknown Unknown WBC RBC 3.24 L Hgb 8.1 L Hct 23.8 L MCV 74 L MCH 25 L MCHC RDW Plt Count 136 L D Lymph % (Auto) Lymph # 1.0 L Seg Neutrophils % 80.1 H Seg Neuts % (Manual) Lymphocytes % (Manual) Nucleated RBC % Seg Neutrophils # Man Lymphocytes # (Manual) PT INR APTT POC ABG pH POC ABG pCO2 POC ABG pO2 Sodium 148 H Potassium 3.3 L Chloride 107.5 H Carbon Dioxide 31 H BUN Creatinine 0.4 L Glucose POC Glucose Lactic Acid Calcium 8.2 L Magnesium AST ALT Total Creatine Kinase C-Reactive Protein Total Protein Albumin Vitamin B12 Salicylates Miscellaneous Test Chest x-ray: report reviewed, image reviewed
--- NOTE | 2017-06-01 17:45 | Cat Scan Report ---
FINAL REPORT PROCEDURE: CT head without contrast. TECHNIQUE: Computerized tomography of the head was performed without contrast material. HISTORY: Altered mental status, suspected meningitis. COMPARISON: CT head 05/25/2017. FINDINGS: The ventricles are normal in size. The michel matter and white matter appear normal. There are no mass lesions. There is no intracranial hemorrhage. The calvarium appears intact. There is a tiny amount of fluid in a couple of the right mastoid air cells. There is mild mucosal thickening in both sphenoid sinuses. There is a large soft tissue mass arising posteriorly from the right ear. This measures 2.3 centimeters x 1.9 centimeters in cross-section. Clinical evaluation is suggested. IMPRESSION: Normal study of the brain. Very mild right mastoiditis. Right ear soft tissue mass.
[2017-06-01] MEDS: ZITHROMAX 500 MG in NACL 0.9% 250ML 250 ML IV SCH (18:06)
--- NOTE | 2017-06-01 18:34 | Progress Note ---
Assessment and Plan Encephalopathy 42 year old male with sepsis, hypothermia, bilateral pneumonia, recovering gradually. Still not following commands. Nutritional deficits. Creatine kinase - 3464 Possible myopathy, combined nutritional and rhabdomyolysis. CT brain without abnormality. Plan - Agree with LP. Platelets are adequate. CT cervical spine. Subjective Date of service: 06/01/17 Principal diagnosis: pneumonia Interval history: This is a 42 year old male brought in from residential where he was found with altered mental status on 05/26/17, hypothermic to 89 degrees with bradycardia. He was discovered to have bilateral pneumonia and has been on antibiotics since admission, including Rocephin for [employer] coverage. Other complicating problems have been thrombocytopenia and malnutrition. He has been ventilator dependent for treatment of his pneumonia. Body temperature has normalized. He is off pressors, awake. Only known past history is schizophrenia. The patient continues to appear awake and alert but will not follow commands or move extremities. Pulmonary infiltrates continue. He has finally had his CT brain today, which reveals no stroke, hydrocephalus or hemorrhage. It does however, identify hid ear lobe mass on the right side. Objective - Exam Narrative Exam: Patient is alert and awake, resting comfortably in bed. HEENT - normocephalic no inflamation or lesions. Rt ear lobe with 2 cm. soft mass PERRLA neck supple Chest - clear Heart - reg. rate. 50 nl. S-1 and S-2. Abdomen - soft, nontender. Extremities - no CCE Neurological - alerts quickly to voice. Does not follow simple commands. CN's - EOMs seem full as he looks in all directions. face symmetric, Motor - will not move to command Reflexes - trace throughout. Sensory - intact to pain. slight movement to the toes to pain. - Vital Sign Vital Signs - 12hr 06/01/17 06/01/17 06/01/17 06:30 06:46 07:00 Temperature Pulse Rate 41 L 56 L 62 Pulse Rate [ From Monitor] Respiratory 16 16 16 Rate Blood Pressure 141/83 141/83 147/85 O2 Sat by Pulse 99 99 99 Oximetry 06/01/17 06/01/17 06/01/17 07:16 07:30 07:46 Temperature Pulse Rate 51 L 52 L 54 L Pulse Rate [ From Monitor] Respiratory 14 16 16 Rate Blood Pressure 147/85 147/85 147/85 O2 Sat by Pulse 100 100 99 Oximetry 06/01/17 06/01/17 06/01/17 08:00 08:16 08:30 Temperature 96.8 F L Pulse Rate 46 L 61 56 L Pulse Rate [ 46 L From Monitor] Respiratory 16 16 16 Rate Blood Pressure 147/85 125/67 125/67 O2 Sat by Pulse 99 100 100 Oximetry 06/01/17 06/01/17 06/01/17 08:40 08:46 09:00 Temperature Pulse Rate 50 L 41 L 57 L Pulse Rate [ From Monitor] Respiratory 16 16 Rate Blood Pressure 125/67 125/67 134/75 O2 Sat by Pulse 99 100 100 Oximetry 06/01/17 06/01/17 06/01/17 09:16 09:30 09:46 Temperature Pulse Rate 73 52 L 51 L Pulse Rate [ From Monitor] Respiratory 18 16 16 Rate Blood Pressure 134/75 134/75 134/75 O2 Sat by Pulse 100 100 100 Oximetry 06/01/17 06/01/17 06/01/17 10:00 10:16 10:30 Temperature Pulse Rate 56 L 42 L 45 L Pulse Rate [ From Monitor] Respiratory 16 16 16 Rate Blood Pressure 134/75 135/83 135/83 O2 Sat by Pulse 98 100 100 Oximetry 06/01/17 06/01/17 06/01/17 10:46 11:00 11:08 Temperature Pulse Rate 64 43 L Pulse Rate [ 56 L From Monitor] Respiratory 17 16 16 Rate Blood Pressure 135/83 131/72 O2 Sat by Pulse 99 99 98 Oximetry 06/01/17 06/01/17 06/01/17 11:27 12:00 16:06 Temperature 95.8 F L Pulse Rate 47 L Pulse Rate [ From Monitor] Respiratory 16 Rate Blood Pressure 132/72 O2 Sat by Pulse 99 Oximetry - Laboratory Findings CBC and BMP: 06/01/17 Unknown 06/01/17 Unknown Abnormal Lab Findings: Abnormal Labs 05/25/17 05/25/17 05/25/17 13:32 13:32 13:32 WBC RBC 5.76 H Hgb Hct MCV 77 L MCH 25 L MCHC RDW 15.9 H Plt Count 48 L Lymph % (Auto) Lymph # Seg Neutrophils % Seg Neuts % (Manual) 76.0 H Lymphocytes % (Manual) 2.0 L Nucleated RBC % Seg Neutrophils # Man Lymphocytes # (Manual) 0.1 L PT INR APTT POC ABG pH POC ABG pCO2 POC ABG pO2 Sodium 147 H Potassium Chloride 109.4 H Carbon Dioxide BUN Creatinine 0.3 L Glucose 102 H POC Glucose Lactic Acid Calcium Magnesium AST 111 H ALT 168 H Total Creatine Kinase C-Reactive Protein Total Protein 5.8 L Albumin 2.9 L Vitamin B12 Salicylates < 0.3 L Miscellaneous Test 05/25/17 05/25/17 05/25/17 13:32 15:16 16:34 WBC RBC Hgb Hct MCV MCH MCHC RDW Plt Count Lymph % (Auto) Lymph # Seg Neutrophils % Seg Neuts % (Manual) Lymphocytes % (Manual) Nucleated RBC % Seg Neutrophils # Man Lymphocytes # (Manual) PT INR APTT POC ABG pH POC ABG pCO2 POC ABG pO2 Sodium Potassium Chloride Carbon Dioxide BUN Creatinine Glucose POC Glucose Lactic Acid 2.20 H* 2.10 H* Calcium Magnesium AST ALT Total Creatine Kinase 360 H C-Reactive Protein Total Protein Albumin Vitamin B12 Salicylates Miscellaneous Test 05/26/17 05/26/17 05/26/17 00:47 00:47 06:07 WBC 2.1 L RBC 5.23 H Hgb Hct MCV 75 L MCH 25 L MCHC RDW 15.6 H Plt Count 51 L Lymph % (Auto) Lymph # Seg Neutrophils % Seg Neuts % (Manual) 24.0 L Lymphocytes % (Manual) 8.0 L Nucleated RBC % Seg Neutrophils # Man 0.5 L Lymphocytes # (Manual) 0.2 L PT INR APTT POC ABG pH POC ABG pCO2 POC ABG pO2 Sodium 148 H Potassium Chloride 112.6 H Carbon Dioxide BUN Creatinine Glucose 33 L* POC Glucose 44 L Lactic Acid Calcium Magnesium AST 85 H ALT 127 H Total Creatine Kinase C-Reactive Protein Total Protein 4.6 L D Albumin 2.4 L Vitamin B12 Salicylates Miscellaneous Test 05/26/17 05/26/17 05/26/17 06:33 09:45 10:01 WBC RBC Hgb Hct MCV MCH MCHC RDW Plt Count Lymph % (Auto) Lymph # Seg Neutrophils % Seg Neuts % (Manual) Lymphocytes % (Manual) Nucleated RBC % Seg Neutrophils # Man Lymphocytes # (Manual) PT INR APTT POC ABG pH POC ABG pCO2 POC ABG pO2 Sodium Potassium Chloride Carbon Dioxide BUN Creatinine Glucose POC Glucose 130 H 52 L 182 H Lactic Acid Calcium Magnesium AST ALT Total Creatine Kinase C-Reactive Protein Total Protein Albumin Vitamin B12 Salicylates Miscellaneous Test 05/26/17 05/26/17 05/26/17 10:56 12:41 14:58 WBC RBC Hgb Hct MCV MCH MCHC RDW Plt Count Lymph % (Auto) Lymph # Seg Neutrophils % Seg Neuts % (Manual) Lymphocytes % (Manual) Nucleated RBC % Seg Neutrophils # Man Lymphocytes # (Manual) PT INR APTT POC ABG pH POC ABG pCO2 POC ABG pO2 61 L Sodium Potassium Chloride Carbon Dioxide BUN Creatinine Glucose POC Glucose 69 L 150 H Lactic Acid Calcium Magnesium AST ALT Total Creatine Kinase C-Reactive Protein Total Protein Albumin Vitamin B12 Salicylates Miscellaneous Test 05/26/17 05/26/17 05/26/17 15:41 15:53 17:46 WBC RBC Hgb Hct MCV MCH MCHC RDW Plt Count Lymph % (Auto) Lymph # Seg Neutrophils % Seg Neuts % (Manual) Lymphocytes % (Manual) Nucleated RBC % Seg Neutrophils # Man Lymphocytes # (Manual) PT INR APTT POC ABG pH 7.330 L POC ABG pCO2 POC ABG pO2 77 L Sodium Potassium Chloride Carbon Dioxide BUN Creatinine Glucose POC Glucose 63 L Lactic Acid Calcium Magnesium AST ALT Total Creatine Kinase C-Reactive Protein 15.20 H Total Protein Albumin Vitamin B12 Salicylates Miscellaneous Test 05/26/17 05/26/17 05/27/17 18:40 20:18 00:35 WBC RBC Hgb Hct MCV MCH MCHC RDW Plt Count Lymph % (Auto) Lymph # Seg Neutrophils % Seg Neuts % (Manual) Lymphocytes % (Manual) Nucleated RBC % Seg Neutrophils # Man Lymphocytes # (Manual) PT INR APTT POC ABG pH POC ABG pCO2 POC ABG pO2 Sodium Potassium Chloride Carbon Dioxide BUN Creatinine Glucose POC Glucose 149 H 63 L 49 L Lactic Acid Calcium Magnesium AST ALT Total Creatine Kinase C-Reactive Protein Total Protein Albumin Vitamin B12 Salicylates Miscellaneous Test 05/27/17 05/27/17 05/27/17 02:33 04:00 04:00 WBC RBC Hgb 11.7 L Hct 34.6 L MCV 75 L MCH 25 L MCHC RDW 15.6 H Plt Count 21 L Lymph % (Auto) Lymph # Seg Neutrophils % Seg Neuts % (Manual) 14.0 L Lymphocytes % (Manual) 5.0 L Nucleated RBC % Seg Neutrophils # Man 1.5 L Lymphocytes # (Manual) 0.5 L PT INR APTT POC ABG pH POC ABG pCO2 POC ABG pO2 Sodium 148 H Potassium Chloride 112.7 H Carbon Dioxide BUN 24 H Creatinine Glucose POC Glucose 61 L Lactic Acid Calcium 7.7 L Magnesium AST 115 H ALT 100 H Total Creatine Kinase C-Reactive Protein Total Protein 3.8 L Albumin 2.1 L Vitamin B12 Salicylates Miscellaneous Test 05/27/17 05/27/17 05/27/17 04:00 05:20 06:36 WBC RBC Hgb Hct MCV MCH MCHC RDW Plt Count Lymph % (Auto) Lymph # Seg Neutrophils % Seg Neuts % (Manual) Lymphocytes % (Manual) Nucleated RBC % Seg Neutrophils # Man Lymphocytes # (Manual) PT 19.7 H INR 1.57 H APTT 57.0 H POC ABG pH POC ABG pCO2 POC ABG pO2 Sodium Potassium Chloride Carbon Dioxide BUN Creatinine Glucose POC Glucose 64 L 120 H Lactic Acid Calcium Magnesium AST ALT Total Creatine Kinase C-Reactive Protein Total Protein Albumin Vitamin B12 Salicylates Miscellaneous Test 05/27/17 05/27/17 05/27/17 09:15 12:35 15:44 WBC RBC Hgb Hct MCV MCH MCHC RDW Plt Count Lymph % (Auto) Lymph # Seg Neutrophils % Seg Neuts % (Manual) Lymphocytes % (Manual) Nucleated RBC % Seg Neutrophils # Man Lymphocytes # (Manual) PT INR APTT POC ABG pH POC ABG pCO2 POC ABG pO2 380 H Sodium Potassium Chloride Carbon Dioxide BUN Creatinine Glucose POC Glucose 162 H 193 H Lactic Acid Calcium Magnesium AST ALT Total Creatine Kinase C-Reactive Protein Total Protein Albumin Vitamin B12 Salicylates Miscellaneous Test 05/27/17 05/27/17 05/27/17 18:14 20:12 20:15 WBC RBC Hgb 10.3 L Hct 30.7 L MCV 75 L MCH 25 L MCHC RDW 15.6 H Plt Count 15 L* Lymph % (Auto) Lymph # Seg Neutrophils % Seg Neuts % (Manual) 95.0 H Lymphocytes % (Manual) 4.0 L Nucleated RBC % Seg Neutrophils # Man Lymphocytes # (Manual) 0.3 L PT INR APTT POC ABG pH POC ABG pCO2 POC ABG pO2 Sodium Potassium Chloride Carbon Dioxide BUN Creatinine Glucose POC Glucose 199 H 165 H Lactic Acid Calcium Magnesium AST ALT Total Creatine Kinase C-Reactive Protein Total Protein Albumin Vitamin B12 Salicylates Miscellaneous Test 05/27/17 05/27/17 05/27/17 20:43 21:48 23:08 WBC RBC Hgb Hct MCV MCH MCHC RDW Plt Count Lymph % (Auto) Lymph # Seg Neutrophils % Seg Neuts % (Manual) Lymphocytes % (Manual) Nucleated RBC % Seg Neutrophils # Man Lymphocytes # (Manual) PT INR APTT POC ABG pH POC ABG pCO2 POC ABG pO2 Sodium Potassium Chloride Carbon Dioxide BUN Creatinine Glucose 150 H POC Glucose 166 H Lactic Acid Calcium 8.3 L Magnesium AST ALT Total Creatine Kinase C-Reactive Protein Total Protein Albumin Vitamin B12 Salicylates Miscellaneous Test Flexitest 1 H 05/27/17 05/28/17 05/28/17 23:51 02:23 04:19 WBC RBC Hgb Hct MCV MCH MCHC RDW Plt Count Lymph % (Auto) Lymph # Seg Neutrophils % Seg Neuts % (Manual) Lymphocytes % (Manual) Nucleated RBC % Seg Neutrophils # Man Lymphocytes # (Manual) PT INR APTT POC ABG pH POC ABG pCO2 POC ABG pO2 75 L Sodium Potassium Chloride Carbon Dioxide BUN Creatinine Glucose POC Glucose 173 H 177 H Lactic Acid Calcium Magnesium AST ALT Total Creatine Kinase C-Reactive Protein Total Protein Albumin Vitamin B12 Salicylates Miscellaneous Test 05/28/17 05/28/17 05/28/17 05:40 05:50 05:50 WBC RBC Hgb 10.5 L Hct 30.9 L MCV 75 L MCH 25 L MCHC RDW 15.5 H Plt Count 16 L* Lymph % (Auto) Lymph # Seg Neutrophils % Seg Neuts % (Manual) Lymphocytes % (Manual) Nucleated RBC % Seg Neutrophils # Man Lymphocytes # (Manual) PT INR APTT POC ABG pH POC ABG pCO2 POC ABG pO2 Sodium Potassium Chloride Carbon Dioxide BUN Creatinine Glucose 129 H POC Glucose 160 H Lactic Acid Calcium 8.3 L Magnesium AST ALT Total Creatine Kinase C-Reactive Protein Total Protein Albumin Vitamin B12 Salicylates Miscellaneous Test 05/28/17 05/28/17 05/28/17 08:21 11:04 12:19 WBC RBC Hgb Hct MCV MCH MCHC RDW Plt Count Lymph % (Auto) Lymph # Seg Neutrophils % Seg Neuts % (Manual) Lymphocytes % (Manual) Nucleated RBC % Seg Neutrophils # Man Lymphocytes # (Manual) PT INR APTT POC ABG pH POC ABG pCO2 POC ABG pO2 178 H Sodium Potassium Chloride Carbon Dioxide BUN Creatinine Glucose POC Glucose 201 H 140 H Lactic Acid Calcium Magnesium AST ALT Total Creatine Kinase C-Reactive Protein Total Protein Albumin Vitamin B12 Salicylates Miscellaneous Test 05/28/17 05/28/17 05/29/17 13:47 16:21 05:56 WBC RBC Hgb Hct MCV MCH MCHC RDW Plt Count Lymph % (Auto) Lymph # Seg Neutrophils % Seg Neuts % (Manual) Lymphocytes % (Manual) Nucleated RBC % Seg Neutrophils # Man Lymphocytes # (Manual) PT INR APTT POC ABG pH POC ABG pCO2 POC ABG pO2 Sodium Potassium Chloride Carbon Dioxide BUN Creatinine Glucose POC Glucose 47 L 110 H Lactic Acid Calcium Magnesium 1.60 L AST ALT Total Creatine Kinase C-Reactive Protein Total Protein Albumin Vitamin B12 Salicylates Miscellaneous Test 05/29/17 05/29/17 05/29/17 08:00 08:57 10:01 WBC RBC Hgb Hct MCV MCH MCHC RDW Plt Count Lymph % (Auto) Lymph # Seg Neutrophils % Seg Neuts % (Manual) Lymphocytes % (Manual) Nucleated RBC % Seg Neutrophils # Man Lymphocytes # (Manual) PT INR APTT POC ABG pH POC ABG pCO2 POC ABG pO2 Sodium 126 L D Potassium 3.3 L Chloride 96.4 L Carbon Dioxide 20 L BUN Creatinine 0.5 L Glucose POC Glucose 120 H 115 H Lactic Acid Calcium 6.6 L D Magnesium AST 485 H ALT 380 H Total Creatine Kinase C-Reactive Protein Total Protein 3.6 L Albumin 1.5 L Vitamin B12 Salicylates Miscellaneous Test 05/29/17 05/29/17 05/29/17 10:15 10:15 11:55 WBC RBC Hgb 9.3 L Hct 27.2 L MCV 73 L MCH 25 L MCHC RDW Plt Count 9 L* Lymph % (Auto) Lymph # Seg Neutrophils % Seg Neuts % (Manual) Lymphocytes % (Manual) Nucleated RBC % Seg Neutrophils # Man Lymphocytes # (Manual) PT INR APTT POC ABG pH POC ABG pCO2 POC ABG pO2 Sodium Potassium Chloride Carbon Dioxide BUN 24 H Creatinine 0.7 L Glucose 112 H POC Glucose 128 H Lactic Acid Calcium Magnesium AST ALT Total Creatine Kinase C-Reactive Protein Total Protein Albumin Vitamin B12 Salicylates Miscellaneous Test 05/29/17 05/30/17 05/30/17 15:44 01:00 04:21 WBC RBC Hgb Hct MCV MCH MCHC RDW Plt Count Lymph % (Auto) Lymph # Seg Neutrophils % Seg Neuts % (Manual) Lymphocytes % (Manual) Nucleated RBC % Seg Neutrophils # Man Lymphocytes # (Manual) PT INR APTT POC ABG pH 7.528 H POC ABG pCO2 34.8 L POC ABG pO2 108 H Sodium Potassium Chloride Carbon Dioxide BUN Creatinine Glucose POC Glucose 124 H 106 H Lactic Acid Calcium Magnesium AST ALT Total Creatine Kinase C-Reactive Protein Total Protein Albumin Vitamin B12 Salicylates Miscellaneous Test 05/30/17 05/30/17 05/30/17 05:30 05:30 06:02 WBC RBC Hgb 9.3 L Hct 27.6 L MCV 74 L MCH 25 L MCHC RDW Plt Count 40 L D Lymph % (Auto) Lymph # Seg Neutrophils % Seg Neuts % (Manual) 90.0 H Lymphocytes % (Manual) 4.0 L Nucleated RBC % 1.0 H Seg Neutrophils # Man Lymphocytes # (Manual) 0.2 L PT INR APTT POC ABG pH POC ABG pCO2 POC ABG pO2 Sodium Potassium Chloride 109.9 H Carbon Dioxide BUN 26 H Creatinine 0.7 L Glucose 118 H POC Glucose 149 H Lactic Acid Calcium Magnesium AST 445 H ALT 529 H Total Creatine Kinase C-Reactive Protein Total Protein 4.7 L D Albumin 2.2 L Vitamin B12 Salicylates Miscellaneous Test 05/30/17 05/30/17 05/30/17 10:14 15:02 16:28 WBC RBC Hgb Hct MCV MCH MCHC RDW Plt Count Lymph % (Auto) Lymph # Seg Neutrophils % Seg Neuts % (Manual) Lymphocytes % (Manual) Nucleated RBC % Seg Neutrophils # Man Lymphocytes # (Manual) PT INR APTT POC ABG pH POC ABG pCO2 POC ABG pO2 Sodium Potassium Chloride Carbon Dioxide BUN Creatinine Glucose POC Glucose 155 H 169 H Lactic Acid Calcium Magnesium AST ALT Total Creatine Kinase 3464 H C-Reactive Protein Total Protein Albumin Vitamin B12 Salicylates Miscellaneous Test 05/30/17 05/30/17 05/30/17 16:28 17:40 21:35 WBC RBC Hgb Hct MCV MCH MCHC RDW Plt Count Lymph % (Auto) Lymph # Seg Neutrophils % Seg Neuts % (Manual) Lymphocytes % (Manual) Nucleated RBC % Seg Neutrophils # Man Lymphocytes # (Manual) PT INR APTT POC ABG pH POC ABG pCO2 POC ABG pO2 Sodium Potassium Chloride Carbon Dioxide BUN Creatinine Glucose POC Glucose 155 H 129 H Lactic Acid Calcium Magnesium AST ALT Total Creatine Kinase C-Reactive Protein Total Protein Albumin Vitamin B12 1108 H Salicylates Miscellaneous Test 05/31/17 05/31/17 05/31/17 01:54 04:31 05:40 WBC RBC 3.37 L Hgb 8.5 L Hct 24.6 L MCV 73 L MCH 25 L MCHC 35 H RDW Plt Count 55 L Lymph % (Auto) 8.7 L Lymph # 0.5 L Seg Neutrophils % 86.1 H Seg Neuts % (Manual) Lymphocytes % (Manual) Nucleated RBC % Seg Neutrophils # Man Lymphocytes # (Manual) PT INR APTT POC ABG pH 7.547 H POC ABG pCO2 34.6 L POC ABG pO2 79 L Sodium Potassium Chloride Carbon Dioxide BUN Creatinine Glucose POC Glucose 110 H Lactic Acid Calcium Magnesium AST ALT Total Creatine Kinase C-Reactive Protein Total Protein Albumin Vitamin B12 Salicylates Miscellaneous Test 05/31/17 05/31/17 05/31/17 05:40 13:52 Unknown WBC RBC Hgb Hct MCV MCH MCHC RDW Plt Count Lymph % (Auto) Lymph # Seg Neutrophils % Seg Neuts % (Manual) Lymphocytes % (Manual) Nucleated RBC % Seg Neutrophils # Man Lymphocytes # (Manual) PT INR APTT POC ABG pH POC ABG pCO2 POC ABG pO2 Sodium 148 H Potassium 3.2 L Chloride 108.6 H Carbon Dioxide BUN 22 H Creatinine 0.5 L Glucose 101 H POC Glucose 114 H Lactic Acid Calcium 8.2 L Magnesium AST 223 H ALT 359 H Total Creatine Kinase C-Reactive Protein Total Protein 4.6 L Albumin 2.0 L Vitamin B12 Salicylates Miscellaneous Test Flexitest 1 H 06/01/17 06/01/17 06/01/17 05:16 14:48 14:54 WBC RBC Hgb Hct MCV MCH MCHC RDW Plt Count Lymph % (Auto) Lymph # Seg Neutrophils % Seg Neuts % (Manual) Lymphocytes % (Manual) Nucleated RBC % Seg Neutrophils # Man Lymphocytes # (Manual) PT INR APTT POC ABG pH 7.499 H POC ABG pCO2 POC ABG pO2 71 L Sodium Potassium Chloride Carbon Dioxide BUN Creatinine Glucose POC Glucose < 40 L < 40 L Lactic Acid Calcium Magnesium AST ALT Total Creatine Kinase C-Reactive Protein Total Protein Albumin Vitamin B12 Salicylates Miscellaneous Test 06/01/17 06/01/17 06/01/17 15:39 Unknown Unknown WBC RBC 3.24 L Hgb 8.1 L Hct 23.8 L MCV 74 L MCH 25 L MCHC RDW Plt Count 136 L D Lymph % (Auto) Lymph # 1.0 L Seg Neutrophils % 80.1 H Seg Neuts % (Manual) Lymphocytes % (Manual) Nucleated RBC % Seg Neutrophils # Man Lymphocytes # (Manual) PT INR APTT POC ABG pH POC ABG pCO2 POC ABG pO2 Sodium 148 H Potassium 3.3 L Chloride 107.5 H Carbon Dioxide 31 H BUN Creatinine 0.4 L Glucose POC Glucose 69 L Lactic Acid Calcium 8.2 L Magnesium AST ALT Total Creatine Kinase C-Reactive Protein Total Protein Albumin Vitamin B12 Salicylates Miscellaneous Test
[2017-06-01 19:42] LABS: Myeloperoxidase Antibody <1.0 AI (<1.0)
[2017-06-02] MEDS: ZOVIRAX IV SCH ×3 (01:40→17:38)
[2017-06-02] MEDS: NACL 0.9% IV SCH ×3 (01:40→17:38)
[2017-06-02] MEDS: cefTRIAXone 2 GM in NACL 0.9% 20 ML IV SCH ×2 (03:20→15:55)
[2017-06-02] MEDS: VANCOMYCIN 1,250 MG in NACL 0.9% 250ML 250 ML IV SCH ×3 (06:06→22:44)
[2017-06-02 06:51] LABS: Alanine Aminotransferase 269 units/L (7-56); Albumin 2.5 g/dL (3.9-5); BUN/Creatinine Ratio 38; Blood Urea Nitrogen 15 mg/dL (9-20); Hemolysis Index 6
--- NOTE | 2017-06-02 07:31 | XRay Report ---
FINAL REPORT PROCEDURE: XR CHEST 1V AP TECHNIQUE: Chest radiograph anteroposterior view. CPT 70523 HISTORY: follow up respiratory failure COMPARISON: No prior studies are available for comparison. FINDINGS: Heart: Normal. Mediastinum/Vessels: Normal. Lungs/Pleural space: There are bilateral lower lobe infiltrates and effusions. There are no pneumothoraces.. Bony thorax: No acute osseous abnormality. Life support devices: Endotracheal tube is in the mid trachea. NG tube is in the stomach. There is a left-sided PICC line. The tip is in the superior vena cava.. IMPRESSION: The heart size is normal. There are bilateral lower lobe infiltrates and effusions. There are no pneumothoraces.. Endotracheal tube is in the mid trachea. NG tube is in the stomach. There is a left-sided PICC line. The tip is in the superior vena cava..
[2017-06-02 08:44] LABS: Hematocrit 28.4 % (35.5-45.6); Hemoglobin 9.6 gm/dl (11.8-15.2); Mean Corpuscular HGB Conc 34 % (32-34); Mean Corpuscular Volume 74 fl (84-94); Platelet Count 178 K/mm3 (140-440); Red Blood Count 3.83 M/mm3 (3.65-5.03); Red Cell Distribution Width 14.2 % (13.2-15.2)
[2017-06-02 08:48] LABS: Mean Corpuscular Hemoglobin 25 pg (28-32)
[2017-06-02 09:07] LABS: INR 0.88 (0.87-1.13)
[2017-06-02] MEDS: VITAMIN D3 PO SCH (09:40)
[2017-06-02] MEDS: THERAGRAN-M Tab PO SCH (09:41)
[2017-06-02] MEDS: PEPCID PO SCH ×2 (09:41→22:40)
[2017-06-02] MEDS: VITAMIN B-1 PO SCH (09:42)
[2017-06-02] MEDS ORDERED: K-DUR PO SCH (10:00)
--- NOTE | 2017-06-02 10:55 | Progress Note ---
Assessment and Plan Assessment: Sinus bradycardia Severe sepsis with septic shock requiring vasopressor support - pressors weaned off currently Acute respiratory failure - intubated PNA Anemia Thrombocytopenia Encephalopathy / ? meningoencephalitis Hypoglycemia Severe malnutrition Hypernatremia Plan: Patient remains in sinus bradycardia. Thyroid function WNL. EF 50-55%. Continue to avoid AV azul blocking agents. Cont supportive management. Nothing further to add from cardiac perspective at this time. Will follow on as needed basis. Please call with questions/concerns or for re-evaluation. The patient has been seen in conjunction with Dr. Conrad who agrees with the assessment and plan of care. Subjective Date of service: 06/02/17 Principal diagnosis: pneumonia Interval history: pt resting comfortably in bed, remains intubated. nods head at times to commands. remains in SB with HR 50s-60s on telemetry. BPs stable. Objective Last Vital Signs Temp 98.6 F 06/02/17 08:00 Pulse 57 L 06/02/17 10:00 Resp 17 06/02/17 10:00 BP 124/81 06/02/17 10:00 Pulse Ox 100 06/02/17 10:00 - Physical Examination General: No Apparent Distress (intubated, awake) HEENT: Positive: PERRL, Normocephaly, Mucus Membranes Moist Neck: Positive: neck supple, trachea midline Cardiac: Positive: S1/S2, Bradycardia Lungs: Positive: Decreased Breath Sounds, Ventilated Respirations Neuro: Positive: Other (intubated) Abdomen: Positive: Soft. Negative: Tender Skin: Positive: Clear. Negative: Rash, Wound Musculoskeletal: No Fluid Collection, No Pain, Normal Range of Motion Extremities: Present: +1 Edema - Labs and Meds Cardiac Enzymes 06/02/17 Range/Units 06:00 AST 127 H (5-40) units/L Coagulation 06/02/17 06/02/17 Range/Units 08:27 08:27 PT 12.4 (12.2-14.9) Sec. INR 0.88 (0.87-1.13) APTT 28.8 (24.2-36.6) Sec. CBC 06/02/17 Range/Units 08:27 WBC 5.9 (4.5-11.0) K/mm3 RBC 3.83 (3.65-5.03) M/mm3 Hgb 9.6 L (11.8-15.2) gm/dl Hct 28.4 L (35.5-45.6) % Plt Count 178 (140-440) K/mm3 Comprehensive Metabolic Panel 06/02/17 Range/Units 06:00 Sodium 144 (137-145) mmol/L Potassium 3.4 L (3.6-5.0) mmol/L Chloride 103.3 (98-107) mmol/L Carbon Dioxide 32 H (22-30) mmol/L BUN 15 (9-20) mg/dL Creatinine 0.4 L (0.8-1.5) mg/dL Glucose 77 (75-100) mg/dL Calcium 8.0 L (8.4-10.2) mg/dL AST 127 H (5-40) units/L ALT 269 H (7-56) units/L Alkaline Phosphatase 137 H (35-129) units/L Total Protein 4.2 L (6.3-8.2) g/dL Albumin 2.5 L (3.9-5) g/dL - Imaging and Cardiology EKG: report reviewed, image reviewed Echo: report reviewed (05/30/17: EF 50-55%, mild-moderate MI) - Telemetry EKG Rhythm: Sinus Bradycardia - EKG Sinus rhythms and dysrhythmias: sinus bradycardia
--- NOTE | 2017-06-02 13:15 | Progress Note ---
Assessment and Plan 1) Sepsis with septic shock: afebrile. off levophed. Normal WBC. Etiology pneumonia. Other Possibilities: ? FOREST PATHOLOGIST infection. -CRP=15 -Procalcitonin 12.6 (2.17) to 0.8 (05/31) 2) Pneumonia: Secondary to ? aspiration. - Influenza A/B PCR negative. s/p course of tamiflu. - Legionella and Strep pneumo urinary ag - negative. - Tracheal aspirate culture 05/29 S maltophilia 3) Acute Encephalopathy - ? unclear etiology. Awake, following some commands. 4) Acute respiratory failure. Intubated. 5) Thrombocytopenia - resolved. 6) Elevated LFTs: ?shock liver. AST/ALT improved. 7) Bradycardia. 8) h/o Schizophrenia. Currently in half-way. Plan: -d/w IR attending - LP when extubated. Please check opening pressure and send CSF specimen for Gram stain and culture, glucose, protein, VDRL, HSV-PCR, cryptococcal antigen. -continue vancomycin IV, ceftriaxone 2 g IV q12h, acyclovir IV - day 8 and azithromycin - day 5. -Add bactrim. -d/w PUBLIC AFFAIRS OFFICER. Nicole STEWART attending [facility] M [phone]. Subjective Date of service: 06/02/17 Principal diagnosis: pneumonia Interval history: Remains intubated on the vent. Afebrile. Not on pressors. Awake. As per RN following more commands and moving legs. Microbiology: Blood cultures: 05/25 Neg Respiratory cultures: 05/26 poor sample 05/29 TA S. maltophilia, C albicans. Current Antimicrobials: Vancomycin IV 05/26- Ceftriaxone 2 g IV q12h 05/26- Acyclovir IV 05/26- Azithromycin 05/29- Prior antimicrobials Tamiflu 05/26-05/30 Hydrocortisone Objective - Exam Narrative Exam: General appearance: Pt in NAD. Intubated. Awake. Not on sedation. Tracks and following some commands. Eyes: anicteric sclerae, moist conjunctivae; pupils reactive HENT: Atraumatic; oropharynx clear +ETT +NGT Neck: Trachea midline; supple, no thyromegaly or lymphadenopathy Lungs: Clear B. CV: S1,S2 Abdomen: Soft, non-tender, non-distended. Extremities: No peripheral edema or extremity lymphadenopathy Skin: Normal temperature, turgor and texture; no rash, ulcers or subcutaneous nodules Psych: Intubated. Unable to evaluate. Neuro: Awake. Trachs, closes/opens eyes when asked. Lines: left PICC / reyes with clear urine - Constitutional Vitals: Vital Signs Temp Pulse Resp BP Pulse Ox 98.6 F 56 L 12 124/81 100 06/02/17 08:00 06/02/17 11:30 06/02/17 11:30 06/02/17 11:30 06/02/17 11:30 Temperature -Last 24 Hours Temperature 98.6 F Temperature 97.5 F Temperature 97.5 F Temperature 97.3 F Temperature 95.1 F - Labs CBC & Chem 7: 06/02/17 08:27 06/02/17 06:00 Labs: Abnormal lab results 05/31/17 06/01/17 06/01/17 Range/Units Unknown 14:48 14:54 Hgb (11.8-15.2) gm/dl Hct (35.5-45.6) % MCV (84-94) fl MCH (28-32) pg Potassium (3.6-5.0) mmol/L Carbon Dioxide (22-30) mmol/L Creatinine (0.8-1.5) mg/dL POC Glucose < 40 L < 40 L (70-105) Calcium (8.4-10.2) mg/dL AST (5-40) units/L ALT (7-56) units/L Alkaline Phosphatase (35-129) units/L Total Creatine Kinase (55-170) units/L Total Protein (6.3-8.2) g/dL Albumin (3.9-5) g/dL Miscellaneous Test Flexitest 1 H 06/01/17 06/01/17 06/01/17 Range/Units 15:39 22:07 23:00 Hgb (11.8-15.2) gm/dl Hct (35.5-45.6) % MCV (84-94) fl MCH (28-32) pg Potassium (3.6-5.0) mmol/L Carbon Dioxide (22-30) mmol/L Creatinine (0.8-1.5) mg/dL POC Glucose 69 L 50 L (70-105) Calcium (8.4-10.2) mg/dL AST (5-40) units/L ALT (7-56) units/L Alkaline Phosphatase (35-129) units/L Total Creatine Kinase 1318 H (55-170) units/L Total Protein (6.3-8.2) g/dL Albumin (3.9-5) g/dL Miscellaneous Test 06/02/17 06/02/17 Range/Units 06:00 08:27 Hgb 9.6 L (11.8-15.2) gm/dl Hct 28.4 L (35.5-45.6) % MCV 74 L (84-94) fl MCH 25 L (28-32) pg Potassium 3.4 L (3.6-5.0) mmol/L Carbon Dioxide 32 H (22-30) mmol/L Creatinine 0.4 L (0.8-1.5) mg/dL POC Glucose (70-105) Calcium 8.0 L (8.4-10.2) mg/dL AST 127 H (5-40) units/L ALT 269 H (7-56) units/L Alkaline Phosphatase 137 H (35-129) units/L Total Creatine Kinase (55-170) units/L Total Protein 4.2 L (6.3-8.2) g/dL Albumin 2.5 L (3.9-5) g/dL Miscellaneous Test
--- NOTE | 2017-06-02 16:10 | Progress Note ---
Assessment and Plan SEVERE SEPSIS WITH SEPTIC SHOCK- POA, Severe Hypothermia on admission, resolved, likely from sepsis Acute Toxic Metabolic Encephalopathy, being treated for meningitis/encephalitis Acute Respiratory Failure, on vent Thrombocytopenia-severe- no bleeding noted, s/p platelets transfusion Aspiration Pneumonia with possible Post influenza Pneumonia h/o Schizophrenia Hypoglycemia, resolved Severe Protein Calorie Malnutrition Hypernatremia, improved Elevated LFT, likely from sepsis hypokalemia, being replaced daily - ID consulted, Abx as ordered - s/p total 6 units of platelets Transfused - Continue IV fluid and free water with TF - Continue ventilatory support - Monitor cultures - Await Lumber pucture, cancelled the procedure by radiologist - MRI brain when more stable, s/p repeat CT head showed no new findings - Replace Electrolytes accordingly - GI prophylaxis - Hold all Anticoagulations - Discussed with HILTON RN at bedside Brief History: Patient is 42 years old AA male, from long-term for evaluation of altered mental status and bradycardia. Also Hypothermic Only history available is schizophrenia. No other information can be obtained at this moment since patient is not communicating. No fever or chills per Nursing Home staff. Physical exam: General appearance: Present: other (intubated) - EENT Eyes: no congestion - Neck Neck: Present: supple - Respiratory Respiratory effort: other (ett) Respiratory: bilateral: diminished - Cardiovascular Rhythm: regular Heart Sounds: Present: S1 & S2. Absent: systolic murmur - Extremities Extremities: pulses intact, normal temperature Peripheral Pulses: within normal limits - Abdominal General gastrointestinal: soft, non-distended, hypoactive bowel sounds - Integumentary Integumentary: Present: warm - Psychiatric Psychiatric: other (unable to access) - Neurologic Neurologic: other (unable to access) - skin no rash - Allied Health Allied health notes reviewed: nursing The high probability of a clinically significant, sudden or life threatening deterioration of the [PULMONARY, NEUROLOGY] system(s) required my full and direct attention, intervention and personal management. The aggregate critical care time was [35] minutes. This time is in addition to time spent performing reported procedures but includes the following: [X] Data Review and interpretation [X] Patient assessment and monitoring of vital signs [X] Documentation [X] Medication orders and management Subjective Date of service: 06/02/17 Principal diagnosis: pneumonia Interval history: Pt seen and examined remained intubated, tolerating Tube feeding Objective - Constitutional Vitals: Vital Signs - 12hr 06/02/17 06/02/17 06/02/17 04:16 04:30 04:46 Temperature Pulse Rate 66 66 Pulse Rate [ Apical] Pulse Rate [ From Monitor] Respiratory 16 15 Rate Respiratory Rate [MATT] Blood Pressure 128/81 128/81 128/81 O2 Sat by Pulse 96 98 96 Oximetry 06/02/17 06/02/17 06/02/17 05:00 05:16 05:30 Temperature Pulse Rate 62 61 Pulse Rate [ 67 Apical] Pulse Rate [ 67 From Monitor] Respiratory 16 16 15 Rate Respiratory Rate [MATT] Blood Pressure 126/79 116/77 116/77 O2 Sat by Pulse 100 97 Oximetry 06/02/17 06/02/17 06/02/17 05:46 05:50 06:00 Temperature Pulse Rate 60 59 L Pulse Rate [ Apical] Pulse Rate [ From Monitor] Respiratory 13 15 Rate Respiratory 16 Rate [MATT] Blood Pressure 126/79 124/80 O2 Sat by Pulse 99 98 Oximetry 06/02/17 06/02/17 06/02/17 06:16 06:26 06:30 Temperature Pulse Rate 61 60 74 Pulse Rate [ Apical] Pulse Rate [ From Monitor] Respiratory 15 27 H Rate Respiratory Rate [MATT] Blood Pressure 124/80 116/77 124/80 O2 Sat by Pulse 95 97 99 Oximetry 06/02/17 06/02/17 06/02/17 06:46 07:00 07:16 Temperature Pulse Rate 63 61 68 Pulse Rate [ 73 Apical] Pulse Rate [ From Monitor] Respiratory 15 16 16 Rate Respiratory Rate [MATT] Blood Pressure 124/80 125/79 125/79 O2 Sat by Pulse 100 100 100 Oximetry 06/02/17 06/02/17 06/02/17 07:30 07:46 08:00 Temperature 98.6 F Pulse Rate 61 75 63 Pulse Rate [ Apical] Pulse Rate [ 43 L From Monitor] Respiratory 18 35 H 16 Rate Respiratory Rate [MATT] Blood Pressure 125/79 125/79 111/87 O2 Sat by Pulse 97 93 98 Oximetry 06/02/17 06/02/17 06/02/17 08:16 08:30 08:46 Temperature Pulse Rate 58 L 61 61 Pulse Rate [ Apical] Pulse Rate [ From Monitor] Respiratory 16 16 20 Rate Respiratory Rate [MATT] Blood Pressure 111/87 111/87 111/87 O2 Sat by Pulse 91 94 90 Oximetry 06/02/17 06/02/17 06/02/17 09:00 09:16 09:30 Temperature Pulse Rate 70 63 69 Pulse Rate [ Apical] Pulse Rate [ From Monitor] Respiratory 16 17 19 Rate Respiratory Rate [MATT] Blood Pressure 111/87 125/87 125/87 O2 Sat by Pulse 98 96 98 Oximetry 06/02/17 06/02/17 06/02/17 09:46 10:00 10:16 Temperature Pulse Rate 54 L 57 L 53 L Pulse Rate [ Apical] Pulse Rate [ From Monitor] Respiratory 14 17 14 Rate Respiratory Rate [MATT] Blood Pressure 125/87 124/81 124/81 O2 Sat by Pulse 89 100 100 Oximetry 06/02/17 06/02/17 06/02/17 10:30 10:46 11:00 Temperature Pulse Rate 56 L 56 L 64 Pulse Rate [ Apical] Pulse Rate [ From Monitor] Respiratory 16 16 16 Rate Respiratory Rate [MATT] Blood Pressure 124/81 124/81 133/88 O2 Sat by Pulse 100 100 99 Oximetry 06/02/17 06/02/17 06/02/17 11:06 11:16 11:30 Temperature Pulse Rate 57 L 53 L 56 L Pulse Rate [ Apical] Pulse Rate [ From Monitor] Respiratory 19 13 12 Rate Respiratory Rate [MATT] Blood Pressure 133/88 124/81 124/81 O2 Sat by Pulse 100 100 100 Oximetry 06/02/17 06/02/17 06/02/17 11:46 12:00 12:16 Temperature 98.6 F Pulse Rate 59 L 55 L 67 Pulse Rate [ Apical] Pulse Rate [ 55 L From Monitor] Respiratory 15 16 13 Rate Respiratory Rate [MATT] Blood Pressure 124/81 120/71 120/71 O2 Sat by Pulse 100 99 96 Oximetry 06/02/17 06/02/17 06/02/17 12:30 12:46 13:00 Temperature Pulse Rate 61 67 59 L Pulse Rate [ Apical] Pulse Rate [ From Monitor] Respiratory 15 14 12 Rate Respiratory Rate [MATT] Blood Pressure 120/71 120/71 126/79 O2 Sat by Pulse 100 100 100 Oximetry 06/02/17 06/02/17 06/02/17 13:16 13:30 13:46 Temperature Pulse Rate 62 55 L 58 L Pulse Rate [ Apical] Pulse Rate [ From Monitor] Respiratory 14 11 L 12 Rate Respiratory Rate [MATT] Blood Pressure 126/79 126/79 126/79 O2 Sat by Pulse 100 100 100 Oximetry 06/02/17 06/02/17 06/02/17 14:00 14:16 14:30 Temperature Pulse Rate 57 L 58 L 58 L Pulse Rate [ Apical] Pulse Rate [ From Monitor] Respiratory 17 12 11 L Rate Respiratory Rate [MATT] Blood Pressure 136/86 136/86 136/86 O2 Sat by Pulse 100 100 100 Oximetry 06/02/17 06/02/17 06/02/17 14:46 15:00 15:16 Temperature Pulse Rate 60 64 74 Pulse Rate [ Apical] Pulse Rate [ From Monitor] Respiratory 15 9 L 15 Rate Respiratory Rate [MATT] Blood Pressure 136/86 127/82 127/82 O2 Sat by Pulse 100 100 96 Oximetry 06/02/17 06/02/17 15:30 15:46 Temperature Pulse Rate 78 61 Pulse Rate [ Apical] Pulse Rate [ From Monitor] Respiratory 16 14 Rate Respiratory Rate [MATT] Blood Pressure 127/82 127/82 O2 Sat by Pulse 97 Oximetry - Labs CBC & Chem 7: 06/03/17 04:00 06/03/17 04:00 Labs: Abnormal lab results 05/31/17 06/01/17 06/01/17 Range/Units Unknown 14:48 22:07 Hgb (11.8-15.2) gm/dl Hct (35.5-45.6) % MCV (84-94) fl MCH (28-32) pg POC ABG pCO2 (35-45) Potassium (3.6-5.0) mmol/L Carbon Dioxide (22-30) mmol/L Creatinine (0.8-1.5) mg/dL POC Glucose < 40 L 50 L (70-105) Calcium (8.4-10.2) mg/dL AST (5-40) units/L ALT (7-56) units/L Alkaline Phosphatase (35-129) units/L Total Creatine Kinase (55-170) units/L Total Protein (6.3-8.2) g/dL Albumin (3.9-5) g/dL Miscellaneous Test Flexitest 1 H 06/01/17 06/02/17 06/02/17 Range/Units 23:00 06:00 08:27 Hgb 9.6 L (11.8-15.2) gm/dl Hct 28.4 L (35.5-45.6) % MCV 74 L (84-94) fl MCH 25 L (28-32) pg POC ABG pCO2 (35-45) Potassium 3.4 L (3.6-5.0) mmol/L Carbon Dioxide 32 H (22-30) mmol/L Creatinine 0.4 L (0.8-1.5) mg/dL POC Glucose (70-105) Calcium 8.0 L (8.4-10.2) mg/dL AST 127 H (5-40) units/L ALT 269 H (7-56) units/L Alkaline Phosphatase 137 H (35-129) units/L Total Creatine Kinase 1318 H (55-170) units/L Total Protein 4.2 L (6.3-8.2) g/dL Albumin 2.5 L (3.9-5) g/dL Miscellaneous Test 06/02/17 Range/Units 14:50 Hgb (11.8-15.2) gm/dl Hct (35.5-45.6) % MCV (84-94) fl MCH (28-32) pg POC ABG pCO2 48.6 H (35-45) Potassium (3.6-5.0) mmol/L Carbon Dioxide (22-30) mmol/L Creatinine (0.8-1.5) mg/dL POC Glucose (70-105) Calcium (8.4-10.2) mg/dL AST (5-40) units/L ALT (7-56) units/L Alkaline Phosphatase (35-129) units/L Total Creatine Kinase (55-170) units/L Total Protein (6.3-8.2) g/dL Albumin (3.9-5) g/dL Miscellaneous Test
--- NOTE | 2017-06-02 16:19 | Progress Note ---
Assessment and Plan Imp: 1. Pneumonia, bilateral 2. ? Meningoencephalitis 3. Sepsis 4. Acute respiratory failure, hypoxia 5. Severe thrombocytopenia 6. Acute encephalopathy 7. Sinus bradycardia Rec: 1. ABX per ID but given significant pneumonia on chest imaging recommend covering atypicals pending serologic work-up 2. MELBA, ANCAs negative 3. Awaiting LP and ? repeat CT head 4. Off steroids 5. EKG shows sinus renard; BP stable and he is asymptomatic; will place Atropine at bedside; appreciate cardiology evaluation 6. SCDs 7. PSV trials -> mechanics good and mentation better -> trial of extubation 8. CK, AST, and ALT elevated c/w mild rhabdo ? viral versus inflammatory/auto- immune; check aldolase and Katherin-1 9. Neurology consulted No family present; complex decision-making Subjective Date of service: 06/02/17 Principal diagnosis: pneumonia Interval history: Alert, more appropriate, and will follow commands. Moves all extremities. HR up to 50's now. Cannot provide history. On PSV 10/5 with excellent mechanics. Active Medications Acetaminophen (Tylenol) 650 mg PO Q4H PRN PRN Reason: Pain MILD(1-3)/Fever >100.5/OFFANA Lipase/Protease/Amylase (Pancreaze Dr 10,500 Unit) 1 each FEEDTUBE PRN PRN PRN Reason: For Clogged Feeding Tube Atropine Sulfate (Atropine) 1 mg IV ONCE PRN PRN Reason: Bradycardia Bisacodyl (Dulcolax) 10 mg OR QDAY PRN PRN Reason: Constipation unrelieved by MOM Cholecalciferol (Vitamin D3) 1,000 unit PO QDAY RICCARDO Last Admin: 06/02/17 09:40 Dose: 1,000 unit Dextrose (D50w (25gm) Syringe) 50 ml IV PRN PRN PRN Reason: Hypoglycemia Last Admin: 06/01/17 23:03 Dose: 50 ml Famotidine (Pepcid) 20 mg PO BID RICCARDO Last Admin: 06/02/17 09:41 Dose: 20 mg Norepinephrine (Levophed Drip 4 Mg/Ns 250 Ml) 4 mg in 250 mls @ 7.5 mls/hr IV TITR RICCARDO; 2 MCG/MIN PRN Reason: Protocol Last Titration: 05/28/17 07:50 Dose: 1 mcg/min, 3.75 mls/hr Ceftriaxone Sodium 2 gm/ (Sodium Chloride) 20 mls @ 20 mls/10 min IV Q12H [facility] Last Admin: 06/02/17 15:55 Dose: 20 mls/10 min Acyclovir 680 mg/ Sodium (Chloride) 113.6 mls @ 100 mls/hr IV Q8H [facility] Last Admin: 06/02/17 09:39 Dose: 100 mls/hr Midazolam HCl 100 mg/ Sodium (Chloride) 100 mls @ 2 mls/hr IV TITR RICCARDO; 2 MG/HR PRN Reason: Protocol Last Titration: 05/27/17 13:30 Dose: 2 mg/hr, 2 mls/hr Vancomycin HCl 1,250 mg/ (Sodium Chloride) 262.5 mls @ 166.667 mls/hr IV Q8HR [facility] Last Admin: 06/02/17 13:23 Dose: 166.667 mls/hr Azithromycin 500 mg/ Sodium (Chloride) 250 mls @ 250 mls/hr IV Q24H [facility] Last Admin: 06/01/17 18:06 Dose: 250 mls/hr Sodium Chloride (Nacl 0.45% 1000 Ml) 1,000 mls @ 75 mls/hr IV DIRECT [facility] Last Admin: 06/02/17 04:24 Dose: 75 mls/hr Magnesium Hydroxide (Milk Of Magnesia) 30 ml PO Q4H PRN PRN Reason: Constipation Multivitamins/Minerals (Theragran-M Tab) 1 each PO QDAY [facility] Last Admin: 06/02/17 09:41 Dose: 1 each Ondansetron HCl (Zofran) 4 mg IV Q8H PRN PRN Reason: N/V unrelieved by Reglan Potassium Chloride (K-Dur) 20 meq PO QDAY [facility] Last Admin: 06/02/17 09:41 Dose: 20 meq Simple Syrup (Simple Syrup) 15 ml FEEDTUBE PRN PRN PRN Reason: Hypoglycemia Simple Syrup (Simple Syrup) 30 ml FEEDTUBE PRN PRN PRN Reason: Hypoglycemia Sodium Bicarbonate (Sodium Bicarbonate) 325 mg FEEDTUBE PRN PRN PRN Reason: For Clogged Feeding Tube Thiamine HCl (Vitamin B-1) 100 mg PO QDAY [facility] Last Admin: 06/02/17 09:42 Dose: 100 mg Trimethoprim/Sulfamethoxazole (Bactrim Ds) 2 each PO Q12HR RICCARDO Vancomycin HCl (Vancomycin Pharmacy To Dose) 1 each IV PKCONSULT RICCARDO PRN Reason: Protocol Objective Vital Signs - 12hr 06/02/17 06/02/17 06/02/17 04:30 04:46 05:00 Temperature Pulse Rate 66 Pulse Rate [ 67 Apical] Pulse Rate [ 67 From Monitor] Respiratory 15 16 Rate Respiratory Rate [MATT] Blood Pressure 128/81 128/81 126/79 O2 Sat by Pulse 98 96 Oximetry 06/02/17 06/02/17 06/02/17 05:16 05:30 05:46 Temperature Pulse Rate 62 61 60 Pulse Rate [ Apical] Pulse Rate [ From Monitor] Respiratory 16 15 13 Rate Respiratory Rate [MATT] Blood Pressure 116/77 116/77 126/79 O2 Sat by Pulse 100 97 99 Oximetry 06/02/17 06/02/17 06/02/17 05:50 06:00 06:16 Temperature Pulse Rate 59 L 61 Pulse Rate [ Apical] Pulse Rate [ From Monitor] Respiratory 15 15 Rate Respiratory 16 Rate [MATT] Blood Pressure 124/80 124/80 O2 Sat by Pulse 98 95 Oximetry 06/02/17 06/02/17 06/02/17 06:26 06:30 06:46 Temperature Pulse Rate 60 74 63 Pulse Rate [ Apical] Pulse Rate [ From Monitor] Respiratory 27 H 15 Rate Respiratory Rate [MATT] Blood Pressure 116/77 124/80 124/80 O2 Sat by Pulse 97 99 100 Oximetry 06/02/17 06/02/17 06/02/17 07:00 07:16 07:30 Temperature Pulse Rate 61 68 61 Pulse Rate [ 73 Apical] Pulse Rate [ From Monitor] Respiratory 16 16 18 Rate Respiratory Rate [MATT] Blood Pressure 125/79 125/79 125/79 O2 Sat by Pulse 100 100 97 Oximetry 06/02/17 06/02/17 06/02/17 07:46 08:00 08:16 Temperature 98.6 F Pulse Rate 75 63 58 L Pulse Rate [ Apical] Pulse Rate [ 43 L From Monitor] Respiratory 35 H 16 16 Rate Respiratory Rate [MATT] Blood Pressure 125/79 111/87 111/87 O2 Sat by Pulse 93 98 91 Oximetry 06/02/17 06/02/17 06/02/17 08:30 08:46 09:00 Temperature Pulse Rate 61 61 70 Pulse Rate [ Apical] Pulse Rate [ From Monitor] Respiratory 16 20 16 Rate Respiratory Rate [MATT] Blood Pressure 111/87 111/87 111/87 O2 Sat by Pulse 94 90 98 Oximetry 06/02/17 06/02/17 06/02/17 09:16 09:30 09:46 Temperature Pulse Rate 63 69 54 L Pulse Rate [ Apical] Pulse Rate [ From Monitor] Respiratory 17 19 14 Rate Respiratory Rate [MATT] Blood Pressure 125/87 125/87 125/87 O2 Sat by Pulse 96 98 89 Oximetry 06/02/17 06/02/17 06/02/17 10:00 10:16 10:30 Temperature Pulse Rate 57 L 53 L 56 L Pulse Rate [ Apical] Pulse Rate [ From Monitor] Respiratory 17 14 16 Rate Respiratory Rate [MATT] Blood Pressure 124/81 124/81 124/81 O2 Sat by Pulse 100 100 100 Oximetry 06/02/17 06/02/17 06/02/17 10:46 11:00 11:06 Temperature Pulse Rate 56 L 64 57 L Pulse Rate [ Apical] Pulse Rate [ From Monitor] Respiratory 16 16 19 Rate Respiratory Rate [MATT] Blood Pressure 124/81 133/88 133/88 O2 Sat by Pulse 100 99 100 Oximetry 06/02/17 06/02/17 06/02/17 11:16 11:30 11:46 Temperature Pulse Rate 53 L 56 L 59 L Pulse Rate [ Apical] Pulse Rate [ From Monitor] Respiratory 13 12 15 Rate Respiratory Rate [MATT] Blood Pressure 124/81 124/81 124/81 O2 Sat by Pulse 100 100 100 Oximetry 06/02/17 06/02/17 06/02/17 12:00 12:16 12:30 Temperature 98.6 F Pulse Rate 55 L 67 61 Pulse Rate [ Apical] Pulse Rate [ 55 L From Monitor] Respiratory 16 13 15 Rate Respiratory Rate [MATT] Blood Pressure 120/71 120/71 120/71 O2 Sat by Pulse 99 96 100 Oximetry 06/02/17 06/02/17 06/02/17 12:46 13:00 13:16 Temperature Pulse Rate 67 59 L 62 Pulse Rate [ Apical] Pulse Rate [ From Monitor] Respiratory 14 12 14 Rate Respiratory Rate [MATT] Blood Pressure 120/71 126/79 126/79 O2 Sat by Pulse 100 100 100 Oximetry 06/02/17 06/02/17 06/02/17 13:30 13:46 14:00 Temperature Pulse Rate 55 L 58 L 57 L Pulse Rate [ Apical] Pulse Rate [ From Monitor] Respiratory 11 L 12 17 Rate Respiratory Rate [MATT] Blood Pressure 126/79 126/79 136/86 O2 Sat by Pulse 100 100 100 Oximetry 06/02/17 06/02/17 06/02/17 14:16 14:30 14:46 Temperature Pulse Rate 58 L 58 L 60 Pulse Rate [ Apical] Pulse Rate [ From Monitor] Respiratory 12 11 L 15 Rate Respiratory Rate [MATT] Blood Pressure 136/86 136/86 136/86 O2 Sat by Pulse 100 100 100 Oximetry 06/02/17 06/02/17 06/02/17 15:00 15:16 15:30 Temperature Pulse Rate 64 74 78 Pulse Rate [ Apical] Pulse Rate [ From Monitor] Respiratory 9 L 15 16 Rate Respiratory Rate [MATT] Blood Pressure 127/82 127/82 127/82 O2 Sat by Pulse 100 96 97 Oximetry 06/02/17 15:46 Temperature Pulse Rate 61 Pulse Rate [ Apical] Pulse Rate [ From Monitor] Respiratory 14 Rate Respiratory Rate [MATT] Blood Pressure 127/82 O2 Sat by Pulse Oximetry Constitutional: alert, other (critically ill on vent) Eyes: non-icteric ENT: other (orally intubated) Neck: supple Effort: normal Ascultation: Bilateral: other (coarse BS bilaterally) Cardiovascular: other (sinus renard, RR; no mrg) Gastrointestinal: normoactive bowel sounds, soft, non-tender, non-distended Integumentary: normal Extremities: no cyanosis, no edema, pink and warm Neurologic: other (GARVIN) Psychiatric: mood appropriate, affect normal CBC and BMP: 06/02/17 08:27 06/02/17 06:00 ABG, PT/INR, D-dimer: ABG POC ABG pH 7.449 (7.35-7.45) 06/02/17 14:50 POC ABG pCO2 48.6 (35-45) H 06/02/17 14:50 POC ABG pO2 98 (80-105) 06/02/17 14:50 POC ABG HCO3 33.7 06/02/17 14:50 POC ABG Total CO2 35 06/02/17 14:50 POC ABG O2 Sat 98 06/02/17 14:50 PT/INR, D-dimer PT 12.4 Sec. (12.2-14.9) 06/02/17 08:27 INR 0.88 (0.87-1.13) 06/02/17 08:27 Abnormal lab findings: Abnormal Labs 05/25/17 05/25/17 05/25/17 13:32 13:32 13:32 WBC RBC 5.76 H Hgb Hct MCV 77 L MCH 25 L MCHC RDW 15.9 H Plt Count 48 L Lymph % (Auto) Lymph # Seg Neutrophils % Seg Neuts % (Manual) 76.0 H Lymphocytes % (Manual) 2.0 L Nucleated RBC % Seg Neutrophils # Man Lymphocytes # (Manual) 0.1 L PT INR APTT POC ABG pH POC ABG pCO2 POC ABG pO2 Sodium 147 H Potassium Chloride 109.4 H Carbon Dioxide BUN Creatinine 0.3 L Glucose 102 H POC Glucose Lactic Acid Calcium Magnesium AST 111 H ALT 168 H Alkaline Phosphatase Total Creatine Kinase C-Reactive Protein Total Protein 5.8 L Albumin 2.9 L Vitamin B12 Salicylates < 0.3 L Miscellaneous Test 05/25/17 05/25/17 05/25/17 13:32 15:16 16:34 WBC RBC Hgb Hct MCV MCH MCHC RDW Plt Count Lymph % (Auto) Lymph # Seg Neutrophils % Seg Neuts % (Manual) Lymphocytes % (Manual) Nucleated RBC % Seg Neutrophils # Man Lymphocytes # (Manual) PT INR APTT POC ABG pH POC ABG pCO2 POC ABG pO2 Sodium Potassium Chloride Carbon Dioxide BUN Creatinine Glucose POC Glucose Lactic Acid 2.20 H* 2.10 H* Calcium Magnesium AST ALT Alkaline Phosphatase Total Creatine Kinase 360 H C-Reactive Protein Total Protein Albumin Vitamin B12 Salicylates Miscellaneous Test 05/26/17 05/26/17 05/26/17 00:47 00:47 06:07 WBC 2.1 L RBC 5.23 H Hgb Hct MCV 75 L MCH 25 L MCHC RDW 15.6 H Plt Count 51 L Lymph % (Auto) Lymph # Seg Neutrophils % Seg Neuts % (Manual) 24.0 L Lymphocytes % (Manual) 8.0 L Nucleated RBC % Seg Neutrophils # Man 0.5 L Lymphocytes # (Manual) 0.2 L PT INR APTT POC ABG pH POC ABG pCO2 POC ABG pO2 Sodium 148 H Potassium Chloride 112.6 H Carbon Dioxide BUN Creatinine Glucose 33 L* POC Glucose 44 L Lactic Acid Calcium Magnesium AST 85 H ALT 127 H Alkaline Phosphatase Total Creatine Kinase C-Reactive Protein Total Protein 4.6 L D Albumin 2.4 L Vitamin B12 Salicylates Miscellaneous Test 05/26/17 05/26/17 05/26/17 06:33 09:45 10:01 WBC RBC Hgb Hct MCV MCH MCHC RDW Plt Count Lymph % (Auto) Lymph # Seg Neutrophils % Seg Neuts % (Manual) Lymphocytes % (Manual) Nucleated RBC % Seg Neutrophils # Man Lymphocytes # (Manual) PT INR APTT POC ABG pH POC ABG pCO2 POC ABG pO2 Sodium Potassium Chloride Carbon Dioxide BUN Creatinine Glucose POC Glucose 130 H 52 L 182 H Lactic Acid Calcium Magnesium AST ALT Alkaline Phosphatase Total Creatine Kinase C-Reactive Protein Total Protein Albumin Vitamin B12 Salicylates Miscellaneous Test 05/26/17 05/26/17 05/26/17 10:56 12:41 14:58 WBC RBC Hgb Hct MCV MCH MCHC RDW Plt Count Lymph % (Auto) Lymph # Seg Neutrophils % Seg Neuts % (Manual) Lymphocytes % (Manual) Nucleated RBC % Seg Neutrophils # Man Lymphocytes # (Manual) PT INR APTT POC ABG pH POC ABG pCO2 POC ABG pO2 61 L Sodium Potassium Chloride Carbon Dioxide BUN Creatinine Glucose POC Glucose 69 L 150 H Lactic Acid Calcium Magnesium AST ALT Alkaline Phosphatase Total Creatine Kinase C-Reactive Protein Total Protein Albumin Vitamin B12 Salicylates Miscellaneous Test 05/26/17 05/26/17 05/26/17 15:41 15:53 17:46 WBC RBC Hgb Hct MCV MCH MCHC RDW Plt Count Lymph % (Auto) Lymph # Seg Neutrophils % Seg Neuts % (Manual) Lymphocytes % (Manual) Nucleated RBC % Seg Neutrophils # Man Lymphocytes # (Manual) PT INR APTT POC ABG pH 7.330 L POC ABG pCO2 POC ABG pO2 77 L Sodium Potassium Chloride Carbon Dioxide BUN Creatinine Glucose POC Glucose 63 L Lactic Acid Calcium Magnesium AST ALT Alkaline Phosphatase Total Creatine Kinase C-Reactive Protein 15.20 H Total Protein Albumin Vitamin B12 Salicylates Miscellaneous Test 05/26/17 05/26/17 05/27/17 18:40 20:18 00:35 WBC RBC Hgb Hct MCV MCH MCHC RDW Plt Count Lymph % (Auto) Lymph # Seg Neutrophils % Seg Neuts % (Manual) Lymphocytes % (Manual) Nucleated RBC % Seg Neutrophils # Man Lymphocytes # (Manual) PT INR APTT POC ABG pH POC ABG pCO2 POC ABG pO2 Sodium Potassium Chloride Carbon Dioxide BUN Creatinine Glucose POC Glucose 149 H 63 L 49 L Lactic Acid Calcium Magnesium AST ALT Alkaline Phosphatase Total Creatine Kinase C-Reactive Protein Total Protein Albumin Vitamin B12 Salicylates Miscellaneous Test 05/27/17 05/27/17 05/27/17 02:33 04:00 04:00 WBC RBC Hgb 11.7 L Hct 34.6 L MCV 75 L MCH 25 L MCHC RDW 15.6 H Plt Count 21 L Lymph % (Auto) Lymph # Seg Neutrophils % Seg Neuts % (Manual) 14.0 L Lymphocytes % (Manual) 5.0 L Nucleated RBC % Seg Neutrophils # Man 1.5 L Lymphocytes # (Manual) 0.5 L PT INR APTT POC ABG pH POC ABG pCO2 POC ABG pO2 Sodium 148 H Potassium Chloride 112.7 H Carbon Dioxide BUN 24 H Creatinine Glucose POC Glucose 61 L Lactic Acid Calcium 7.7 L Magnesium AST 115 H ALT 100 H Alkaline Phosphatase Total Creatine Kinase C-Reactive Protein Total Protein 3.8 L Albumin 2.1 L Vitamin B12 Salicylates Miscellaneous Test 05/27/17 05/27/17 05/27/17 04:00 05:20 06:36 WBC RBC Hgb Hct MCV MCH MCHC RDW Plt Count Lymph % (Auto) Lymph # Seg Neutrophils % Seg Neuts % (Manual) Lymphocytes % (Manual) Nucleated RBC % Seg Neutrophils # Man Lymphocytes # (Manual) PT 19.7 H INR 1.57 H APTT 57.0 H POC ABG pH POC ABG pCO2 POC ABG pO2 Sodium Potassium Chloride Carbon Dioxide BUN Creatinine Glucose POC Glucose 64 L 120 H Lactic Acid Calcium Magnesium AST ALT Alkaline Phosphatase Total Creatine Kinase C-Reactive Protein Total Protein Albumin Vitamin B12 Salicylates Miscellaneous Test 05/27/17 05/27/17 05/27/17 09:15 12:35 15:44 WBC RBC Hgb Hct MCV MCH MCHC RDW Plt Count Lymph % (Auto) Lymph # Seg Neutrophils % Seg Neuts % (Manual) Lymphocytes % (Manual) Nucleated RBC % Seg Neutrophils # Man Lymphocytes # (Manual) PT INR APTT POC ABG pH POC ABG pCO2 POC ABG pO2 380 H Sodium Potassium Chloride Carbon Dioxide BUN Creatinine Glucose POC Glucose 162 H 193 H Lactic Acid Calcium Magnesium AST ALT Alkaline Phosphatase Total Creatine Kinase C-Reactive Protein Total Protein Albumin Vitamin B12 Salicylates Miscellaneous Test 05/27/17 05/27/17 05/27/17 18:14 20:12 20:15 WBC RBC Hgb 10.3 L Hct 30.7 L MCV 75 L MCH 25 L MCHC RDW 15.6 H Plt Count 15 L* Lymph % (Auto) Lymph # Seg Neutrophils % Seg Neuts % (Manual) 95.0 H Lymphocytes % (Manual) 4.0 L Nucleated RBC % Seg Neutrophils # Man Lymphocytes # (Manual) 0.3 L PT INR APTT POC ABG pH POC ABG pCO2 POC ABG pO2 Sodium Potassium Chloride Carbon Dioxide BUN Creatinine Glucose POC Glucose 199 H 165 H Lactic Acid Calcium Magnesium AST ALT Alkaline Phosphatase Total Creatine Kinase C-Reactive Protein Total Protein Albumin Vitamin B12 Salicylates Miscellaneous Test 05/27/17 05/27/17 05/27/17 20:43 21:48 23:08 WBC RBC Hgb Hct MCV MCH MCHC RDW Plt Count Lymph % (Auto) Lymph # Seg Neutrophils % Seg Neuts % (Manual) Lymphocytes % (Manual) Nucleated RBC % Seg Neutrophils # Man Lymphocytes # (Manual) PT INR APTT POC ABG pH POC ABG pCO2 POC ABG pO2 Sodium Potassium Chloride Carbon Dioxide BUN Creatinine Glucose 150 H POC Glucose 166 H Lactic Acid Calcium 8.3 L Magnesium AST ALT Alkaline Phosphatase Total Creatine Kinase C-Reactive Protein Total Protein Albumin Vitamin B12 Salicylates Miscellaneous Test Flexitest 1 H 05/27/17 05/28/17 05/28/17 23:51 02:23 04:19 WBC RBC Hgb Hct MCV MCH MCHC RDW Plt Count Lymph % (Auto) Lymph # Seg Neutrophils % Seg Neuts % (Manual) Lymphocytes % (Manual) Nucleated RBC % Seg Neutrophils # Man Lymphocytes # (Manual) PT INR APTT POC ABG pH POC ABG pCO2 POC ABG pO2 75 L Sodium Potassium Chloride Carbon Dioxide BUN Creatinine Glucose POC Glucose 173 H 177 H Lactic Acid Calcium Magnesium AST ALT Alkaline Phosphatase Total Creatine Kinase C-Reactive Protein Total Protein Albumin Vitamin B12 Salicylates Miscellaneous Test 05/28/17 05/28/17 05/28/17 05:40 05:50 05:50 WBC RBC Hgb 10.5 L Hct 30.9 L MCV 75 L MCH 25 L MCHC RDW 15.5 H Plt Count 16 L* Lymph % (Auto) Lymph # Seg Neutrophils % Seg Neuts % (Manual) Lymphocytes % (Manual) Nucleated RBC % Seg Neutrophils # Man Lymphocytes # (Manual) PT INR APTT POC ABG pH POC ABG pCO2 POC ABG pO2 Sodium Potassium Chloride Carbon Dioxide BUN Creatinine Glucose 129 H POC Glucose 160 H Lactic Acid Calcium 8.3 L Magnesium AST ALT Alkaline Phosphatase Total Creatine Kinase C-Reactive Protein Total Protein Albumin Vitamin B12 Salicylates Miscellaneous Test 05/28/17 05/28/17 05/28/17 08:21 11:04 12:19 WBC RBC Hgb Hct MCV MCH MCHC RDW Plt Count Lymph % (Auto) Lymph # Seg Neutrophils % Seg Neuts % (Manual) Lymphocytes % (Manual) Nucleated RBC % Seg Neutrophils # Man Lymphocytes # (Manual) PT INR APTT POC ABG pH POC ABG pCO2 POC ABG pO2 178 H Sodium Potassium Chloride Carbon Dioxide BUN Creatinine Glucose POC Glucose 201 H 140 H Lactic Acid Calcium Magnesium AST ALT Alkaline Phosphatase Total Creatine Kinase C-Reactive Protein Total Protein Albumin Vitamin B12 Salicylates Miscellaneous Test 05/28/17 05/28/17 05/29/17 13:47 16:21 05:56 WBC RBC Hgb Hct MCV MCH MCHC RDW Plt Count Lymph % (Auto) Lymph # Seg Neutrophils % Seg Neuts % (Manual) Lymphocytes % (Manual) Nucleated RBC % Seg Neutrophils # Man Lymphocytes # (Manual) PT INR APTT POC ABG pH POC ABG pCO2 POC ABG pO2 Sodium Potassium Chloride Carbon Dioxide BUN Creatinine Glucose POC Glucose 47 L 110 H Lactic Acid Calcium Magnesium 1.60 L AST ALT Alkaline Phosphatase Total Creatine Kinase C-Reactive Protein Total Protein Albumin Vitamin B12 Salicylates Miscellaneous Test 05/29/17 05/29/17 05/29/17 08:00 08:57 10:01 WBC RBC Hgb Hct MCV MCH MCHC RDW Plt Count Lymph % (Auto) Lymph # Seg Neutrophils % Seg Neuts % (Manual) Lymphocytes % (Manual) Nucleated RBC % Seg Neutrophils # Man Lymphocytes # (Manual) PT INR APTT POC ABG pH POC ABG pCO2 POC ABG pO2 Sodium 126 L D Potassium 3.3 L Chloride 96.4 L Carbon Dioxide 20 L BUN Creatinine 0.5 L Glucose POC Glucose 120 H 115 H Lactic Acid Calcium 6.6 L D Magnesium AST 485 H ALT 380 H Alkaline Phosphatase Total Creatine Kinase C-Reactive Protein Total Protein 3.6 L Albumin 1.5 L Vitamin B12 Salicylates Miscellaneous Test 05/29/17 05/29/17 05/29/17 10:15 10:15 11:55 WBC RBC Hgb 9.3 L Hct 27.2 L MCV 73 L MCH 25 L MCHC RDW Plt Count 9 L* Lymph % (Auto) Lymph # Seg Neutrophils % Seg Neuts % (Manual) Lymphocytes % (Manual) Nucleated RBC % Seg Neutrophils # Man Lymphocytes # (Manual) PT INR APTT POC ABG pH POC ABG pCO2 POC ABG pO2 Sodium Potassium Chloride Carbon Dioxide BUN 24 H Creatinine 0.7 L Glucose 112 H POC Glucose 128 H Lactic Acid Calcium Magnesium AST ALT Alkaline Phosphatase Total Creatine Kinase C-Reactive Protein Total Protein Albumin Vitamin B12 Salicylates Miscellaneous Test 05/29/17 05/30/17 05/30/17 15:44 01:00 04:21 WBC RBC Hgb Hct MCV MCH MCHC RDW Plt Count Lymph % (Auto) Lymph # Seg Neutrophils % Seg Neuts % (Manual) Lymphocytes % (Manual) Nucleated RBC % Seg Neutrophils # Man Lymphocytes # (Manual) PT INR APTT POC ABG pH 7.528 H POC ABG pCO2 34.8 L POC ABG pO2 108 H Sodium Potassium Chloride Carbon Dioxide BUN Creatinine Glucose POC Glucose 124 H 106 H Lactic Acid Calcium Magnesium AST ALT Alkaline Phosphatase Total Creatine Kinase C-Reactive Protein Total Protein Albumin Vitamin B12 Salicylates Miscellaneous Test 05/30/17 05/30/17 05/30/17 05:30 05:30 06:02 WBC RBC Hgb 9.3 L Hct 27.6 L MCV 74 L MCH 25 L MCHC RDW Plt Count 40 L D Lymph % (Auto) Lymph # Seg Neutrophils % Seg Neuts % (Manual) 90.0 H Lymphocytes % (Manual) 4.0 L Nucleated RBC % 1.0 H Seg Neutrophils # Man Lymphocytes # (Manual) 0.2 L PT INR APTT POC ABG pH POC ABG pCO2 POC ABG pO2 Sodium Potassium Chloride 109.9 H Carbon Dioxide BUN 26 H Creatinine 0.7 L Glucose 118 H POC Glucose 149 H Lactic Acid Calcium Magnesium AST 445 H ALT 529 H Alkaline Phosphatase Total Creatine Kinase C-Reactive Protein Total Protein 4.7 L D Albumin 2.2 L Vitamin B12 Salicylates Miscellaneous Test 05/30/17 05/30/17 05/30/17 10:14 15:02 16:28 WBC RBC Hgb Hct MCV MCH MCHC RDW Plt Count Lymph % (Auto) Lymph # Seg Neutrophils % Seg Neuts % (Manual) Lymphocytes % (Manual) Nucleated RBC % Seg Neutrophils # Man Lymphocytes # (Manual) PT INR APTT POC ABG pH POC ABG pCO2 POC ABG pO2 Sodium Potassium Chloride Carbon Dioxide BUN Creatinine Glucose POC Glucose 155 H 169 H Lactic Acid Calcium Magnesium AST ALT Alkaline Phosphatase Total Creatine Kinase 3464 H C-Reactive Protein Total Protein Albumin Vitamin B12 Salicylates Miscellaneous Test 05/30/17 05/30/17 05/30/17 16:28 17:40 21:35 WBC RBC Hgb Hct MCV MCH MCHC RDW Plt Count Lymph % (Auto) Lymph # Seg Neutrophils % Seg Neuts % (Manual) Lymphocytes % (Manual) Nucleated RBC % Seg Neutrophils # Man Lymphocytes # (Manual) PT INR APTT POC ABG pH POC ABG pCO2 POC ABG pO2 Sodium Potassium Chloride Carbon Dioxide BUN Creatinine Glucose POC Glucose 155 H 129 H Lactic Acid Calcium Magnesium AST ALT Alkaline Phosphatase Total Creatine Kinase C-Reactive Protein Total Protein Albumin Vitamin B12 1108 H Salicylates Miscellaneous Test 05/31/17 05/31/17 05/31/17 01:54 04:31 05:40 WBC RBC 3.37 L Hgb 8.5 L Hct 24.6 L MCV 73 L MCH 25 L MCHC 35 H RDW Plt Count 55 L Lymph % (Auto) 8.7 L Lymph # 0.5 L Seg Neutrophils % 86.1 H Seg Neuts % (Manual) Lymphocytes % (Manual) Nucleated RBC % Seg Neutrophils # Man Lymphocytes # (Manual) PT INR APTT POC ABG pH 7.547 H POC ABG pCO2 34.6 L POC ABG pO2 79 L Sodium Potassium Chloride Carbon Dioxide BUN Creatinine Glucose POC Glucose 110 H Lactic Acid Calcium Magnesium AST ALT Alkaline Phosphatase Total Creatine Kinase C-Reactive Protein Total Protein Albumin Vitamin B12 Salicylates Miscellaneous Test 05/31/17 05/31/17 05/31/17 05:40 13:52 Unknown WBC RBC Hgb Hct MCV MCH MCHC RDW Plt Count Lymph % (Auto) Lymph # Seg Neutrophils % Seg Neuts % (Manual) Lymphocytes % (Manual) Nucleated RBC % Seg Neutrophils # Man Lymphocytes # (Manual) PT INR APTT POC ABG pH POC ABG pCO2 POC ABG pO2 Sodium 148 H Potassium 3.2 L Chloride 108.6 H Carbon Dioxide BUN 22 H Creatinine 0.5 L Glucose 101 H POC Glucose 114 H Lactic Acid Calcium 8.2 L Magnesium AST 223 H ALT 359 H Alkaline Phosphatase Total Creatine Kinase C-Reactive Protein Total Protein 4.6 L Albumin 2.0 L Vitamin B12 Salicylates Miscellaneous Test Flexitest 1 H 06/01/17 06/01/17 06/01/17 05:16 14:48 14:54 WBC RBC Hgb Hct MCV MCH MCHC RDW Plt Count Lymph % (Auto) Lymph # Seg Neutrophils % Seg Neuts % (Manual) Lymphocytes % (Manual) Nucleated RBC % Seg Neutrophils # Man Lymphocytes # (Manual) PT INR APTT POC ABG pH 7.499 H POC ABG pCO2 POC ABG pO2 71 L Sodium Potassium Chloride Carbon Dioxide BUN Creatinine Glucose POC Glucose < 40 L < 40 L Lactic Acid Calcium Magnesium AST ALT Alkaline Phosphatase Total Creatine Kinase C-Reactive Protein Total Protein Albumin Vitamin B12 Salicylates Miscellaneous Test 06/01/17 06/01/17 06/01/17 15:39 22:07 23:00 WBC RBC Hgb Hct MCV MCH MCHC RDW Plt Count Lymph % (Auto) Lymph # Seg Neutrophils % Seg Neuts % (Manual) Lymphocytes % (Manual) Nucleated RBC % Seg Neutrophils # Man Lymphocytes # (Manual) PT INR APTT POC ABG pH POC ABG pCO2 POC ABG pO2 Sodium Potassium Chloride Carbon Dioxide BUN Creatinine Glucose POC Glucose 69 L 50 L Lactic Acid Calcium Magnesium AST ALT Alkaline Phosphatase Total Creatine Kinase 1318 H C-Reactive Protein Total Protein Albumin Vitamin B12 Salicylates Miscellaneous Test 06/01/17 06/01/17 06/02/17 Unknown Unknown 06:00 WBC RBC 3.24 L Hgb 8.1 L Hct 23.8 L MCV 74 L MCH 25 L MCHC RDW Plt Count 136 L D Lymph % (Auto) Lymph # 1.0 L Seg Neutrophils % 80.1 H Seg Neuts % (Manual) Lymphocytes % (Manual) Nucleated RBC % Seg Neutrophils # Man Lymphocytes # (Manual) PT INR APTT POC ABG pH POC ABG pCO2 POC ABG pO2 Sodium 148 H Potassium 3.3 L 3.4 L Chloride 107.5 H Carbon Dioxide 31 H 32 H BUN Creatinine 0.4 L 0.4 L Glucose POC Glucose Lactic Acid Calcium 8.2 L 8.0 L Magnesium AST 127 H ALT 269 H Alkaline Phosphatase 137 H Total Creatine Kinase C-Reactive Protein Total Protein 4.2 L Albumin 2.5 L Vitamin B12 Salicylates Miscellaneous Test 06/02/17 06/02/17 08:27 14:50 WBC RBC Hgb 9.6 L Hct 28.4 L MCV 74 L MCH 25 L MCHC RDW Plt Count Lymph % (Auto) Lymph # Seg Neutrophils % Seg Neuts % (Manual) Lymphocytes % (Manual) Nucleated RBC % Seg Neutrophils # Man Lymphocytes # (Manual) PT INR APTT POC ABG pH POC ABG pCO2 48.6 H POC ABG pO2 Sodium Potassium Chloride Carbon Dioxide BUN Creatinine Glucose POC Glucose Lactic Acid Calcium Magnesium AST ALT Alkaline Phosphatase Total Creatine Kinase C-Reactive Protein Total Protein Albumin Vitamin B12 Salicylates Miscellaneous Test Chest x-ray: report reviewed, image reviewed
[2017-06-02] MEDS: ZITHROMAX 500 MG in NACL 0.9% 250ML 250 ML IV SCH (18:20)
--- NOTE | 2017-06-02 22:44 | XRay Report ---
FINAL REPORT PROCEDURE: XR ABDOMEN 1V AP TECHNIQUE: Abdominal radiograph, single supine AP view. HISTORY: abdominal pain/dobbhoff tube placement COMPARISON: No prior studies are available for comparison. FINDINGS: Bowel gas pattern:Nonobstructive. Masses or calcifications:None. Bony structures:No significant abnormality. Other:The NG tube is in the stomach.. There are infiltrates at the lung bases. IMPRESSION: No acute abnormality. NG tube is in the stomach.
[2017-06-02] MEDS: BACTRIM DS PO SCH (22:54)
[2017-06-03] MEDS: D50W (25GM) Syringe IV PRN ×3 (00:24→17:53)
[2017-06-03] MEDS: ZOVIRAX IV SCH ×3 (01:32→17:29)
[2017-06-03] MEDS: NACL 0.9% IV SCH ×3 (01:32→17:29)
[2017-06-03] MEDS: cefTRIAXone 2 GM in NACL 0.9% 20 ML IV SCH ×2 (04:30→16:39)
[2017-06-03 04:44] LABS: BUN/Creatinine Ratio 37; Basophils % (Auto) 0.1 % (0.0-1.8); Blood Urea Nitrogen 11 mg/dL (9-20); Calcium 8.1 mg/dL (8.4-10.2); Eosinophils # (Auto) 0.1 K/mm3 (0.0-0.4); Eosinophils % (Auto) 1.2 % (0.0-4.3); Hematocrit 27.7 % (35.5-45.6); Hemoglobin 9.4 gm/dl (11.8-15.2); Hemolysis Index 3; Lymphocytes # (Auto) 0.9 K/mm3 (1.2-5.4); Lymphocytes % (Auto) 18.4 % (13.4-35.0); Mean Corpuscular HGB Conc 34 % (32-34); Mean Corpuscular Volume 74 fl (84-94); Monocytes # (Auto) 0.2 K/mm3 (0.0-0.8); Monocytes % (Auto) 4.2 % (0.0-7.3); Platelet Count 206 K/mm3 (140-440); Red Blood Count 3.73 M/mm3 (3.65-5.03); Red Cell Distribution Width 14.5 % (13.2-15.2)
[2017-06-03 05:04] LABS: Mean Corpuscular Hemoglobin 25 pg (28-32)
--- NOTE | 2017-06-03 05:37 | XRay Report ---
FINAL REPORT PROCEDURE: XR ABDOMEN 1V AP TECHNIQUE: Abdominal series, including supine and upright AP views. HISTORY: To confirm NG tube placement COMPARISON: No prior studies are available for comparison. FINDINGS: Bowel gas pattern:Nonobstructive . Masses or calcifications:None . Bony structures:No significant abnormality . Pneumoperitoneum:None . Other:The NG tube is in the stomach.. IMPRESSION: No acute abnormality. NG tube is in the stomach.
[2017-06-03] MEDS: VANCOMYCIN 1,250 MG in NACL 0.9% 250ML 250 ML IV SCH ×3 (06:25→22:00)
[2017-06-03] MEDS: THERAGRAN-M Tab PO SCH (10:34)
[2017-06-03] MEDS: BACTRIM DS PO SCH ×2 (10:34→23:24)
[2017-06-03] MEDS: VITAMIN D3 PO SCH (10:34)
[2017-06-03] MEDS: K-DUR PO SCH (10:35)
[2017-06-03] MEDS: PEPCID PO SCH ×2 (10:35→23:24)
[2017-06-03] MEDS: VITAMIN B-1 PO SCH (10:35)
[2017-06-03] MEDS: D5NS 1,000 ML IV SCH (10:37)
--- NOTE | 2017-06-03 14:40 | Progress Note ---
Assessment and Plan // SEVERE SEPSIS WITH SEPTIC SHOCK- POA, - now afebrile. off levophed. Etiology aspiration pneumonia vs ? [employer]PRESENTATIVE infection. - Influenza A/B PCR negative. s/p course of tamiflu. - Legionella and Strep pneumo urinary ag - negative. - Tracheal aspirate culture 05/29 S maltophilia - being treated for Aspiration Pneumonia also on coverage for possible meningitis/encephalitis - LP could not be done initially due to low platelet count - Not sure how effective the LP study would be now considering on abx for more than a week // Severe Hypothermia on admission, resolved, - likely from sepsis, // Acute Toxic Metabolic Encephalopathy, - being treated for meningitis/encephalitis - MRI brain when more stable, s/p repeat CT head showed no new findings - Pt also has h/o schizophrenia, psych on board // Acute Respiratory Failure, required vent >96h - s/o extubation on 06/02/17 - cont nebs, supplemental O2 to keep sat >94% // Thrombocytopenia-severe- no bleeding noted, - s/p total 6 units of platelets transfusion - held all anticoagulant // Aspiration Pneumonia with possible Post influenza Pneumonia - getting abx coverage per ID // h/o Schizophrenia - psych on board, will follow recommendation - pt currently under custody // Hypoglycemia, recurrent - could be from sepsis, suppressed hepatic glucose production (need details h/o alcohol abuse, will check for serum cortisol and GH level) - also need to work up for insulinoma - on D5NS and TF for now - will order CT abdomen pelvis when more oriented to complete the 72 hour fasting trial - will check insulin level for now // Severe Protein Calorie Malnutrition - nutrition on board // Hypernatremia, improved - cont to monitor, getting free water with TF // Elevated LFT, likely from sepsis - trending down // hypokalemia, being replaced daily - could be also related to insulinoma, General: - cont TF, assess for po diet - Replace Electrolytes accordingly - GI prophylaxis - Hold all Anticoagulations - Discussed with HILTON, RN at bedside Brief History: Patient is 42 years old AA male, from shelter for evaluation of altered mental status and bradycardia. Also Hypothermic Only history available is schizophrenia. No other information can be obtained at this moment since patient is not communicating. No fever or chills per Care [facility] staff. Physical exam: General appearance: Present: no acute distress, restrained - EENT Eyes: no congestion - Neck Neck: Present: supple - Respiratory Respiratory effort: other (ett) Respiratory: bilateral: diminished - Cardiovascular Rhythm: regular Heart Sounds: Present: S1 & S2. Absent: systolic murmur - Extremities Extremities: pulses intact, normal temperature Peripheral Pulses: within normal limits - Abdominal General gastrointestinal: soft, non-distended, hypoactive bowel sounds - Integumentary Integumentary: Present: warm - Psychiatric Psychiatric: confused - Neurologic Neurologic: no focal deficit - skin no rash - Allied Health Allied health notes reviewed: nursing The high probability of a clinically significant, sudden or life threatening deterioration of the [PULMONARY, NEUROLOGY] system(s) required my full and direct attention, intervention and personal management. The aggregate critical care time was [35] minutes. This time is in addition to time spent performing reported procedures but includes the following: [X] Data Review and interpretation [X] Patient assessment and monitoring of vital signs [X] Documentation [X] Medication orders and management Subjective Date of service: 06/03/17 Principal diagnosis: pneumonia Interval history: Pt seen and examined extubated yesterday(06/02/17) afternoon doing well with N/C Confused trying to sliding down from the bed, restrained, trying to take off cloths Objective - Constitutional Vitals: Vital Signs - 12hr 06/03/17 06/03/17 06/03/17 02:46 03:00 03:16 Temperature Pulse Rate 59 L 53 L 51 L Respiratory 19 14 11 L Rate Respiratory Rate [MATT] Blood Pressure 113/75 122/76 113/75 O2 Sat by Pulse 91 95 100 Oximetry 06/03/17 06/03/17 06/03/17 03:30 03:46 04:00 Temperature Pulse Rate 56 L 58 L 54 L Respiratory 12 10 L 13 Rate Respiratory Rate [MATT] Blood Pressure 113/75 113/75 113/75 O2 Sat by Pulse 98 100 98 Oximetry 06/03/17 06/03/17 06/03/17 04:16 04:30 04:46 Temperature Pulse Rate 48 L 58 L 63 Respiratory 8 L 11 L 11 L Rate Respiratory Rate [MATT] Blood Pressure 113/75 113/75 113/75 O2 Sat by Pulse 100 100 100 Oximetry 06/03/17 06/03/17 06/03/17 05:00 05:16 05:23 Temperature Pulse Rate 56 L 64 53 L Respiratory 11 L 7 L Rate Respiratory 16 Rate [MATT] Blood Pressure 113/75 113/75 O2 Sat by Pulse 99 99 Oximetry 06/03/17 06/03/17 06/03/17 07:49 08:00 12:00 Temperature 93.9 F L 93.4 F L Pulse Rate Respiratory Rate Respiratory Rate [MATT] Blood Pressure O2 Sat by Pulse 100 Oximetry - Labs CBC & Chem 7: 06/03/17 04:00 06/03/17 04:00 Labs: Abnormal lab results 06/02/17 06/02/17 06/03/17 Range/Units 13:02 14:50 00:08 Hgb (11.8-15.2) gm/dl Hct (35.5-45.6) % MCV (84-94) fl MCH (28-32) pg Lymph # (1.2-5.4) K/mm3 Seg Neutrophils % (40.0-70.0) % POC ABG pCO2 48.6 H (35-45) Potassium (3.6-5.0) mmol/L Carbon Dioxide (22-30) mmol/L Creatinine (0.8-1.5) mg/dL Glucose (75-100) mg/dL POC Glucose 127 H 44 L (70-105) Calcium (8.4-10.2) mg/dL 06/03/17 06/03/17 06/03/17 Range/Units 04:00 04:00 06:12 Hgb 9.4 L (11.8-15.2) gm/dl Hct 27.7 L (35.5-45.6) % MCV 74 L (84-94) fl MCH 25 L (28-32) pg Lymph # 0.9 L (1.2-5.4) K/mm3 Seg Neutrophils % 76.1 H (40.0-70.0) % POC ABG pCO2 (35-45) Potassium 3.4 L (3.6-5.0) mmol/L Carbon Dioxide 33 H (22-30) mmol/L Creatinine 0.3 L (0.8-1.5) mg/dL Glucose 62 L (75-100) mg/dL POC Glucose 46 L (70-105) Calcium 8.1 L (8.4-10.2) mg/dL 02/24/18 Range/Units 14:00 Hgb (11.8-15.2) gm/dl Hct (35.5-45.6) % MCV (84-94) fl MCH (28-32) pg Lymph # (1.2-5.4) K/mm3 Seg Neutrophils % (40.0-70.0) % POC ABG pCO2 (35-45) Potassium (3.6-5.0) mmol/L Carbon Dioxide (22-30) mmol/L Creatinine (0.8-1.5) mg/dL Glucose (75-100) mg/dL POC Glucose 118 H (70-105) Calcium (8.4-10.2) mg/dL
--- NOTE | 2017-06-03 16:35 | Progress Note ---
Assessment and Plan Imp: 1. Pneumonia, bilateral 2. ? Meningoencephalitis 3. Sepsis 4. Acute respiratory failure, hypoxia 5. Severe thrombocytopenia 6. Acute encephalopathy 7. Sinus bradycardia Rec: 1. ABX per ID 2. MELBA, ANCAs negative 3. Awaiting LP and ? repeat brain imaging 4. Off steroids 5. EKG shows sinus renard; BP stable and he is asymptomatic; will place Atropine at bedside; appreciate cardiology evaluation 6. SCDs 7. CK, AST, and ALT elevated c/w mild rhabdo ? viral versus inflammatory/auto- immune; check aldolase and Katherin-1 8. Neurology consulted No family present; complex decision-making Subjective Date of service: 06/03/17 Principal diagnosis: pneumonia Interval history: Alert, more appropriate, and will follow commands. Extubated. No complaints. Moves all extremities. HR up to 50's now. Active Medications Acetaminophen (Tylenol) 650 mg PO Q4H PRN PRN Reason: Pain MILD(1-3)/Fever >100.5/FOFANA Lipase/Protease/Amylase (Pancreaze Dr 10,500 Unit) 1 each FEEDTUBE PRN PRN PRN Reason: For Clogged Feeding Tube Atropine Sulfate (Atropine) 1 mg IV ONCE PRN PRN Reason: Bradycardia Bisacodyl (Dulcolax) 10 mg AL QDAY PRN PRN Reason: Constipation unrelieved by MOM Cholecalciferol (Vitamin D3) 1,000 unit PO QDAY [facility] Last Admin: 06/03/17 10:34 Dose: 1,000 unit Dextrose (D50w (25gm) Syringe) 50 ml IV PRN PRN PRN Reason: Hypoglycemia Last Admin: 06/03/17 06:18 Dose: 50 ml Famotidine (Pepcid) 20 mg PO BID [facility] Last Admin: 06/03/17 10:35 Dose: 20 mg Norepinephrine (Levophed Drip 4 Mg/Ns 250 Ml) 4 mg in 250 mls @ 7.5 mls/hr IV TITR RICCARDO; 2 MCG/MIN PRN Reason: Protocol Last Titration: 05/28/17 07:50 Dose: 1 mcg/min, 3.75 mls/hr Ceftriaxone Sodium 2 gm/ (Sodium Chloride) 20 mls @ 20 mls/10 min IV Q12H [facility] Last Admin: 06/03/17 04:30 Dose: 20 mls/10 min Acyclovir 680 mg/ Sodium (Chloride) 113.6 mls @ 100 mls/hr IV Q8H [facility] Last Admin: 06/03/17 01:32 Dose: 100 mls/hr Midazolam HCl 100 mg/ Sodium (Chloride) 100 mls @ 2 mls/hr IV TITR RICCARDO; 2 MG/HR PRN Reason: Protocol Last Titration: 05/27/17 13:30 Dose: 2 mg/hr, 2 mls/hr Vancomycin HCl 1,250 mg/ (Sodium Chloride) 262.5 mls @ 166.667 mls/hr IV Q8HR [facility] Last Admin: 06/03/17 06:25 Dose: 166.667 mls/hr Azithromycin 500 mg/ Sodium (Chloride) 250 mls @ 250 mls/hr IV Q24H [facility] Last Admin: 06/02/17 18:20 Dose: 250 mls/hr Dextrose/Sodium Chloride (D5ns) 1,000 mls @ 42 mls/hr IV DIRECT [facility] Last Admin: 06/03/17 10:37 Dose: 42 mls/hr Magnesium Hydroxide (Milk Of Magnesia) 30 ml PO Q4H PRN PRN Reason: Constipation Multivitamins/Minerals (Theragran-M Tab) 1 each PO QDAY [facility] Last Admin: 06/03/17 10:34 Dose: 1 each Ondansetron HCl (Zofran) 4 mg IV Q8H PRN PRN Reason: N/V unrelieved by Reglan Potassium Chloride (K-Dur) 40 meq PO QDAY [facility] Last Admin: 06/03/17 10:35 Dose: 40 meq Simple Syrup (Simple Syrup) 15 ml FEEDTUBE PRN PRN PRN Reason: Hypoglycemia Simple Syrup (Simple Syrup) 30 ml FEEDTUBE PRN PRN PRN Reason: Hypoglycemia Sodium Bicarbonate (Sodium Bicarbonate) 325 mg FEEDTUBE PRN PRN PRN Reason: For Clogged Feeding Tube Thiamine HCl (Vitamin B-1) 100 mg PO QDAY [facility] Last Admin: 06/03/17 10:35 Dose: 100 mg Trimethoprim/Sulfamethoxazole (Bactrim Ds) 2 each PO Q12HR [facility] Last Admin: 06/03/17 10:34 Dose: 2 each Vancomycin HCl (Vancomycin Pharmacy To Dose) 1 each IV PKCONSULT [facility] PRN Reason: Protocol Objective Vital Signs - 12hr 06/03/17 06/03/17 06/03/17 04:46 05:00 05:16 Temperature Pulse Rate 63 56 L 64 Respiratory 11 L 11 L 7 L Rate Respiratory Rate [MATT] Blood Pressure 113/75 113/75 113/75 O2 Sat by Pulse 100 99 99 Oximetry 06/03/17 06/03/17 06/03/17 05:23 05:30 05:46 Temperature Pulse Rate 53 L 47 L 49 L Respiratory 9 L 13 Rate Respiratory 16 Rate [MATT] Blood Pressure 113/75 113/75 O2 Sat by Pulse 98 97 Oximetry 06/03/17 06/03/17 06/03/17 06:00 06:16 06:30 Temperature Pulse Rate 49 L 52 L 66 Respiratory 14 23 12 Rate Respiratory Rate [MATT] Blood Pressure 113/75 120/71 120/71 O2 Sat by Pulse 99 99 100 Oximetry 06/03/17 06/03/17 06/03/17 06:46 07:00 07:16 Temperature Pulse Rate 55 L 57 L 67 Respiratory 17 12 12 Rate Respiratory Rate [MATT] Blood Pressure 119/78 116/81 120/71 O2 Sat by Pulse 100 100 100 Oximetry 06/03/17 06/03/17 06/03/17 07:30 07:46 07:49 Temperature Pulse Rate 59 L 52 L Respiratory 14 12 Rate Respiratory Rate [MATT] Blood Pressure 120/71 116/81 O2 Sat by Pulse 100 100 100 Oximetry 06/03/17 06/03/17 06/03/17 08:00 08:16 08:30 Temperature 93.9 F L Pulse Rate 58 L 55 L 69 Respiratory 14 13 31 H Rate Respiratory Rate [MATT] Blood Pressure 129/80 129/80 129/80 O2 Sat by Pulse 100 100 100 Oximetry 06/03/17 06/03/17 06/03/17 08:46 09:00 09:16 Temperature Pulse Rate 52 L 61 70 Respiratory 11 L 10 L 7 L Rate Respiratory Rate [MATT] Blood Pressure 129/80 129/82 129/82 O2 Sat by Pulse 100 100 100 Oximetry 06/03/17 06/03/17 06/03/17 09:30 09:46 10:00 Temperature Pulse Rate 64 54 L 59 L Respiratory 9 L 10 L 12 Rate Respiratory Rate [MATT] Blood Pressure 129/82 129/82 122/81 O2 Sat by Pulse 100 100 100 Oximetry 06/03/17 06/03/17 06/03/17 10:16 10:30 10:46 Temperature Pulse Rate 57 L 56 L Respiratory 14 12 Rate Respiratory Rate [MATT] Blood Pressure 122/81 122/81 122/81 O2 Sat by Pulse 99 99 100 Oximetry 06/03/17 06/03/17 06/03/17 11:00 11:16 11:30 Temperature Pulse Rate 52 L 63 72 Respiratory 13 14 17 Rate Respiratory Rate [MATT] Blood Pressure 123/80 123/80 123/80 O2 Sat by Pulse 100 100 100 Oximetry 06/03/17 06/03/17 06/03/17 11:46 12:00 12:16 Temperature 93.4 F L Pulse Rate 54 L 50 L 57 L Respiratory 13 15 14 Rate Respiratory Rate [MATT] Blood Pressure 123/80 122/80 122/80 O2 Sat by Pulse 100 100 Oximetry 06/03/17 06/03/17 06/03/17 12:30 12:46 13:00 Temperature Pulse Rate 43 L 47 L 44 L Respiratory 12 11 L 12 Rate Respiratory Rate [MATT] Blood Pressure 122/80 122/80 122/75 O2 Sat by Pulse 100 100 100 Oximetry 06/03/17 06/03/17 06/03/17 13:16 13:30 13:46 Temperature Pulse Rate 61 63 51 L Respiratory 15 15 13 Rate Respiratory Rate [MATT] Blood Pressure 122/75 122/75 122/75 O2 Sat by Pulse 100 100 100 Oximetry 06/03/17 06/03/17 06/03/17 14:00 14:16 14:30 Temperature Pulse Rate 60 60 56 L Respiratory 17 15 13 Rate Respiratory Rate [MATT] Blood Pressure 137/86 137/86 137/86 O2 Sat by Pulse 100 100 100 Oximetry 06/03/17 06/03/17 06/03/17 14:46 15:00 15:16 Temperature Pulse Rate 76 52 L 45 L Respiratory 21 14 12 Rate Respiratory Rate [MATT] Blood Pressure 137/86 131/74 131/74 O2 Sat by Pulse 95 100 Oximetry 06/03/17 06/03/17 06/03/17 15:30 15:46 16:00 Temperature 92.8 F L Pulse Rate 55 L 45 L 62 Respiratory 16 11 L 12 Rate Respiratory Rate [MATT] Blood Pressure 131/74 131/74 140/117 O2 Sat by Pulse 100 100 98 Oximetry Constitutional: no acute distress, alert Eyes: non-icteric Neck: supple Effort: normal Ascultation: Bilateral: clear Cardiovascular: other (sinus renard, RR; no mrg) Gastrointestinal: normoactive bowel sounds, soft, non-tender, non-distended Integumentary: normal Extremities: no cyanosis, no edema, pink and warm Neurologic: non-focal exam, pupils equal and round, other (awake, seems confused ) Psychiatric: mood appropriate, affect normal CBC and BMP: 06/03/17 04:00 06/03/17 04:00 ABG, PT/INR, D-dimer: ABG POC ABG pH 7.449 (7.35-7.45) 06/02/17 14:50 POC ABG pCO2 48.6 (35-45) H 06/02/17 14:50 POC ABG pO2 98 (80-105) 06/02/17 14:50 POC ABG HCO3 33.7 06/02/17 14:50 POC ABG Total CO2 35 06/02/17 14:50 POC ABG O2 Sat 98 06/02/17 14:50 PT/INR, D-dimer PT 12.4 Sec. (12.2-14.9) 06/02/17 08:27 INR 0.88 (0.87-1.13) 06/02/17 08:27 Abnormal lab findings: Abnormal Labs 05/25/17 05/25/17 05/25/17 13:32 13:32 13:32 WBC RBC 5.76 H Hgb Hct MCV 77 L MCH 25 L MCHC RDW 15.9 H Plt Count 48 L Lymph % (Auto) Lymph # Seg Neutrophils % Seg Neuts % (Manual) 76.0 H Lymphocytes % (Manual) 2.0 L Nucleated RBC % Seg Neutrophils # Man Lymphocytes # (Manual) 0.1 L PT INR APTT POC ABG pH POC ABG pCO2 POC ABG pO2 Sodium 147 H Potassium Chloride 109.4 H Carbon Dioxide BUN Creatinine 0.3 L Glucose 102 H POC Glucose Lactic Acid Calcium Magnesium AST 111 H ALT 168 H Alkaline Phosphatase Total Creatine Kinase C-Reactive Protein Total Protein 5.8 L Albumin 2.9 L Vitamin B12 Salicylates < 0.3 L Miscellaneous Test 05/25/17 05/25/17 05/25/17 13:32 15:16 16:34 WBC RBC Hgb Hct MCV MCH MCHC RDW Plt Count Lymph % (Auto) Lymph # Seg Neutrophils % Seg Neuts % (Manual) Lymphocytes % (Manual) Nucleated RBC % Seg Neutrophils # Man Lymphocytes # (Manual) PT INR APTT POC ABG pH POC ABG pCO2 POC ABG pO2 Sodium Potassium Chloride Carbon Dioxide BUN Creatinine Glucose POC Glucose Lactic Acid 2.20 H* 2.10 H* Calcium Magnesium AST ALT Alkaline Phosphatase Total Creatine Kinase 360 H C-Reactive Protein Total Protein Albumin Vitamin B12 Salicylates Miscellaneous Test 05/26/17 05/26/17 05/26/17 00:47 00:47 06:07 WBC 2.1 L RBC 5.23 H Hgb Hct MCV 75 L MCH 25 L MCHC RDW 15.6 H Plt Count 51 L Lymph % (Auto) Lymph # Seg Neutrophils % Seg Neuts % (Manual) 24.0 L Lymphocytes % (Manual) 8.0 L Nucleated RBC % Seg Neutrophils # Man 0.5 L Lymphocytes # (Manual) 0.2 L PT INR APTT POC ABG pH POC ABG pCO2 POC ABG pO2 Sodium 148 H Potassium Chloride 112.6 H Carbon Dioxide BUN Creatinine Glucose 33 L* POC Glucose 44 L Lactic Acid Calcium Magnesium AST 85 H ALT 127 H Alkaline Phosphatase Total Creatine Kinase C-Reactive Protein Total Protein 4.6 L D Albumin 2.4 L Vitamin B12 Salicylates Miscellaneous Test 05/26/17 05/26/17 05/26/17 06:33 09:45 10:01 WBC RBC Hgb Hct MCV MCH MCHC RDW Plt Count Lymph % (Auto) Lymph # Seg Neutrophils % Seg Neuts % (Manual) Lymphocytes % (Manual) Nucleated RBC % Seg Neutrophils # Man Lymphocytes # (Manual) PT INR APTT POC ABG pH POC ABG pCO2 POC ABG pO2 Sodium Potassium Chloride Carbon Dioxide BUN Creatinine Glucose POC Glucose 130 H 52 L 182 H Lactic Acid Calcium Magnesium AST ALT Alkaline Phosphatase Total Creatine Kinase C-Reactive Protein Total Protein Albumin Vitamin B12 Salicylates Miscellaneous Test 05/26/17 05/26/17 05/26/17 10:56 12:41 14:58 WBC RBC Hgb Hct MCV MCH MCHC RDW Plt Count Lymph % (Auto) Lymph # Seg Neutrophils % Seg Neuts % (Manual) Lymphocytes % (Manual) Nucleated RBC % Seg Neutrophils # Man Lymphocytes # (Manual) PT INR APTT POC ABG pH POC ABG pCO2 POC ABG pO2 61 L Sodium Potassium Chloride Carbon Dioxide BUN Creatinine Glucose POC Glucose 69 L 150 H Lactic Acid Calcium Magnesium AST ALT Alkaline Phosphatase Total Creatine Kinase C-Reactive Protein Total Protein Albumin Vitamin B12 Salicylates Miscellaneous Test 05/26/17 05/26/17 05/26/17 15:41 15:53 17:46 WBC RBC Hgb Hct MCV MCH MCHC RDW Plt Count Lymph % (Auto) Lymph # Seg Neutrophils % Seg Neuts % (Manual) Lymphocytes % (Manual) Nucleated RBC % Seg Neutrophils # Man Lymphocytes # (Manual) PT INR APTT POC ABG pH 7.330 L POC ABG pCO2 POC ABG pO2 77 L Sodium Potassium Chloride Carbon Dioxide BUN Creatinine Glucose POC Glucose 63 L Lactic Acid Calcium Magnesium AST ALT Alkaline Phosphatase Total Creatine Kinase C-Reactive Protein 15.20 H Total Protein Albumin Vitamin B12 Salicylates Miscellaneous Test 05/26/17 05/26/17 05/27/17 18:40 20:18 00:35 WBC RBC Hgb Hct MCV MCH MCHC RDW Plt Count Lymph % (Auto) Lymph # Seg Neutrophils % Seg Neuts % (Manual) Lymphocytes % (Manual) Nucleated RBC % Seg Neutrophils # Man Lymphocytes # (Manual) PT INR APTT POC ABG pH POC ABG pCO2 POC ABG pO2 Sodium Potassium Chloride Carbon Dioxide BUN Creatinine Glucose POC Glucose 149 H 63 L 49 L Lactic Acid Calcium Magnesium AST ALT Alkaline Phosphatase Total Creatine Kinase C-Reactive Protein Total Protein Albumin Vitamin B12 Salicylates Miscellaneous Test 05/27/17 05/27/17 05/27/17 02:33 04:00 04:00 WBC RBC Hgb 11.7 L Hct 34.6 L MCV 75 L MCH 25 L MCHC RDW 15.6 H Plt Count 21 L Lymph % (Auto) Lymph # Seg Neutrophils % Seg Neuts % (Manual) 14.0 L Lymphocytes % (Manual) 5.0 L Nucleated RBC % Seg Neutrophils # Man 1.5 L Lymphocytes # (Manual) 0.5 L PT INR APTT POC ABG pH POC ABG pCO2 POC ABG pO2 Sodium 148 H Potassium Chloride 112.7 H Carbon Dioxide BUN 24 H Creatinine Glucose POC Glucose 61 L Lactic Acid Calcium 7.7 L Magnesium AST 115 H ALT 100 H Alkaline Phosphatase Total Creatine Kinase C-Reactive Protein Total Protein 3.8 L Albumin 2.1 L Vitamin B12 Salicylates Miscellaneous Test 05/27/17 05/27/17 05/27/17 04:00 05:20 06:36 WBC RBC Hgb Hct MCV MCH MCHC RDW Plt Count Lymph % (Auto) Lymph # Seg Neutrophils % Seg Neuts % (Manual) Lymphocytes % (Manual) Nucleated RBC % Seg Neutrophils # Man Lymphocytes # (Manual) PT 19.7 H INR 1.57 H APTT 57.0 H POC ABG pH POC ABG pCO2 POC ABG pO2 Sodium Potassium Chloride Carbon Dioxide BUN Creatinine Glucose POC Glucose 64 L 120 H Lactic Acid Calcium Magnesium AST ALT Alkaline Phosphatase Total Creatine Kinase C-Reactive Protein Total Protein Albumin Vitamin B12 Salicylates Miscellaneous Test 05/27/17 05/27/17 05/27/17 09:15 12:35 15:44 WBC RBC Hgb Hct MCV MCH MCHC RDW Plt Count Lymph % (Auto) Lymph # Seg Neutrophils % Seg Neuts % (Manual) Lymphocytes % (Manual) Nucleated RBC % Seg Neutrophils # Man Lymphocytes # (Manual) PT INR APTT POC ABG pH POC ABG pCO2 POC ABG pO2 380 H Sodium Potassium Chloride Carbon Dioxide BUN Creatinine Glucose POC Glucose 162 H 193 H Lactic Acid Calcium Magnesium AST ALT Alkaline Phosphatase Total Creatine Kinase C-Reactive Protein Total Protein Albumin Vitamin B12 Salicylates Miscellaneous Test 05/27/17 05/27/17 05/27/17 18:14 20:12 20:15 WBC RBC Hgb 10.3 L Hct 30.7 L MCV 75 L MCH 25 L MCHC RDW 15.6 H Plt Count 15 L* Lymph % (Auto) Lymph # Seg Neutrophils % Seg Neuts % (Manual) 95.0 H Lymphocytes % (Manual) 4.0 L Nucleated RBC % Seg Neutrophils # Man Lymphocytes # (Manual) 0.3 L PT INR APTT POC ABG pH POC ABG pCO2 POC ABG pO2 Sodium Potassium Chloride Carbon Dioxide BUN Creatinine Glucose POC Glucose 199 H 165 H Lactic Acid Calcium Magnesium AST ALT Alkaline Phosphatase Total Creatine Kinase C-Reactive Protein Total Protein Albumin Vitamin B12 Salicylates Miscellaneous Test 05/27/17 05/27/17 05/27/17 20:43 21:48 23:08 WBC RBC Hgb Hct MCV MCH MCHC RDW Plt Count Lymph % (Auto) Lymph # Seg Neutrophils % Seg Neuts % (Manual) Lymphocytes % (Manual) Nucleated RBC % Seg Neutrophils # Man Lymphocytes # (Manual) PT INR APTT POC ABG pH POC ABG pCO2 POC ABG pO2 Sodium Potassium Chloride Carbon Dioxide BUN Creatinine Glucose 150 H POC Glucose 166 H Lactic Acid Calcium 8.3 L Magnesium AST ALT Alkaline Phosphatase Total Creatine Kinase C-Reactive Protein Total Protein Albumin Vitamin B12 Salicylates Miscellaneous Test Flexitest 1 H 05/27/17 05/28/17 05/28/17 23:51 02:23 04:19 WBC RBC Hgb Hct MCV MCH MCHC RDW Plt Count Lymph % (Auto) Lymph # Seg Neutrophils % Seg Neuts % (Manual) Lymphocytes % (Manual) Nucleated RBC % Seg Neutrophils # Man Lymphocytes # (Manual) PT INR APTT POC ABG pH POC ABG pCO2 POC ABG pO2 75 L Sodium Potassium Chloride Carbon Dioxide BUN Creatinine Glucose POC Glucose 173 H 177 H Lactic Acid Calcium Magnesium AST ALT Alkaline Phosphatase Total Creatine Kinase C-Reactive Protein Total Protein Albumin Vitamin B12 Salicylates Miscellaneous Test 05/28/17 05/28/17 05/28/17 05:40 05:50 05:50 WBC RBC Hgb 10.5 L Hct 30.9 L MCV 75 L MCH 25 L MCHC RDW 15.5 H Plt Count 16 L* Lymph % (Auto) Lymph # Seg Neutrophils % Seg Neuts % (Manual) Lymphocytes % (Manual) Nucleated RBC % Seg Neutrophils # Man Lymphocytes # (Manual) PT INR APTT POC ABG pH POC ABG pCO2 POC ABG pO2 Sodium Potassium Chloride Carbon Dioxide BUN Creatinine Glucose 129 H POC Glucose 160 H Lactic Acid Calcium 8.3 L Magnesium AST ALT Alkaline Phosphatase Total Creatine Kinase C-Reactive Protein Total Protein Albumin Vitamin B12 Salicylates Miscellaneous Test 05/28/17 05/28/17 05/28/17 08:21 11:04 12:19 WBC RBC Hgb Hct MCV MCH MCHC RDW Plt Count Lymph % (Auto) Lymph # Seg Neutrophils % Seg Neuts % (Manual) Lymphocytes % (Manual) Nucleated RBC % Seg Neutrophils # Man Lymphocytes # (Manual) PT INR APTT POC ABG pH POC ABG pCO2 POC ABG pO2 178 H Sodium Potassium Chloride Carbon Dioxide BUN Creatinine Glucose POC Glucose 201 H 140 H Lactic Acid Calcium Magnesium AST ALT Alkaline Phosphatase Total Creatine Kinase C-Reactive Protein Total Protein Albumin Vitamin B12 Salicylates Miscellaneous Test 05/28/17 05/28/17 05/29/17 13:47 16:21 05:56 WBC RBC Hgb Hct MCV MCH MCHC RDW Plt Count Lymph % (Auto) Lymph # Seg Neutrophils % Seg Neuts % (Manual) Lymphocytes % (Manual) Nucleated RBC % Seg Neutrophils # Man Lymphocytes # (Manual) PT INR APTT POC ABG pH POC ABG pCO2 POC ABG pO2 Sodium Potassium Chloride Carbon Dioxide BUN Creatinine Glucose POC Glucose 47 L 110 H Lactic Acid Calcium Magnesium 1.60 L AST ALT Alkaline Phosphatase Total Creatine Kinase C-Reactive Protein Total Protein Albumin Vitamin B12 Salicylates Miscellaneous Test 05/29/17 05/29/17 05/29/17 08:00 08:57 10:01 WBC RBC Hgb Hct MCV MCH MCHC RDW Plt Count Lymph % (Auto) Lymph # Seg Neutrophils % Seg Neuts % (Manual) Lymphocytes % (Manual) Nucleated RBC % Seg Neutrophils # Man Lymphocytes # (Manual) PT INR APTT POC ABG pH POC ABG pCO2 POC ABG pO2 Sodium 126 L D Potassium 3.3 L Chloride 96.4 L Carbon Dioxide 20 L BUN Creatinine 0.5 L Glucose POC Glucose 120 H 115 H Lactic Acid Calcium 6.6 L D Magnesium AST 485 H ALT 380 H Alkaline Phosphatase Total Creatine Kinase C-Reactive Protein Total Protein 3.6 L Albumin 1.5 L Vitamin B12 Salicylates Miscellaneous Test 05/29/17 05/29/17 05/29/17 10:15 10:15 11:55 WBC RBC Hgb 9.3 L Hct 27.2 L MCV 73 L MCH 25 L MCHC RDW Plt Count 9 L* Lymph % (Auto) Lymph # Seg Neutrophils % Seg Neuts % (Manual) Lymphocytes % (Manual) Nucleated RBC % Seg Neutrophils # Man Lymphocytes # (Manual) PT INR APTT POC ABG pH POC ABG pCO2 POC ABG pO2 Sodium Potassium Chloride Carbon Dioxide BUN 24 H Creatinine 0.7 L Glucose 112 H POC Glucose 128 H Lactic Acid Calcium Magnesium AST ALT Alkaline Phosphatase Total Creatine Kinase C-Reactive Protein Total Protein Albumin Vitamin B12 Salicylates Miscellaneous Test 05/29/17 05/30/17 05/30/17 15:44 01:00 04:21 WBC RBC Hgb Hct MCV MCH MCHC RDW Plt Count Lymph % (Auto) Lymph # Seg Neutrophils % Seg Neuts % (Manual) Lymphocytes % (Manual) Nucleated RBC % Seg Neutrophils # Man Lymphocytes # (Manual) PT INR APTT POC ABG pH 7.528 H POC ABG pCO2 34.8 L POC ABG pO2 108 H Sodium Potassium Chloride Carbon Dioxide BUN Creatinine Glucose POC Glucose 124 H 106 H Lactic Acid Calcium Magnesium AST ALT Alkaline Phosphatase Total Creatine Kinase C-Reactive Protein Total Protein Albumin Vitamin B12 Salicylates Miscellaneous Test 05/30/17 05/30/17 05/30/17 05:30 05:30 06:02 WBC RBC Hgb 9.3 L Hct 27.6 L MCV 74 L MCH 25 L MCHC RDW Plt Count 40 L D Lymph % (Auto) Lymph # Seg Neutrophils % Seg Neuts % (Manual) 90.0 H Lymphocytes % (Manual) 4.0 L Nucleated RBC % 1.0 H Seg Neutrophils # Man Lymphocytes # (Manual) 0.2 L PT INR APTT POC ABG pH POC ABG pCO2 POC ABG pO2 Sodium Potassium Chloride 109.9 H Carbon Dioxide BUN 26 H Creatinine 0.7 L Glucose 118 H POC Glucose 149 H Lactic Acid Calcium Magnesium AST 445 H ALT 529 H Alkaline Phosphatase Total Creatine Kinase C-Reactive Protein Total Protein 4.7 L D Albumin 2.2 L Vitamin B12 Salicylates Miscellaneous Test 05/30/17 05/30/17 05/30/17 10:14 15:02 16:28 WBC RBC Hgb Hct MCV MCH MCHC RDW Plt Count Lymph % (Auto) Lymph # Seg Neutrophils % Seg Neuts % (Manual) Lymphocytes % (Manual) Nucleated RBC % Seg Neutrophils # Man Lymphocytes # (Manual) PT INR APTT POC ABG pH POC ABG pCO2 POC ABG pO2 Sodium Potassium Chloride Carbon Dioxide BUN Creatinine Glucose POC Glucose 155 H 169 H Lactic Acid Calcium Magnesium AST ALT Alkaline Phosphatase Total Creatine Kinase 3464 H C-Reactive Protein Total Protein Albumin Vitamin B12 Salicylates Miscellaneous Test 05/30/17 05/30/17 05/30/17 16:28 17:40 21:35 WBC RBC Hgb Hct MCV MCH MCHC RDW Plt Count Lymph % (Auto) Lymph # Seg Neutrophils % Seg Neuts % (Manual) Lymphocytes % (Manual) Nucleated RBC % Seg Neutrophils # Man Lymphocytes # (Manual) PT INR APTT POC ABG pH POC ABG pCO2 POC ABG pO2 Sodium Potassium Chloride Carbon Dioxide BUN Creatinine Glucose POC Glucose 155 H 129 H Lactic Acid Calcium Magnesium AST ALT Alkaline Phosphatase Total Creatine Kinase C-Reactive Protein Total Protein Albumin Vitamin B12 1108 H Salicylates Miscellaneous Test 05/31/17 05/31/17 05/31/17 01:54 04:31 05:40 WBC RBC 3.37 L Hgb 8.5 L Hct 24.6 L MCV 73 L MCH 25 L MCHC 35 H RDW Plt Count 55 L Lymph % (Auto) 8.7 L Lymph # 0.5 L Seg Neutrophils % 86.1 H Seg Neuts % (Manual) Lymphocytes % (Manual) Nucleated RBC % Seg Neutrophils # Man Lymphocytes # (Manual) PT INR APTT POC ABG pH 7.547 H POC ABG pCO2 34.6 L POC ABG pO2 79 L Sodium Potassium Chloride Carbon Dioxide BUN Creatinine Glucose POC Glucose 110 H Lactic Acid Calcium Magnesium AST ALT Alkaline Phosphatase Total Creatine Kinase C-Reactive Protein Total Protein Albumin Vitamin B12 Salicylates Miscellaneous Test 05/31/17 05/31/17 05/31/17 05:40 13:52 Unknown WBC RBC Hgb Hct MCV MCH MCHC RDW Plt Count Lymph % (Auto) Lymph # Seg Neutrophils % Seg Neuts % (Manual) Lymphocytes % (Manual) Nucleated RBC % Seg Neutrophils # Man Lymphocytes # (Manual) PT INR APTT POC ABG pH POC ABG pCO2 POC ABG pO2 Sodium 148 H Potassium 3.2 L Chloride 108.6 H Carbon Dioxide BUN 22 H Creatinine 0.5 L Glucose 101 H POC Glucose 114 H Lactic Acid Calcium 8.2 L Magnesium AST 223 H ALT 359 H Alkaline Phosphatase Total Creatine Kinase C-Reactive Protein Total Protein 4.6 L Albumin 2.0 L Vitamin B12 Salicylates Miscellaneous Test Flexitest 1 H 06/01/17 06/01/17 06/01/17 05:16 14:48 14:54 WBC RBC Hgb Hct MCV MCH MCHC RDW Plt Count Lymph % (Auto) Lymph # Seg Neutrophils % Seg Neuts % (Manual) Lymphocytes % (Manual) Nucleated RBC % Seg Neutrophils # Man Lymphocytes # (Manual) PT INR APTT POC ABG pH 7.499 H POC ABG pCO2 POC ABG pO2 71 L Sodium Potassium Chloride Carbon Dioxide BUN Creatinine Glucose POC Glucose < 40 L < 40 L Lactic Acid Calcium Magnesium AST ALT Alkaline Phosphatase Total Creatine Kinase C-Reactive Protein Total Protein Albumin Vitamin B12 Salicylates Miscellaneous Test 06/01/17 06/01/17 06/01/17 15:39 22:07 23:00 WBC RBC Hgb Hct MCV MCH MCHC RDW Plt Count Lymph % (Auto) Lymph # Seg Neutrophils % Seg Neuts % (Manual) Lymphocytes % (Manual) Nucleated RBC % Seg Neutrophils # Man Lymphocytes # (Manual) PT INR APTT POC ABG pH POC ABG pCO2 POC ABG pO2 Sodium Potassium Chloride Carbon Dioxide BUN Creatinine Glucose POC Glucose 69 L 50 L Lactic Acid Calcium Magnesium AST ALT Alkaline Phosphatase Total Creatine Kinase 1318 H C-Reactive Protein Total Protein Albumin Vitamin B12 Salicylates Miscellaneous Test 06/01/17 06/01/17 06/02/17 Unknown Unknown 06:00 WBC RBC 3.24 L Hgb 8.1 L Hct 23.8 L MCV 74 L MCH 25 L MCHC RDW Plt Count 136 L D Lymph % (Auto) Lymph # 1.0 L Seg Neutrophils % 80.1 H Seg Neuts % (Manual) Lymphocytes % (Manual) Nucleated RBC % Seg Neutrophils # Man Lymphocytes # (Manual) PT INR APTT POC ABG pH POC ABG pCO2 POC ABG pO2 Sodium 148 H Potassium 3.3 L 3.4 L Chloride 107.5 H Carbon Dioxide 31 H 32 H BUN Creatinine 0.4 L 0.4 L Glucose POC Glucose Lactic Acid Calcium 8.2 L 8.0 L Magnesium AST 127 H ALT 269 H Alkaline Phosphatase 137 H Total Creatine Kinase C-Reactive Protein Total Protein 4.2 L Albumin 2.5 L Vitamin B12 Salicylates Miscellaneous Test 06/02/17 06/02/17 06/02/17 08:27 13:02 14:50 WBC RBC Hgb 9.6 L Hct 28.4 L MCV 74 L MCH 25 L MCHC RDW Plt Count Lymph % (Auto) Lymph # Seg Neutrophils % Seg Neuts % (Manual) Lymphocytes % (Manual) Nucleated RBC % Seg Neutrophils # Man Lymphocytes # (Manual) PT INR APTT POC ABG pH POC ABG pCO2 48.6 H POC ABG pO2 Sodium Potassium Chloride Carbon Dioxide BUN Creatinine Glucose POC Glucose 127 H Lactic Acid Calcium Magnesium AST ALT Alkaline Phosphatase Total Creatine Kinase C-Reactive Protein Total Protein Albumin Vitamin B12 Salicylates Miscellaneous Test 06/03/17 06/03/17 06/03/17 00:08 04:00 04:00 WBC RBC Hgb 9.4 L Hct 27.7 L MCV 74 L MCH 25 L MCHC RDW Plt Count Lymph % (Auto) Lymph # 0.9 L Seg Neutrophils % 76.1 H Seg Neuts % (Manual) Lymphocytes % (Manual) Nucleated RBC % Seg Neutrophils # Man Lymphocytes # (Manual) PT INR APTT POC ABG pH POC ABG pCO2 POC ABG pO2 Sodium Potassium 3.4 L Chloride Carbon Dioxide 33 H BUN Creatinine 0.3 L Glucose 62 L POC Glucose 44 L Lactic Acid Calcium 8.1 L Magnesium AST ALT Alkaline Phosphatase Total Creatine Kinase C-Reactive Protein Total Protein Albumin Vitamin B12 Salicylates Miscellaneous Test 06/03/17 06/03/17 06:12 14:00 WBC RBC Hgb Hct MCV MCH MCHC RDW Plt Count Lymph % (Auto) Lymph # Seg Neutrophils % Seg Neuts % (Manual) Lymphocytes % (Manual) Nucleated RBC % Seg Neutrophils # Man Lymphocytes # (Manual) PT INR APTT POC ABG pH POC ABG pCO2 POC ABG pO2 Sodium Potassium Chloride Carbon Dioxide BUN Creatinine Glucose POC Glucose 46 L 118 H Lactic Acid Calcium Magnesium AST ALT Alkaline Phosphatase Total Creatine Kinase C-Reactive Protein Total Protein Albumin Vitamin B12 Salicylates Miscellaneous Test Chest x-ray: report reviewed, image reviewed
[2017-06-03] MEDS: ZITHROMAX 500 MG in NACL 0.9% 250ML 250 ML IV SCH (17:40)
[2017-06-04] MEDS: ZOVIRAX IV SCH ×2 (02:00→14:33)
[2017-06-04] MEDS: NACL 0.9% IV SCH ×2 (02:00→14:33)
[2017-06-04] MEDS: cefTRIAXone 2 GM in NACL 0.9% 20 ML IV SCH (04:19)
[2017-06-04] MEDS: VANCOMYCIN 1,250 MG in NACL 0.9% 250ML 250 ML IV SCH (05:49)
[2017-06-04] MEDS: BACTRIM DS PO SCH ×2 (10:20→22:36)
[2017-06-04] MEDS: THERAGRAN-M Tab PO SCH (10:30)
[2017-06-04] MEDS: K-DUR PO SCH (10:40)
[2017-06-04] MEDS: VITAMIN B-1 PO SCH (10:40)
[2017-06-04] MEDS: VITAMIN D3 PO SCH (10:40)
[2017-06-04] MEDS: PEPCID PO SCH ×2 (10:40→22:36)
--- NOTE | 2017-06-04 11:52 | Progress Note ---
Assessment and Plan // SEVERE SEPSIS WITH SEPTIC SHOCK- POA, - now afebrile. off levophed. Etiology aspiration pneumonia vs ? [employer] infection. - Influenza A/B PCR negative. s/p course of tamiflu. - Legionella and Strep pneumo urinary ag - negative. - Tracheal aspirate culture 05/29 S maltophilia - being treated for Aspiration Pneumonia also on coverage for possible meningitis/encephalitis - LP could not be done initially due to low platelet count - Not sure how effective the LP study would be now considering on abx for more than a week // Severe Hypothermia on admission, resolved, - likely from sepsis, // Acute Toxic Metabolic Encephalopathy, - being treated for meningitis/encephalitis - MRI brain when more stable, s/p repeat CT head showed no new findings - Pt also has h/o schizophrenia, psych on board // Acute Respiratory Failure, required vent >96h - s/o extubation on 06/02/17 - cont nebs, supplemental O2 to keep sat >94% // Thrombocytopenia-severe- no bleeding noted, - s/p total 6 units of platelets transfusion - held all anticoagulant // Aspiration Pneumonia with possible Post influenza Pneumonia - getting abx coverage per ID // h/o Schizophrenia - psych on board, will follow recommendation - pt currently under custody // Hypoglycemia, recurrent - could be from sepsis, suppressed hepatic glucose production (need details h/o alcohol abuse, will follow serum cortisol and GH level) - also need to work up for insulinoma - on D5NS and TF, plan to start regular diet - will order CT abdomen pelvis when more oriented to complete the 72 hour fasting trial // Severe Protein Calorie Malnutrition - nutrition on board // Hypernatremia, improved - cont to monitor, // Elevated LFT, likely from sepsis - trending down // hypokalemia, being replaced daily - could be also related to insulinoma, General: - start regular diet if passed swallow screen - Replace Electrolytes accordingly - GI prophylaxis - Hold all Anticoagulations - Discussed with HILTON, RN at bedside Brief History: Patient is 42 years old AA male, from [facility] for evaluation of altered mental status and bradycardia. Also Hypothermic Only history available is schizophrenia. No other information can be obtained at this moment since patient is not communicating. No fever or chills per [facility] staff. Physical exam: General appearance: Present: no acute distress, restrained - EENT Eyes: no congestion - Neck Neck: Present: supple - Respiratory Respiratory effort: other (ett) Respiratory: bilateral: diminished - Cardiovascular Rhythm: regular Heart Sounds: Present: S1 & S2. Absent: systolic murmur - Extremities Extremities: pulses intact, normal temperature Peripheral Pulses: within normal limits - Abdominal General gastrointestinal: soft, non-distended, hypoactive bowel sounds - Integumentary Integumentary: Present: warm - Psychiatric Psychiatric: confused - Neurologic Neurologic: no focal deficit - skin no rash - Allied Health Allied health notes reviewed: nursing Subjective Date of service: 06/04/17 Principal diagnosis: pneumonia Interval history: Pt seen and examined doing well post extubation with N/C Confused, trying to slide down from the bed, restrained, off cloths states wants coffee, took off dobhoff Objective - Constitutional Vitals: Vital Signs - 12hr 06/04/17 06/04/17 06/04/17 00:00 00:16 00:30 Temperature 97.8 F Pulse Rate 87 87 86 Respiratory 13 17 18 Rate Blood Pressure 94/54 94/54 94/54 O2 Sat by Pulse 88 87 90 Oximetry 06/04/17 06/04/17 06/04/17 00:46 01:00 01:16 Temperature Pulse Rate 94 H 85 90 Respiratory 19 17 19 Rate Blood Pressure 94/54 96/49 96/49 O2 Sat by Pulse 92 91 93 Oximetry 06/04/17 06/04/17 06/04/17 01:30 01:46 02:00 Temperature Pulse Rate 96 H 94 H 90 Respiratory 21 16 18 Rate Blood Pressure 96/49 96/49 100/51 O2 Sat by Pulse 94 94 92 Oximetry 06/04/17 06/04/17 06/04/17 02:16 02:30 02:46 Temperature Pulse Rate 96 H 87 85 Respiratory 21 20 15 Rate Blood Pressure 96/49 96/49 100/51 O2 Sat by Pulse 92 94 94 Oximetry 06/04/17 06/04/17 06/04/17 03:00 03:16 03:30 Temperature Pulse Rate 82 87 75 Respiratory 18 17 20 Rate Blood Pressure 101/63 101/63 101/63 O2 Sat by Pulse 94 95 99 Oximetry 06/04/17 06/04/17 06/04/17 03:46 04:00 04:16 Temperature 98.6 F Pulse Rate 79 68 86 Respiratory 21 18 20 Rate Blood Pressure 101/63 111/68 111/68 O2 Sat by Pulse 100 99 99 Oximetry 06/04/17 06/04/17 06/04/17 04:30 04:46 05:00 Temperature Pulse Rate 86 78 78 Respiratory 15 14 14 Rate Blood Pressure 111/68 111/68 116/72 O2 Sat by Pulse 94 95 96 Oximetry 06/04/17 06/04/17 06/04/17 05:16 05:30 05:46 Temperature Pulse Rate 70 75 68 Respiratory 18 13 16 Rate Blood Pressure 116/72 116/72 116/72 O2 Sat by Pulse 95 98 99 Oximetry 06/04/17 06/04/17 06/04/17 06:00 06:16 08:00 Temperature 97.4 F L Pulse Rate 66 76 Respiratory 10 L 17 Rate Blood Pressure 114/78 114/78 O2 Sat by Pulse 100 99 Oximetry 06/04/17 10:00 Temperature Pulse Rate Respiratory Rate Blood Pressure O2 Sat by Pulse 98 Oximetry - Labs CBC & Chem 7: 06/03/17 04:00 06/03/17 04:00 Labs: Abnormal lab results 06/03/17 06/03/17 06/03/17 Range/Units 14:00 17:37 18:23 POC Glucose 118 H 59 L 158 H (70-105) 06/03/17 06/03/17 06/04/17 Range/Units 22:07 22:09 06:28 POC Glucose 63 L 69 L 56 L (70-105)
--- NOTE | 2017-06-04 13:45 | Progress Note ---
Assessment and Plan Assessment: 1) Sepsis with septic shock: shock resolved. Etiology pneumonia. Other Possibilities: ? ASSISTANT THERAPY AIDE infection doubt in view of clinical improvement -CRP=15 - Procalcitonin 12.6 (05/27) to 0.8 (05/31) 2) Pneumonia: Secondary to ? aspiration. - Influenza A/B PCR negative. s/p course of tamiflu. - Legionella and Strep pneumo urinary ag - negative. - Tracheal aspirate culture 05/29 S maltophilia sens to levaquin/bactrim 3) Acute Encephalopathy - ? unclear etiology. Awake, following some commands. 4) Acute respiratory failure. Intubated. 5) Thrombocytopenia - resolved. 6) Elevated LFTs: ?shock liver. AST/ALT improved. 7) Bradycardia. 8) h/o Schizophrenia. Currently in custodial. Plan: -cancel LP -stop vancomycin IV, ceftriaxone 2 g IV q12h, acyclovir IV - day 10 -stop azithromycin - day 7. -continue bactrim day 3 of 7 to treat Stenotrophomonas pneumonia. -needs PT / rehab I am signing off Thank you for your consultation, will follow up with you. Gena Domingo MD Infectious Diseases Specialist [facility] [phone] O [phone] Subjective Date of service: 06/04/17 Principal diagnosis: pneumonia Interval history: Pt is alert talking moving following simple commands Microbiology: Blood cultures: 05/25 Neg Respiratory cultures: 05/26 poor sample 05/29 TA S. maltophilia, C albicans. Current Antimicrobials: Vancomycin IV 05/26- Ceftriaxone 2 g IV q12h 05/26- Acyclovir IV 05/26- Azithromycin 05/29- Prior antimicrobials Tamiflu 05/26-05/30 Hydrocortisone Objective - Exam Narrative Exam: General appearance: alert talking following commands on NC O2 Eyes: anicteric sclerae, moist conjunctivae; no lid-lag; PERRLA HENT: Atraumatic; oropharynx clear Neck: Trachea midline; supple, no thyromegaly or lymphadenopathy Lungs: CTA lesley CV: rrr Abdomen: Soft, non-tender Extremities: No peripheral edema or extremity lymphadenopathy Skin: Normal temperature, turgor and texture; no rash, ulcers or subcutaneous nodules Psych: sedated. Neuro: sedated Lines: left PICC - Constitutional Vitals: Vital Signs Temp Pulse Resp BP Pulse Ox 97.4 F L 76 17 114/78 98 06/04/17 08:00 06/04/17 06:16 06/04/17 06:16 06/04/17 06:16 06/04/17 10:00 Temperature -Last 24 Hours Temperature 97.4 F Temperature 98.6 F Temperature 97.8 F Temperature 92.8 F - Labs CBC & Chem 7: 06/03/17 04:00 06/03/17 04:00 Labs: Abnormal lab results 06/03/17 06/03/17 06/03/17 Range/Units 14:00 17:37 18:23 POC Glucose 118 H 59 L 158 H (70-105) 06/03/17 06/03/17 06/04/17 Range/Units 22:07 22:09 06:28 POC Glucose 63 L 69 L 56 L (70-105)
[2017-06-04 14:33] LABS: Hematocrit 33.1 % (35.5-45.6); Hemoglobin 11.2 gm/dl (11.8-15.2); Mean Corpuscular HGB Conc 34 % (32-34); Mean Corpuscular Volume 75 fl (84-94); Platelet Count 367 K/mm3 (140-440); Red Blood Count 4.45 M/mm3 (3.65-5.03); Red Cell Distribution Width 14.2 % (13.2-15.2)
[2017-06-04 14:39] LABS: Mean Corpuscular Hemoglobin 25 pg (28-32)
[2017-06-04 14:43] LABS: BUN/Creatinine Ratio 22; Blood Urea Nitrogen 11 mg/dL (9-20); Calcium 8.7 mg/dL (8.4-10.2); Hemolysis Index 20
--- NOTE | 2017-06-04 16:53 | Progress Note ---
Assessment and Plan Imp: 1. Pneumonia, bilateral 2. ? Meningoencephalitis 3. Sepsis 4. Acute respiratory failure, hypoxia 5. Severe thrombocytopenia 6. Acute encephalopathy 7. Sinus bradycardia Rec: 1. ABX per ID 2. MELBA, ANCAs negative 3. LP canceled 4. Off steroids 5. EKG shows sinus renard; BP stable and he is asymptomatic; will place Atropine at bedside; appreciate cardiology evaluation 6. SCDs 7. CK, AST, and ALT elevated c/w mild rhabdo ? viral versus inflammatory/auto- immune; check aldolase and Katherin-1 8. Neurology consulted 9. Psych saw on 06/01/17 but he was intubated; recommend having them come back to evaluate No family present Subjective Date of service: 06/04/17 Principal diagnosis: pneumonia Interval history: Alert, more appropriate, and will follow commands. Extubated. No complaints. Moves all extremities. HR better. Active Medications Acetaminophen (Tylenol) 650 mg PO Q4H PRN PRN Reason: Pain MILD(1-3)/Fever >100.5/FOFANA Lipase/Protease/Amylase (Pancreaze Dr 10,500 Unit) 1 each FEEDTUBE PRN PRN PRN Reason: For Clogged Feeding Tube Atropine Sulfate (Atropine) 1 mg IV ONCE PRN PRN Reason: Bradycardia Bisacodyl (Dulcolax) 10 mg PA QDAY PRN PRN Reason: Constipation unrelieved by MOM Cholecalciferol (Vitamin D3) 1,000 unit PO QDAY [facility] Last Admin: 06/04/17 10:40 Dose: Not Given Dextrose (D50w (25gm) Syringe) 50 ml IV PRN PRN PRN Reason: Hypoglycemia Last Admin: 06/03/17 17:53 Dose: 50 ml Famotidine (Pepcid) 20 mg PO BID RICCARDO Last Admin: 06/04/17 10:40 Dose: Not Given Norepinephrine (Levophed Drip 4 Mg/Ns 250 Ml) 4 mg in 250 mls @ 7.5 mls/hr IV TITR RICCARDO; 2 MCG/MIN PRN Reason: Protocol Last Titration: 05/28/17 07:50 Dose: 1 mcg/min, 3.75 mls/hr Midazolam HCl 100 mg/ Sodium (Chloride) 100 mls @ 2 mls/hr IV TITR RICCARDO; 2 MG/HR PRN Reason: Protocol Last Titration: 05/27/17 13:30 Dose: 2 mg/hr, 2 mls/hr Dextrose/Sodium Chloride (D5ns) 1,000 mls @ 75 mls/hr IV DIRECT [facility] Last Admin: 06/03/17 10:37 Dose: 42 mls/hr Magnesium Hydroxide (Milk Of Magnesia) 30 ml PO Q4H PRN PRN Reason: Constipation Multivitamins/Minerals (Theragran-M Tab) 1 each PO QDAY [facility] Last Admin: 06/04/17 10:30 Dose: Not Given Ondansetron HCl (Zofran) 4 mg IV Q8H PRN PRN Reason: N/V unrelieved by Reglan Potassium Chloride (K-Dur) 40 meq PO QDAY [facility] Last Admin: 06/04/17 10:40 Dose: Not Given Simple Syrup (Simple Syrup) 15 ml FEEDTUBE PRN PRN PRN Reason: Hypoglycemia Simple Syrup (Simple Syrup) 30 ml FEEDTUBE PRN PRN PRN Reason: Hypoglycemia Sodium Bicarbonate (Sodium Bicarbonate) 325 mg FEEDTUBE PRN PRN PRN Reason: For Clogged Feeding Tube Thiamine HCl (Vitamin B-1) 100 mg PO QDAY [facility] Last Admin: 06/04/17 10:40 Dose: Not Given Trimethoprim/Sulfamethoxazole (Bactrim Ds) 2 each PO Q12HR [facility] Last Admin: 06/04/17 10:20 Dose: 2 each Objective Vital Signs - 12hr 06/04/17 06/04/17 06/04/17 05:00 05:16 05:30 Temperature Pulse Rate 78 70 75 Respiratory 14 18 13 Rate Respiratory Rate [MATT] Blood Pressure 116/72 116/72 116/72 O2 Sat by Pulse 96 95 98 Oximetry 06/04/17 06/04/17 06/04/17 05:46 06:00 06:16 Temperature Pulse Rate 68 66 76 Respiratory 16 10 L 17 Rate Respiratory Rate [MATT] Blood Pressure 116/72 114/78 114/78 O2 Sat by Pulse 99 100 99 Oximetry 06/04/17 06/04/17 06/04/17 06:30 06:46 07:00 Temperature Pulse Rate 71 66 74 Respiratory 12 17 17 Rate Respiratory Rate [MATT] Blood Pressure 114/78 114/78 116/80 O2 Sat by Pulse 99 98 96 Oximetry 06/04/17 06/04/17 06/04/17 07:16 07:30 07:46 Temperature Pulse Rate 59 L 59 L 57 L Respiratory 15 19 17 Rate Respiratory Rate [MATT] Blood Pressure 116/80 116/80 116/80 O2 Sat by Pulse 99 98 98 Oximetry 06/04/17 06/04/17 06/04/17 08:00 08:16 08:30 Temperature 97.4 F L Pulse Rate 57 L 69 61 Respiratory 16 17 18 Rate Respiratory Rate [MATT] Blood Pressure 120/76 120/76 120/76 O2 Sat by Pulse 100 97 98 Oximetry 06/04/17 06/04/17 06/04/17 08:46 09:00 09:16 Temperature Pulse Rate 63 54 L 55 L Respiratory 16 15 19 Rate Respiratory Rate [MATT] Blood Pressure 120/76 117/77 117/77 O2 Sat by Pulse 99 99 99 Oximetry 06/04/17 06/04/17 06/04/17 09:30 09:46 10:00 Temperature Pulse Rate 54 L 64 51 L Respiratory 14 16 15 Rate Respiratory 16 Rate [MATT] Blood Pressure 117/77 117/77 119/72 O2 Sat by Pulse 100 100 100 Oximetry 06/04/17 06/04/17 06/04/17 10:16 10:30 10:46 Temperature Pulse Rate 59 L 55 L 51 L Respiratory 18 15 15 Rate Respiratory Rate [MATT] Blood Pressure 119/72 119/72 119/72 O2 Sat by Pulse 99 100 99 Oximetry 06/04/17 06/04/17 06/04/17 11:00 11:16 11:30 Temperature Pulse Rate 53 L 52 L 66 Respiratory Rate Respiratory Rate [MATT] Blood Pressure 120/76 120/76 120/76 O2 Sat by Pulse 100 98 Oximetry 06/04/17 06/04/17 06/04/17 11:46 12:00 12:22 Temperature Pulse Rate 71 61 57 L Respiratory 13 11 L Rate Respiratory Rate [MATT] Blood Pressure 120/76 120/76 120/76 O2 Sat by Pulse Oximetry 06/04/17 06/04/17 06/04/17 12:30 12:46 13:00 Temperature Pulse Rate 39 L 55 L 50 L Respiratory 17 11 L 12 Rate Respiratory Rate [MATT] Blood Pressure 120/76 122/78 120/76 O2 Sat by Pulse 100 100 Oximetry 06/04/17 06/04/17 06/04/17 13:16 13:30 13:46 Temperature Pulse Rate 73 56 L 54 L Respiratory 17 17 15 Rate Respiratory Rate [MATT] Blood Pressure 115/78 118/79 118/79 O2 Sat by Pulse 100 100 100 Oximetry 06/04/17 06/04/17 06/04/17 14:00 14:16 14:30 Temperature Pulse Rate 60 65 56 L Respiratory 17 17 18 Rate Respiratory Rate [MATT] Blood Pressure 117/79 117/79 99/55 O2 Sat by Pulse 100 100 100 Oximetry Constitutional: no acute distress, alert Eyes: non-icteric Neck: supple Effort: normal Ascultation: Bilateral: clear Cardiovascular: other (sinus renard, RR; no mrg) Gastrointestinal: normoactive bowel sounds, soft, non-tender, non-distended Integumentary: normal Extremities: no cyanosis, no edema, pink and warm Neurologic: non-focal exam, pupils equal and round, other (awake, seems confused ) Psychiatric: mood appropriate, affect normal CBC and BMP: 06/04/17 14:07 06/04/17 14:07 ABG, PT/INR, D-dimer: ABG POC ABG pH 7.449 (7.35-7.45) 06/02/17 14:50 POC ABG pCO2 48.6 (35-45) H 06/02/17 14:50 POC ABG pO2 98 (80-105) 06/02/17 14:50 POC ABG HCO3 33.7 06/02/17 14:50 POC ABG Total CO2 35 06/02/17 14:50 POC ABG O2 Sat 98 06/02/17 14:50 PT/INR, D-dimer PT 12.4 Sec. (12.2-14.9) 06/02/17 08:27 INR 0.88 (0.87-1.13) 06/02/17 08:27 Abnormal lab findings: Abnormal Labs 05/25/17 05/25/17 05/25/17 13:32 13:32 13:32 WBC RBC 5.76 H Hgb Hct MCV 77 L MCH 25 L MCHC RDW 15.9 H Plt Count 48 L Lymph % (Auto) Lymph # Seg Neutrophils % Seg Neuts % (Manual) 76.0 H Lymphocytes % (Manual) 2.0 L Nucleated RBC % Seg Neutrophils # Man Lymphocytes # (Manual) 0.1 L PT INR APTT POC ABG pH POC ABG pCO2 POC ABG pO2 Sodium 147 H Potassium Chloride 109.4 H Carbon Dioxide BUN Creatinine 0.3 L Glucose 102 H POC Glucose Lactic Acid Calcium Magnesium AST 111 H ALT 168 H Alkaline Phosphatase Total Creatine Kinase C-Reactive Protein Total Protein 5.8 L Albumin 2.9 L Vitamin B12 Salicylates < 0.3 L Miscellaneous Test 05/25/17 05/25/17 05/25/17 13:32 15:16 16:34 WBC RBC Hgb Hct MCV MCH MCHC RDW Plt Count Lymph % (Auto) Lymph # Seg Neutrophils % Seg Neuts % (Manual) Lymphocytes % (Manual) Nucleated RBC % Seg Neutrophils # Man Lymphocytes # (Manual) PT INR APTT POC ABG pH POC ABG pCO2 POC ABG pO2 Sodium Potassium Chloride Carbon Dioxide BUN Creatinine Glucose POC Glucose Lactic Acid 2.20 H* 2.10 H* Calcium Magnesium AST ALT Alkaline Phosphatase Total Creatine Kinase 360 H C-Reactive Protein Total Protein Albumin Vitamin B12 Salicylates Miscellaneous Test 05/26/17 05/26/17 05/26/17 00:47 00:47 06:07 WBC 2.1 L RBC 5.23 H Hgb Hct MCV 75 L MCH 25 L MCHC RDW 15.6 H Plt Count 51 L Lymph % (Auto) Lymph # Seg Neutrophils % Seg Neuts % (Manual) 24.0 L Lymphocytes % (Manual) 8.0 L Nucleated RBC % Seg Neutrophils # Man 0.5 L Lymphocytes # (Manual) 0.2 L PT INR APTT POC ABG pH POC ABG pCO2 POC ABG pO2 Sodium 148 H Potassium Chloride 112.6 H Carbon Dioxide BUN Creatinine Glucose 33 L* POC Glucose 44 L Lactic Acid Calcium Magnesium AST 85 H ALT 127 H Alkaline Phosphatase Total Creatine Kinase C-Reactive Protein Total Protein 4.6 L D Albumin 2.4 L Vitamin B12 Salicylates Miscellaneous Test 05/26/17 05/26/17 05/26/17 06:33 09:45 10:01 WBC RBC Hgb Hct MCV MCH MCHC RDW Plt Count Lymph % (Auto) Lymph # Seg Neutrophils % Seg Neuts % (Manual) Lymphocytes % (Manual) Nucleated RBC % Seg Neutrophils # Man Lymphocytes # (Manual) PT INR APTT POC ABG pH POC ABG pCO2 POC ABG pO2 Sodium Potassium Chloride Carbon Dioxide BUN Creatinine Glucose POC Glucose 130 H 52 L 182 H Lactic Acid Calcium Magnesium AST ALT Alkaline Phosphatase Total Creatine Kinase C-Reactive Protein Total Protein Albumin Vitamin B12 Salicylates Miscellaneous Test 05/26/17 05/26/17 05/26/17 10:56 12:41 14:58 WBC RBC Hgb Hct MCV MCH MCHC RDW Plt Count Lymph % (Auto) Lymph # Seg Neutrophils % Seg Neuts % (Manual) Lymphocytes % (Manual) Nucleated RBC % Seg Neutrophils # Man Lymphocytes # (Manual) PT INR APTT POC ABG pH POC ABG pCO2 POC ABG pO2 61 L Sodium Potassium Chloride Carbon Dioxide BUN Creatinine Glucose POC Glucose 69 L 150 H Lactic Acid Calcium Magnesium AST ALT Alkaline Phosphatase Total Creatine Kinase C-Reactive Protein Total Protein Albumin Vitamin B12 Salicylates Miscellaneous Test 05/26/17 05/26/17 05/26/17 15:41 15:53 17:46 WBC RBC Hgb Hct MCV MCH MCHC RDW Plt Count Lymph % (Auto) Lymph # Seg Neutrophils % Seg Neuts % (Manual) Lymphocytes % (Manual) Nucleated RBC % Seg Neutrophils # Man Lymphocytes # (Manual) PT INR APTT POC ABG pH 7.330 L POC ABG pCO2 POC ABG pO2 77 L Sodium Potassium Chloride Carbon Dioxide BUN Creatinine Glucose POC Glucose 63 L Lactic Acid Calcium Magnesium AST ALT Alkaline Phosphatase Total Creatine Kinase C-Reactive Protein 15.20 H Total Protein Albumin Vitamin B12 Salicylates Miscellaneous Test 05/26/17 05/26/17 05/27/17 18:40 20:18 00:35 WBC RBC Hgb Hct MCV MCH MCHC RDW Plt Count Lymph % (Auto) Lymph # Seg Neutrophils % Seg Neuts % (Manual) Lymphocytes % (Manual) Nucleated RBC % Seg Neutrophils # Man Lymphocytes # (Manual) PT INR APTT POC ABG pH POC ABG pCO2 POC ABG pO2 Sodium Potassium Chloride Carbon Dioxide BUN Creatinine Glucose POC Glucose 149 H 63 L 49 L Lactic Acid Calcium Magnesium AST ALT Alkaline Phosphatase Total Creatine Kinase C-Reactive Protein Total Protein Albumin Vitamin B12 Salicylates Miscellaneous Test 05/27/17 05/27/17 05/27/17 02:33 04:00 04:00 WBC RBC Hgb 11.7 L Hct 34.6 L MCV 75 L MCH 25 L MCHC RDW 15.6 H Plt Count 21 L Lymph % (Auto) Lymph # Seg Neutrophils % Seg Neuts % (Manual) 14.0 L Lymphocytes % (Manual) 5.0 L Nucleated RBC % Seg Neutrophils # Man 1.5 L Lymphocytes # (Manual) 0.5 L PT INR APTT POC ABG pH POC ABG pCO2 POC ABG pO2 Sodium 148 H Potassium Chloride 112.7 H Carbon Dioxide BUN 24 H Creatinine Glucose POC Glucose 61 L Lactic Acid Calcium 7.7 L Magnesium AST 115 H ALT 100 H Alkaline Phosphatase Total Creatine Kinase C-Reactive Protein Total Protein 3.8 L Albumin 2.1 L Vitamin B12 Salicylates Miscellaneous Test 05/27/17 05/27/17 05/27/17 04:00 05:20 06:36 WBC RBC Hgb Hct MCV MCH MCHC RDW Plt Count Lymph % (Auto) Lymph # Seg Neutrophils % Seg Neuts % (Manual) Lymphocytes % (Manual) Nucleated RBC % Seg Neutrophils # Man Lymphocytes # (Manual) PT 19.7 H INR 1.57 H APTT 57.0 H POC ABG pH POC ABG pCO2 POC ABG pO2 Sodium Potassium Chloride Carbon Dioxide BUN Creatinine Glucose POC Glucose 64 L 120 H Lactic Acid Calcium Magnesium AST ALT Alkaline Phosphatase Total Creatine Kinase C-Reactive Protein Total Protein Albumin Vitamin B12 Salicylates Miscellaneous Test 05/27/17 05/27/17 05/27/17 09:15 12:35 15:44 WBC RBC Hgb Hct MCV MCH MCHC RDW Plt Count Lymph % (Auto) Lymph # Seg Neutrophils % Seg Neuts % (Manual) Lymphocytes % (Manual) Nucleated RBC % Seg Neutrophils # Man Lymphocytes # (Manual) PT INR APTT POC ABG pH POC ABG pCO2 POC ABG pO2 380 H Sodium Potassium Chloride Carbon Dioxide BUN Creatinine Glucose POC Glucose 162 H 193 H Lactic Acid Calcium Magnesium AST ALT Alkaline Phosphatase Total Creatine Kinase C-Reactive Protein Total Protein Albumin Vitamin B12 Salicylates Miscellaneous Test 05/27/17 05/27/17 05/27/17 18:14 20:12 20:15 WBC RBC Hgb 10.3 L Hct 30.7 L MCV 75 L MCH 25 L MCHC RDW 15.6 H Plt Count 15 L* Lymph % (Auto) Lymph # Seg Neutrophils % Seg Neuts % (Manual) 95.0 H Lymphocytes % (Manual) 4.0 L Nucleated RBC % Seg Neutrophils # Man Lymphocytes # (Manual) 0.3 L PT INR APTT POC ABG pH POC ABG pCO2 POC ABG pO2 Sodium Potassium Chloride Carbon Dioxide BUN Creatinine Glucose POC Glucose 199 H 165 H Lactic Acid Calcium Magnesium AST ALT Alkaline Phosphatase Total Creatine Kinase C-Reactive Protein Total Protein Albumin Vitamin B12 Salicylates Miscellaneous Test 05/27/17 05/27/17 05/27/17 20:43 21:48 23:08 WBC RBC Hgb Hct MCV MCH MCHC RDW Plt Count Lymph % (Auto) Lymph # Seg Neutrophils % Seg Neuts % (Manual) Lymphocytes % (Manual) Nucleated RBC % Seg Neutrophils # Man Lymphocytes # (Manual) PT INR APTT POC ABG pH POC ABG pCO2 POC ABG pO2 Sodium Potassium Chloride Carbon Dioxide BUN Creatinine Glucose 150 H POC Glucose 166 H Lactic Acid Calcium 8.3 L Magnesium AST ALT Alkaline Phosphatase Total Creatine Kinase C-Reactive Protein Total Protein Albumin Vitamin B12 Salicylates Miscellaneous Test Flexitest 1 H 05/27/17 05/28/17 05/28/17 23:51 02:23 04:19 WBC RBC Hgb Hct MCV MCH MCHC RDW Plt Count Lymph % (Auto) Lymph # Seg Neutrophils % Seg Neuts % (Manual) Lymphocytes % (Manual) Nucleated RBC % Seg Neutrophils # Man Lymphocytes # (Manual) PT INR APTT POC ABG pH POC ABG pCO2 POC ABG pO2 75 L Sodium Potassium Chloride Carbon Dioxide BUN Creatinine Glucose POC Glucose 173 H 177 H Lactic Acid Calcium Magnesium AST ALT Alkaline Phosphatase Total Creatine Kinase C-Reactive Protein Total Protein Albumin Vitamin B12 Salicylates Miscellaneous Test 05/28/17 05/28/17 05/28/17 05:40 05:50 05:50 WBC RBC Hgb 10.5 L Hct 30.9 L MCV 75 L MCH 25 L MCHC RDW 15.5 H Plt Count 16 L* Lymph % (Auto) Lymph # Seg Neutrophils % Seg Neuts % (Manual) Lymphocytes % (Manual) Nucleated RBC % Seg Neutrophils # Man Lymphocytes # (Manual) PT INR APTT POC ABG pH POC ABG pCO2 POC ABG pO2 Sodium Potassium Chloride Carbon Dioxide BUN Creatinine Glucose 129 H POC Glucose 160 H Lactic Acid Calcium 8.3 L Magnesium AST ALT Alkaline Phosphatase Total Creatine Kinase C-Reactive Protein Total Protein Albumin Vitamin B12 Salicylates Miscellaneous Test 05/28/17 05/28/17 05/28/17 08:21 11:04 12:19 WBC RBC Hgb Hct MCV MCH MCHC RDW Plt Count Lymph % (Auto) Lymph # Seg Neutrophils % Seg Neuts % (Manual) Lymphocytes % (Manual) Nucleated RBC % Seg Neutrophils # Man Lymphocytes # (Manual) PT INR APTT POC ABG pH POC ABG pCO2 POC ABG pO2 178 H Sodium Potassium Chloride Carbon Dioxide BUN Creatinine Glucose POC Glucose 201 H 140 H Lactic Acid Calcium Magnesium AST ALT Alkaline Phosphatase Total Creatine Kinase C-Reactive Protein Total Protein Albumin Vitamin B12 Salicylates Miscellaneous Test 05/28/17 05/28/17 05/29/17 13:47 16:21 05:56 WBC RBC Hgb Hct MCV MCH MCHC RDW Plt Count Lymph % (Auto) Lymph # Seg Neutrophils % Seg Neuts % (Manual) Lymphocytes % (Manual) Nucleated RBC % Seg Neutrophils # Man Lymphocytes # (Manual) PT INR APTT POC ABG pH POC ABG pCO2 POC ABG pO2 Sodium Potassium Chloride Carbon Dioxide BUN Creatinine Glucose POC Glucose 47 L 110 H Lactic Acid Calcium Magnesium 1.60 L AST ALT Alkaline Phosphatase Total Creatine Kinase C-Reactive Protein Total Protein Albumin Vitamin B12 Salicylates Miscellaneous Test 05/29/17 05/29/17 05/29/17 08:00 08:57 10:01 WBC RBC Hgb Hct MCV MCH MCHC RDW Plt Count Lymph % (Auto) Lymph # Seg Neutrophils % Seg Neuts % (Manual) Lymphocytes % (Manual) Nucleated RBC % Seg Neutrophils # Man Lymphocytes # (Manual) PT INR APTT POC ABG pH POC ABG pCO2 POC ABG pO2 Sodium 126 L D Potassium 3.3 L Chloride 96.4 L Carbon Dioxide 20 L BUN Creatinine 0.5 L Glucose POC Glucose 120 H 115 H Lactic Acid Calcium 6.6 L D Magnesium AST 485 H ALT 380 H Alkaline Phosphatase Total Creatine Kinase C-Reactive Protein Total Protein 3.6 L Albumin 1.5 L Vitamin B12 Salicylates Miscellaneous Test 05/29/17 05/29/17 05/29/17 10:15 10:15 11:55 WBC RBC Hgb 9.3 L Hct 27.2 L MCV 73 L MCH 25 L MCHC RDW Plt Count 9 L* Lymph % (Auto) Lymph # Seg Neutrophils % Seg Neuts % (Manual) Lymphocytes % (Manual) Nucleated RBC % Seg Neutrophils # Man Lymphocytes # (Manual) PT INR APTT POC ABG pH POC ABG pCO2 POC ABG pO2 Sodium Potassium Chloride Carbon Dioxide BUN 24 H Creatinine 0.7 L Glucose 112 H POC Glucose 128 H Lactic Acid Calcium Magnesium AST ALT Alkaline Phosphatase Total Creatine Kinase C-Reactive Protein Total Protein Albumin Vitamin B12 Salicylates Miscellaneous Test 05/29/17 05/30/17 05/30/17 15:44 01:00 04:21 WBC RBC Hgb Hct MCV MCH MCHC RDW Plt Count Lymph % (Auto) Lymph # Seg Neutrophils % Seg Neuts % (Manual) Lymphocytes % (Manual) Nucleated RBC % Seg Neutrophils # Man Lymphocytes # (Manual) PT INR APTT POC ABG pH 7.528 H POC ABG pCO2 34.8 L POC ABG pO2 108 H Sodium Potassium Chloride Carbon Dioxide BUN Creatinine Glucose POC Glucose 124 H 106 H Lactic Acid Calcium Magnesium AST ALT Alkaline Phosphatase Total Creatine Kinase C-Reactive Protein Total Protein Albumin Vitamin B12 Salicylates Miscellaneous Test 05/30/17 05/30/17 05/30/17 05:30 05:30 06:02 WBC RBC Hgb 9.3 L Hct 27.6 L MCV 74 L MCH 25 L MCHC RDW Plt Count 40 L D Lymph % (Auto) Lymph # Seg Neutrophils % Seg Neuts % (Manual) 90.0 H Lymphocytes % (Manual) 4.0 L Nucleated RBC % 1.0 H Seg Neutrophils # Man Lymphocytes # (Manual) 0.2 L PT INR APTT POC ABG pH POC ABG pCO2 POC ABG pO2 Sodium Potassium Chloride 109.9 H Carbon Dioxide BUN 26 H Creatinine 0.7 L Glucose 118 H POC Glucose 149 H Lactic Acid Calcium Magnesium AST 445 H ALT 529 H Alkaline Phosphatase Total Creatine Kinase C-Reactive Protein Total Protein 4.7 L D Albumin 2.2 L Vitamin B12 Salicylates Miscellaneous Test 05/30/17 05/30/17 05/30/17 10:14 15:02 16:28 WBC RBC Hgb Hct MCV MCH MCHC RDW Plt Count Lymph % (Auto) Lymph # Seg Neutrophils % Seg Neuts % (Manual) Lymphocytes % (Manual) Nucleated RBC % Seg Neutrophils # Man Lymphocytes # (Manual) PT INR APTT POC ABG pH POC ABG pCO2 POC ABG pO2 Sodium Potassium Chloride Carbon Dioxide BUN Creatinine Glucose POC Glucose 155 H 169 H Lactic Acid Calcium Magnesium AST ALT Alkaline Phosphatase Total Creatine Kinase 3464 H C-Reactive Protein Total Protein Albumin Vitamin B12 Salicylates Miscellaneous Test 05/30/17 05/30/17 05/30/17 16:28 17:40 21:35 WBC RBC Hgb Hct MCV MCH MCHC RDW Plt Count Lymph % (Auto) Lymph # Seg Neutrophils % Seg Neuts % (Manual) Lymphocytes % (Manual) Nucleated RBC % Seg Neutrophils # Man Lymphocytes # (Manual) PT INR APTT POC ABG pH POC ABG pCO2 POC ABG pO2 Sodium Potassium Chloride Carbon Dioxide BUN Creatinine Glucose POC Glucose 155 H 129 H Lactic Acid Calcium Magnesium AST ALT Alkaline Phosphatase Total Creatine Kinase C-Reactive Protein Total Protein Albumin Vitamin B12 1108 H Salicylates Miscellaneous Test 05/31/17 05/31/17 05/31/17 01:54 04:31 05:40 WBC RBC 3.37 L Hgb 8.5 L Hct 24.6 L MCV 73 L MCH 25 L MCHC 35 H RDW Plt Count 55 L Lymph % (Auto) 8.7 L Lymph # 0.5 L Seg Neutrophils % 86.1 H Seg Neuts % (Manual) Lymphocytes % (Manual) Nucleated RBC % Seg Neutrophils # Man Lymphocytes # (Manual) PT INR APTT POC ABG pH 7.547 H POC ABG pCO2 34.6 L POC ABG pO2 79 L Sodium Potassium Chloride Carbon Dioxide BUN Creatinine Glucose POC Glucose 110 H Lactic Acid Calcium Magnesium AST ALT Alkaline Phosphatase Total Creatine Kinase C-Reactive Protein Total Protein Albumin Vitamin B12 Salicylates Miscellaneous Test 05/31/17 05/31/17 05/31/17 05:40 13:52 Unknown WBC RBC Hgb Hct MCV MCH MCHC RDW Plt Count Lymph % (Auto) Lymph # Seg Neutrophils % Seg Neuts % (Manual) Lymphocytes % (Manual) Nucleated RBC % Seg Neutrophils # Man Lymphocytes # (Manual) PT INR APTT POC ABG pH POC ABG pCO2 POC ABG pO2 Sodium 148 H Potassium 3.2 L Chloride 108.6 H Carbon Dioxide BUN 22 H Creatinine 0.5 L Glucose 101 H POC Glucose 114 H Lactic Acid Calcium 8.2 L Magnesium AST 223 H ALT 359 H Alkaline Phosphatase Total Creatine Kinase C-Reactive Protein Total Protein 4.6 L Albumin 2.0 L Vitamin B12 Salicylates Miscellaneous Test Flexitest 1 H 06/01/17 06/01/17 06/01/17 05:16 14:48 14:54 WBC RBC Hgb Hct MCV MCH MCHC RDW Plt Count Lymph % (Auto) Lymph # Seg Neutrophils % Seg Neuts % (Manual) Lymphocytes % (Manual) Nucleated RBC % Seg Neutrophils # Man Lymphocytes # (Manual) PT INR APTT POC ABG pH 7.499 H POC ABG pCO2 POC ABG pO2 71 L Sodium Potassium Chloride Carbon Dioxide BUN Creatinine Glucose POC Glucose < 40 L < 40 L Lactic Acid Calcium Magnesium AST ALT Alkaline Phosphatase Total Creatine Kinase C-Reactive Protein Total Protein Albumin Vitamin B12 Salicylates Miscellaneous Test 06/01/17 06/01/17 06/01/17 15:39 22:07 23:00 WBC RBC Hgb Hct MCV MCH MCHC RDW Plt Count Lymph % (Auto) Lymph # Seg Neutrophils % Seg Neuts % (Manual) Lymphocytes % (Manual) Nucleated RBC % Seg Neutrophils # Man Lymphocytes # (Manual) PT INR APTT POC ABG pH POC ABG pCO2 POC ABG pO2 Sodium Potassium Chloride Carbon Dioxide BUN Creatinine Glucose POC Glucose 69 L 50 L Lactic Acid Calcium Magnesium AST ALT Alkaline Phosphatase Total Creatine Kinase 1318 H C-Reactive Protein Total Protein Albumin Vitamin B12 Salicylates Miscellaneous Test 06/01/17 06/01/17 06/02/17 Unknown Unknown 06:00 WBC RBC 3.24 L Hgb 8.1 L Hct 23.8 L MCV 74 L MCH 25 L MCHC RDW Plt Count 136 L D Lymph % (Auto) Lymph # 1.0 L Seg Neutrophils % 80.1 H Seg Neuts % (Manual) Lymphocytes % (Manual) Nucleated RBC % Seg Neutrophils # Man Lymphocytes # (Manual) PT INR APTT POC ABG pH POC ABG pCO2 POC ABG pO2 Sodium 148 H Potassium 3.3 L 3.4 L Chloride 107.5 H Carbon Dioxide 31 H 32 H BUN Creatinine 0.4 L 0.4 L Glucose POC Glucose Lactic Acid Calcium 8.2 L 8.0 L Magnesium AST 127 H ALT 269 H Alkaline Phosphatase 137 H Total Creatine Kinase C-Reactive Protein Total Protein 4.2 L Albumin 2.5 L Vitamin B12 Salicylates Miscellaneous Test 06/02/17 06/02/17 06/02/17 08:27 13:02 14:50 WBC RBC Hgb 9.6 L Hct 28.4 L MCV 74 L MCH 25 L MCHC RDW Plt Count Lymph % (Auto) Lymph # Seg Neutrophils % Seg Neuts % (Manual) Lymphocytes % (Manual) Nucleated RBC % Seg Neutrophils # Man Lymphocytes # (Manual) PT INR APTT POC ABG pH POC ABG pCO2 48.6 H POC ABG pO2 Sodium Potassium Chloride Carbon Dioxide BUN Creatinine Glucose POC Glucose 127 H Lactic Acid Calcium Magnesium AST ALT Alkaline Phosphatase Total Creatine Kinase C-Reactive Protein Total Protein Albumin Vitamin B12 Salicylates Miscellaneous Test 06/03/17 06/03/17 06/03/17 00:08 04:00 04:00 WBC RBC Hgb 9.4 L Hct 27.7 L MCV 74 L MCH 25 L MCHC RDW Plt Count Lymph % (Auto) Lymph # 0.9 L Seg Neutrophils % 76.1 H Seg Neuts % (Manual) Lymphocytes % (Manual) Nucleated RBC % Seg Neutrophils # Man Lymphocytes # (Manual) PT INR APTT POC ABG pH POC ABG pCO2 POC ABG pO2 Sodium Potassium 3.4 L Chloride Carbon Dioxide 33 H BUN Creatinine 0.3 L Glucose 62 L POC Glucose 44 L Lactic Acid Calcium 8.1 L Magnesium AST ALT Alkaline Phosphatase Total Creatine Kinase C-Reactive Protein Total Protein Albumin Vitamin B12 Salicylates Miscellaneous Test 06/03/17 06/03/17 06/03/17 06:12 14:00 17:37 WBC RBC Hgb Hct MCV MCH MCHC RDW Plt Count Lymph % (Auto) Lymph # Seg Neutrophils % Seg Neuts % (Manual) Lymphocytes % (Manual) Nucleated RBC % Seg Neutrophils # Man Lymphocytes # (Manual) PT INR APTT POC ABG pH POC ABG pCO2 POC ABG pO2 Sodium Potassium Chloride Carbon Dioxide BUN Creatinine Glucose POC Glucose 46 L 118 H 59 L Lactic Acid Calcium Magnesium AST ALT Alkaline Phosphatase Total Creatine Kinase C-Reactive Protein Total Protein Albumin Vitamin B12 Salicylates Miscellaneous Test 06/03/17 06/03/17 06/03/17 18:23 22:07 22:09 WBC RBC Hgb Hct MCV MCH MCHC RDW Plt Count Lymph % (Auto) Lymph # Seg Neutrophils % Seg Neuts % (Manual) Lymphocytes % (Manual) Nucleated RBC % Seg Neutrophils # Man Lymphocytes # (Manual) PT INR APTT POC ABG pH POC ABG pCO2 POC ABG pO2 Sodium Potassium Chloride Carbon Dioxide BUN Creatinine Glucose POC Glucose 158 H 63 L 69 L Lactic Acid Calcium Magnesium AST ALT Alkaline Phosphatase Total Creatine Kinase C-Reactive Protein Total Protein Albumin Vitamin B12 Salicylates Miscellaneous Test 06/04/17 06/04/17 06/04/17 06:28 14:07 14:07 WBC RBC Hgb 11.2 L Hct 33.1 L MCV 75 L MCH 25 L MCHC RDW Plt Count Lymph % (Auto) Lymph # Seg Neutrophils % Seg Neuts % (Manual) Lymphocytes % (Manual) Nucleated RBC % Seg Neutrophils # Man Lymphocytes # (Manual) PT INR APTT POC ABG pH POC ABG pCO2 POC ABG pO2 Sodium Potassium Chloride Carbon Dioxide BUN Creatinine 0.5 L D Glucose 133 H POC Glucose 56 L Lactic Acid Calcium Magnesium AST ALT Alkaline Phosphatase Total Creatine Kinase C-Reactive Protein Total Protein Albumin Vitamin B12 Salicylates Miscellaneous Test 06/04/17 14:13 WBC RBC Hgb Hct MCV MCH MCHC RDW Plt Count Lymph % (Auto) Lymph # Seg Neutrophils % Seg Neuts % (Manual) Lymphocytes % (Manual) Nucleated RBC % Seg Neutrophils # Man Lymphocytes # (Manual) PT INR APTT POC ABG pH POC ABG pCO2 POC ABG pO2 Sodium Potassium Chloride Carbon Dioxide BUN Creatinine Glucose POC Glucose 127 H Lactic Acid Calcium Magnesium AST ALT Alkaline Phosphatase Total Creatine Kinase C-Reactive Protein Total Protein Albumin Vitamin B12 Salicylates Miscellaneous Test Chest x-ray: report reviewed, image reviewed
[2017-06-04] MEDS: D5NS 1,000 ML IV SCH (18:53)
--- NOTE | 2017-06-04 19:23 | Cat Scan Report ---
FINAL REPORT PROCEDURE: CT HEAD/BRAIN WO CON TECHNIQUE: Computerized tomography of the head was performed without contrast material. HISTORY: pt fell out of bed and hit his head COMPARISON: No prior studies are available for comparison. FINDINGS: Skull and scalp: Normal. Paranasal sinuses: Mucosal thickening left maxillary sinus. Slight fluid right mastoid. Ventricles and subarachnoid spaces: Normal. Cerebrum: No evidence of hemorrhage, acute infarction or mass . Cerebellum and brainstem: No evidence of hemorrhage, acute infarction or mass. Vasculature: Normal. Comments: None. IMPRESSION: No acute intracranial bleed or fracture
--- NOTE | 2017-06-04 19:29 | Cat Scan Report ---
FINAL REPORT PROCEDURE: CT CERVICAL SPINE WO CON TECHNIQUE: Computerized tomography of the cervical spine was performed from the skull base to T1 without contrast material. HISTORY: pt fell out of bed and hit his head COMPARISON: No prior studies are available for comparison. FINDINGS: C1-2: No significant abnormality. C2-3: No significant abnormality. C3-4: No significant abnormality. C4-5: No significant abnormality. C5-6: No significant abnormality. C6-7: No significant abnormality. C7-T1: No significant abnormality. Other: Lordotic cervical spine. Minimal fluid right mastoid. Chronic odontoid ligamentous calcifications. Emphysematous changes in the upper lung zones blebs and bullous changes no definite acute fracture seen at this time.. IMPRESSION: No significant abnormality.
--- NOTE | 2017-06-04 19:37 | Cat Scan Report ---
FINAL REPORT PROCEDURE: CT FACIAL BONES WO CON TECHNIQUE: Computerized tomography of the facial bones and soft tissues with axial and coronal sections performed from the cranial aspect of the frontal sinuses to the caudal portion of the mandible without contrast material. HISTORY: pt fell out of bed and hit his head COMPARISON: No prior studies are available for comparison. FINDINGS: Bones: No significant abnormality. Paranasal sinuses: Clear. Soft tissues: Laceration soft tissue injury with swelling right periorbital region with no definite acute fracture seen. Other: None. IMPRESSION: No definite acute fracture seen at this time
[2017-06-04] MEDS: D50W (25GM) Syringe IV PRN (22:36)
[2017-06-05] MEDS: D50W (25GM) Syringe IV PRN ×3 (03:01→11:24)
[2017-06-05 05:59] LABS: Basophils % (Auto) 0.7 % (0.0-1.8); Eosinophils % (Auto) 1.1 % (0.0-4.3); Hematocrit 26.6 % (35.5-45.6); Hemoglobin 9.1 gm/dl (11.8-15.2); Lymphocytes # (Auto) 0.9 K/mm3 (1.2-5.4); Lymphocytes % (Auto) 20.1 % (13.4-35.0); Mean Corpuscular HGB Conc 34 % (32-34); Mean Corpuscular Volume 74 fl (84-94); Monocytes # (Auto) 0.3 K/mm3 (0.0-0.8); Platelet Count 371 K/mm3 (140-440); Red Blood Count 3.59 M/mm3 (3.65-5.03); Red Cell Distribution Width 14.2 % (13.2-15.2)
[2017-06-05 06:07] LABS: Mean Corpuscular Hemoglobin 26 pg (28-32)
[2017-06-05 06:24] LABS: BUN/Creatinine Ratio 15; Blood Urea Nitrogen 9 mg/dL (9-20); Calcium 8.5 mg/dL (8.4-10.2); Hemolysis Index 1
[2017-06-05] MEDS: VANCOMYCIN 1,250 MG in NACL 0.9% 250ML 250 ML IV SCH (11:00)
[2017-06-05] MEDS: D5NS 1,000 ML IV SCH (11:02)
--- NOTE | 2017-06-05 11:07 | Progress Note ---
Assessment and Plan 42 y/o male with sepsis with shock, hypoglycemia, hypothermia, thrombocytopenia and now acute respiratory failure most likely secondary to pneumonia. 1. Pulm status is stable. Off O2 2. Suggest transfer to floor. Subjective Date of service: 06/05/17 Principal diagnosis: pneumonia Interval history: Awake and alert. Follows some commands. Does not speak in full sentences and does not answer questions appropriately. Objective Vital Signs - 12hr 06/04/17 06/04/17 06/04/17 23:15 23:31 23:45 Temperature Pulse Rate 72 73 61 Pulse Rate [ From Monitor] Respiratory 18 14 14 Rate Blood Pressure 99/59 58/28 98/59 O2 Sat by Pulse 100 100 100 Oximetry 06/05/17 06/05/17 06/05/17 00:00 00:01 00:15 Temperature 98.5 F Pulse Rate 65 60 Pulse Rate [ 60 From Monitor] Respiratory 14 14 Rate Blood Pressure 103/70 58/28 O2 Sat by Pulse 99 97 96 Oximetry 06/05/17 06/05/17 06/05/17 00:30 00:45 01:01 Temperature Pulse Rate 70 67 65 Pulse Rate [ From Monitor] Respiratory 16 15 14 Rate Blood Pressure 104/77 104/77 104/68 O2 Sat by Pulse 97 99 100 Oximetry 06/05/17 06/05/17 06/05/17 01:15 01:30 01:45 Temperature Pulse Rate 60 59 L 60 Pulse Rate [ From Monitor] Respiratory 13 12 11 L Rate Blood Pressure 104/77 105/64 105/64 O2 Sat by Pulse 100 100 100 Oximetry 06/05/17 06/05/17 06/05/17 02:01 02:15 02:31 Temperature Pulse Rate 63 64 58 L Pulse Rate [ From Monitor] Respiratory 12 12 13 Rate Blood Pressure 103/61 106/74 106/74 O2 Sat by Pulse 100 100 100 Oximetry 06/05/17 06/05/17 06/05/17 02:45 03:01 03:15 Temperature Pulse Rate 69 53 L 59 L Pulse Rate [ From Monitor] Respiratory 11 L 11 L 13 Rate Blood Pressure 63/47 83/58 97/62 O2 Sat by Pulse 100 100 100 Oximetry 06/05/17 06/05/17 06/05/17 03:31 03:45 04:00 Temperature Pulse Rate 71 57 L Pulse Rate [ From Monitor] Respiratory 17 13 Rate Blood Pressure 94/58 97/62 O2 Sat by Pulse 100 100 99 Oximetry 06/05/17 06/05/17 06/05/17 04:01 04:15 04:30 Temperature Pulse Rate 59 L 65 67 Pulse Rate [ From Monitor] Respiratory 15 13 13 Rate Blood Pressure 95/57 95/57 87/60 O2 Sat by Pulse 100 100 100 Oximetry 06/05/17 06/05/17 06/05/17 04:45 05:00 05:01 Temperature 98.8 F Pulse Rate 60 62 Pulse Rate [ From Monitor] Respiratory 14 12 Rate Blood Pressure 87/60 95/70 O2 Sat by Pulse 100 100 Oximetry 06/05/17 06/05/17 06/05/17 05:15 05:31 05:45 Temperature Pulse Rate 66 62 57 L Pulse Rate [ From Monitor] Respiratory 14 13 14 Rate Blood Pressure 95/70 100/66 100/66 O2 Sat by Pulse 100 100 100 Oximetry 06/05/17 06/05/17 06/05/17 06:01 06:15 06:31 Temperature Pulse Rate 57 L 61 62 Pulse Rate [ From Monitor] Respiratory 13 13 11 L Rate Blood Pressure 100/66 100/66 105/68 O2 Sat by Pulse 100 100 100 Oximetry 06/05/17 06/05/17 06/05/17 06:45 07:01 07:15 Temperature Pulse Rate 60 65 64 Pulse Rate [ From Monitor] Respiratory 12 13 13 Rate Blood Pressure 110/70 117/32 117/32 O2 Sat by Pulse 100 100 100 Oximetry 06/05/17 06/05/17 06/05/17 07:31 07:45 08:01 Temperature Pulse Rate 57 L 58 L 64 Pulse Rate [ From Monitor] Respiratory 12 14 19 Rate Blood Pressure 80/40 80/40 102/67 O2 Sat by Pulse 100 100 100 Oximetry 06/05/17 06/05/17 08:15 08:31 Temperature Pulse Rate 59 L 56 L Pulse Rate [ From Monitor] Respiratory 17 15 Rate Blood Pressure 102/67 102/60 O2 Sat by Pulse 100 99 Oximetry Constitutional: no acute distress, alert Eyes: non-icteric ENT: other (orally intubated) Neck: supple Effort: normal Ascultation: Bilateral: clear, rales (left greater than right), other (coarse BS bilaterally) Percussion: Bilateral: not dull Cardiovascular: other (sinus renard, RR; no mrg) Gastrointestinal: normoactive bowel sounds, soft, non-tender, non-distended Integumentary: normal Extremities: no cyanosis, no edema, pink and warm Neurologic: non-focal exam, pupils equal and round, other (awake, seems confused ) Psychiatric: mood appropriate, affect normal CBC and BMP: 06/05/17 05:50 06/05/17 05:50 ABG, PT/INR, D-dimer: ABG POC ABG pH 7.449 (7.35-7.45) 06/02/17 14:50 POC ABG pCO2 48.6 (35-45) H 06/02/17 14:50 POC ABG pO2 98 (80-105) 06/02/17 14:50 POC ABG HCO3 33.7 06/02/17 14:50 POC ABG Total CO2 35 06/02/17 14:50 POC ABG O2 Sat 98 06/02/17 14:50 PT/INR, D-dimer PT 12.4 Sec. (12.2-14.9) 06/02/17 08:27 INR 0.88 (0.87-1.13) 06/02/17 08:27 Abnormal lab findings: Abnormal Labs 05/25/17 05/25/17 05/25/17 13:32 13:32 13:32 WBC RBC 5.76 H Hgb Hct MCV 77 L MCH 25 L MCHC RDW 15.9 H Plt Count 48 L Lymph % (Auto) Lymph # Seg Neutrophils % Seg Neuts % (Manual) 76.0 H Lymphocytes % (Manual) 2.0 L Nucleated RBC % Seg Neutrophils # Man Lymphocytes # (Manual) 0.1 L PT INR APTT POC ABG pH POC ABG pCO2 POC ABG pO2 Sodium 147 H Potassium Chloride 109.4 H Carbon Dioxide BUN Creatinine 0.3 L Glucose 102 H POC Glucose Lactic Acid Calcium Magnesium AST 111 H ALT 168 H Alkaline Phosphatase Total Creatine Kinase C-Reactive Protein Total Protein 5.8 L Albumin 2.9 L Vitamin B12 Salicylates < 0.3 L Miscellaneous Test 05/25/17 05/25/17 05/25/17 13:32 15:16 16:34 WBC RBC Hgb Hct MCV MCH MCHC RDW Plt Count Lymph % (Auto) Lymph # Seg Neutrophils % Seg Neuts % (Manual) Lymphocytes % (Manual) Nucleated RBC % Seg Neutrophils # Man Lymphocytes # (Manual) PT INR APTT POC ABG pH POC ABG pCO2 POC ABG pO2 Sodium Potassium Chloride Carbon Dioxide BUN Creatinine Glucose POC Glucose Lactic Acid 2.20 H* 2.10 H* Calcium Magnesium AST ALT Alkaline Phosphatase Total Creatine Kinase 360 H C-Reactive Protein Total Protein Albumin Vitamin B12 Salicylates Miscellaneous Test 05/26/17 05/26/17 05/26/17 00:47 00:47 06:07 WBC 2.1 L RBC 5.23 H Hgb Hct MCV 75 L MCH 25 L MCHC RDW 15.6 H Plt Count 51 L Lymph % (Auto) Lymph # Seg Neutrophils % Seg Neuts % (Manual) 24.0 L Lymphocytes % (Manual) 8.0 L Nucleated RBC % Seg Neutrophils # Man 0.5 L Lymphocytes # (Manual) 0.2 L PT INR APTT POC ABG pH POC ABG pCO2 POC ABG pO2 Sodium 148 H Potassium Chloride 112.6 H Carbon Dioxide BUN Creatinine Glucose 33 L* POC Glucose 44 L Lactic Acid Calcium Magnesium AST 85 H ALT 127 H Alkaline Phosphatase Total Creatine Kinase C-Reactive Protein Total Protein 4.6 L D Albumin 2.4 L Vitamin B12 Salicylates Miscellaneous Test 05/26/17 05/26/17 05/26/17 06:33 09:45 10:01 WBC RBC Hgb Hct MCV MCH MCHC RDW Plt Count Lymph % (Auto) Lymph # Seg Neutrophils % Seg Neuts % (Manual) Lymphocytes % (Manual) Nucleated RBC % Seg Neutrophils # Man Lymphocytes # (Manual) PT INR APTT POC ABG pH POC ABG pCO2 POC ABG pO2 Sodium Potassium Chloride Carbon Dioxide BUN Creatinine Glucose POC Glucose 130 H 52 L 182 H Lactic Acid Calcium Magnesium AST ALT Alkaline Phosphatase Total Creatine Kinase C-Reactive Protein Total Protein Albumin Vitamin B12 Salicylates Miscellaneous Test 05/26/17 05/26/17 05/26/17 10:56 12:41 14:58 WBC RBC Hgb Hct MCV MCH MCHC RDW Plt Count Lymph % (Auto) Lymph # Seg Neutrophils % Seg Neuts % (Manual) Lymphocytes % (Manual) Nucleated RBC % Seg Neutrophils # Man Lymphocytes # (Manual) PT INR APTT POC ABG pH POC ABG pCO2 POC ABG pO2 61 L Sodium Potassium Chloride Carbon Dioxide BUN Creatinine Glucose POC Glucose 69 L 150 H Lactic Acid Calcium Magnesium AST ALT Alkaline Phosphatase Total Creatine Kinase C-Reactive Protein Total Protein Albumin Vitamin B12 Salicylates Miscellaneous Test 05/26/17 05/26/17 05/26/17 15:41 15:53 17:46 WBC RBC Hgb Hct MCV MCH MCHC RDW Plt Count Lymph % (Auto) Lymph # Seg Neutrophils % Seg Neuts % (Manual) Lymphocytes % (Manual) Nucleated RBC % Seg Neutrophils # Man Lymphocytes # (Manual) PT INR APTT POC ABG pH 7.330 L POC ABG pCO2 POC ABG pO2 77 L Sodium Potassium Chloride Carbon Dioxide BUN Creatinine Glucose POC Glucose 63 L Lactic Acid Calcium Magnesium AST ALT Alkaline Phosphatase Total Creatine Kinase C-Reactive Protein 15.20 H Total Protein Albumin Vitamin B12 Salicylates Miscellaneous Test 05/26/17 05/26/17 05/27/17 18:40 20:18 00:35 WBC RBC Hgb Hct MCV MCH MCHC RDW Plt Count Lymph % (Auto) Lymph # Seg Neutrophils % Seg Neuts % (Manual) Lymphocytes % (Manual) Nucleated RBC % Seg Neutrophils # Man Lymphocytes # (Manual) PT INR APTT POC ABG pH POC ABG pCO2 POC ABG pO2 Sodium Potassium Chloride Carbon Dioxide BUN Creatinine Glucose POC Glucose 149 H 63 L 49 L Lactic Acid Calcium Magnesium AST ALT Alkaline Phosphatase Total Creatine Kinase C-Reactive Protein Total Protein Albumin Vitamin B12 Salicylates Miscellaneous Test 05/27/17 05/27/17 05/27/17 02:33 04:00 04:00 WBC RBC Hgb 11.7 L Hct 34.6 L MCV 75 L MCH 25 L MCHC RDW 15.6 H Plt Count 21 L Lymph % (Auto) Lymph # Seg Neutrophils % Seg Neuts % (Manual) 14.0 L Lymphocytes % (Manual) 5.0 L Nucleated RBC % Seg Neutrophils # Man 1.5 L Lymphocytes # (Manual) 0.5 L PT INR APTT POC ABG pH POC ABG pCO2 POC ABG pO2 Sodium 148 H Potassium Chloride 112.7 H Carbon Dioxide BUN 24 H Creatinine Glucose POC Glucose 61 L Lactic Acid Calcium 7.7 L Magnesium AST 115 H ALT 100 H Alkaline Phosphatase Total Creatine Kinase C-Reactive Protein Total Protein 3.8 L Albumin 2.1 L Vitamin B12 Salicylates Miscellaneous Test 05/27/17 05/27/17 05/27/17 04:00 05:20 06:36 WBC RBC Hgb Hct MCV MCH MCHC RDW Plt Count Lymph % (Auto) Lymph # Seg Neutrophils % Seg Neuts % (Manual) Lymphocytes % (Manual) Nucleated RBC % Seg Neutrophils # Man Lymphocytes # (Manual) PT 19.7 H INR 1.57 H APTT 57.0 H POC ABG pH POC ABG pCO2 POC ABG pO2 Sodium Potassium Chloride Carbon Dioxide BUN Creatinine Glucose POC Glucose 64 L 120 H Lactic Acid Calcium Magnesium AST ALT Alkaline Phosphatase Total Creatine Kinase C-Reactive Protein Total Protein Albumin Vitamin B12 Salicylates Miscellaneous Test 05/27/17 05/27/17 05/27/17 09:15 12:35 15:44 WBC RBC Hgb Hct MCV MCH MCHC RDW Plt Count Lymph % (Auto) Lymph # Seg Neutrophils % Seg Neuts % (Manual) Lymphocytes % (Manual) Nucleated RBC % Seg Neutrophils # Man Lymphocytes # (Manual) PT INR APTT POC ABG pH POC ABG pCO2 POC ABG pO2 380 H Sodium Potassium Chloride Carbon Dioxide BUN Creatinine Glucose POC Glucose 162 H 193 H Lactic Acid Calcium Magnesium AST ALT Alkaline Phosphatase Total Creatine Kinase C-Reactive Protein Total Protein Albumin Vitamin B12 Salicylates Miscellaneous Test 05/27/17 05/27/17 05/27/17 18:14 20:12 20:15 WBC RBC Hgb 10.3 L Hct 30.7 L MCV 75 L MCH 25 L MCHC RDW 15.6 H Plt Count 15 L* Lymph % (Auto) Lymph # Seg Neutrophils % Seg Neuts % (Manual) 95.0 H Lymphocytes % (Manual) 4.0 L Nucleated RBC % Seg Neutrophils # Man Lymphocytes # (Manual) 0.3 L PT INR APTT POC ABG pH POC ABG pCO2 POC ABG pO2 Sodium Potassium Chloride Carbon Dioxide BUN Creatinine Glucose POC Glucose 199 H 165 H Lactic Acid Calcium Magnesium AST ALT Alkaline Phosphatase Total Creatine Kinase C-Reactive Protein Total Protein Albumin Vitamin B12 Salicylates Miscellaneous Test 05/27/17 05/27/17 05/27/17 20:43 21:48 23:08 WBC RBC Hgb Hct MCV MCH MCHC RDW Plt Count Lymph % (Auto) Lymph # Seg Neutrophils % Seg Neuts % (Manual) Lymphocytes % (Manual) Nucleated RBC % Seg Neutrophils # Man Lymphocytes # (Manual) PT INR APTT POC ABG pH POC ABG pCO2 POC ABG pO2 Sodium Potassium Chloride Carbon Dioxide BUN Creatinine Glucose 150 H POC Glucose 166 H Lactic Acid Calcium 8.3 L Magnesium AST ALT Alkaline Phosphatase Total Creatine Kinase C-Reactive Protein Total Protein Albumin Vitamin B12 Salicylates Miscellaneous Test Flexitest 1 H 05/27/17 05/28/17 05/28/17 23:51 02:23 04:19 WBC RBC Hgb Hct MCV MCH MCHC RDW Plt Count Lymph % (Auto) Lymph # Seg Neutrophils % Seg Neuts % (Manual) Lymphocytes % (Manual) Nucleated RBC % Seg Neutrophils # Man Lymphocytes # (Manual) PT INR APTT POC ABG pH POC ABG pCO2 POC ABG pO2 75 L Sodium Potassium Chloride Carbon Dioxide BUN Creatinine Glucose POC Glucose 173 H 177 H Lactic Acid Calcium Magnesium AST ALT Alkaline Phosphatase Total Creatine Kinase C-Reactive Protein Total Protein Albumin Vitamin B12 Salicylates Miscellaneous Test 05/28/17 05/28/17 05/28/17 05:40 05:50 05:50 WBC RBC Hgb 10.5 L Hct 30.9 L MCV 75 L MCH 25 L MCHC RDW 15.5 H Plt Count 16 L* Lymph % (Auto) Lymph # Seg Neutrophils % Seg Neuts % (Manual) Lymphocytes % (Manual) Nucleated RBC % Seg Neutrophils # Man Lymphocytes # (Manual) PT INR APTT POC ABG pH POC ABG pCO2 POC ABG pO2 Sodium Potassium Chloride Carbon Dioxide BUN Creatinine Glucose 129 H POC Glucose 160 H Lactic Acid Calcium 8.3 L Magnesium AST ALT Alkaline Phosphatase Total Creatine Kinase C-Reactive Protein Total Protein Albumin Vitamin B12 Salicylates Miscellaneous Test 05/28/17 05/28/17 05/28/17 08:21 11:04 12:19 WBC RBC Hgb Hct MCV MCH MCHC RDW Plt Count Lymph % (Auto) Lymph # Seg Neutrophils % Seg Neuts % (Manual) Lymphocytes % (Manual) Nucleated RBC % Seg Neutrophils # Man Lymphocytes # (Manual) PT INR APTT POC ABG pH POC ABG pCO2 POC ABG pO2 178 H Sodium Potassium Chloride Carbon Dioxide BUN Creatinine Glucose POC Glucose 201 H 140 H Lactic Acid Calcium Magnesium AST ALT Alkaline Phosphatase Total Creatine Kinase C-Reactive Protein Total Protein Albumin Vitamin B12 Salicylates Miscellaneous Test 05/28/17 05/28/17 05/29/17 13:47 16:21 05:56 WBC RBC Hgb Hct MCV MCH MCHC RDW Plt Count Lymph % (Auto) Lymph # Seg Neutrophils % Seg Neuts % (Manual) Lymphocytes % (Manual) Nucleated RBC % Seg Neutrophils # Man Lymphocytes # (Manual) PT INR APTT POC ABG pH POC ABG pCO2 POC ABG pO2 Sodium Potassium Chloride Carbon Dioxide BUN Creatinine Glucose POC Glucose 47 L 110 H Lactic Acid Calcium Magnesium 1.60 L AST ALT Alkaline Phosphatase Total Creatine Kinase C-Reactive Protein Total Protein Albumin Vitamin B12 Salicylates Miscellaneous Test 05/29/17 05/29/17 05/29/17 08:00 08:57 10:01 WBC RBC Hgb Hct MCV MCH MCHC RDW Plt Count Lymph % (Auto) Lymph # Seg Neutrophils % Seg Neuts % (Manual) Lymphocytes % (Manual) Nucleated RBC % Seg Neutrophils # Man Lymphocytes # (Manual) PT INR APTT POC ABG pH POC ABG pCO2 POC ABG pO2 Sodium 126 L D Potassium 3.3 L Chloride 96.4 L Carbon Dioxide 20 L BUN Creatinine 0.5 L Glucose POC Glucose 120 H 115 H Lactic Acid Calcium 6.6 L D Magnesium AST 485 H ALT 380 H Alkaline Phosphatase Total Creatine Kinase C-Reactive Protein Total Protein 3.6 L Albumin 1.5 L Vitamin B12 Salicylates Miscellaneous Test 05/29/17 05/29/17 05/29/17 10:15 10:15 11:55 WBC RBC Hgb 9.3 L Hct 27.2 L MCV 73 L MCH 25 L MCHC RDW Plt Count 9 L* Lymph % (Auto) Lymph # Seg Neutrophils % Seg Neuts % (Manual) Lymphocytes % (Manual) Nucleated RBC % Seg Neutrophils # Man Lymphocytes # (Manual) PT INR APTT POC ABG pH POC ABG pCO2 POC ABG pO2 Sodium Potassium Chloride Carbon Dioxide BUN 24 H Creatinine 0.7 L Glucose 112 H POC Glucose 128 H Lactic Acid Calcium Magnesium AST ALT Alkaline Phosphatase Total Creatine Kinase C-Reactive Protein Total Protein Albumin Vitamin B12 Salicylates Miscellaneous Test 05/29/17 05/30/17 05/30/17 15:44 01:00 04:21 WBC RBC Hgb Hct MCV MCH MCHC RDW Plt Count Lymph % (Auto) Lymph # Seg Neutrophils % Seg Neuts % (Manual) Lymphocytes % (Manual) Nucleated RBC % Seg Neutrophils # Man Lymphocytes # (Manual) PT INR APTT POC ABG pH 7.528 H POC ABG pCO2 34.8 L POC ABG pO2 108 H Sodium Potassium Chloride Carbon Dioxide BUN Creatinine Glucose POC Glucose 124 H 106 H Lactic Acid Calcium Magnesium AST ALT Alkaline Phosphatase Total Creatine Kinase C-Reactive Protein Total Protein Albumin Vitamin B12 Salicylates Miscellaneous Test 05/30/17 05/30/17 05/30/17 05:30 05:30 06:02 WBC RBC Hgb 9.3 L Hct 27.6 L MCV 74 L MCH 25 L MCHC RDW Plt Count 40 L D Lymph % (Auto) Lymph # Seg Neutrophils % Seg Neuts % (Manual) 90.0 H Lymphocytes % (Manual) 4.0 L Nucleated RBC % 1.0 H Seg Neutrophils # Man Lymphocytes # (Manual) 0.2 L PT INR APTT POC ABG pH POC ABG pCO2 POC ABG pO2 Sodium Potassium Chloride 109.9 H Carbon Dioxide BUN 26 H Creatinine 0.7 L Glucose 118 H POC Glucose 149 H Lactic Acid Calcium Magnesium AST 445 H ALT 529 H Alkaline Phosphatase Total Creatine Kinase C-Reactive Protein Total Protein 4.7 L D Albumin 2.2 L Vitamin B12 Salicylates Miscellaneous Test 05/30/17 05/30/17 05/30/17 10:14 15:02 16:28 WBC RBC Hgb Hct MCV MCH MCHC RDW Plt Count Lymph % (Auto) Lymph # Seg Neutrophils % Seg Neuts % (Manual) Lymphocytes % (Manual) Nucleated RBC % Seg Neutrophils # Man Lymphocytes # (Manual) PT INR APTT POC ABG pH POC ABG pCO2 POC ABG pO2 Sodium Potassium Chloride Carbon Dioxide BUN Creatinine Glucose POC Glucose 155 H 169 H Lactic Acid Calcium Magnesium AST ALT Alkaline Phosphatase Total Creatine Kinase 3464 H C-Reactive Protein Total Protein Albumin Vitamin B12 Salicylates Miscellaneous Test 05/30/17 05/30/17 05/30/17 16:28 17:40 21:35 WBC RBC Hgb Hct MCV MCH MCHC RDW Plt Count Lymph % (Auto) Lymph # Seg Neutrophils % Seg Neuts % (Manual) Lymphocytes % (Manual) Nucleated RBC % Seg Neutrophils # Man Lymphocytes # (Manual) PT INR APTT POC ABG pH POC ABG pCO2 POC ABG pO2 Sodium Potassium Chloride Carbon Dioxide BUN Creatinine Glucose POC Glucose 155 H 129 H Lactic Acid Calcium Magnesium AST ALT Alkaline Phosphatase Total Creatine Kinase C-Reactive Protein Total Protein Albumin Vitamin B12 1108 H Salicylates Miscellaneous Test 05/31/17 05/31/17 05/31/17 01:54 04:31 05:40 WBC RBC 3.37 L Hgb 8.5 L Hct 24.6 L MCV 73 L MCH 25 L MCHC 35 H RDW Plt Count 55 L Lymph % (Auto) 8.7 L Lymph # 0.5 L Seg Neutrophils % 86.1 H Seg Neuts % (Manual) Lymphocytes % (Manual) Nucleated RBC % Seg Neutrophils # Man Lymphocytes # (Manual) PT INR APTT POC ABG pH 7.547 H POC ABG pCO2 34.6 L POC ABG pO2 79 L Sodium Potassium Chloride Carbon Dioxide BUN Creatinine Glucose POC Glucose 110 H Lactic Acid Calcium Magnesium AST ALT Alkaline Phosphatase Total Creatine Kinase C-Reactive Protein Total Protein Albumin Vitamin B12 Salicylates Miscellaneous Test 05/31/17 05/31/17 05/31/17 05:40 13:52 Unknown WBC RBC Hgb Hct MCV MCH MCHC RDW Plt Count Lymph % (Auto) Lymph # Seg Neutrophils % Seg Neuts % (Manual) Lymphocytes % (Manual) Nucleated RBC % Seg Neutrophils # Man Lymphocytes # (Manual) PT INR APTT POC ABG pH POC ABG pCO2 POC ABG pO2 Sodium 148 H Potassium 3.2 L Chloride 108.6 H Carbon Dioxide BUN 22 H Creatinine 0.5 L Glucose 101 H POC Glucose 114 H Lactic Acid Calcium 8.2 L Magnesium AST 223 H ALT 359 H Alkaline Phosphatase Total Creatine Kinase C-Reactive Protein Total Protein 4.6 L Albumin 2.0 L Vitamin B12 Salicylates Miscellaneous Test Flexitest 1 H 06/01/17 06/01/17 06/01/17 05:16 14:48 14:54 WBC RBC Hgb Hct MCV MCH MCHC RDW Plt Count Lymph % (Auto) Lymph # Seg Neutrophils % Seg Neuts % (Manual) Lymphocytes % (Manual) Nucleated RBC % Seg Neutrophils # Man Lymphocytes # (Manual) PT INR APTT POC ABG pH 7.499 H POC ABG pCO2 POC ABG pO2 71 L Sodium Potassium Chloride Carbon Dioxide BUN Creatinine Glucose POC Glucose < 40 L < 40 L Lactic Acid Calcium Magnesium AST ALT Alkaline Phosphatase Total Creatine Kinase C-Reactive Protein Total Protein Albumin Vitamin B12 Salicylates Miscellaneous Test 06/01/17 06/01/17 06/01/17 15:39 22:07 23:00 WBC RBC Hgb Hct MCV MCH MCHC RDW Plt Count Lymph % (Auto) Lymph # Seg Neutrophils % Seg Neuts % (Manual) Lymphocytes % (Manual) Nucleated RBC % Seg Neutrophils # Man Lymphocytes # (Manual) PT INR APTT POC ABG pH POC ABG pCO2 POC ABG pO2 Sodium Potassium Chloride Carbon Dioxide BUN Creatinine Glucose POC Glucose 69 L 50 L Lactic Acid Calcium Magnesium AST ALT Alkaline Phosphatase Total Creatine Kinase 1318 H C-Reactive Protein Total Protein Albumin Vitamin B12 Salicylates Miscellaneous Test 06/01/17 06/01/17 06/02/17 Unknown Unknown 06:00 WBC RBC 3.24 L Hgb 8.1 L Hct 23.8 L MCV 74 L MCH 25 L MCHC RDW Plt Count 136 L D Lymph % (Auto) Lymph # 1.0 L Seg Neutrophils % 80.1 H Seg Neuts % (Manual) Lymphocytes % (Manual) Nucleated RBC % Seg Neutrophils # Man Lymphocytes # (Manual) PT INR APTT POC ABG pH POC ABG pCO2 POC ABG pO2 Sodium 148 H Potassium 3.3 L 3.4 L Chloride 107.5 H Carbon Dioxide 31 H 32 H BUN Creatinine 0.4 L 0.4 L Glucose POC Glucose Lactic Acid Calcium 8.2 L 8.0 L Magnesium AST 127 H ALT 269 H Alkaline Phosphatase 137 H Total Creatine Kinase C-Reactive Protein Total Protein 4.2 L Albumin 2.5 L Vitamin B12 Salicylates Miscellaneous Test 06/02/17 06/02/17 06/02/17 08:27 13:02 14:50 WBC RBC Hgb 9.6 L Hct 28.4 L MCV 74 L MCH 25 L MCHC RDW Plt Count Lymph % (Auto) Lymph # Seg Neutrophils % Seg Neuts % (Manual) Lymphocytes % (Manual) Nucleated RBC % Seg Neutrophils # Man Lymphocytes # (Manual) PT INR APTT POC ABG pH POC ABG pCO2 48.6 H POC ABG pO2 Sodium Potassium Chloride Carbon Dioxide BUN Creatinine Glucose POC Glucose 127 H Lactic Acid Calcium Magnesium AST ALT Alkaline Phosphatase Total Creatine Kinase C-Reactive Protein Total Protein Albumin Vitamin B12 Salicylates Miscellaneous Test 06/03/17 06/03/17 06/03/17 00:08 04:00 04:00 WBC RBC Hgb 9.4 L Hct 27.7 L MCV 74 L MCH 25 L MCHC RDW Plt Count Lymph % (Auto) Lymph # 0.9 L Seg Neutrophils % 76.1 H Seg Neuts % (Manual) Lymphocytes % (Manual) Nucleated RBC % Seg Neutrophils # Man Lymphocytes # (Manual) PT INR APTT POC ABG pH POC ABG pCO2 POC ABG pO2 Sodium Potassium 3.4 L Chloride Carbon Dioxide 33 H BUN Creatinine 0.3 L Glucose 62 L POC Glucose 44 L Lactic Acid Calcium 8.1 L Magnesium AST ALT Alkaline Phosphatase Total Creatine Kinase C-Reactive Protein Total Protein Albumin Vitamin B12 Salicylates Miscellaneous Test 06/03/17 06/03/17 06/03/17 06:12 14:00 17:37 WBC RBC Hgb Hct MCV MCH MCHC RDW Plt Count Lymph % (Auto) Lymph # Seg Neutrophils % Seg Neuts % (Manual) Lymphocytes % (Manual) Nucleated RBC % Seg Neutrophils # Man Lymphocytes # (Manual) PT INR APTT POC ABG pH POC ABG pCO2 POC ABG pO2 Sodium Potassium Chloride Carbon Dioxide BUN Creatinine Glucose POC Glucose 46 L 118 H 59 L Lactic Acid Calcium Magnesium AST ALT Alkaline Phosphatase Total Creatine Kinase C-Reactive Protein Total Protein Albumin Vitamin B12 Salicylates Miscellaneous Test 06/03/17 06/03/17 06/03/17 18:23 22:07 22:09 WBC RBC Hgb Hct MCV MCH MCHC RDW Plt Count Lymph % (Auto) Lymph # Seg Neutrophils % Seg Neuts % (Manual) Lymphocytes % (Manual) Nucleated RBC % Seg Neutrophils # Man Lymphocytes # (Manual) PT INR APTT POC ABG pH POC ABG pCO2 POC ABG pO2 Sodium Potassium Chloride Carbon Dioxide BUN Creatinine Glucose POC Glucose 158 H 63 L 69 L Lactic Acid Calcium Magnesium AST ALT Alkaline Phosphatase Total Creatine Kinase C-Reactive Protein Total Protein Albumin Vitamin B12 Salicylates Miscellaneous Test 06/04/17 06/04/17 06/04/17 06:28 14:07 14:07 WBC RBC Hgb 11.2 L Hct 33.1 L MCV 75 L MCH 25 L MCHC RDW Plt Count Lymph % (Auto) Lymph # Seg Neutrophils % Seg Neuts % (Manual) Lymphocytes % (Manual) Nucleated RBC % Seg Neutrophils # Man Lymphocytes # (Manual) PT INR APTT POC ABG pH POC ABG pCO2 POC ABG pO2 Sodium Potassium Chloride Carbon Dioxide BUN Creatinine 0.5 L D Glucose 133 H POC Glucose 56 L Lactic Acid Calcium Magnesium AST ALT Alkaline Phosphatase Total Creatine Kinase C-Reactive Protein Total Protein Albumin Vitamin B12 Salicylates Miscellaneous Test 06/04/17 06/04/17 06/04/17 14:13 17:19 21:46 WBC RBC Hgb Hct MCV MCH MCHC RDW Plt Count Lymph % (Auto) Lymph # Seg Neutrophils % Seg Neuts % (Manual) Lymphocytes % (Manual) Nucleated RBC % Seg Neutrophils # Man Lymphocytes # (Manual) PT INR APTT POC ABG pH POC ABG pCO2 POC ABG pO2 Sodium Potassium Chloride Carbon Dioxide BUN Creatinine Glucose POC Glucose 127 H 132 H 60 L Lactic Acid Calcium Magnesium AST ALT Alkaline Phosphatase Total Creatine Kinase C-Reactive Protein Total Protein Albumin Vitamin B12 Salicylates Miscellaneous Test 06/05/17 06/05/17 06/05/17 02:18 05:50 05:50 WBC RBC 3.59 L Hgb 9.1 L Hct 26.6 L D MCV 74 L MCH 26 L MCHC RDW Plt Count Lymph % (Auto) Lymph # 0.9 L Seg Neutrophils % 71.1 H Seg Neuts % (Manual) Lymphocytes % (Manual) Nucleated RBC % Seg Neutrophils # Man Lymphocytes # (Manual) PT INR APTT POC ABG pH POC ABG pCO2 POC ABG pO2 Sodium Potassium Chloride Carbon Dioxide BUN Creatinine 0.6 L Glucose 69 L POC Glucose 59 L Lactic Acid Calcium Magnesium AST ALT Alkaline Phosphatase Total Creatine Kinase C-Reactive Protein Total Protein Albumin Vitamin B12 Salicylates Miscellaneous Test
[2017-06-05] MEDS: VITAMIN B-1 PO SCH (11:09)
[2017-06-05] MEDS: THERAGRAN-M Tab PO SCH (11:09)
[2017-06-05] MEDS: BACTRIM DS PO SCH ×2 (11:11→22:43)
[2017-06-05] MEDS: K-DUR PO SCH (11:11)
[2017-06-05] MEDS: VITAMIN D3 PO SCH (11:11)
[2017-06-05] MEDS: PEPCID PO SCH ×2 (11:12→22:43)
--- NOTE | 2017-06-05 11:46 | Progress Note ---
Assessment and Plan // s/p fall -cont restrain order, fall precaution - sitter at bedside - CT head, face unremarkable // SEVERE SEPSIS WITH SEPTIC SHOCK- POA, - now afebrile. off levophed. Etiology aspiration pneumonia vs ? [employer] DIRECT[employer] infection. - Influenza A/B PCR negative. s/p course of tamiflu. - Legionella and Strep pneumo urinary ag - negative. - Tracheal aspirate culture 05/29 S maltophilia - being treated for Aspiration Pneumonia also on coverage for possible meningitis/encephalitis - LP could not be done initially due to low platelet count - Not sure how effective the LP study would be now considering on abx for more than a week, ID cancelled LP order // Hypoglycemia, recurrent - could be from sepsis, suppressed hepatic glucose production (need details h/o alcohol abuse) will follow serum cortisol and IGF-1 level- ordered, still pending - also need to work up for insulinoma - on D5NS and pureed diet - will order CT abdomen pelvis when more oriented to complete the 72 hour fasting trial // Severe Hypothermia on admission, resolved, - likely from sepsis, // Acute Toxic Metabolic Encephalopathy, - being treated for meningitis/encephalitis - MRI brain when more stable, s/p repeat CT head showed no new findings - Pt also has h/o schizophrenia, psych on board // Acute Respiratory Failure, required vent >96h - s/p extubation on 06/02/17 - cont nebs, supplemental O2 to keep sat >94% // Thrombocytopenia-severe- no bleeding noted, - s/p total 6 units of platelets transfusion - held all anticoagulant // Aspiration Pneumonia with possible Post influenza Pneumonia - getting abx coverage per ID // h/o Schizophrenia - psych on board, will follow recommendation - pt currently under custody // Severe Protein Calorie Malnutrition - nutrition on board // Hypernatremia, improved - cont to monitor, // Elevated LFT, likely from sepsis - trending down // hypokalemia, being replaced daily - could be also related to insulinoma, - monitor BMP General: - pureed diet - Replace Electrolytes accordingly - GI prophylaxis - Hold all Anticoagulations - Discussed with HILTON, RN at bedside Brief History: Patient is 42 years old AA male, from detention for evaluation of altered mental status and bradycardia. Also Hypothermic Only history available is schizophrenia. No other information can be obtained at this moment since patient is not communicating. No fever or chills per [facility] staff. Physical exam: General appearance: Present: no acute distress, restrained, small cut under the right eyebrow, no active bleeding - EENT Eyes: no congestion - Neck Neck: Present: supple - Respiratory Respiratory: bilateral: CTABL - Cardiovascular Rhythm: regular Heart Sounds: Present: S1 & S2. Absent: systolic murmur - Extremities Extremities: pulses intact, normal temperature Peripheral Pulses: within normal limits - Abdominal General gastrointestinal: soft, non-distended, hypoactive bowel sounds - Integumentary Integumentary: Present: warm - Psychiatric Psychiatric: confused - Neurologic Neurologic: no focal deficit - skin no rash - Allied Health Allied health notes reviewed: nursing Subjective Date of service: 06/05/17 Principal diagnosis: pneumonia Interval history: Pt seen and examined doing well post extubation with N/C Confused, trying to slide down from the bed, restrained, he fell on the floor yesterday, CT head and face obtained and showed no acute fracture he developed a small cut under his right eyebrow Objective - Constitutional Vitals: Vital Signs - 12hr 06/05/17 06/05/17 06/05/17 00:00 00:01 00:15 Temperature 98.5 F Pulse Rate 65 60 Pulse Rate [ 60 From Monitor] Respiratory 14 14 Rate Blood Pressure 103/70 58/28 O2 Sat by Pulse 99 97 96 Oximetry 06/05/17 06/05/17 06/05/17 00:30 00:45 01:01 Temperature Pulse Rate 70 67 65 Pulse Rate [ From Monitor] Respiratory 16 15 14 Rate Blood Pressure 104/77 104/77 104/68 O2 Sat by Pulse 97 99 100 Oximetry 06/05/17 06/05/17 06/05/17 01:15 01:30 01:45 Temperature Pulse Rate 60 59 L 60 Pulse Rate [ From Monitor] Respiratory 13 12 11 L Rate Blood Pressure 104/77 105/64 105/64 O2 Sat by Pulse 100 100 100 Oximetry 06/05/17 06/05/17 06/05/17 02:01 02:15 02:31 Temperature Pulse Rate 63 64 58 L Pulse Rate [ From Monitor] Respiratory 12 12 13 Rate Blood Pressure 103/61 106/74 106/74 O2 Sat by Pulse 100 100 100 Oximetry 06/05/17 06/05/17 06/05/17 02:45 03:01 03:15 Temperature Pulse Rate 69 53 L 59 L Pulse Rate [ From Monitor] Respiratory 11 L 11 L 13 Rate Blood Pressure 63/47 83/58 97/62 O2 Sat by Pulse 100 100 100 Oximetry 06/05/17 06/05/17 06/05/17 03:31 03:45 04:00 Temperature Pulse Rate 71 57 L Pulse Rate [ From Monitor] Respiratory 17 13 Rate Blood Pressure 94/58 97/62 O2 Sat by Pulse 100 100 99 Oximetry 06/05/17 06/05/17 06/05/17 04:01 04:15 04:30 Temperature Pulse Rate 59 L 65 67 Pulse Rate [ From Monitor] Respiratory 15 13 13 Rate Blood Pressure 95/57 95/57 87/60 O2 Sat by Pulse 100 100 100 Oximetry 06/05/17 06/05/17 06/05/17 04:45 05:00 05:01 Temperature 98.8 F Pulse Rate 60 62 Pulse Rate [ From Monitor] Respiratory 14 12 Rate Blood Pressure 87/60 95/70 O2 Sat by Pulse 100 100 Oximetry 06/05/17 06/05/17 06/05/17 05:15 05:31 05:45 Temperature Pulse Rate 66 62 57 L Pulse Rate [ From Monitor] Respiratory 14 13 14 Rate Blood Pressure 95/70 100/66 100/66 O2 Sat by Pulse 100 100 100 Oximetry 06/05/17 06/05/17 06/05/17 06:01 06:15 06:31 Temperature Pulse Rate 57 L 61 62 Pulse Rate [ From Monitor] Respiratory 13 13 11 L Rate Blood Pressure 100/66 100/66 105/68 O2 Sat by Pulse 100 100 100 Oximetry 06/05/17 06/05/17 06/05/17 06:45 07:01 07:15 Temperature Pulse Rate 60 65 64 Pulse Rate [ From Monitor] Respiratory 12 13 13 Rate Blood Pressure 110/70 117/32 117/32 O2 Sat by Pulse 100 100 100 Oximetry 06/05/17 06/05/17 06/05/17 07:31 07:45 08:01 Temperature Pulse Rate 57 L 58 L 64 Pulse Rate [ From Monitor] Respiratory 12 14 19 Rate Blood Pressure 80/40 80/40 102/67 O2 Sat by Pulse 100 100 100 Oximetry 06/05/17 06/05/17 08:15 08:31 Temperature Pulse Rate 59 L 56 L Pulse Rate [ From Monitor] Respiratory 17 15 Rate Blood Pressure 102/67 102/60 O2 Sat by Pulse 100 99 Oximetry - Labs CBC & Chem 7: 06/05/17 05:50 06/05/17 05:50 Labs: Abnormal lab results 06/04/17 06/04/17 06/04/17 Range/Units 14:07 14:07 14:13 RBC (3.65-5.03) M/mm3 Hgb 11.2 L (11.8-15.2) gm/dl Hct 33.1 L (35.5-45.6) % MCV 75 L (84-94) fl MCH 25 L (28-32) pg Lymph # (1.2-5.4) K/mm3 Seg Neutrophils % (40.0-70.0) % Creatinine 0.5 L D (0.8-1.5) mg/dL Glucose 133 H (75-100) mg/dL POC Glucose 127 H (70-105) 06/04/17 06/04/17 06/05/17 Range/Units 17:19 21:46 02:18 RBC (3.65-5.03) M/mm3 Hgb (11.8-15.2) gm/dl Hct (35.5-45.6) % MCV (84-94) fl MCH (28-32) pg Lymph # (1.2-5.4) K/mm3 Seg Neutrophils % (40.0-70.0) % Creatinine (0.8-1.5) mg/dL Glucose (75-100) mg/dL POC Glucose 132 H 60 L 59 L (70-105) 06/05/17 06/05/17 Range/Units 05:50 05:50 RBC 3.59 L (3.65-5.03) M/mm3 Hgb 9.1 L (11.8-15.2) gm/dl Hct 26.6 L D (35.5-45.6) % MCV 74 L (84-94) fl MCH 26 L (28-32) pg Lymph # 0.9 L (1.2-5.4) K/mm3 Seg Neutrophils % 71.1 H (40.0-70.0) % Creatinine 0.6 L (0.8-1.5) mg/dL Glucose 69 L (75-100) mg/dL POC Glucose (70-105)
[2017-06-06 07:32] LABS: Hematocrit 28.4 % (35.5-45.6); Hemoglobin 9.7 gm/dl (11.8-15.2)
[2017-06-06 07:33] LABS: BUN/Creatinine Ratio 12; Blood Urea Nitrogen 6 mg/dL (9-20); Calcium 8.8 mg/dL (8.4-10.2); Hemolysis Index 0
[2017-06-06] MEDS: BACTRIM DS PO SCH ×2 (13:14→22:50)
[2017-06-06] MEDS: K-DUR PO SCH (13:15)
[2017-06-06] MEDS: PEPCID PO SCH ×2 (13:15→22:50)
[2017-06-06] MEDS: THERAGRAN-M Tab PO SCH (13:21)
[2017-06-06] MEDS: VITAMIN B-1 PO SCH (13:22)
[2017-06-06] MEDS: VITAMIN D3 PO SCH (13:23)
--- NOTE | 2017-06-06 17:34 | Progress Note ---
Assessment and Plan - Patient Problems (1) Septic shock Current Visit: Yes Status: Acute Plan to address problem: Patient is now normotensive. Able to wean the warfare drip. Etiology likely secondary to pneumonia versus influenza. Patient PCR for influenza pending. Tamiflu and Rocephin for now. Follow-up chest x-ray showed improving infiltrate. Patient remains intubated . Patient on Tamiflu and acyclovir and broad-spectrum antibiotic coverage. Clinically seems to be improving. Except for the platelets. Azithromycin and Rocephin and vancomycin. (2) Septic shock due to coagulase-negative staphylococcal infection Current Visit: Yes Status: Acute Plan to address problem: See above patient on vancomycin. Pressor support. (3) Acute encephalopathy Current Visit: Yes Status: Acute Plan to address problem: N now suspect may have some anoxic encephalopathy. Patient remains confused but tends to make needs known but alert. (4) Pneumonia of both lower lobes Current Visit: Yes Status: Acute Qualifiers: Pneumonia type: aspiration pneumonia Aspiration pneumonia type: due to gastric secretions Qualified Code(s): J69.0 - Pneumonitis due to inhalation of food and vomit (5) Schizophrenia Current Visit: Yes Status: Chronic Plan to address problem: Patient will need to continue medications after intubation was considered for discharge. Not requiring medications at this time. (6) Thrombocytopenia Current Visit: Yes Status: Acute Plan to address problem: At present has gotten worse. Weight isn't down to 9. No clear drug reaction. Sepsis given better however platelets are down trending. We'll obtain hematology consult. Transfuse platelets. Also increased liver function tests. May be shocked liver. Has resolved. (7) Acute respiratory failure Current Visit: Yes Status: Acute Plan to address problem: Secondary to pneumonia pulmonary cause. Remains intubated. Pulmonology following. The high probability of a clinically significant, sudden or life threatening deterioration of the [] system(s) required my full and direct attention, intervention and personal management. The aggregate critical care time was [] minutes. This time is in addition to time spent performing reported procedures but includes the following: [x] Data Review and interpretation [x Patient assessment and monitoring of vital signs [x] Documentation [x] Medication orders and management History Interval history: Patient remains confused which is looking me in smile. When he does attempt to communicate its inappropriate. Hospitalist Physical - Constitutional Vitals: Temp Pulse Resp BP Pulse Ox 97.2 F L 58 L 18 114/72 99 06/06/17 16:37 06/06/17 16:37 06/06/17 16:37 06/06/17 16:37 06/06/17 16:37 General appearance: Present: no acute distress, other (patient does have a few scars on 4. Some temporal wasting.) - EENT Eyes: Present: PERRL, EOM intact ENT: hearing intact, clear oral mucosa, dentition normal - Neck Neck: Present: supple, normal ROM - Respiratory Respiratory: bilateral: diminished (clear) - Cardiovascular Rhythm: regular - Extremities Extremities: no ischemia, pulses intact, pulses symmetrical Peripheral Pulses: within normal limits - Abdominal General gastrointestinal: non-tender, normal bowel sounds, other (scaphoid) - Psychiatric Psychiatric: other (poor insight and poor cognition may be anoxia) - Neurologic Neurologic: CNII-XII intact, moves all extremities Results - Labs CBC & Chem 7: 06/06/17 04:00 06/06/17 04:00 Labs: Laboratory Last Values WBC 4.5 K/mm3 (4.5-11.0) 06/05/17 05:50 RBC 3.59 M/mm3 (3.65-5.03) L 06/05/17 05:50 Hgb 9.7 gm/dl (11.8-15.2) L 06/06/17 04:00 Hct 28.4 % (35.5-45.6) L 06/06/17 04:00 MCV 74 fl (84-94) L 06/05/17 05:50 MCH 26 pg (28-32) L 06/05/17 05:50 MCHC 34 % (32-34) 06/05/17 05:50 RDW 14.2 % (13.2-15.2) 06/05/17 05:50 Plt Count 371 K/mm3 (140-440) 06/05/17 05:50 Lymph % (Auto) 20.1 % (13.4-35.0) 06/05/17 05:50 Jones % (Auto) 7.0 % (0.0-7.3) 06/05/17 05:50 Eos % (Auto) 1.1 % (0.0-4.3) 06/05/17 05:50 Baso % (Auto) 0.7 % (0.0-1.8) 06/05/17 05:50 Lymph # 0.9 K/mm3 (1.2-5.4) L 06/05/17 05:50 Jones # 0.3 K/mm3 (0.0-0.8) 06/05/17 05:50 Eos # 0.0 K/mm3 (0.0-0.4) 06/05/17 05:50 Baso # 0.0 K/mm3 (0.0-0.1) 06/05/17 05:50 Add Manual Diff Complete 05/30/17 05:30 Total Counted 100 05/30/17 05:30 Seg Neutrophils % 71.1 % (40.0-70.0) H 06/05/17 05:50 Seg Neuts % (Manual) 90.0 % (40.0-70.0) H 05/30/17 05:30 Band Neutrophils % 2.0 % 05/30/17 05:30 Lymphocytes % (Manual) 4.0 % (13.4-35.0) L 05/30/17 05:30 Reactive Lymphs % (Man) 0 % 05/30/17 05:30 Monocytes % (Manual) 2.0 % (0.0-7.3) 05/30/17 05:30 Eosinophils % (Manual) 0 % (0.0-4.3) 05/30/17 05:30 Basophils % (Manual) 0 % (0.0-1.8) 05/30/17 05:30 Metamyelocytes % 2.0 % 05/30/17 05:30 Myelocytes % 0 % 05/30/17 05:30 Promyelocytes % 0 % 05/30/17 05:30 Blast Cells % 0 % 05/30/17 05:30 Nucleated RBC % 1.0 % (0.0-0.9) H 05/30/17 05:30 Seg Neutrophils # 3.2 K/mm3 (1.8-7.7) 06/05/17 05:50 Seg Neutrophils # Man 5.6 K/mm3 (1.8-7.7) 05/30/17 05:30 Band Neutrophils # 0.1 K/mm3 05/30/17 05:30 Lymphocytes # (Manual) 0.2 K/mm3 (1.2-5.4) L 05/30/17 05:30 Abs React Lymphs (Man) 0.0 K/mm3 05/30/17 05:30 Monocytes # (Manual) 0.1 K/mm3 (0.0-0.8) 05/30/17 05:30 Eosinophils # (Manual) 0.0 K/mm3 (0.0-0.4) 05/30/17 05:30 Basophils # (Manual) 0.0 K/mm3 (0.0-0.1) 05/30/17 05:30 Metamyelocytes # 0.1 K/mm3 05/30/17 05:30 Myelocytes # 0.0 K/mm3 05/30/17 05:30 Promyelocytes # 0.0 K/mm3 05/30/17 05:30 Blast Cells # 0.0 K/mm3 05/30/17 05:30 WBC Morphology Not Reportable 05/30/17 05:30 Hypersegmented Neuts Not Reportable 05/30/17 05:30 Hyposegmented Neuts Not Reportable 05/30/17 05:30 Hypogranular Neuts Not Reportable 05/30/17 05:30 Smudge Cells Not Reportable 05/30/17 05:30 Toxic Granulation Not Reportable 05/30/17 05:30 Toxic Vacuolation Not Reportable 05/30/17 05:30 Dohle Bodies Not Reportable 05/30/17 05:30 Pelger-Huet Anomaly Not Reportable 05/30/17 05:30 Evon Rods Not Reportable 05/30/17 05:30 Platelet Estimate Cons 05/30/17 05:30 Clumped Platelets Not Reportable 05/30/17 05:30 Plt Clumps, EDTA Not Reportable 05/30/17 05:30 Large Platelets Not Reportable 05/30/17 05:30 Giant Platelets Not Reportable 05/30/17 05:30 Platelet Satelliting Not Reportable 05/30/17 05:30 Plt Morphology Comment Not Reportable 05/30/17 05:30 RBC Morphology Not Reportable 05/30/17 05:30 Dimorphic RBCs Not Reportable 05/30/17 05:30 Polychromasia Not Reportable 05/30/17 05:30 Hypochromasia 1+ 05/30/17 05:30 Poikilocytosis Not Reportable 05/30/17 05:30 Anisocytosis 1+ 05/30/17 05:30 Microcytosis Not Reportable 05/30/17 05:30 Macrocytosis Not Reportable 05/30/17 05:30 Spherocytes Not Reportable 05/30/17 05:30 Pappenheimer Bodies Not Reportable 05/30/17 05:30 Sickle Cells Not Reportable 05/30/17 05:30 Target Cells Not Reportable 05/30/17 05:30 Tear Drop Cells Not Reportable 05/30/17 05:30 Ovalocytes Not Reportable 05/30/17 05:30 Helmet Cells Not Reportable 05/30/17 05:30 [place] Bodies Not Reportable 05/30/17 05:30 [place] Rings Not Reportable 05/30/17 05:30 [place] Cells Not Reportable 05/30/17 05:30 Bite Cells Not Reportable 05/30/17 05:30 Crenated Cell Not Reportable 05/30/17 05:30 Elliptocytes Not Reportable 05/30/17 05:30 Acanthocytes (Spur) Not Reportable 05/30/17 05:30 Rouleaux Not Reportable 05/30/17 05:30 Hemoglobin C Crystals Not Reportable 05/30/17 05:30 Schistocytes Not Reportable 05/30/17 05:30 Malaria parasites Not Reportable 05/30/17 05:30 Michael Bodies Not Reportable 05/30/17 05:30 Hem Pathologist Commnt No 05/30/17 05:30 PT 12.4 Sec. (12.2-14.9) 06/02/17 08:27 INR 0.88 (0.87-1.13) 06/02/17 08:27 APTT 28.8 Sec. (24.2-36.6) 06/02/17 08:27 POC ABG pH 7.449 (7.35-7.45) 06/02/17 14:50 POC ABG pCO2 48.6 (35-45) H 06/02/17 14:50 POC ABG pO2 98 (80-105) 06/02/17 14:50 POC ABG HCO3 33.7 06/02/17 14:50 POC ABG Total CO2 35 06/02/17 14:50 POC ABG O2 Sat 98 06/02/17 14:50 POC ABG Base Excess 10 06/02/17 14:50 FiO2 30 % 06/02/17 14:50 Sodium 139 mmol/L (137-145) 06/06/17 04:00 Potassium 4.1 mmol/L (3.6-5.0) 06/06/17 04:00 Chloride 99.4 mmol/L (98-107) 06/06/17 04:00 Carbon Dioxide 31 mmol/L (22-30) H 06/06/17 04:00 Anion Gap 13 mmol/L 06/06/17 04:00 BUN 6 mg/dL (9-20) L 06/06/17 04:00 Creatinine 0.5 mg/dL (0.8-1.5) L 06/06/17 04:00 Estimated GFR > 60 ml/min 06/06/17 04:00 BUN/Creatinine Ratio 12 % 06/06/17 04:00 Glucose 86 mg/dL (75-100) 06/06/17 04:00 POC Glucose 91 (70-105) 06/06/17 12:17 Lactic Acid 1.90 mmol/L (0.7-2.0) 05/25/17 17:56 Calcium 8.8 mg/dL (8.4-10.2) 06/06/17 04:00 Ionized Calcium 5.6 mg/dL (4.8-5.6) 05/28/17 13:47 Magnesium 1.60 mg/dL (1.7-2.3) L 05/28/17 13:47 Total Bilirubin 0.30 mg/dL (0.1-1.2) 06/02/17 06:00 AST 127 units/L (5-40) H 06/02/17 06:00 ALT 269 units/L (7-56) H 06/02/17 06:00 Alkaline Phosphatase 137 units/L (35-129) H 06/02/17 06:00 Ammonia 33.0 umol/L (25-60) 05/25/17 13:32 Total Creatine Kinase 1318 units/L (55-170) H 06/01/17 23:00 Troponin T < 0.010 ng/mL (0.00-0.029) 05/25/17 13:32 C-Reactive Protein 15.20 mg/dL (0.00-1.30) H 05/26/17 15:41 Total Protein 4.2 g/dL (6.3-8.2) L 06/02/17 06:00 Albumin 2.5 g/dL (3.9-5) L 06/02/17 06:00 Albumin/Globulin Ratio 1.5 % 06/02/17 06:00 Vitamin B12 1108 pg/mL (211-911) H 05/30/17 16:28 1,25 Dihydroxy Vit D2 31 pg/mL 05/30/17 16:28 1,25 Dihydroxy Vit D3 26 pg/mL 05/30/17 16:28 TSH 1.400 mlU/mL (0.270-4.200) 05/30/17 16:28 Free T4 0.81 ng/dL (0.76-1.46) 05/30/17 16:28 Urine Color Yellow (Yellow) 05/25/17 14:11 Urine Turbidity Clear (Clear) 05/25/17 14:11 Urine pH 5.0 (5.0-7.0) 05/25/17 14:11 Ur Specific Howe 1.025 (1.003-1.030) 05/25/17 14:11 Urine Protein <15 mg/dl mg/dL (Negative) 05/25/17 14:11 Urine Glucose (UA) 50 mg/dL (Negative) 05/25/17 14:11 Urine Ketones Neg mg/dL (Negative) 05/25/17 14:11 Urine Blood Neg (Negative) 05/25/17 14:11 Urine Nitrite Neg (Negative) 05/25/17 14:11 Urine Bilirubin Neg (Negative) 05/25/17 14:11 Urine Urobilinogen < 2.0 mg/dL (<2.0) 05/25/17 14:11 Ur Leukocyte Esterase Neg (Negative) 05/25/17 14:11 Urine WBC (Auto) 3.0 /HPF (0.0-6.0) 05/25/17 14:11 Urine RBC (Auto) 2.0 /HPF (0.0-6.0) 05/25/17 14:11 Hyaline Casts 1 /LPF 05/25/17 14:11 Urine Mucus Few /HPF 05/25/17 14:11 Vancomycin Trough 18.1 ug/mL (5.0-20.0) 05/30/17 13:24 Salicylates < 0.3 mg/dL (2.8-20.0) L 05/25/17 13:32 Urine Opiates Screen Presumptive negative 05/25/17 14:11 Urine Methadone Screen Presumptive negative 05/25/17 14:11 Acetaminophen < 15.0 ug/mL (10.0-30.0) 05/25/17 13:32 Ur Barbiturates Screen Presumptive negative 05/25/17 14:11 Ur Phencyclidine Scrn Presumptive negative 05/25/17 14:11 Ur Amphetamines Screen Presumptive negative 05/25/17 14:11 U Benzodiazepines Scrn Presumptive negative 05/25/17 14:11 Urine Cocaine Screen Presumptive negative 05/25/17 14:11 U Marijuana (THC) Screen Presumptive negative 05/25/17 14:11 Drugs of Abuse Note Disclamer 05/25/17 14:11 Plasma/Serum Alcohol < 0.01 % (0-0.07) 05/25/17 13:32 MELBA Screen Negative (Negative) 05/30/17 05:30 Proteinase 3 (PR3) Ab <1.0 AI (<1.0) 05/30/17 05:30 Myeloperoxidase Ab <1.0 AI (<1.0) 05/30/17 05:30 CATHLEEN-1 Antibody <1.0 AI (<1.0) 06/01/17 Unknown Double Strand DNA Ab <1 IU/mL (<=4) 05/29/17 23:45 Complement C3 117 mg/dL (82-185) 05/30/17 05:30 Complement C4 22 mg/dL (15-53) 05/30/17 05:30 HIV 1&2 Antibody Rapid Non react (Non React) 05/26/17 12:38 HIV P24 Antigen Non react (Non React) 05/26/17 12:38 Urine Legionella Ag Not detected (Not Detected) 05/30/17 05:30 Miscellaneous Test Flexitest 1 H 05/31/17 Unknown Blood Type O POSITIVE 05/29/17 17:00 Antibody Screen Negative 05/29/17 17:00
[2017-06-07] MEDS: D50W (25GM) Syringe IV PRN (07:11)
[2017-06-07] MEDS: D5NS 1,000 ML IV SCH (08:21)
--- NOTE | 2017-06-07 08:49 | Progress Note ---
Assessment and Plan - Sepsis with septic shock: shock resolved. Etiology pneumonia. Possible BEEF PUSHER infection Influenza A and B PCR negative. Tracheal aspirate of 05/29 shows S maltophilia Continue with IV ceftriaxone and Bactrim. Vancomycin Zosyn discontinued per ID. - - Pneumonia: Possibly aspiration. -Continue IV ceftriaxone and Bactrim - Acute Toxic Metabolic Encephalopathy, being treated for meningitis/encephalitis MRI brain when more stable, s/p repeat CT head showed no new findings - Acute toxic Encephalopathy - likely from sepsis Supportive care - Acute respiratory failure. Extubated Continue bronchodilators and supplemental oxygen. TO keep sat = or greater 94% - Thrombocytopenia - resolved. - Severe Protein Calorie Malnutrition nutrition on board - h/o Schizophrenia. Currently in [facility]. Psychiatric is seeing patient - DVT prophylaxis with Lovenox and GI Pepcid Subjective Date of service: 06/07/17 Principal diagnosis: sepsis, pneumonia Interval history: Patient seen and examined. Lying quietly bed. No distress. Nonverbal Objective - Exam Narrative Exam: Constitutional: [place] in bed. Restaurant. Confused. In no distress Head: Normocephalic atraumatic Eyes: Pupils are equal round and reactive to light Nose: No enlarged turbinates, no septal deviation. Mouth: Moist mucous membranes. Neck: Supple no thyromegaly. No bruit. No JVD Heart: Regular rate and rhythm, S1-S2 abnormal. No rubs murmurs or gallop Lungs: Clear to auscultation bilaterally no rales or rhonchi Abdomen: Soft, nontender. Bowel sound are present. Extremities: No edema no cyanosis and no clubbing. Neuro: Alert oriented Oriented x3. No focal sensory or motor deficit. Skin: No rashes no hyperemic spots Psychiatry: Euthymic. Calm. - Constitutional Vitals: Vital Signs - 12hr 06/06/17 06/06/17 06/06/17 20:56 21:19 22:00 Temperature Pulse Rate 68 Respiratory 18 Rate Blood Pressure Blood Pressure [Right] O2 Sat by Pulse 96 Oximetry 06/06/17 06/07/17 06/07/17 23:42 00:00 05:00 Temperature 97.4 F L 98.2 F Pulse Rate 55 L 55 L 53 L Respiratory 16 16 Rate Blood Pressure 93/54 Blood Pressure 106/72 [Right] O2 Sat by Pulse 100 100 98 Oximetry - Labs CBC & Chem 7: 06/06/17 04:00 06/06/17 04:00 Labs: Abnormal lab results 06/06/17 06/07/17 Range/Units 16:42 08:13 POC Glucose 54 L 112 H (70-105)
[2017-06-07] MEDS: THERAGRAN-M Tab PO SCH (09:22)
[2017-06-07] MEDS: BACTRIM DS PO SCH ×2 (09:22→22:18)
[2017-06-07] MEDS: K-DUR PO SCH (09:22)
[2017-06-07] MEDS: PEPCID PO SCH ×2 (09:22→22:18)
[2017-06-07] MEDS: VITAMIN B-1 PO SCH (09:23)
[2017-06-07] MEDS: VITAMIN D3 PO SCH (09:23)
--- NOTE | 2017-06-07 13:09 | Fluoroscopy Report ---
MODIFIED BARIUM SWALLOW History: dysphagia. Findings: Video radiography was provided by the radiologist for speech therapy to assess the swallowing mechanism. Impression: Successful modified barium swallow.
[2017-06-08 07:03] LABS: Basophils % (Auto) 0.9 % (0.0-1.8); Hematocrit 31.6 % (35.5-45.6); Hemoglobin 10.6 gm/dl (11.8-15.2); Lymphocytes # (Auto) 1.2 K/mm3 (1.2-5.4); Mean Corpuscular HGB Conc 34 % (32-34); Mean Corpuscular Volume 77 fl (84-94); Monocytes # (Auto) 0.5 K/mm3 (0.0-0.8); Monocytes % (Auto) 10.1 % (0.0-7.3); Platelet Count 553 K/mm3 (140-440); Red Blood Count 4.14 M/mm3 (3.65-5.03); Red Cell Distribution Width 14.9 % (13.2-15.2)
[2017-06-08 07:07] LABS: Alanine Aminotransferase 113 units/L (7-56); Albumin 2.8 g/dL (3.9-5); BUN/Creatinine Ratio 11; Blood Urea Nitrogen 9 mg/dL (9-20); Calcium 8.9 mg/dL (8.4-10.2); Hemolysis Index 4
[2017-06-08 07:22] LABS: Mean Corpuscular Hemoglobin 26 pg (28-32)
[2017-06-08] MEDS: K-DUR PO SCH (10:51)
[2017-06-08] MEDS: BACTRIM DS PO SCH ×2 (10:52→21:18)
[2017-06-08] MEDS: PEPCID PO SCH ×2 (10:52→21:18)
[2017-06-08] MEDS: VITAMIN B-1 PO SCH (10:53)
[2017-06-08] MEDS: THERAGRAN-M Tab PO SCH (10:53)
[2017-06-08] MEDS: D5NS 1,000 ML IV SCH (10:54)
[2017-06-08] MEDS: VITAMIN D3 PO SCH (10:54)
--- NOTE | 2017-06-08 18:05 | Progress Note ---
Assessment and Plan - Patient Problems (1) Septic shock Current Visit: Yes Status: Acute Plan to address problem: Patient is now normotensive. Able to wean the warfare drip. Etiology likely secondary to pneumonia versus influenza. Patient PCR for influenza pending. Tamiflu and Rocephin for now. Follow-up chest x-ray showed improving infiltrate. Patient remains intubated . Patient on Tamiflu and acyclovir and broad-spectrum antibiotic coverage. Clinically seems to be improving. Except for the platelets. Azithromycin and Rocephin and vancomycin. (2) Septic shock due to coagulase-negative staphylococcal infection Current Visit: Yes Status: Acute Plan to address problem: Patient septic shock resolved was secondary to pneumonia. Respiratory has resolved sepsis is resolved. (3) Acute encephalopathy Current Visit: Yes Status: Acute Plan to address problem: Cognitively patient cannot be discharged back to a place by himself. [facility] has nowhere to go at this particular time. Case management has obtained contact with local who may allow patient to go back to his house. Patient is still on antibiotics Rocephin and Bactrim nebulizes but stable after extubation. (4) Pneumonia of both lower lobes Current Visit: Yes Status: Acute Qualifiers: Pneumonia type: aspiration pneumonia Aspiration pneumonia type: due to gastric secretions Qualified Code(s): J69.0 - Pneumonitis due to inhalation of food and vomit (5) Schizophrenia Current Visit: Yes Status: Chronic Plan to address problem: Patient will need to continue medications after intubation was considered for discharge. Not requiring medications at this time. This may be issue but patient isn't acting out now. Will need an require psychiatric follow-up. (6) Thrombocytopenia Current Visit: Yes Status: Acute Plan to address problem: At present has gotten worse. Weight isn't down to 9. No clear drug reaction. Sepsis given better however platelets are down trending. We'll obtain hematology consult. Transfuse platelets. Also increased liver function tests. May be shocked liver. Has resolved. (7) Acute respiratory failure Current Visit: Yes Status: Acute Plan to address problem: Secondary to pneumonia pulmonary cause. Remains intubated. Pulmonology following. The high probability of a clinically significant, sudden or life threatening deterioration of the [] system(s) required my full and direct attention, intervention and personal management. The aggregate critical care time was [] minutes. This time is in addition to time spent performing reported procedures but includes the following: [x] Data Review and interpretation [x Patient assessment and monitoring of vital signs [x] Documentation [x] Medication orders and management (8) Nutrition deficiency due to insufficient food Current Visit: Yes Status: Acute History Interval history: Patient attempt to walk to the bathroom able to stand there with assistance. No new events overnight. On Rocephin and Bactrim for course 2 aspiration pneumonia. Hospitalist Physical - Constitutional Vitals: Temp Pulse Resp BP Pulse Ox 97.7 F 75 18 113/70 100 06/08/17 12:01 06/08/17 16:13 06/08/17 16:13 06/08/17 16:13 06/08/17 16:13 General appearance: Present: no acute distress, other (patient does have a few scars on 4. Some temporal wasting.) - EENT Eyes: Present: PERRL, EOM intact ENT: hearing intact, clear oral mucosa, dentition normal - Neck Neck: Present: supple, normal ROM - Respiratory Respiratory effort: normal Respiratory: bilateral: rhonchi (poor inspiratory effort) - Cardiovascular Rhythm: regular Heart Sounds: Present: systolic murmur - Extremities Extremities: no ischemia, pulses intact, No edema, normal temperature, normal color Extremity abnormal: pulses diminished Peripheral Pulses: within normal limits - Abdominal General gastrointestinal: soft, non-tender, other (scaphoid) - Psychiatric Psychiatric: other (poor judgment cognitive impairment) - Neurologic Neurologic: CNII-XII intact, moves all extremities, other (generalized weakness) Results - Labs CBC & Chem 7: 06/08/17 06:13 06/08/17 06:13 Labs: Laboratory Last Values WBC 4.7 K/mm3 (4.5-11.0) 06/08/17 06:13 RBC 4.14 M/mm3 (3.65-5.03) 06/08/17 06:13 Hgb 10.6 gm/dl (11.8-15.2) L 06/08/17 06:13 Hct 31.6 % (35.5-45.6) L 06/08/17 06:13 MCV 77 fl (84-94) L 06/08/17 06:13 MCH 26 pg (28-32) L 06/08/17 06:13 MCHC 34 % (32-34) 06/08/17 06:13 RDW 14.9 % (13.2-15.2) 06/08/17 06:13 Plt Count 553 K/mm3 (140-440) H 06/08/17 06:13 Lymph % (Auto) 26.0 % (13.4-35.0) 06/08/17 06:13 [place] % (Auto) 10.1 % (0.0-7.3) H 06/08/17 06:13 Eos % (Auto) 1.0 % (0.0-4.3) 06/08/17 06:13 Baso % (Auto) 0.9 % (0.0-1.8) 06/08/17 06:13 Lymph # 1.2 K/mm3 (1.2-5.4) 06/08/17 06:13 [place] # 0.5 K/mm3 (0.0-0.8) 06/08/17 06:13 Eos # 0.0 K/mm3 (0.0-0.4) 06/08/17 06:13 Baso # 0.0 K/mm3 (0.0-0.1) 06/08/17 06:13 Add Manual Diff Complete 05/30/17 05:30 Total Counted 100 05/30/17 05:30 Seg Neutrophils % 62.0 % (40.0-70.0) 06/08/17 06:13 Seg Neuts % (Manual) 90.0 % (40.0-70.0) H 05/30/17 05:30 Band Neutrophils % 2.0 % 05/30/17 05:30 Lymphocytes % (Manual) 4.0 % (13.4-35.0) L 05/30/17 05:30 Reactive Lymphs % (Man) 0 % 05/30/17 05:30 Monocytes % (Manual) 2.0 % (0.0-7.3) 05/30/17 05:30 Eosinophils % (Manual) 0 % (0.0-4.3) 05/30/17 05:30 Basophils % (Manual) 0 % (0.0-1.8) 05/30/17 05:30 Metamyelocytes % 2.0 % 05/30/17 05:30 Myelocytes % 0 % 05/30/17 05:30 Promyelocytes % 0 % 05/30/17 05:30 Blast Cells % 0 % 05/30/17 05:30 Nucleated RBC % 1.0 % (0.0-0.9) H 05/30/17 05:30 Seg Neutrophils # 2.9 K/mm3 (1.8-7.7) 06/08/17 06:13 Seg Neutrophils # Man 5.6 K/mm3 (1.8-7.7) 05/30/17 05:30 Band Neutrophils # 0.1 K/mm3 05/30/17 05:30 Lymphocytes # (Manual) 0.2 K/mm3 (1.2-5.4) L 05/30/17 05:30 Abs React Lymphs (Man) 0.0 K/mm3 05/30/17 05:30 Monocytes # (Manual) 0.1 K/mm3 (0.0-0.8) 05/30/17 05:30 Eosinophils # (Manual) 0.0 K/mm3 (0.0-0.4) 05/30/17 05:30 Basophils # (Manual) 0.0 K/mm3 (0.0-0.1) 05/30/17 05:30 Metamyelocytes # 0.1 K/mm3 05/30/17 05:30 Myelocytes # 0.0 K/mm3 05/30/17 05:30 Promyelocytes # 0.0 K/mm3 05/30/17 05:30 Blast Cells # 0.0 K/mm3 05/30/17 05:30 WBC Morphology Not Reportable 05/30/17 05:30 Hypersegmented Neuts Not Reportable 05/30/17 05:30 Hyposegmented Neuts Not Reportable 05/30/17 05:30 Hypogranular Neuts Not Reportable 05/30/17 05:30 Smudge Cells Not Reportable 05/30/17 05:30 Toxic Granulation Not Reportable 05/30/17 05:30 Toxic Vacuolation Not Reportable 05/30/17 05:30 Dohle Bodies Not Reportable 05/30/17 05:30 Pelger-Huet Anomaly Not Reportable 05/30/17 05:30 Evon Rods Not Reportable 05/30/17 05:30 Platelet Estimate Cons 05/30/17 05:30 Clumped Platelets Not Reportable 05/30/17 05:30 Plt Clumps, EDTA Not Reportable 05/30/17 05:30 Large Platelets Not Reportable 05/30/17 05:30 Giant Platelets Not Reportable 05/30/17 05:30 Platelet Satelliting Not Reportable 05/30/17 05:30 Plt Morphology Comment Not Reportable 05/30/17 05:30 RBC Morphology Not Reportable 05/30/17 05:30 Dimorphic RBCs Not Reportable 05/30/17 05:30 Polychromasia Not Reportable 05/30/17 05:30 Hypochromasia 1+ 05/30/17 05:30 Poikilocytosis Not Reportable 05/30/17 05:30 Anisocytosis 1+ 05/30/17 05:30 Microcytosis Not Reportable 05/30/17 05:30 Macrocytosis Not Reportable 05/30/17 05:30 Spherocytes Not Reportable 05/30/17 05:30 Pappenheimer Bodies Not Reportable 05/30/17 05:30 Sickle Cells Not Reportable 05/30/17 05:30 Target Cells Not Reportable 05/30/17 05:30 Tear Drop Cells Not Reportable 05/30/17 05:30 Ovalocytes Not Reportable 05/30/17 05:30 Helmet Cells Not Reportable 05/30/17 05:30 Castaneda-[place] Bodies Not Reportable 05/30/17 05:30 Jessie Rings Not Reportable 05/30/17 05:30 [place] Cells Not Reportable 05/30/17 05:30 Bite Cells Not Reportable 05/30/17 05:30 Crenated Cell Not Reportable 05/30/17 05:30 Elliptocytes Not Reportable 05/30/17 05:30 Acanthocytes (Spur) Not Reportable 05/30/17 05:30 Rouleaux Not Reportable 05/30/17 05:30 Hemoglobin C Crystals Not Reportable 05/30/17 05:30 Schistocytes Not Reportable 05/30/17 05:30 Malaria parasites Not Reportable 05/30/17 05:30 Michael Bodies Not Reportable 05/30/17 05:30 Hem Pathologist Commnt No 05/30/17 05:30 PT 12.4 Sec. (12.2-14.9) 06/02/17 08:27 INR 0.88 (0.87-1.13) 06/02/17 08:27 APTT 28.8 Sec. (24.2-36.6) 06/02/17 08:27 POC ABG pH 7.449 (7.35-7.45) 06/02/17 14:50 POC ABG pCO2 48.6 (35-45) H 06/02/17 14:50 POC ABG pO2 98 (80-105) 06/02/17 14:50 POC ABG HCO3 33.7 06/02/17 14:50 POC ABG Total CO2 35 06/02/17 14:50 POC ABG O2 Sat 98 06/02/17 14:50 POC ABG Base Excess 10 06/02/17 14:50 FiO2 30 % 06/02/17 14:50 Sodium 134 mmol/L (137-145) L 06/08/17 06:13 Potassium 4.4 mmol/L (3.6-5.0) 06/08/17 06:13 Chloride 95.3 mmol/L (98-107) L 06/08/17 06:13 Carbon Dioxide 27 mmol/L (22-30) 06/08/17 06:13 Anion Gap 16 mmol/L 06/08/17 06:13 BUN 9 mg/dL (9-20) 06/08/17 06:13 Creatinine 0.8 mg/dL (0.8-1.5) D 06/08/17 06:13 Estimated GFR > 60 ml/min 06/08/17 06:13 BUN/Creatinine Ratio 11 % 06/08/17 06:13 Glucose 83 mg/dL (75-100) 06/08/17 06:13 POC Glucose 167 (70-105) H 06/08/17 09:33 Lactic Acid 1.90 mmol/L (0.7-2.0) 05/25/17 17:56 Calcium 8.9 mg/dL (8.4-10.2) 06/08/17 06:13 Ionized Calcium 5.6 mg/dL (4.8-5.6) 05/28/17 13:47 Magnesium 1.60 mg/dL (1.7-2.3) L 05/28/17 13:47 Total Bilirubin 0.40 mg/dL (0.1-1.2) 06/08/17 06:13 AST 32 units/L (5-40) 06/08/17 06:13 ALT 113 units/L (7-56) H 06/08/17 06:13 Alkaline Phosphatase 124 units/L (35-129) 06/08/17 06:13 Ammonia 33.0 umol/L (25-60) 05/25/17 13:32 Total Creatine Kinase 1318 units/L (55-170) H 06/01/17 23:00 Troponin T < 0.010 ng/mL (0.00-0.029) 05/25/17 13:32 C-Reactive Protein 15.20 mg/dL (0.00-1.30) H 05/26/17 15:41 Total Protein 6.0 g/dL (6.3-8.2) L 06/08/17 06:13 Albumin 2.8 g/dL (3.9-5) L 06/08/17 06:13 Albumin/Globulin Ratio 0.9 % 06/08/17 06:13 Vitamin B12 1108 pg/mL (211-911) H 05/30/17 16:28 1,25 Dihydroxy Vit D2 31 pg/mL 05/30/17 16:28 1,25 Dihydroxy Vit D3 26 pg/mL 05/30/17 16:28 TSH 1.400 mlU/mL (0.270-4.200) 05/30/17 16:28 Free T4 0.81 ng/dL (0.76-1.46) 05/30/17 16:28 Total Cortisol 14.6 mcg/dL () 06/05/17 05:50 Urine Color Yellow (Yellow) 05/25/17 14:11 Urine Turbidity Clear (Clear) 05/25/17 14:11 Urine pH 5.0 (5.0-7.0) 05/25/17 14:11 Ur Specific [place] 1.025 (1.003-1.030) 05/25/17 14:11 Urine Protein <15 mg/dl mg/dL (Negative) 05/25/17 14:11 Urine Glucose (UA) 50 mg/dL (Negative) 05/25/17 14:11 Urine Ketones Neg mg/dL (Negative) 05/25/17 14:11 Urine Blood Neg (Negative) 05/25/17 14:11 Urine Nitrite Neg (Negative) 05/25/17 14:11 Urine Bilirubin Neg (Negative) 05/25/17 14:11 Urine Urobilinogen < 2.0 mg/dL (<2.0) 05/25/17 14:11 Ur Leukocyte Esterase Neg (Negative) 05/25/17 14:11 Urine WBC (Auto) 3.0 /HPF (0.0-6.0) 05/25/17 14:11 Urine RBC (Auto) 2.0 /HPF (0.0-6.0) 05/25/17 14:11 Hyaline Casts 1 /LPF 05/25/17 14:11 Urine Mucus Few /HPF 05/25/17 14:11 Vancomycin Trough 18.1 ug/mL (5.0-20.0) 05/30/17 13:24 Salicylates < 0.3 mg/dL (2.8-20.0) L 05/25/17 13:32 Urine Opiates Screen Presumptive negative 05/25/17 14:11 Urine Methadone Screen Presumptive negative 05/25/17 14:11 Acetaminophen < 15.0 ug/mL (10.0-30.0) 05/25/17 13:32 Ur Barbiturates Screen Presumptive negative 05/25/17 14:11 Ur Phencyclidine Scrn Presumptive negative 05/25/17 14:11 Ur Amphetamines Screen Presumptive negative 05/25/17 14:11 U Benzodiazepines Scrn Presumptive negative 05/25/17 14:11 Urine Cocaine Screen Presumptive negative 05/25/17 14:11 U Marijuana (THC) Screen Presumptive negative 05/25/17 14:11 Drugs of Abuse Note Disclamer 05/25/17 14:11 Plasma/Serum Alcohol < 0.01 % (0-0.07) 05/25/17 13:32 MELBA Screen Negative (Negative) 05/30/17 05:30 Proteinase 3 (PR3) Ab <1.0 AI (<1.0) 05/30/17 05:30 Myeloperoxidase Ab <1.0 AI (<1.0) 05/30/17 05:30 CATHLEEN-1 Antibody <1.0 AI (<1.0) 06/01/17 Unknown Double Strand DNA Ab <1 IU/mL (<=4) 05/29/17 23:45 Complement C3 117 mg/dL (82-185) 05/30/17 05:30 Complement C4 22 mg/dL (15-53) 05/30/17 05:30 HIV 1&2 Antibody Rapid Non react (Non React) 05/26/17 12:38 HIV P24 Antigen Non react (Non React) 05/26/17 12:38 Urine Legionella Ag Not detected (Not Detected) 05/30/17 05:30 Miscellaneous Test Flexitest 1 H 05/31/17 Unknown Blood Type O POSITIVE 05/29/17 17:00 Antibody Screen Negative 05/29/17 17:00
[2017-06-09] MEDS: D5NS 1,000 ML IV SCH (04:38)
--- NOTE | 2017-06-09 11:07 | Progress Note ---
Assessment and Plan Assessment and plan: // s/p fall -cont fall precaution - CT head, face unremarkable // SEVERE SEPSIS WITH SEPTIC SHOCK- POA, - now afebrile. off levophed. Etiology aspiration pneumonia vs ? [employer] infection. - Influenza A/B PCR negative. s/p course of tamiflu. - Legionella and Strep pneumo urinary ag - negative. - Tracheal aspirate culture 05/29 S maltophilia - being treated for Aspiration Pneumonia also on coverage for possible meningitis/encephalitis - LP could not be done initially due to low platelet count // Hypoglycemia, recurrent - could be from sepsis, suppressed hepatic glucose production (need details h/o alcohol abuse) will follow serum cortisol and IGF-1 level- ordered, still pending - also need to work up for insulinoma - on D5NS and pureed diet // Severe Hypothermia on admission, resolved, - likely from sepsis, // Acute Toxic Metabolic Encephalopathy, - being treated for meningitis/encephalitis - MRI brain when more stable, s/p repeat CT head showed no new findings - Pt also has h/o schizophrenia, psych on board // Acute Respiratory Failure, required vent >96h - s/p extubation on 06/02/17 - cont nebs, supplemental O2 to keep sat >94% // Thrombocytopenia was severe, now resolved . - s/p total 6 units of platelets transfusion - held all anticoagulant // Aspiration Pneumonia with possible Post influenza Pneumonia - getting abx coverage per ID // h/o Schizophrenia - psych on board, will follow recommendation // Severe Protein Calorie Malnutrition - nutrition on board // Hypernatremia, improved - cont to monitor, // Elevated LFT, likely from sepsis - trending down // hypokalemia, being replaced daily. Now resolved Will d/c k-dur - History Interval history: Feels better, No fever, No abdominal pain Hospitalist Physical - Physical exam Narrative exam: Gen appearance: Not in acute distress, lying in bed HEENT: Small cut under right eyebrow, Lungs: Clear to auscultation bilaterally, no crackles , no wheeze Heart: S1 and S2 regular, no murmurs, rubs or gallop Abdomen: soft, non tender, non distended, normal bowel sounds Ext: No edema, no clubbing, no cyanosis Neuro: Awake,alert, - Constitutional Vitals: Temp Pulse Resp BP Pulse Ox 97.9 F 61 18 96/62 100 06/09/17 07:30 06/09/17 07:31 06/09/17 07:30 06/09/17 07:30 06/09/17 07:31 General appearance: Present: no acute distress, other (patient does have a few scars on 4. Some temporal wasting.) Results - Labs CBC & Chem 7: 06/08/17 06:13 06/08/17 06:13 Labs: Laboratory Last Values WBC 4.7 K/mm3 (4.5-11.0) 06/08/17 06:13 RBC 4.14 M/mm3 (3.65-5.03) 06/08/17 06:13 Hgb 10.6 gm/dl (11.8-15.2) L 06/08/17 06:13 Hct 31.6 % (35.5-45.6) L 06/08/17 06:13 MCV 77 fl (84-94) L 06/08/17 06:13 MCH 26 pg (28-32) L 06/08/17 06:13 MCHC 34 % (32-34) 06/08/17 06:13 RDW 14.9 % (13.2-15.2) 06/08/17 06:13 Plt Count 553 K/mm3 (140-440) H 06/08/17 06:13 Lymph % (Auto) 26.0 % (13.4-35.0) 06/08/17 06:13 [place] % (Auto) 10.1 % (0.0-7.3) H 06/08/17 06:13 Eos % (Auto) 1.0 % (0.0-4.3) 06/08/17 06:13 Baso % (Auto) 0.9 % (0.0-1.8) 06/08/17 06:13 Lymph # 1.2 K/mm3 (1.2-5.4) 06/08/17 06:13 [place] # 0.5 K/mm3 (0.0-0.8) 06/08/17 06:13 Eos # 0.0 K/mm3 (0.0-0.4) 06/08/17 06:13 Baso # 0.0 K/mm3 (0.0-0.1) 06/08/17 06:13 Add Manual Diff Complete 05/30/17 05:30 Total Counted 100 05/30/17 05:30 Seg Neutrophils % 62.0 % (40.0-70.0) 06/08/17 06:13 Seg Neuts % (Manual) 90.0 % (40.0-70.0) H 05/30/17 05:30 Band Neutrophils % 2.0 % 05/30/17 05:30 Lymphocytes % (Manual) 4.0 % (13.4-35.0) L 05/30/17 05:30 Reactive Lymphs % (Man) 0 % 05/30/17 05:30 Monocytes % (Manual) 2.0 % (0.0-7.3) 05/30/17 05:30 Eosinophils % (Manual) 0 % (0.0-4.3) 05/30/17 05:30 Basophils % (Manual) 0 % (0.0-1.8) 05/30/17 05:30 Metamyelocytes % 2.0 % 05/30/17 05:30 Myelocytes % 0 % 05/30/17 05:30 Promyelocytes % 0 % 05/30/17 05:30 Blast Cells % 0 % 05/30/17 05:30 Nucleated RBC % 1.0 % (0.0-0.9) H 05/30/17 05:30 Seg Neutrophils # 2.9 K/mm3 (1.8-7.7) 06/08/17 06:13 Seg Neutrophils # Man 5.6 K/mm3 (1.8-7.7) 05/30/17 05:30 Band Neutrophils # 0.1 K/mm3 05/30/17 05:30 Lymphocytes # (Manual) 0.2 K/mm3 (1.2-5.4) L 05/30/17 05:30 Abs React Lymphs (Man) 0.0 K/mm3 05/30/17 05:30 Monocytes # (Manual) 0.1 K/mm3 (0.0-0.8) 05/30/17 05:30 Eosinophils # (Manual) 0.0 K/mm3 (0.0-0.4) 05/30/17 05:30 Basophils # (Manual) 0.0 K/mm3 (0.0-0.1) 05/30/17 05:30 Metamyelocytes # 0.1 K/mm3 05/30/17 05:30 Myelocytes # 0.0 K/mm3 05/30/17 05:30 Promyelocytes # 0.0 K/mm3 05/30/17 05:30 Blast Cells # 0.0 K/mm3 05/30/17 05:30 WBC Morphology Not Reportable 05/30/17 05:30 Hypersegmented Neuts Not Reportable 05/30/17 05:30 Hyposegmented Neuts Not Reportable 05/30/17 05:30 Hypogranular Neuts Not Reportable 05/30/17 05:30 Smudge Cells Not Reportable 05/30/17 05:30 Toxic Granulation Not Reportable 05/30/17 05:30 Toxic Vacuolation Not Reportable 05/30/17 05:30 Dohle Bodies Not Reportable 05/30/17 05:30 Pelger-Huet Anomaly Not Reportable 05/30/17 05:30 Evon Rods Not Reportable 05/30/17 05:30 Platelet Estimate Cons 05/30/17 05:30 Clumped Platelets Not Reportable 05/30/17 05:30 Plt Clumps, EDTA Not Reportable 05/30/17 05:30 Large Platelets Not Reportable 05/30/17 05:30 Giant Platelets Not Reportable 05/30/17 05:30 Platelet Satelliting Not Reportable 05/30/17 05:30 Plt Morphology Comment Not Reportable 05/30/17 05:30 RBC Morphology Not Reportable 05/30/17 05:30 Dimorphic RBCs Not Reportable 05/30/17 05:30 Polychromasia Not Reportable 05/30/17 05:30 Hypochromasia 1+ 05/30/17 05:30 Poikilocytosis Not Reportable 05/30/17 05:30 Anisocytosis 1+ 05/30/17 05:30 Microcytosis Not Reportable 05/30/17 05:30 Macrocytosis Not Reportable 05/30/17 05:30 Spherocytes Not Reportable 05/30/17 05:30 Pappenheimer Bodies Not Reportable 05/30/17 05:30 Sickle Cells Not Reportable 05/30/17 05:30 Target Cells Not Reportable 05/30/17 05:30 Tear Drop Cells Not Reportable 05/30/17 05:30 Ovalocytes Not Reportable 05/30/17 05:30 Helmet Cells Not Reportable 05/30/17 05:30 Castaneda-Schwana Bodies Not Reportable 05/30/17 05:30 Horatio Rings Not Reportable 05/30/17 05:30 [place] Cells Not Reportable 05/30/17 05:30 Bite Cells Not Reportable 05/30/17 05:30 Crenated Cell Not Reportable 05/30/17 05:30 Elliptocytes Not Reportable 05/30/17 05:30 Acanthocytes (Spur) Not Reportable 05/30/17 05:30 Rouleaux Not Reportable 05/30/17 05:30 Hemoglobin C Crystals Not Reportable 05/30/17 05:30 Schistocytes Not Reportable 05/30/17 05:30 Malaria parasites Not Reportable 05/30/17 05:30 Michael Bodies Not Reportable 05/30/17 05:30 Hem Pathologist Commnt No 05/30/17 05:30 PT 12.4 Sec. (12.2-14.9) 06/02/17 08:27 INR 0.88 (0.87-1.13) 06/02/17 08:27 APTT 28.8 Sec. (24.2-36.6) 06/02/17 08:27 POC ABG pH 7.449 (7.35-7.45) 06/02/17 14:50 POC ABG pCO2 48.6 (35-45) H 06/02/17 14:50 POC ABG pO2 98 (80-105) 06/02/17 14:50 POC ABG HCO3 33.7 06/02/17 14:50 POC ABG Total CO2 35 06/02/17 14:50 POC ABG O2 Sat 98 06/02/17 14:50 POC ABG Base Excess 10 06/02/17 14:50 FiO2 30 % 06/02/17 14:50 Sodium 134 mmol/L (137-145) L 06/08/17 06:13 Potassium 4.4 mmol/L (3.6-5.0) 06/08/17 06:13 Chloride 95.3 mmol/L (98-107) L 06/08/17 06:13 Carbon Dioxide 27 mmol/L (22-30) 06/08/17 06:13 Anion Gap 16 mmol/L 06/08/17 06:13 BUN 9 mg/dL (9-20) 06/08/17 06:13 Creatinine 0.8 mg/dL (0.8-1.5) D 06/08/17 06:13 Estimated GFR > 60 ml/min 06/08/17 06:13 BUN/Creatinine Ratio 11 % 06/08/17 06:13 Glucose 83 mg/dL (75-100) 06/08/17 06:13 POC Glucose 152 (70-105) H 06/09/17 10:23 Lactic Acid 1.90 mmol/L (0.7-2.0) 05/25/17 17:56 Calcium 8.9 mg/dL (8.4-10.2) 06/08/17 06:13 Ionized Calcium 5.6 mg/dL (4.8-5.6) 05/28/17 13:47 Magnesium 1.60 mg/dL (1.7-2.3) L 05/28/17 13:47 Total Bilirubin 0.40 mg/dL (0.1-1.2) 06/08/17 06:13 AST 32 units/L (5-40) 06/08/17 06:13 ALT 113 units/L (7-56) H 06/08/17 06:13 Alkaline Phosphatase 124 units/L (35-129) 06/08/17 06:13 Ammonia 33.0 umol/L (25-60) 05/25/17 13:32 Total Creatine Kinase 1318 units/L (55-170) H 06/01/17 23:00 Troponin T < 0.010 ng/mL (0.00-0.029) 05/25/17 13:32 C-Reactive Protein 15.20 mg/dL (0.00-1.30) H 05/26/17 15:41 Total Protein 6.0 g/dL (6.3-8.2) L 06/08/17 06:13 Albumin 2.8 g/dL (3.9-5) L 06/08/17 06:13 Albumin/Globulin Ratio 0.9 % 06/08/17 06:13 Vitamin B12 1108 pg/mL (211-911) H 05/30/17 16:28 1,25 Dihydroxy Vit D2 31 pg/mL 05/30/17 16:28 1,25 Dihydroxy Vit D3 26 pg/mL 05/30/17 16:28 TSH 1.400 mlU/mL (0.270-4.200) 05/30/17 16:28 Free T4 0.81 ng/dL (0.76-1.46) 05/30/17 16:28 Total Cortisol 14.6 mcg/dL () 06/05/17 05:50 Urine Color Yellow (Yellow) 05/25/17 14:11 Urine Turbidity Clear (Clear) 05/25/17 14:11 Urine pH 5.0 (5.0-7.0) 05/25/17 14:11 Ur Specific [place] 1.025 (1.003-1.030) 05/25/17 14:11 Urine Protein <15 mg/dl mg/dL (Negative) 05/25/17 14:11 Urine Glucose (UA) 50 mg/dL (Negative) 05/25/17 14:11 Urine Ketones Neg mg/dL (Negative) 05/25/17 14:11 Urine Blood Neg (Negative) 05/25/17 14:11 Urine Nitrite Neg (Negative) 05/25/17 14:11 Urine Bilirubin Neg (Negative) 05/25/17 14:11 Urine Urobilinogen < 2.0 mg/dL (<2.0) 05/25/17 14:11 Ur Leukocyte Esterase Neg (Negative) 05/25/17 14:11 Urine WBC (Auto) 3.0 /HPF (0.0-6.0) 05/25/17 14:11 Urine RBC (Auto) 2.0 /HPF (0.0-6.0) 05/25/17 14:11 Hyaline Casts 1 /LPF 05/25/17 14:11 Urine Mucus Few /HPF 05/25/17 14:11 Vancomycin Trough 18.1 ug/mL (5.0-20.0) 05/30/17 13:24 Salicylates < 0.3 mg/dL (2.8-20.0) L 05/25/17 13:32 Urine Opiates Screen Presumptive negative 05/25/17 14:11 Urine Methadone Screen Presumptive negative 05/25/17 14:11 Acetaminophen < 15.0 ug/mL (10.0-30.0) 05/25/17 13:32 Ur Barbiturates Screen Presumptive negative 05/25/17 14:11 Ur Phencyclidine Scrn Presumptive negative 05/25/17 14:11 Ur Amphetamines Screen Presumptive negative 05/25/17 14:11 U Benzodiazepines Scrn Presumptive negative 05/25/17 14:11 Urine Cocaine Screen Presumptive negative 05/25/17 14:11 U Marijuana (THC) Screen Presumptive negative 05/25/17 14:11 Drugs of Abuse Note Disclamer 05/25/17 14:11 Plasma/Serum Alcohol < 0.01 % (0-0.07) 05/25/17 13:32 MELBA Screen Negative (Negative) 05/30/17 05:30 Proteinase 3 (PR3) Ab <1.0 AI (<1.0) 05/30/17 05:30 Myeloperoxidase Ab <1.0 AI (<1.0) 05/30/17 05:30 CATHLEEN-1 Antibody <1.0 AI (<1.0) 06/01/17 Unknown Double Strand DNA Ab <1 IU/mL (<=4) 05/29/17 23:45 Complement C3 117 mg/dL (82-185) 05/30/17 05:30 Complement C4 22 mg/dL (15-53) 05/30/17 05:30 HIV 1&2 Antibody Rapid Non react (Non React) 05/26/17 12:38 HIV P24 Antigen Non react (Non React) 05/26/17 12:38 Urine Legionella Ag Not detected (Not Detected) 05/30/17 05:30 Miscellaneous Test Flexitest 1 H 05/31/17 Unknown Blood Type O POSITIVE 05/29/17 17:00 Antibody Screen Negative 05/29/17 17:00
[2017-06-09] MEDS: VITAMIN B-1 PO SCH (11:11)
[2017-06-09] MEDS: PEPCID PO SCH ×2 (11:12→21:25)
[2017-06-09] MEDS: K-DUR PO SCH (11:17)
[2017-06-09] MEDS: THERAGRAN-M Tab PO SCH (11:17)
[2017-06-09] MEDS: VITAMIN D3 PO SCH (11:25)
[2017-06-10] MEDS: PEPCID PO SCH ×2 (10:18→22:01)
[2017-06-10] MEDS: VITAMIN B-1 PO SCH (10:18)
[2017-06-10] MEDS: D5NS 1,000 ML IV SCH (10:18)
[2017-06-10] MEDS: VITAMIN D3 PO SCH (10:18)
[2017-06-10] MEDS: THERAGRAN-M Tab PO SCH (10:18)
--- NOTE | 2017-06-10 14:58 | Progress Note ---
Assessment and Plan Assessment and plan: s/p fall -cont fall precaution - CT head, face unremarkable SEVERE SEPSIS WITH SEPTIC SHOCK- POA, - now afebrile. off levophed. 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 - Influenza A/B PCR negative. s/p course of tamiflu. - Legionella and Strep pneumo urinary ag - negative. - Tracheal aspirate culture 05/29 S maltophilia - being treated for Aspiration Pneumonia also on coverage for possible meningitis/encephalitis - LP could not be done initially due to low platelet count Hypoglycemia, recurrent - could be from sepsis, suppressed hepatic glucose production (need details h/o alcohol abuse) will follow serum cortisol and IGF-1 level- ordered, still pending - also need to work up for insulinoma - on D5NS and pureed diet Severe Hypothermia on admission, resolved, - likely from sepsis, Acute Toxic Metabolic Encephalopathy, - being treated for meningitis/encephalitis - MRI brain when more stable, s/p repeat CT head showed no new findings - Pt also has h/o schizophrenia, psych on board Acute Respiratory Failure, required vent >96h - s/p extubation on 06/02/17 - cont nebs, supplemental O2 to keep sat >94% Thrombocytopenia was severe, now resolved . - s/p total 6 units of platelets transfusion - held all anticoagulant Aspiration Pneumonia with possible Post influenza Pneumonia - getting abx coverage per ID h/o Schizophrenia - psych on board, will follow recommendation Severe Protein Calorie Malnutrition - nutrition on board Hypernatremia, improved - cont to monitor, Elevated LFT, likely from sepsis - trending down hypokalemia, resolved Dc planning. Case management working on placement. - History Interval history: Feels better, No fever, No abdominal pain Hospitalist Physical - Physical exam Narrative exam: Gen appearance: Not in acute distress, lying in bed Neck:supple, no JVD HEENT: Small cut under right eyebrow, Lungs: Clear to auscultation bilaterally, no crackles , no wheeze Heart: S1 and S2 regular, no murmurs, rubs or gallop Abdomen: soft, non tender, non distended, normal bowel sounds Ext: No edema, no clubbing, no cyanosis Neuro: Awake, - Constitutional Vitals: Temp Pulse Resp BP Pulse Ox 97.8 F 53 L 18 96/61 100 06/10/17 07:22 06/10/17 07:22 06/10/17 07:22 06/10/17 07:22 06/10/17 07:22 General appearance: Present: no acute distress, other (patient does have a few scars on 4. Some temporal wasting.) Results - Labs CBC & Chem 7: 06/08/17 06:13 06/08/17 06:13 Labs: Laboratory Last Values WBC 4.7 K/mm3 (4.5-11.0) 06/08/17 06:13 RBC 4.14 M/mm3 (3.65-5.03) 06/08/17 06:13 Hgb 10.6 gm/dl (11.8-15.2) L 06/08/17 06:13 Hct 31.6 % (35.5-45.6) L 06/08/17 06:13 MCV 77 fl (84-94) L 06/08/17 06:13 MCH 26 pg (28-32) L 06/08/17 06:13 MCHC 34 % (32-34) 06/08/17 06:13 RDW 14.9 % (13.2-15.2) 06/08/17 06:13 Plt Count 553 K/mm3 (140-440) H 06/08/17 06:13 Lymph % (Auto) 26.0 % (13.4-35.0) 06/08/17 06:13 [place] % (Auto) 10.1 % (0.0-7.3) H 06/08/17 06:13 Eos % (Auto) 1.0 % (0.0-4.3) 06/08/17 06:13 Baso % (Auto) 0.9 % (0.0-1.8) 06/08/17 06:13 Lymph # 1.2 K/mm3 (1.2-5.4) 06/08/17 06:13 [place] # 0.5 K/mm3 (0.0-0.8) 06/08/17 06:13 Eos # 0.0 K/mm3 (0.0-0.4) 06/08/17 06:13 Baso # 0.0 K/mm3 (0.0-0.1) 06/08/17 06:13 Add Manual Diff Complete 05/30/17 05:30 Total Counted 100 05/30/17 05:30 Seg Neutrophils % 62.0 % (40.0-70.0) 06/08/17 06:13 Seg Neuts % (Manual) 90.0 % (40.0-70.0) H 05/30/17 05:30 Band Neutrophils % 2.0 % 05/30/17 05:30 Lymphocytes % (Manual) 4.0 % (13.4-35.0) L 05/30/17 05:30 Reactive Lymphs % (Man) 0 % 05/30/17 05:30 Monocytes % (Manual) 2.0 % (0.0-7.3) 05/30/17 05:30 Eosinophils % (Manual) 0 % (0.0-4.3) 05/30/17 05:30 Basophils % (Manual) 0 % (0.0-1.8) 05/30/17 05:30 Metamyelocytes % 2.0 % 05/30/17 05:30 Myelocytes % 0 % 05/30/17 05:30 Promyelocytes % 0 % 05/30/17 05:30 Blast Cells % 0 % 05/30/17 05:30 Nucleated RBC % 1.0 % (0.0-0.9) H 05/30/17 05:30 Seg Neutrophils # 2.9 K/mm3 (1.8-7.7) 06/08/17 06:13 Seg Neutrophils # Man 5.6 K/mm3 (1.8-7.7) 05/30/17 05:30 Band Neutrophils # 0.1 K/mm3 05/30/17 05:30 Lymphocytes # (Manual) 0.2 K/mm3 (1.2-5.4) L 05/30/17 05:30 Abs React Lymphs (Man) 0.0 K/mm3 05/30/17 05:30 Monocytes # (Manual) 0.1 K/mm3 (0.0-0.8) 05/30/17 05:30 Eosinophils # (Manual) 0.0 K/mm3 (0.0-0.4) 05/30/17 05:30 Basophils # (Manual) 0.0 K/mm3 (0.0-0.1) 05/30/17 05:30 Metamyelocytes # 0.1 K/mm3 05/30/17 05:30 Myelocytes # 0.0 K/mm3 05/30/17 05:30 Promyelocytes # 0.0 K/mm3 05/30/17 05:30 Blast Cells # 0.0 K/mm3 05/30/17 05:30 WBC Morphology Not Reportable 05/30/17 05:30 Hypersegmented Neuts Not Reportable 05/30/17 05:30 Hyposegmented Neuts Not Reportable 05/30/17 05:30 Hypogranular Neuts Not Reportable 05/30/17 05:30 Smudge Cells Not Reportable 05/30/17 05:30 Toxic Granulation Not Reportable 05/30/17 05:30 Toxic Vacuolation Not Reportable 05/30/17 05:30 Dohle Bodies Not Reportable 05/30/17 05:30 Pelger-Huet Anomaly Not Reportable 05/30/17 05:30 Evon Rods Not Reportable 05/30/17 05:30 Platelet Estimate Cons 05/30/17 05:30 Clumped Platelets Not Reportable 05/30/17 05:30 Plt Clumps, EDTA Not Reportable 05/30/17 05:30 Large Platelets Not Reportable 05/30/17 05:30 Giant Platelets Not Reportable 05/30/17 05:30 Platelet Satelliting Not Reportable 05/30/17 05:30 Plt Morphology Comment Not Reportable 05/30/17 05:30 RBC Morphology Not Reportable 05/30/17 05:30 Dimorphic RBCs Not Reportable 05/30/17 05:30 Polychromasia Not Reportable 05/30/17 05:30 Hypochromasia 1+ 05/30/17 05:30 Poikilocytosis Not Reportable 05/30/17 05:30 Anisocytosis 1+ 05/30/17 05:30 Microcytosis Not Reportable 05/30/17 05:30 Macrocytosis Not Reportable 05/30/17 05:30 Spherocytes Not Reportable 05/30/17 05:30 Pappenheimer Bodies Not Reportable 05/30/17 05:30 Sickle Cells Not Reportable 05/30/17 05:30 Target Cells Not Reportable 05/30/17 05:30 Tear Drop Cells Not Reportable 05/30/17 05:30 Ovalocytes Not Reportable 05/30/17 05:30 Helmet Cells Not Reportable 05/30/17 05:30 Castaneda[place] Bodies Not Reportable 05/30/17 05:30 [place] Rings Not Reportable 05/30/17 05:30 [place] Cells Not Reportable 05/30/17 05:30 Bite Cells Not Reportable 05/30/17 05:30 Crenated Cell Not Reportable 05/30/17 05:30 Elliptocytes Not Reportable 05/30/17 05:30 Acanthocytes (Spur) Not Reportable 05/30/17 05:30 Rouleaux Not Reportable 05/30/17 05:30 Hemoglobin C Crystals Not Reportable 05/30/17 05:30 Schistocytes Not Reportable 05/30/17 05:30 Malaria parasites Not Reportable 05/30/17 05:30 Michael Bodies Not Reportable 05/30/17 05:30 Hem Pathologist Commnt No 05/30/17 05:30 PT 12.4 Sec. (12.2-14.9) 06/02/17 08:27 INR 0.88 (0.87-1.13) 06/02/17 08:27 APTT 28.8 Sec. (24.2-36.6) 06/02/17 08:27 POC ABG pH 7.449 (7.35-7.45) 06/02/17 14:50 POC ABG pCO2 48.6 (35-45) H 06/02/17 14:50 POC ABG pO2 98 (80-105) 06/02/17 14:50 POC ABG HCO3 33.7 06/02/17 14:50 POC ABG Total CO2 35 06/02/17 14:50 POC ABG O2 Sat 98 06/02/17 14:50 POC ABG Base Excess 10 06/02/17 14:50 FiO2 30 % 06/02/17 14:50 Sodium 134 mmol/L (137-145) L 06/08/17 06:13 Potassium 4.4 mmol/L (3.6-5.0) 06/08/17 06:13 Chloride 95.3 mmol/L (98-107) L 06/08/17 06:13 Carbon Dioxide 27 mmol/L (22-30) 06/08/17 06:13 Anion Gap 16 mmol/L 06/08/17 06:13 BUN 9 mg/dL (9-20) 06/08/17 06:13 Creatinine 0.8 mg/dL (0.8-1.5) D 06/08/17 06:13 Estimated GFR > 60 ml/min 06/08/17 06:13 BUN/Creatinine Ratio 11 % 06/08/17 06:13 Glucose 83 mg/dL (75-100) 06/08/17 06:13 POC Glucose 74 (70-105) 06/10/17 12:43 Lactic Acid 1.90 mmol/L (0.7-2.0) 05/25/17 17:56 Calcium 8.9 mg/dL (8.4-10.2) 06/08/17 06:13 Ionized Calcium 5.6 mg/dL (4.8-5.6) 05/28/17 13:47 Magnesium 1.60 mg/dL (1.7-2.3) L 05/28/17 13:47 Total Bilirubin 0.40 mg/dL (0.1-1.2) 06/08/17 06:13 AST 32 units/L (5-40) 06/08/17 06:13 ALT 113 units/L (7-56) H 06/08/17 06:13 Alkaline Phosphatase 124 units/L (35-129) 06/08/17 06:13 Ammonia 33.0 umol/L (25-60) 05/25/17 13:32 Total Creatine Kinase 1318 units/L (55-170) H 06/01/17 23:00 Troponin T < 0.010 ng/mL (0.00-0.029) 05/25/17 13:32 C-Reactive Protein 15.20 mg/dL (0.00-1.30) H 05/26/17 15:41 Total Protein 6.0 g/dL (6.3-8.2) L 06/08/17 06:13 Albumin 2.8 g/dL (3.9-5) L 06/08/17 06:13 Albumin/Globulin Ratio 0.9 % 06/08/17 06:13 Vitamin B12 1108 pg/mL (211-911) H 05/30/17 16:28 1,25 Dihydroxy Vit D2 31 pg/mL 05/30/17 16:28 1,25 Dihydroxy Vit D3 26 pg/mL 05/30/17 16:28 TSH 1.400 mlU/mL (0.270-4.200) 05/30/17 16:28 Free T4 0.81 ng/dL (0.76-1.46) 05/30/17 16:28 Total Cortisol 14.6 mcg/dL () 06/05/17 05:50 Urine Color Yellow (Yellow) 05/25/17 14:11 Urine Turbidity Clear (Clear) 05/25/17 14:11 Urine pH 5.0 (5.0-7.0) 05/25/17 14:11 Ur Specific [place] 1.025 (1.003-1.030) 05/25/17 14:11 Urine Protein <15 mg/dl mg/dL (Negative) 05/25/17 14:11 Urine Glucose (UA) 50 mg/dL (Negative) 05/25/17 14:11 Urine Ketones Neg mg/dL (Negative) 05/25/17 14:11 Urine Blood Neg (Negative) 05/25/17 14:11 Urine Nitrite Neg (Negative) 05/25/17 14:11 Urine Bilirubin Neg (Negative) 05/25/17 14:11 Urine Urobilinogen < 2.0 mg/dL (<2.0) 05/25/17 14:11 Ur Leukocyte Esterase Neg (Negative) 05/25/17 14:11 Urine WBC (Auto) 3.0 /HPF (0.0-6.0) 05/25/17 14:11 Urine RBC (Auto) 2.0 /HPF (0.0-6.0) 05/25/17 14:11 Hyaline Casts 1 /LPF 05/25/17 14:11 Urine Mucus Few /HPF 05/25/17 14:11 Vancomycin Trough 18.1 ug/mL (5.0-20.0) 05/30/17 13:24 Salicylates < 0.3 mg/dL (2.8-20.0) L 05/25/17 13:32 Urine Opiates Screen Presumptive negative 05/25/17 14:11 Urine Methadone Screen Presumptive negative 05/25/17 14:11 Acetaminophen < 15.0 ug/mL (10.0-30.0) 05/25/17 13:32 Ur Barbiturates Screen Presumptive negative 05/25/17 14:11 Ur Phencyclidine Scrn Presumptive negative 05/25/17 14:11 Ur Amphetamines Screen Presumptive negative 05/25/17 14:11 U Benzodiazepines Scrn Presumptive negative 05/25/17 14:11 Urine Cocaine Screen Presumptive negative 05/25/17 14:11 U Marijuana (THC) Screen Presumptive negative 05/25/17 14:11 Drugs of Abuse Note Disclamer 05/25/17 14:11 Plasma/Serum Alcohol < 0.01 % (0-0.07) 05/25/17 13:32 MELBA Screen Negative (Negative) 05/30/17 05:30 Proteinase 3 (PR3) Ab <1.0 AI (<1.0) 05/30/17 05:30 Myeloperoxidase Ab <1.0 AI (<1.0) 05/30/17 05:30 CATHLEEN-1 Antibody <1.0 AI (<1.0) 06/01/17 Unknown Double Strand DNA Ab <1 IU/mL (<=4) 05/29/17 23:45 Complement C3 117 mg/dL (82-185) 05/30/17 05:30 Complement C4 22 mg/dL (15-53) 05/30/17 05:30 HIV 1&2 Antibody Rapid Non react (Non React) 05/26/17 12:38 HIV P24 Antigen Non react (Non React) 05/26/17 12:38 Urine Legionella Ag Not detected (Not Detected) 05/30/17 05:30 Miscellaneous Test Flexitest 1 H 05/31/17 Unknown Blood Type O POSITIVE 05/29/17 17:00 Antibody Screen Negative 05/29/17 17:00
--- NOTE | 2017-06-11 08:51 | Progress Note ---
Assessment and Plan Assessment and plan: s/p fall -cont fall precaution - CT head, face unremarkable SEVERE SEPSIS WITH SEPTIC SHOCK- POA, - now afebrile. off levophed. 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 - Influenza A/B PCR negative. s/p course of tamiflu. - Legionella and Strep pneumo urinary ag - negative. - Tracheal aspirate culture 05/29 S maltophilia - being treated for Aspiration Pneumonia also on coverage for possible meningitis/encephalitis - LP could not be done initially due to low platelet count Hypoglycemia, recurrent - could be from sepsis, suppressed hepatic glucose production (need details h/o alcohol abuse) will follow serum cortisol and IGF-1 level- ordered, still pending - also need to work up for insulinoma - on D5NS and pureed diet Severe Hypothermia on admission, resolved, - likely from sepsis, Acute Toxic Metabolic Encephalopathy, - being treated for meningitis/encephalitis - MRI brain when more stable, s/p repeat CT head showed no new findings - Pt also has h/o schizophrenia, psych on board Acute Respiratory Failure, required vent >96h - s/p extubation on 06/02/17 - cont nebs, supplemental O2 to keep sat >94% Thrombocytopenia was severe, now resolved . - s/p total 6 units of platelets transfusion - held all anticoagulant Aspiration Pneumonia with possible Post influenza Pneumonia - getting abx coverage per ID h/o Schizophrenia - psych on board, will follow recommendation Severe Protein Calorie Malnutrition - nutrition on board Hypernatremia, improved - cont to monitor, Elevated LFT, likely from sepsis - trending down hypokalemia, resolved Patient stable to transfer to med/surg floor. Dc planning. Case management working on placement. - History Interval history: does not give history, No fever Hospitalist Physical - Physical exam Narrative exam: Gen appearance: Not in acute distress, lying in bed Neck:supple, no JVD HEENT: Small cut under right eyebrow, Lungs: Clear to auscultation bilaterally, no crackles , no wheeze Heart: S1 and S2 regular, no murmurs, rubs or gallop Abdomen: soft, non tender, non distended, normal bowel sounds Ext: No edema, no clubbing, no cyanosis Neuro: Awake, - Constitutional Vitals: Temp Pulse Resp BP Pulse Ox 98.4 F 78 16 97/56 100 06/11/17 04:42 06/11/17 04:58 06/11/17 04:42 06/11/17 04:42 06/11/17 04:42 General appearance: Present: no acute distress, other (patient does have a few scars on 4. Some temporal wasting.) Results - Labs CBC & Chem 7: 06/08/17 06:13 06/08/17 06:13 Labs: Laboratory Last Values WBC 4.7 K/mm3 (4.5-11.0) 06/08/17 06:13 RBC 4.14 M/mm3 (3.65-5.03) 06/08/17 06:13 Hgb 10.6 gm/dl (11.8-15.2) L 06/08/17 06:13 Hct 31.6 % (35.5-45.6) L 06/08/17 06:13 MCV 77 fl (84-94) L 06/08/17 06:13 MCH 26 pg (28-32) L 06/08/17 06:13 MCHC 34 % (32-34) 06/08/17 06:13 RDW 14.9 % (13.2-15.2) 06/08/17 06:13 Plt Count 553 K/mm3 (140-440) H 06/08/17 06:13 Lymph % (Auto) 26.0 % (13.4-35.0) 06/08/17 06:13 [place] % (Auto) 10.1 % (0.0-7.3) H 06/08/17 06:13 Eos % (Auto) 1.0 % (0.0-4.3) 06/08/17 06:13 Baso % (Auto) 0.9 % (0.0-1.8) 06/08/17 06:13 Lymph # 1.2 K/mm3 (1.2-5.4) 06/08/17 06:13 [place] # 0.5 K/mm3 (0.0-0.8) 06/08/17 06:13 Eos # 0.0 K/mm3 (0.0-0.4) 06/08/17 06:13 Baso # 0.0 K/mm3 (0.0-0.1) 06/08/17 06:13 Add Manual Diff Complete 05/30/17 05:30 Total Counted 100 05/30/17 05:30 Seg Neutrophils % 62.0 % (40.0-70.0) 06/08/17 06:13 Seg Neuts % (Manual) 90.0 % (40.0-70.0) H 05/30/17 05:30 Band Neutrophils % 2.0 % 05/30/17 05:30 Lymphocytes % (Manual) 4.0 % (13.4-35.0) L 05/30/17 05:30 Reactive Lymphs % (Man) 0 % 05/30/17 05:30 Monocytes % (Manual) 2.0 % (0.0-7.3) 05/30/17 05:30 Eosinophils % (Manual) 0 % (0.0-4.3) 05/30/17 05:30 Basophils % (Manual) 0 % (0.0-1.8) 05/30/17 05:30 Metamyelocytes % 2.0 % 05/30/17 05:30 Myelocytes % 0 % 05/30/17 05:30 Promyelocytes % 0 % 05/30/17 05:30 Blast Cells % 0 % 05/30/17 05:30 Nucleated RBC % 1.0 % (0.0-0.9) H 05/30/17 05:30 Seg Neutrophils # 2.9 K/mm3 (1.8-7.7) 06/08/17 06:13 Seg Neutrophils # Man 5.6 K/mm3 (1.8-7.7) 05/30/17 05:30 Band Neutrophils # 0.1 K/mm3 05/30/17 05:30 Lymphocytes # (Manual) 0.2 K/mm3 (1.2-5.4) L 05/30/17 05:30 Abs React Lymphs (Man) 0.0 K/mm3 05/30/17 05:30 Monocytes # (Manual) 0.1 K/mm3 (0.0-0.8) 05/30/17 05:30 Eosinophils # (Manual) 0.0 K/mm3 (0.0-0.4) 05/30/17 05:30 Basophils # (Manual) 0.0 K/mm3 (0.0-0.1) 05/30/17 05:30 Metamyelocytes # 0.1 K/mm3 05/30/17 05:30 Myelocytes # 0.0 K/mm3 05/30/17 05:30 Promyelocytes # 0.0 K/mm3 05/30/17 05:30 Blast Cells # 0.0 K/mm3 05/30/17 05:30 WBC Morphology Not Reportable 05/30/17 05:30 Hypersegmented Neuts Not Reportable 05/30/17 05:30 Hyposegmented Neuts Not Reportable 05/30/17 05:30 Hypogranular Neuts Not Reportable 05/30/17 05:30 Smudge Cells Not Reportable 05/30/17 05:30 Toxic Granulation Not Reportable 05/30/17 05:30 Toxic Vacuolation Not Reportable 05/30/17 05:30 Dohle Bodies Not Reportable 05/30/17 05:30 Pelger-Huet Anomaly Not Reportable 05/30/17 05:30 Evon Rods Not Reportable 05/30/17 05:30 Platelet Estimate Cons 05/30/17 05:30 Clumped Platelets Not Reportable 05/30/17 05:30 Plt Clumps, EDTA Not Reportable 05/30/17 05:30 Large Platelets Not Reportable 05/30/17 05:30 Giant Platelets Not Reportable 05/30/17 05:30 Platelet Satelliting Not Reportable 05/30/17 05:30 Plt Morphology Comment Not Reportable 05/30/17 05:30 RBC Morphology Not Reportable 05/30/17 05:30 Dimorphic RBCs Not Reportable 05/30/17 05:30 Polychromasia Not Reportable 05/30/17 05:30 Hypochromasia 1+ 05/30/17 05:30 Poikilocytosis Not Reportable 05/30/17 05:30 Anisocytosis 1+ 05/30/17 05:30 Microcytosis Not Reportable 05/30/17 05:30 Macrocytosis Not Reportable 05/30/17 05:30 Spherocytes Not Reportable 05/30/17 05:30 Pappenheimer Bodies Not Reportable 05/30/17 05:30 Sickle Cells Not Reportable 05/30/17 05:30 Target Cells Not Reportable 05/30/17 05:30 Tear Drop Cells Not Reportable 05/30/17 05:30 Ovalocytes Not Reportable 05/30/17 05:30 Helmet Cells Not Reportable 05/30/17 05:30 Castaneda[place] Bodies Not Reportable 05/30/17 05:30 [place] Rings Not Reportable 05/30/17 05:30 [place] Cells Not Reportable 05/30/17 05:30 Bite Cells Not Reportable 05/30/17 05:30 Crenated Cell Not Reportable 05/30/17 05:30 Elliptocytes Not Reportable 05/30/17 05:30 Acanthocytes (Spur) Not Reportable 05/30/17 05:30 Rouleaux Not Reportable 05/30/17 05:30 Hemoglobin C Crystals Not Reportable 05/30/17 05:30 Schistocytes Not Reportable 05/30/17 05:30 Malaria parasites Not Reportable 05/30/17 05:30 Michael Bodies Not Reportable 05/30/17 05:30 Hem Pathologist Commnt No 05/30/17 05:30 PT 12.4 Sec. (12.2-14.9) 06/02/17 08:27 INR 0.88 (0.87-1.13) 06/02/17 08:27 APTT 28.8 Sec. (24.2-36.6) 06/02/17 08:27 POC ABG pH 7.449 (7.35-7.45) 06/02/17 14:50 POC ABG pCO2 48.6 (35-45) H 06/02/17 14:50 POC ABG pO2 98 (80-105) 06/02/17 14:50 POC ABG HCO3 33.7 06/02/17 14:50 POC ABG Total CO2 35 06/02/17 14:50 POC ABG O2 Sat 98 06/02/17 14:50 POC ABG Base Excess 10 06/02/17 14:50 FiO2 30 % 06/02/17 14:50 Sodium 134 mmol/L (137-145) L 06/08/17 06:13 Potassium 4.4 mmol/L (3.6-5.0) 06/08/17 06:13 Chloride 95.3 mmol/L (98-107) L 06/08/17 06:13 Carbon Dioxide 27 mmol/L (22-30) 06/08/17 06:13 Anion Gap 16 mmol/L 06/08/17 06:13 BUN 9 mg/dL (9-20) 06/08/17 06:13 Creatinine 0.8 mg/dL (0.8-1.5) D 06/08/17 06:13 Estimated GFR > 60 ml/min 06/08/17 06:13 BUN/Creatinine Ratio 11 % 06/08/17 06:13 Glucose 83 mg/dL (75-100) 06/08/17 06:13 POC Glucose 85 (70-105) 06/10/17 21:51 Lactic Acid 1.90 mmol/L (0.7-2.0) 05/25/17 17:56 Calcium 8.9 mg/dL (8.4-10.2) 06/08/17 06:13 Ionized Calcium 5.6 mg/dL (4.8-5.6) 05/28/17 13:47 Magnesium 1.60 mg/dL (1.7-2.3) L 05/28/17 13:47 Total Bilirubin 0.40 mg/dL (0.1-1.2) 06/08/17 06:13 AST 32 units/L (5-40) 06/08/17 06:13 ALT 113 units/L (7-56) H 06/08/17 06:13 Alkaline Phosphatase 124 units/L (35-129) 06/08/17 06:13 Ammonia 33.0 umol/L (25-60) 05/25/17 13:32 Total Creatine Kinase 1318 units/L (55-170) H 06/01/17 23:00 Troponin T < 0.010 ng/mL (0.00-0.029) 05/25/17 13:32 C-Reactive Protein 15.20 mg/dL (0.00-1.30) H 05/26/17 15:41 Total Protein 6.0 g/dL (6.3-8.2) L 06/08/17 06:13 Albumin 2.8 g/dL (3.9-5) L 06/08/17 06:13 Albumin/Globulin Ratio 0.9 % 06/08/17 06:13 Vitamin B12 1108 pg/mL (211-911) H 05/30/17 16:28 1,25 Dihydroxy Vit D2 31 pg/mL 05/30/17 16:28 1,25 Dihydroxy Vit D3 26 pg/mL 05/30/17 16:28 TSH 1.400 mlU/mL (0.270-4.200) 05/30/17 16:28 Free T4 0.81 ng/dL (0.76-1.46) 05/30/17 16:28 Total Cortisol 14.6 mcg/dL () 06/05/17 05:50 Urine Color Yellow (Yellow) 05/25/17 14:11 Urine Turbidity Clear (Clear) 05/25/17 14:11 Urine pH 5.0 (5.0-7.0) 05/25/17 14:11 Ur Specific [place] 1.025 (1.003-1.030) 05/25/17 14:11 Urine Protein <15 mg/dl mg/dL (Negative) 05/25/17 14:11 Urine Glucose (UA) 50 mg/dL (Negative) 05/25/17 14:11 Urine Ketones Neg mg/dL (Negative) 05/25/17 14:11 Urine Blood Neg (Negative) 05/25/17 14:11 Urine Nitrite Neg (Negative) 05/25/17 14:11 Urine Bilirubin Neg (Negative) 05/25/17 14:11 Urine Urobilinogen < 2.0 mg/dL (<2.0) 05/25/17 14:11 Ur Leukocyte Esterase Neg (Negative) 05/25/17 14:11 Urine WBC (Auto) 3.0 /HPF (0.0-6.0) 05/25/17 14:11 Urine RBC (Auto) 2.0 /HPF (0.0-6.0) 05/25/17 14:11 Hyaline Casts 1 /LPF 05/25/17 14:11 Urine Mucus Few /HPF 05/25/17 14:11 Vancomycin Trough 18.1 ug/mL (5.0-20.0) 05/30/17 13:24 Salicylates < 0.3 mg/dL (2.8-20.0) L 05/25/17 13:32 Urine Opiates Screen Presumptive negative 05/25/17 14:11 Urine Methadone Screen Presumptive negative 05/25/17 14:11 Acetaminophen < 15.0 ug/mL (10.0-30.0) 05/25/17 13:32 Ur Barbiturates Screen Presumptive negative 05/25/17 14:11 Ur Phencyclidine Scrn Presumptive negative 05/25/17 14:11 Ur Amphetamines Screen Presumptive negative 05/25/17 14:11 U Benzodiazepines Scrn Presumptive negative 05/25/17 14:11 Urine Cocaine Screen Presumptive negative 05/25/17 14:11 U Marijuana (THC) Screen Presumptive negative 05/25/17 14:11 Drugs of Abuse Note Disclamer 05/25/17 14:11 Plasma/Serum Alcohol < 0.01 % (0-0.07) 05/25/17 13:32 MELBA Screen Negative (Negative) 05/30/17 05:30 Proteinase 3 (PR3) Ab <1.0 AI (<1.0) 05/30/17 05:30 Myeloperoxidase Ab <1.0 AI (<1.0) 05/30/17 05:30 CATHLEEN-1 Antibody <1.0 AI (<1.0) 06/01/17 Unknown Double Strand DNA Ab <1 IU/mL (<=4) 05/29/17 23:45 Complement C3 117 mg/dL (82-185) 05/30/17 05:30 Complement C4 22 mg/dL (15-53) 05/30/17 05:30 HIV 1&2 Antibody Rapid Non react (Non React) 05/26/17 12:38 HIV P24 Antigen Non react (Non React) 05/26/17 12:38 Urine Legionella Ag Not detected (Not Detected) 05/30/17 05:30 Miscellaneous Test Flexitest 1 H 05/31/17 Unknown Blood Type O POSITIVE 05/29/17 17:00 Antibody Screen Negative 05/29/17 17:00
[2017-06-11] MEDS: THERAGRAN-M Tab PO SCH (10:09)
[2017-06-11] MEDS: PEPCID PO SCH ×2 (10:09→21:31)
[2017-06-11] MEDS: VITAMIN B-1 PO SCH (10:10)
[2017-06-11] MEDS: VITAMIN D3 PO SCH (10:10)
[2017-06-11] MEDS: HALDOL IM PRN (17:10)
[2017-06-12] MEDS: D5NS 1,000 ML IV SCH (01:59)
[2017-06-12] MEDS: PEPCID PO SCH ×2 (10:54→23:33)
[2017-06-12] MEDS: THERAGRAN-M Tab PO SCH (10:54)
[2017-06-12] MEDS: VITAMIN D3 PO SCH (10:55)
[2017-06-12] MEDS: VITAMIN B-1 PO SCH (10:55)
[2017-06-12 10:58] LABS: Hematocrit 29.8 % (35.5-45.6); Hemoglobin 9.8 gm/dl (11.8-15.2); Mean Corpuscular HGB Conc 33 % (32-34); Mean Corpuscular Volume 77 fl (84-94); Platelet Count 440 K/mm3 (140-440); Red Blood Count 3.86 M/mm3 (3.65-5.03); Red Cell Distribution Width 16.8 % (13.2-15.2)
--- NOTE | 2017-06-12 10:58 | Progress Note ---
Assessment and Plan Assessment and plan: s/p fall -cont fall precaution - CT head, face unremarkable SEVERE SEPSIS WITH SEPTIC SHOCK- POA, - now afebrile. off levophed. Etiology aspiration pneumonia vs ? PLUMBER infection. - Influenza A/B PCR negative. s/p course of tamiflu. - Legionella and Strep pneumo urinary ag - negative. - Tracheal aspirate culture 05/29 S maltophilia - being treated for Aspiration Pneumonia also on coverage for possible meningitis/encephalitis - LP could not be done initially due to low platelet count Hypoglycemia, recurrent - could be from sepsis, suppressed hepatic glucose production (need details h/o alcohol abuse) will follow serum cortisol and IGF-1 level- ordered, still pending - also need to work up for insulinoma - on D5NS and pureed diet Severe Hypothermia on admission, resolved, - likely from sepsis, Acute Toxic Metabolic Encephalopathy, - being treated for meningitis/encephalitis - MRI brain when more stable, s/p repeat CT head showed no new findings - Pt also has h/o schizophrenia, psych on board Acute Respiratory Failure, required vent >96h - s/p extubation on 06/02/17 - cont nebs, supplemental O2 to keep sat >94% Thrombocytopenia was severe, now resolved . - s/p total 6 units of platelets transfusion - held all anticoagulant Aspiration Pneumonia with possible Post influenza Pneumonia - getting abx coverage per ID h/o Schizophrenia - psych on board, will follow recommendation Severe Protein Calorie Malnutrition - nutrition on board Hypernatremia. Now resolved. Sodium 138 today Elevated LFT, likely from sepsis - trending down hypokalemia, resolved Patient stable to transfer to med/surg floor. DVT prophylaxis. SCDs omly because Thrombocytopenia earlier in admission. Dc planning. Case management working on placement. - History Interval history: does not give history, No fever Hospitalist Physical - Physical exam Narrative exam: Gen appearance: Not in acute distress, lying in bed Neck:supple, no JVD HEENT: Small cut under right eyebrow, Lungs: Clear to auscultation bilaterally, no crackles , no wheeze Heart: S1 and S2 regular, no murmurs, rubs or gallop Abdomen: soft, non tender, non distended, normal bowel sounds Ext: No edema, no clubbing, no cyanosis Neuro: Awake, moves all ext - Constitutional Vitals: Temp Pulse Resp BP Pulse Ox 97.5 F L 89 18 113/77 100 06/12/17 08:36 06/12/17 08:36 06/12/17 08:36 06/12/17 08:36 06/12/17 08:36 General appearance: Present: no acute distress Results - Labs CBC & Chem 7: 06/12/17 10:30 06/12/17 10:30 Labs: Laboratory Last Values WBC 4.7 K/mm3 (4.5-11.0) 06/08/17 06:13 RBC 4.14 M/mm3 (3.65-5.03) 06/08/17 06:13 Hgb 10.6 gm/dl (11.8-15.2) L 06/08/17 06:13 Hct 31.6 % (35.5-45.6) L 06/08/17 06:13 MCV 77 fl (84-94) L 06/08/17 06:13 MCH 26 pg (28-32) L 06/08/17 06:13 MCHC 34 % (32-34) 06/08/17 06:13 RDW 14.9 % (13.2-15.2) 06/08/17 06:13 Plt Count 553 K/mm3 (140-440) H 06/08/17 06:13 Lymph % (Auto) 26.0 % (13.4-35.0) 06/08/17 06:13 [place] % (Auto) 10.1 % (0.0-7.3) H 06/08/17 06:13 Eos % (Auto) 1.0 % (0.0-4.3) 06/08/17 06:13 Baso % (Auto) 0.9 % (0.0-1.8) 06/08/17 06:13 Lymph # 1.2 K/mm3 (1.2-5.4) 06/08/17 06:13 [place] # 0.5 K/mm3 (0.0-0.8) 06/08/17 06:13 Eos # 0.0 K/mm3 (0.0-0.4) 06/08/17 06:13 Baso # 0.0 K/mm3 (0.0-0.1) 06/08/17 06:13 Add Manual Diff Complete 05/30/17 05:30 Total Counted 100 05/30/17 05:30 Seg Neutrophils % 62.0 % (40.0-70.0) 06/08/17 06:13 Seg Neuts % (Manual) 90.0 % (40.0-70.0) H 05/30/17 05:30 Band Neutrophils % 2.0 % 05/30/17 05:30 Lymphocytes % (Manual) 4.0 % (13.4-35.0) L 05/30/17 05:30 Reactive Lymphs % (Man) 0 % 05/30/17 05:30 Monocytes % (Manual) 2.0 % (0.0-7.3) 05/30/17 05:30 Eosinophils % (Manual) 0 % (0.0-4.3) 05/30/17 05:30 Basophils % (Manual) 0 % (0.0-1.8) 05/30/17 05:30 Metamyelocytes % 2.0 % 05/30/17 05:30 Myelocytes % 0 % 05/30/17 05:30 Promyelocytes % 0 % 05/30/17 05:30 Blast Cells % 0 % 05/30/17 05:30 Nucleated RBC % 1.0 % (0.0-0.9) H 05/30/17 05:30 Seg Neutrophils # 2.9 K/mm3 (1.8-7.7) 06/08/17 06:13 Seg Neutrophils # Man 5.6 K/mm3 (1.8-7.7) 05/30/17 05:30 Band Neutrophils # 0.1 K/mm3 05/30/17 05:30 Lymphocytes # (Manual) 0.2 K/mm3 (1.2-5.4) L 05/30/17 05:30 Abs React Lymphs (Man) 0.0 K/mm3 05/30/17 05:30 Monocytes # (Manual) 0.1 K/mm3 (0.0-0.8) 05/30/17 05:30 Eosinophils # (Manual) 0.0 K/mm3 (0.0-0.4) 05/30/17 05:30 Basophils # (Manual) 0.0 K/mm3 (0.0-0.1) 05/30/17 05:30 Metamyelocytes # 0.1 K/mm3 05/30/17 05:30 Myelocytes # 0.0 K/mm3 05/30/17 05:30 Promyelocytes # 0.0 K/mm3 05/30/17 05:30 Blast Cells # 0.0 K/mm3 05/30/17 05:30 WBC Morphology Not Reportable 05/30/17 05:30 Hypersegmented Neuts Not Reportable 05/30/17 05:30 Hyposegmented Neuts Not Reportable 05/30/17 05:30 Hypogranular Neuts Not Reportable 05/30/17 05:30 Smudge Cells Not Reportable 05/30/17 05:30 Toxic Granulation Not Reportable 05/30/17 05:30 Toxic Vacuolation Not Reportable 05/30/17 05:30 Dohle Bodies Not Reportable 05/30/17 05:30 Pelger-Huet Anomaly Not Reportable 05/30/17 05:30 Evon Rods Not Reportable 05/30/17 05:30 Platelet Estimate Cons 05/30/17 05:30 Clumped Platelets Not Reportable 05/30/17 05:30 Plt Clumps, EDTA Not Reportable 05/30/17 05:30 Large Platelets Not Reportable 05/30/17 05:30 Giant Platelets Not Reportable 05/30/17 05:30 Platelet Satelliting Not Reportable 05/30/17 05:30 Plt Morphology Comment Not Reportable 05/30/17 05:30 RBC Morphology Not Reportable 05/30/17 05:30 Dimorphic RBCs Not Reportable 05/30/17 05:30 Polychromasia Not Reportable 05/30/17 05:30 Hypochromasia 1+ 05/30/17 05:30 Poikilocytosis Not Reportable 05/30/17 05:30 Anisocytosis 1+ 05/30/17 05:30 Microcytosis Not Reportable 05/30/17 05:30 Macrocytosis Not Reportable 05/30/17 05:30 Spherocytes Not Reportable 05/30/17 05:30 Pappenheimer Bodies Not Reportable 05/30/17 05:30 Sickle Cells Not Reportable 05/30/17 05:30 Target Cells Not Reportable 05/30/17 05:30 Tear Drop Cells Not Reportable 05/30/17 05:30 Ovalocytes Not Reportable 05/30/17 05:30 Helmet Cells Not Reportable 05/30/17 05:30 Castaneda-[place] Bodies Not Reportable 05/30/17 05:30 [place] Rings Not Reportable 05/30/17 05:30 Gerda Cells Not Reportable 05/30/17 05:30 Bite Cells Not Reportable 05/30/17 05:30 Crenated Cell Not Reportable 05/30/17 05:30 Elliptocytes Not Reportable 05/30/17 05:30 Acanthocytes (Spur) Not Reportable 05/30/17 05:30 Rouleaux Not Reportable 05/30/17 05:30 Hemoglobin C Crystals Not Reportable 05/30/17 05:30 Schistocytes Not Reportable 05/30/17 05:30 Malaria parasites Not Reportable 05/30/17 05:30 Michael Bodies Not Reportable 05/30/17 05:30 Hem Pathologist Commnt No 05/30/17 05:30 PT 12.4 Sec. (12.2-14.9) 06/02/17 08:27 INR 0.88 (0.87-1.13) 06/02/17 08:27 APTT 28.8 Sec. (24.2-36.6) 06/02/17 08:27 POC ABG pH 7.449 (7.35-7.45) 06/02/17 14:50 POC ABG pCO2 48.6 (35-45) H 06/02/17 14:50 POC ABG pO2 98 (80-105) 06/02/17 14:50 POC ABG HCO3 33.7 06/02/17 14:50 POC ABG Total CO2 35 06/02/17 14:50 POC ABG O2 Sat 98 06/02/17 14:50 POC ABG Base Excess 10 06/02/17 14:50 FiO2 30 % 06/02/17 14:50 Sodium 134 mmol/L (137-145) L 06/08/17 06:13 Potassium 4.4 mmol/L (3.6-5.0) 06/08/17 06:13 Chloride 95.3 mmol/L (98-107) L 06/08/17 06:13 Carbon Dioxide 27 mmol/L (22-30) 06/08/17 06:13 Anion Gap 16 mmol/L 06/08/17 06:13 BUN 9 mg/dL (9-20) 06/08/17 06:13 Creatinine 0.8 mg/dL (0.8-1.5) D 06/08/17 06:13 Estimated GFR > 60 ml/min 06/08/17 06:13 BUN/Creatinine Ratio 11 % 06/08/17 06:13 Glucose 83 mg/dL (75-100) 06/08/17 06:13 POC Glucose 85 (70-105) 06/10/17 21:51 Lactic Acid 1.90 mmol/L (0.7-2.0) 05/25/17 17:56 Calcium 8.9 mg/dL (8.4-10.2) 06/08/17 06:13 Ionized Calcium 5.6 mg/dL (4.8-5.6) 05/28/17 13:47 Magnesium 1.60 mg/dL (1.7-2.3) L 05/28/17 13:47 Total Bilirubin 0.40 mg/dL (0.1-1.2) 06/08/17 06:13 AST 32 units/L (5-40) 06/08/17 06:13 ALT 113 units/L (7-56) H 06/08/17 06:13 Alkaline Phosphatase 124 units/L (35-129) 06/08/17 06:13 Ammonia 33.0 umol/L (25-60) 05/25/17 13:32 Total Creatine Kinase 1318 units/L (55-170) H 06/01/17 23:00 Troponin T < 0.010 ng/mL (0.00-0.029) 05/25/17 13:32 C-Reactive Protein 15.20 mg/dL (0.00-1.30) H 05/26/17 15:41 Total Protein 6.0 g/dL (6.3-8.2) L 06/08/17 06:13 Albumin 2.8 g/dL (3.9-5) L 06/08/17 06:13 Albumin/Globulin Ratio 0.9 % 06/08/17 06:13 Vitamin B12 1108 pg/mL (211-911) H 05/30/17 16:28 1,25 Dihydroxy Vit D2 31 pg/mL 05/30/17 16:28 1,25 Dihydroxy Vit D3 26 pg/mL 05/30/17 16:28 TSH 1.400 mlU/mL (0.270-4.200) 05/30/17 16:28 Free T4 0.81 ng/dL (0.76-1.46) 05/30/17 16:28 Total Cortisol 14.6 mcg/dL () 06/05/17 05:50 Urine Color Yellow (Yellow) 05/25/17 14:11 Urine Turbidity Clear (Clear) 05/25/17 14:11 Urine pH 5.0 (5.0-7.0) 05/25/17 14:11 Ur Specific [place] 1.025 (1.003-1.030) 05/25/17 14:11 Urine Protein <15 mg/dl mg/dL (Negative) 05/25/17 14:11 Urine Glucose (UA) 50 mg/dL (Negative) 05/25/17 14:11 Urine Ketones Neg mg/dL (Negative) 05/25/17 14:11 Urine Blood Neg (Negative) 05/25/17 14:11 Urine Nitrite Neg (Negative) 05/25/17 14:11 Urine Bilirubin Neg (Negative) 05/25/17 14:11 Urine Urobilinogen < 2.0 mg/dL (<2.0) 05/25/17 14:11 Ur Leukocyte Esterase Neg (Negative) 05/25/17 14:11 Urine WBC (Auto) 3.0 /HPF (0.0-6.0) 05/25/17 14:11 Urine RBC (Auto) 2.0 /HPF (0.0-6.0) 05/25/17 14:11 Hyaline Casts 1 /LPF 05/25/17 14:11 Urine Mucus Few /HPF 05/25/17 14:11 Vancomycin Trough 18.1 ug/mL (5.0-20.0) 05/30/17 13:24 Salicylates < 0.3 mg/dL (2.8-20.0) L 05/25/17 13:32 Urine Opiates Screen Presumptive negative 05/25/17 14:11 Urine Methadone Screen Presumptive negative 05/25/17 14:11 Acetaminophen < 15.0 ug/mL (10.0-30.0) 05/25/17 13:32 Ur Barbiturates Screen Presumptive negative 05/25/17 14:11 Ur Phencyclidine Scrn Presumptive negative 05/25/17 14:11 Ur Amphetamines Screen Presumptive negative 05/25/17 14:11 U Benzodiazepines Scrn Presumptive negative 05/25/17 14:11 Urine Cocaine Screen Presumptive negative 05/25/17 14:11 U Marijuana (THC) Screen Presumptive negative 05/25/17 14:11 Drugs of Abuse Note Disclamer 05/25/17 14:11 Plasma/Serum Alcohol < 0.01 % (0-0.07) 05/25/17 13:32 MELBA Screen Negative (Negative) 05/30/17 05:30 Proteinase 3 (PR3) Ab <1.0 AI (<1.0) 05/30/17 05:30 Myeloperoxidase Ab <1.0 AI (<1.0) 05/30/17 05:30 CATHLEEN-1 Antibody <1.0 AI (<1.0) 06/01/17 Unknown Double Strand DNA Ab <1 IU/mL (<=4) 05/29/17 23:45 Complement C3 117 mg/dL (82-185) 05/30/17 05:30 Complement C4 22 mg/dL (15-53) 05/30/17 05:30 HIV 1&2 Antibody Rapid Non react (Non React) 05/26/17 12:38 HIV P24 Antigen Non react (Non React) 05/26/17 12:38 Urine Legionella Ag Not detected (Not Detected) 05/30/17 05:30 Miscellaneous Test Flexitest 1 H 05/31/17 Unknown Blood Type O POSITIVE 05/29/17 17:00 Antibody Screen Negative 05/29/17 17:00
[2017-06-12 11:00] LABS: Mean Corpuscular Hemoglobin 25 pg (28-32)
[2017-06-12 11:19] LABS: BUN/Creatinine Ratio 20; Blood Urea Nitrogen 12 mg/dL (9-20); Calcium 8.6 mg/dL (8.4-10.2); Hemolysis Index 3
[2017-06-12] MEDS: HALDOL IM PRN (17:23)
[2017-06-13] MEDS: PEPCID PO SCH ×2 (09:27→22:33)
[2017-06-13] MEDS: THERAGRAN-M Tab PO SCH (09:27)
[2017-06-13] MEDS: VITAMIN B-1 PO SCH (09:27)
[2017-06-13] MEDS: VITAMIN D3 PO SCH (09:28)
[2017-06-13] MEDS: HALDOL IM PRN ×3 (09:28→22:33)
[2017-06-14] MEDS: HALDOL IM PRN (04:22)
[2017-06-14] MEDS: PEPCID PO SCH ×2 (12:12→21:06)
[2017-06-14] MEDS: VITAMIN D3 PO SCH (12:12)
[2017-06-14] MEDS: THERAGRAN-M Tab PO SCH (12:12)
[2017-06-14] MEDS: VITAMIN B-1 PO SCH (12:12)
--- NOTE | 2017-06-14 13:26 | Progress Note ---
Assessment and Plan Assessment and plan: Patient is 42 years old AA male, [facility] for evaluation of altered mental status and bradycardia. Also Hypothermic Only history available is schizophrenia. No other information can be obtained at this moment since patient is not communicating.No fever or chills per [facility] staff. The patient's presented with a fall, he received fall precaution CT of his head and face were unremarkable. The patient was treated for aspiration pneumonia. There was initially concern of possible [employer] infection. 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 Naina during his hospital course he was intubated on the ventilator and on pressors. He was weaned off pressors he was "managed by infectious disease, he was weaned off ventilator, patient was doing well on room air. e. He did receive platelet transfusion for thrombocytopenia and all anticoagulants were held. His electrolytes were repleted, he received psychiatric evaluation who recommended low-dose Zyprexa daily.As the patient lacks judgment and unable to care for himself at personal long-term is being set up for him Diagnosis Mechanical fall SEVERE SEPSIS WITH SEPTIC SHOCK- POA, Hypoglycemia, Dementia Schizophrenia Acute Toxic Metabolic Encephalopathy, Acute Respiratory Failure, required vent >96h Thrombocytopenia was severe, now resolved . Aspiration Pneumonia Severe Protein Calorie Malnutrition Hypernatremia. Transaminitis due to shock liver hypokalemia History Interval history: *Review of systems Constitutional: No fevers, no malaise, no joint pains CVS: No chest pain, no orthopnea, no dyspnea on exertion, no pedal edema GI: No abdominal pain, no diarrhea, no vomiting, no constipation Respiratory: No shortness of breath, no wheezing, no coughing Hospitalist Physical - Physical exam Narrative exam: General.: Appears well, no distress, nontoxic HEENT: Moist mucous membranes, extraocular muscles intact, no lymphadenopathy Neck: supple Cardiac: S1-S2 heard Lungs: clear to auscultation bilaterally Abdomen: soft , nontender, nondistended, bowel sounds positive Extremities: no edema clubbing or cyanosis Skin: no rash or lesions Neurologic: no gross focal deficits, patient is mostly nonverbal, but cooperative, has tendency to roam. Very childlike behavior, constantly smiling. He's not conversing, but when movements are demonstrated to him he's able to repeat them back on command. Lacks judgments, but pleasant and cooperative - Constitutional Vitals: Temp Pulse Resp BP Pulse Ox 97.7 F 75 18 87/38 100 06/14/17 09:12 06/14/17 09:12 06/14/17 09:12 06/14/17 09:12 06/14/17 09:12 General appearance: Present: no acute distress Results - Labs CBC & Chem 7: 06/12/17 10:30 06/12/17 10:30 Labs: Laboratory Last Values WBC 4.6 K/mm3 (4.5-11.0) 06/12/17 10:30 RBC 3.86 M/mm3 (3.65-5.03) 06/12/17 10:30 Hgb 9.8 gm/dl (11.8-15.2) L 06/12/17 10:30 Hct 29.8 % (35.5-45.6) L 06/12/17 10:30 MCV 77 fl (84-94) L 06/12/17 10:30 MCH 25 pg (28-32) L 06/12/17 10:30 MCHC 33 % (32-34) 06/12/17 10:30 RDW 16.8 % (13.2-15.2) H 06/12/17 10:30 Plt Count 440 K/mm3 (140-440) 06/12/17 10:30 Lymph % (Auto) 26.0 % (13.4-35.0) 06/08/17 06:13 [place] % (Auto) 10.1 % (0.0-7.3) H 06/08/17 06:13 Eos % (Auto) 1.0 % (0.0-4.3) 06/08/17 06:13 Baso % (Auto) 0.9 % (0.0-1.8) 06/08/17 06:13 Lymph # 1.2 K/mm3 (1.2-5.4) 06/08/17 06:13 [place] # 0.5 K/mm3 (0.0-0.8) 06/08/17 06:13 Eos # 0.0 K/mm3 (0.0-0.4) 06/08/17 06:13 Baso # 0.0 K/mm3 (0.0-0.1) 06/08/17 06:13 Add Manual Diff Complete 05/30/17 05:30 Total Counted 100 05/30/17 05:30 Seg Neutrophils % 62.0 % (40.0-70.0) 06/08/17 06:13 Seg Neuts % (Manual) 90.0 % (40.0-70.0) H 05/30/17 05:30 Band Neutrophils % 2.0 % 05/30/17 05:30 Lymphocytes % (Manual) 4.0 % (13.4-35.0) L 05/30/17 05:30 Reactive Lymphs % (Man) 0 % 05/30/17 05:30 Monocytes % (Manual) 2.0 % (0.0-7.3) 05/30/17 05:30 Eosinophils % (Manual) 0 % (0.0-4.3) 05/30/17 05:30 Basophils % (Manual) 0 % (0.0-1.8) 05/30/17 05:30 Metamyelocytes % 2.0 % 05/30/17 05:30 Myelocytes % 0 % 05/30/17 05:30 Promyelocytes % 0 % 05/30/17 05:30 Blast Cells % 0 % 05/30/17 05:30 Nucleated RBC % 1.0 % (0.0-0.9) H 05/30/17 05:30 Seg Neutrophils # 2.9 K/mm3 (1.8-7.7) 06/08/17 06:13 Seg Neutrophils # Man 5.6 K/mm3 (1.8-7.7) 05/30/17 05:30 Band Neutrophils # 0.1 K/mm3 05/30/17 05:30 Lymphocytes # (Manual) 0.2 K/mm3 (1.2-5.4) L 05/30/17 05:30 Abs React Lymphs (Man) 0.0 K/mm3 05/30/17 05:30 Monocytes # (Manual) 0.1 K/mm3 (0.0-0.8) 05/30/17 05:30 Eosinophils # (Manual) 0.0 K/mm3 (0.0-0.4) 05/30/17 05:30 Basophils # (Manual) 0.0 K/mm3 (0.0-0.1) 05/30/17 05:30 Metamyelocytes # 0.1 K/mm3 05/30/17 05:30 Myelocytes # 0.0 K/mm3 05/30/17 05:30 Promyelocytes # 0.0 K/mm3 05/30/17 05:30 Blast Cells # 0.0 K/mm3 05/30/17 05:30 WBC Morphology Not Reportable 05/30/17 05:30 Hypersegmented Neuts Not Reportable 05/30/17 05:30 Hyposegmented Neuts Not Reportable 05/30/17 05:30 Hypogranular Neuts Not Reportable 05/30/17 05:30 Smudge Cells Not Reportable 05/30/17 05:30 Toxic Granulation Not Reportable 05/30/17 05:30 Toxic Vacuolation Not Reportable 05/30/17 05:30 Dohle Bodies Not Reportable 05/30/17 05:30 Pelger-Huet Anomaly Not Reportable 05/30/17 05:30 Evon Rods Not Reportable 05/30/17 05:30 Platelet Estimate Cons 05/30/17 05:30 Clumped Platelets Not Reportable 05/30/17 05:30 Plt Clumps, EDTA Not Reportable 05/30/17 05:30 Large Platelets Not Reportable 05/30/17 05:30 Giant Platelets Not Reportable 05/30/17 05:30 Platelet Satelliting Not Reportable 05/30/17 05:30 Plt Morphology Comment Not Reportable 05/30/17 05:30 RBC Morphology Not Reportable 05/30/17 05:30 Dimorphic RBCs Not Reportable 05/30/17 05:30 Polychromasia Not Reportable 05/30/17 05:30 Hypochromasia 1+ 05/30/17 05:30 Poikilocytosis Not Reportable 05/30/17 05:30 Anisocytosis 1+ 05/30/17 05:30 Microcytosis Not Reportable 05/30/17 05:30 Macrocytosis Not Reportable 05/30/17 05:30 Spherocytes Not Reportable 05/30/17 05:30 Pappenheimer Bodies Not Reportable 05/30/17 05:30 Sickle Cells Not Reportable 05/30/17 05:30 Target Cells Not Reportable 05/30/17 05:30 Tear Drop Cells Not Reportable 05/30/17 05:30 Ovalocytes Not Reportable 05/30/17 05:30 Helmet Cells Not Reportable 05/30/17 05:30 Castaneda-[place] Bodies Not Reportable 05/30/17 05:30 Sacul Rings Not Reportable 05/30/17 05:30 Gerda Cells Not Reportable 05/30/17 05:30 Bite Cells Not Reportable 05/30/17 05:30 Crenated Cell Not Reportable 05/30/17 05:30 Elliptocytes Not Reportable 05/30/17 05:30 Acanthocytes (Spur) Not Reportable 05/30/17 05:30 Rouleaux Not Reportable 05/30/17 05:30 Hemoglobin C Crystals Not Reportable 05/30/17 05:30 Schistocytes Not Reportable 05/30/17 05:30 Malaria parasites Not Reportable 05/30/17 05:30 Michael Bodies Not Reportable 05/30/17 05:30 Hem Pathologist Commnt No 05/30/17 05:30 PT 12.4 Sec. (12.2-14.9) 06/02/17 08:27 INR 0.88 (0.87-1.13) 06/02/17 08:27 APTT 28.8 Sec. (24.2-36.6) 06/02/17 08:27 POC ABG pH 7.449 (7.35-7.45) 06/02/17 14:50 POC ABG pCO2 48.6 (35-45) H 06/02/17 14:50 POC ABG pO2 98 (80-105) 06/02/17 14:50 POC ABG HCO3 33.7 06/02/17 14:50 POC ABG Total CO2 35 06/02/17 14:50 POC ABG O2 Sat 98 06/02/17 14:50 POC ABG Base Excess 10 06/02/17 14:50 FiO2 30 % 06/02/17 14:50 Sodium 138 mmol/L (137-145) 06/12/17 10:30 Potassium 4.3 mmol/L (3.6-5.0) 06/12/17 10:30 Chloride 100.3 mmol/L (98-107) 06/12/17 10:30 Carbon Dioxide 28 mmol/L (22-30) 06/12/17 10:30 Anion Gap 14 mmol/L 06/12/17 10:30 BUN 12 mg/dL (9-20) 06/12/17 10:30 Creatinine 0.6 mg/dL (0.8-1.5) L 06/12/17 10:30 Estimated GFR > 60 ml/min 06/12/17 10:30 BUN/Creatinine Ratio 20 % 06/12/17 10:30 Glucose 76 mg/dL (75-100) 06/12/17 10:30 POC Glucose 85 (70-105) 06/10/17 21:51 Lactic Acid 1.90 mmol/L (0.7-2.0) 05/25/17 17:56 Calcium 8.6 mg/dL (8.4-10.2) 06/12/17 10:30 Ionized Calcium 5.6 mg/dL (4.8-5.6) 05/28/17 13:47 Magnesium 1.60 mg/dL (1.7-2.3) L 05/28/17 13:47 Total Bilirubin 0.40 mg/dL (0.1-1.2) 06/08/17 06:13 AST 32 units/L (5-40) 06/08/17 06:13 ALT 113 units/L (7-56) H 06/08/17 06:13 Alkaline Phosphatase 124 units/L (35-129) 06/08/17 06:13 Ammonia 33.0 umol/L (25-60) 05/25/17 13:32 Total Creatine Kinase 1318 units/L (55-170) H 06/01/17 23:00 Troponin T < 0.010 ng/mL (0.00-0.029) 05/25/17 13:32 C-Reactive Protein 15.20 mg/dL (0.00-1.30) H 05/26/17 15:41 Total Protein 6.0 g/dL (6.3-8.2) L 06/08/17 06:13 Albumin 2.8 g/dL (3.9-5) L 06/08/17 06:13 Albumin/Globulin Ratio 0.9 % 06/08/17 06:13 Vitamin B12 1108 pg/mL (211-911) H 05/30/17 16:28 1,25 Dihydroxy Vit D2 31 pg/mL 05/30/17 16:28 1,25 Dihydroxy Vit D3 26 pg/mL 05/30/17 16:28 TSH 1.400 mlU/mL (0.270-4.200) 05/30/17 16:28 Free T4 0.81 ng/dL (0.76-1.46) 05/30/17 16:28 Total Cortisol 14.6 mcg/dL () 06/05/17 05:50 Urine Color Yellow (Yellow) 05/25/17 14:11 Urine Turbidity Clear (Clear) 05/25/17 14:11 Urine pH 5.0 (5.0-7.0) 05/25/17 14:11 Ur Specific [place] 1.025 (1.003-1.030) 05/25/17 14:11 Urine Protein <15 mg/dl mg/dL (Negative) 05/25/17 14:11 Urine Glucose (UA) 50 mg/dL (Negative) 05/25/17 14:11 Urine Ketones Neg mg/dL (Negative) 05/25/17 14:11 Urine Blood Neg (Negative) 05/25/17 14:11 Urine Nitrite Neg (Negative) 05/25/17 14:11 Urine Bilirubin Neg (Negative) 05/25/17 14:11 Urine Urobilinogen < 2.0 mg/dL (<2.0) 05/25/17 14:11 Ur Leukocyte Esterase Neg (Negative) 05/25/17 14:11 Urine WBC (Auto) 3.0 /HPF (0.0-6.0) 05/25/17 14:11 Urine RBC (Auto) 2.0 /HPF (0.0-6.0) 05/25/17 14:11 Hyaline Casts 1 /LPF 05/25/17 14:11 Urine Mucus Few /HPF 05/25/17 14:11 Vancomycin Trough 18.1 ug/mL (5.0-20.0) 05/30/17 13:24 Salicylates < 0.3 mg/dL (2.8-20.0) L 05/25/17 13:32 Urine Opiates Screen Presumptive negative 05/25/17 14:11 Urine Methadone Screen Presumptive negative 05/25/17 14:11 Acetaminophen < 15.0 ug/mL (10.0-30.0) 05/25/17 13:32 Ur Barbiturates Screen Presumptive negative 05/25/17 14:11 Ur Phencyclidine Scrn Presumptive negative 05/25/17 14:11 Ur Amphetamines Screen Presumptive negative 05/25/17 14:11 U Benzodiazepines Scrn Presumptive negative 05/25/17 14:11 Urine Cocaine Screen Presumptive negative 05/25/17 14:11 U Marijuana (THC) Screen Presumptive negative 05/25/17 14:11 Drugs of Abuse Note Disclamer 05/25/17 14:11 Plasma/Serum Alcohol < 0.01 % (0-0.07) 05/25/17 13:32 MELBA Screen Negative (Negative) 05/30/17 05:30 Proteinase 3 (PR3) Ab <1.0 AI (<1.0) 05/30/17 05:30 Myeloperoxidase Ab <1.0 AI (<1.0) 05/30/17 05:30 CATHLEEN-1 Antibody <1.0 AI (<1.0) 06/01/17 Unknown Double Strand DNA Ab <1 IU/mL (<=4) 05/29/17 23:45 Complement C3 117 mg/dL (82-185) 05/30/17 05:30 Complement C4 22 mg/dL (15-53) 05/30/17 05:30 HIV 1&2 Antibody Rapid Non react (Non React) 05/26/17 12:38 HIV P24 Antigen Non react (Non React) 05/26/17 12:38 Urine Legionella Ag Not detected (Not Detected) 05/30/17 05:30 Miscellaneous Test Flexitest 1 H 05/31/17 Unknown Blood Type O POSITIVE 05/29/17 17:00 Antibody Screen Negative 05/29/17 17:00
[2017-06-15] MEDS ORDERED: NACL 0.9% 1000 ML 1,000 ML IV ONE (04:41)
[2017-06-15] MEDS ORDERED: NACL 0.9% 1000 ML 1,000 ML ONE (04:42)
[2017-06-15] MEDS: HALDOL IM PRN (09:28)
[2017-06-15] MEDS: THERAGRAN-M Tab PO SCH (09:28)
[2017-06-15] MEDS: VITAMIN B-1 PO SCH (09:28)
[2017-06-15] MEDS: VITAMIN D3 PO SCH (09:28)
[2017-06-15] MEDS: PEPCID PO SCH (09:28)
--- NOTE | 2017-06-15 10:57 | Progress Note ---
Subjective - Reason for Consult Consult date: 06/15/17 Reason for consult: Psychiatry Follow-up - Chief Complaint Chief complaint: "The patient is nonverbal" Patient is 42 years old AA male from intermediate for evaluation of altered mental status and bradycardia. Today the patient is calm and cooperative during the assessment. The patient is nonverbal, but follows commands. When he was asked his name is grinned and pointed to himself. Per the staff, the patient eats his meals and completes his ADL's. Per the record from the [facility], the patient has a hx of schizophrenia. Ne gestures of SI/HI's and AVH's. Mental Status Exam - Vital signs Last Vital Signs Temp 99.2 F 06/15/17 08:28 Pulse 103 H 06/15/17 08:28 Resp 16 06/15/17 08:28 BP 96/56 06/15/17 08:28 Pulse Ox 98 06/15/17 08:28 - Exam Narrative exam: MSE: Appearance: calm, cooperative Behavior: regular eye contact Speech: regular rate and tone Mood: unable to assess Affect: flat Thought Process: unable to assess Thought Content: no gestures of SI/HI's and AVH's Motor Activity: sitting up in bed Cognition: Alert Insight: unable to assess Judgment: unable to assess Assessment and Plan Impression: Possible an underlining Psychotic DO. Today the patient is calm and cooperative during the assessment. No agitation observed during the interview. DDx: Schizophrenia, Schizoaffective DO, R/O Bipolar DO Recommendation/Plan: Start Zyprexa 5 mg PO now. The patient can take the Zyprexa HS once discharged. The patient is pending placement today per school social worker. Informed [employer], the patient can follow up with [facility] for outpatient psy services once discharged.
--- NOTE | 2017-06-15 11:47 | Discharge Summary ---
Providers - Providers Date of Admission: 05/25/17 22:15 Attending physician: JOSE HARRIS MD 05/26/17 06:00 Consult to Mental Health [CONS] Routine Reason For Exam: AMS/Schizophrenia Place consult to:: y Notified:: y Was contact made?: Yes 05/26/17 06:01 Consult to Dietitian/Nutrition [CONS] Routine Physician Instructions: Reason For Exam: Reason for Consult: Pt needs oral supplement 05/26/17 08:08 Consult to Physician [CONS] Routine Consulting Provider: CRISTI MOSES Reason For Exam: Sepsis Notified:: yes 05/26/17 11:23 Consult to PICC Line RN [CONS] Routine Reason For Exam: PICC Type Line:: PICC 05/26/17 19:16 Consult to Wound/ET Nurse [CONS] Routine Reason For Exam: eval right foot wound 05/30/17 11:52 Consult to Physician [CONS] Routine Consulting Provider: HERB ABAD Reason For Exam: AMS Place consult to:: Dr Abad Notified:: yes, message left [id number] 05/31/17 07:35 Consult to Dietitian/Nutrition [CONS] Routine Physician Instructions: Assess nutrtn needs, initiate, modify, manage TF Reason For Exam: Reason for Consult: Write/Manage Tube Feeding Reason for Consult: Write/Manage Tube Feeding 06/05/17 08:48 Speech Therapy Evaluation and Treat [CONS] Routine Reason For Exam: aspiration 06/08/17 15:20 Occupational Therapy Evaluate and Treat [CONS] Routine Comment: Reason For Exam: discharge needs Physical Therapy Evaluation and Treat [CONS] Routine Comment: Reason For Exam: discharge needs 06/14/17 15:18 Consult to Mental Health [CONS] Routine Reason For Exam: schizo/AMS/ mood stablization Place consult to:: Cayla Notified:: yes Phone number called:: [phone] Primary care physician: D[employer]EL ENGINE [employer] Hospitalization Condition: Stable Hospital course: Patient is 42 years old AA male, from correction for evaluation of altered mental status and bradycardia. Also Hypothermic Only history available is schizophrenia. No other information can be obtained at this moment since patient is not communicating.No fever or chills per [facility] staff. The patient's presented with a fall, he received fall precaution CT of his head and face were unremarkable. The patient was treated for aspiration pneumonia. There was initially concern of possible [employer] DISPATCHER infection. 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 Naina during his hospital course he was intubated on the ventilator and on pressors. He was weaned off pressors he was "managed by infectious disease, he was weaned off ventilator, patient was doing well on room air. e. He did receive platelet transfusion for thrombocytopenia and all anticoagulants were held. His electrolytes were repleted, he received psychiatric evaluation who recommended low-dose Zyprexa daily.As the patient lacks judgment and unable to care for himself at personal prison was set up for him prior to dc Diagnosis Mechanical fall SEVERE SEPSIS WITH SEPTIC SHOCK- POA, Hypoglycemia, Dementia Schizophrenia Acute Toxic Metabolic Encephalopathy, Acute Respiratory Failure, required vent >96h Thrombocytopenia was severe, now resolved . Aspiration Pneumonia Severe Protein Calorie Malnutrition Hypernatremia. Transaminitis due to shock liver hypokalemia Disposition: DC/TX-70 ANOTHER TYPE HLTHCARE Time spent for discharge: 33 minutes Core Measure Documentation - Palliative Care Palliative Care/ Comfort Measures: Not Applicable - Core Measures Any of the following diagnoses?: none Exam - Constitutional Vitals: Temp Pulse Resp BP Pulse Ox 99.2 F 103 H 16 96/56 98 06/15/17 08:28 06/15/17 08:28 06/15/17 08:28 06/15/17 08:28 06/15/17 08:28 General appearance: Present: no acute distress, well-nourished - EENT Eyes: Present: PERRL ENT: hearing intact, clear oral mucosa - Neck Neck: Present: supple, normal ROM - Respiratory Respiratory effort: normal Respiratory: bilateral: CTA - Cardiovascular Heart Sounds: Present: S1 & S2. Absent: rub, click - Extremities Extremities: pulses symmetrical, No edema Peripheral Pulses: within normal limits - Abdominal General gastrointestinal: Present: soft, non-tender, non-distended, normal bowel sounds Male genitourinary: Present: normal - Integumentary Integumentary: Present: clear, warm, dry - Musculoskeletal Musculoskeletal: gait normal, strength equal bilaterally - Psychiatric Psychiatric: appropriate mood/affect, intact judgment & insight - Neurologic Neurologic: CNII-XII intact, moves all extremities Plan Follow up with: PRIMARY CARE, [Primary Care Provider] - 3-5 Days Prescriptions: Haloperidol [Haldol] 1 mg PO TID PRN #90 tab PRN Reason: Agitation Multivitamin Tab W-MINERAL [Multiple Vitamin/Mineral (Theragran M)] 1 each PO QDAY #30 tablet OLANzapine [ZyPREXA] 5 mg PO HS #30 tablet Thiamine [Vitamin B-1] 100 mg PO QDAY #30 tablet
[2017-06-15 15:52] VITALS: BP 102/65
[2017-06-16 07:58] LABS: Anti-TPO Antibodies SEE SCANNED RESULT; Thyroglobulin Antibodies SEE SCANNED RESULT
== END 2017-06-15 16:10 | disposition home health service (06) | DRG 870 ==
LOC: ED 12:11 → CC1 22:15 → 4A 06-05 18:48 → 3A 06-11 14:33
PROVIDERS: ADMIT Internal Medicine; ATTEND Internal Medicine
PROC: 5A1955Z Respiratory Ventilation, Greater than 96 Consecutive Hours (ICD-10-PCS; principal; 2017-05-26)
PROC: 0BH17EZ Insertion of Endotracheal Airway into Trachea, Via Natural or Artificial Opening (ICD-10-PCS; 2017-05-26)
PROC: 4A033R1 Measurement of Arterial Saturation, Peripheral, Percutaneous Approach (ICD-10-PCS; 2017-05-26)
PROC: 02HV33Z Insertion of Infusion Device into Superior Vena Cava, Percutaneous Approach (ICD-10-PCS; 2017-05-26)
PROC: 30233N1 Transfusion of Nonautologous Red Blood Cells into Peripheral Vein, Percutaneous Approach (ICD-10-PCS; 2017-05-30)
DX: A41.9 Sepsis, unspecified organism (principal); J69.0 Pneumonitis due to inhalation of food and vomit; J96.00 Acute respiratory failure, unspecified whether with hypoxia or hypercapnia; R65.21 Severe sepsis with septic shock; G92 Toxic encephalopathy; E43 Unspecified severe protein-calorie malnutrition; E87.0 Hyperosmolality and hypernatremia; D69.6 Thrombocytopenia, unspecified; F03.90 Unspecified dementia, unspecified severity, without behavioral disturbance, psychotic disturbance, mood disturbance, and anxiety; E16.2 Hypoglycemia, unspecified; F20.9 Schizophrenia, unspecified; R74.0 Nonspecific elevation of levels of transaminase and lactic acid dehydrogenase [LDH]; E87.6 Hypokalemia; T68.XXXA Hypothermia, initial encounter; D64.9 Anemia, unspecified; Z68.1 Body mass index [BMI] 19.9 or less, adult; Z68.20 Body mass index [BMI] 20.0-20.9, adult
CPT/HCPCS: 31500; 36415; 36600; 70450; 70486; 71045; 72125; 74018; 74230; 80048; 80053; 80202; 80307; 80320; 81001; 82085; 82140; 82330; 82533; 82550; 82607; 82652; 82803; 82962; 83735; 84305; 84439; 84443; 84484; 85007; 85014; 85018; 85025; 85027; 85610; 85730; 86021; 86038; 86140; 86160; 86225; 86235; 86800; 86850; 86900; 86901; 87040; 87070; 87076; 87186; 87205; 87449; 87806; 93005; 93010; 93306; 94002; 94003; 94760; 95819; 96361; 96365; 96375; 99291; G0480; J0133; J0456; J0461; J0696; J1630; J1650; J1720; J1956; J2250; J2543; J3010; J3370; J3475; J3480; J7030; J7040; J7042; J7050; P9035